=== PATIENT | female | born 1950 | race Caucasian/White ===

== ENCOUNTER 2019-08-23 14:26 | Inpatient (IN) | payer MEDICARE, MEDICAID, SELFPAY ==
[2019-08-23] VITALS (11 sets, daily range): BP systolic 125–169; BP diastolic 38–86; PULSE 68–78; RESP 14–18; TEMP 36.3–37.2; O2SAT 95–100; BMI 45.3
--- NOTE | 2019-08-23 14:27 | ED_ITS ---
Entered by Leola Mccain, acting as scribe for Jackson Wilcox DO HPI - Extremity Injury (Lower) General: Chief Complaint: Extremity Injury, Lower Stated Complaint: FALL, ANKLE PAIN Time Seen by Provider: 08/23/19 14:27 Source: patient and EMS Mode of arrival: EMS Limitations: no limitations History of Present Illness: HPI Narrative: 69 yo female presents with R ankle pain. pt states this occurred just lpta. pt states she was picking up trash and her legs gave out and she went down. pt states nothing makes this better. pt denies any other symptoms at this time. complaint: ankle injury, foot injury and fall Onset (ago): minute(s) (just lpta) Injury: Right: ankle and foot Type of Injury: other (fell and twisted ankle) Place: home Severity: mild Exacerbating factors: weight bearing Context: fall and walking Other symptoms: none Review of Systems General: Reports: 10 or more systems reviewed and unremarkable except in HPI and below Const: Denies: fever, chills, body aches, change in appetite, fatigue or malaise ENMT: Denies: throat pain, ear pain, nasal discharge or nasal congestion Card: Denies: chest pain, edema, shortness of breath on exertion or shortness of breath when lying down Resp: Denies: shortness of breath, productive cough or non-productive cough GI: Denies: abdominal pain, nausea, vomiting, vomiting blood, coffee grounds in vomit, diarrhea, constipation, bloating, blood in stool or black tarry stool : Denies: flank pain, difficulty urinating, painful urination, urinary frequency or urinary urgency Skin/Breast: Denies: rash or itching PFSH ED PFSH: Medical History (Updated 08/23/19 @ 17:23 by Jackson Wilcox DO) Cerebrovascular accident Chronic kidney disease Coronary artery disease Depression Diabetes Heart murmur Hyperlipidemia Hypertension Obesity Restless leg syndrome Surgical History (Updated 08/23/19 @ 15:53 by Soren Guo MD) History of cholecystectomy History of hernia repair History of tubal ligation Family History (Updated 08/23/19 @ 15:53 by Soren Guo MD) Other Diabetes Social History (Updated 08/23/19 @ 15:53 by Soren Guo MD) Smoking and tobacco status: never smoked Alcohol intake: never Substance/Drug Use: never Physical Exam Const: COMMON NORMALS: no apparent distress GENERAL APPEARANCE: cooperative and comfortable ORIENTATION/CONSCIOUSNESS: Yes awake, Yes oriented to person, Yes oriented to place and Yes oriented to time HENMT: COMMON NORMALS: normocephalic, head/scalp atraumatic, hearing grossly normal bilaterally, external ears normal, EAC's normal, TM's normal bilaterally, nasal mucous membranes and turbinates normal, moist oral mucous membranes and oropharynx normal HEAD & SCALP: normocephalic and atraumatic NOSE: nasal mucous membranes and turbinates normal EXTERNAL EAR: Yes external ears normal EXTERNAL AUDITORY CANAL: EAC's normal TYMPANIC MEMBRANE: TM's normal bilaterally Eye: COMMON NORMALS: PERRL, EOMs intact bilaterally, conjunctivae normal and no scleral icterus CONJUNCTIVA: Yes conjunctivae normal PUPIL: Yes PERRL Neck/C-Spine: COMMON NORMALS: full ROM, no lymphadenopathy, supple and no JVD Lymph: LYMPHATIC: no lymphadenopathy noted and no lymphedema noted Resp: COMMON NORMALS: normal respiratory effort, no retractions, no use of accessory muscles and clear to auscultation bilaterally AUSCULTATION: clear to auscultation bilaterally Cardio: COMMON NORMALS: no JVD, regular rate and regular rhythm RATE: regular rate RHYTHM: regular rhythm HEART SOUNDS: murmur (4/6 systolic ) GI: COMMON NORMALS: soft to palpation and no hepatosplenomegaly AUSCULTATION: Yes normoactive bowel sounds PALPATION: Yes soft, No tender, No guarding and Yes no hepatosplenomegaly Extremity: OTHER: Obvious deformity of the right ankle consistent with fracture seen on x-ray. Neuro: SENSORIUM/ORIENTATION: Yes oriented to person, Yes oriented to place and Yes oriented to time Skin: COMMON NORMALS: no rashes or lesions noted GENERAL SKIN EXAM: no rashes or lesions noted Procedures Orthopedic Fracture Reduction Fracture #1: Time Out Performed: Yes Side: right Analgesia: procedural sedation Technique: direct manipulation Post Reduction X-rays Demonstrate: anatomical reduction Post-reduction neuro exam: intact Post-reduction vascular exam: intact Splint Applied: Yes Patient Tolerated Procedure: well and no complications Additional Comments: Right trimalleolar fracture reduced without complications postop film looks good in the splint. Procedural Sedation Indication: fracture/dislocation reduction Preparation: hurricane tracker applied, pulse oximeter and supplemental O2 applied Fentanyl: IV Fentanyl dose (mcg): 50 IV Etomidate dose (mg): 10 Patient Tolerated Procedure: well and no complications Complications: none Course ED course: I called and talked to Dr. Stock about admission on the pt she will consult on the pt with hospitalist admission. I called Dr. Guo on admission left a message waiting for a call back. Vital Signs: Vital signs: Vital Signs Temperature 97.9 F 08/23/19 17:05 Pulse Rate 68 08/23/19 17:08 Respiratory Rate 18 08/23/19 17:08 Blood Pressure 145/84 08/23/19 17:05 Pulse Oximetry 95 08/23/19 17:08 MDM - Extremity Injury (Lower) Lab Data: Labs: Lab Results 08/23/19 08/23/19 08/23/19 Range/Units 15:16 15:16 15:16 WBC 9.4 (4.0-10.0) 10^3/ uL RBC 3.95 L (4.1-5.3) 10^6/u L Hgb 12.0 (11.5-15.3) g/dL Hct 36.5 L (37.0-47.0) % MCV 92.4 (81-99) fL MCH 30.4 (28.0-34.0) pg MCHC 32.9 (30.0-36.0) g/dL RDW 12.8 (12.1-15.1) % Plt Count 236 (130-400) 10^3/c mm MPV 11.7 H (7.4-10.4) fL Neut % (Auto) 64.0 % Lymph % (Auto) 28.6 % Slope % (Auto) 5.0 % Eos % (Auto) 1.6 % Baso % (Auto) 0.4 % Neut # (Auto) 6.0 (1.8-7.7) 10^3/u L Lymph # (Auto) 2.7 (0.8-4.8) 10^3/u L Slope # (Auto) 0.5 (0.2-0.9) 10^3/u L Eos # (Auto) 0.2 (0.0-0.8) 10^3/u L Baso # (Auto) 0.0 (0.0-0.1) 10^3/u L Nucleated RBC % (a uto) 0 % Nucleated RBCs # 0.0 /100WBC PT 12.60 (10.5-13.3) SECO NDS INR 0.95 (0.8-1.2) APTT 25.8 (23.9-36.7) SECO NDS Sodium 139 (136-145) mmol/L Potassium 4.6 (3.5-5.1) mmol/L Chloride 102 (98-107) mmol/L Carbon Dioxide 24 (22-29) mmol/L Anion Gap 17.6 (5-19) BUN 29 H (8-23) mg/dL Creatinine 1.3 H (0.5-0.9) mg/dL GFR Calculation 40.6 L (90-130) mL/min Glucose 169 H (65-115) mg/dL Calcium 9.7 (8.5-10.5) mg/dL Total Bilirubin 0.3 (0.15-1.2) mg/dL AST 13 (0-32) U/L ALT 17 (0-33) U/L Alkaline Phosphata se 99 (35-105) IU/L Total Protein 6.8 (6.6-8.7) g/dL Albumin 3.7 (3.5-5.2) g/dL Globulin 3.1 (1.3-4.6) g/dL TSH (0.27-4.20) uIU/ mL 08/23/19 Range/Units 15:16 WBC (4.0-10.0) 10^3/ uL RBC (4.1-5.3) 10^6/u L Hgb (11.5-15.3) g/dL Hct (37.0-47.0) % MCV (81-99) fL MCH (28.0-34.0) pg MCHC (30.0-36.0) g/dL RDW (12.1-15.1) % Plt Count (130-400) 10^3/c mm MPV (7.4-10.4) fL Neut % (Auto) % Lymph % (Auto) % Slope % (Auto) % Eos % (Auto) % Baso % (Auto) % Neut # (Auto) (1.8-7.7) 10^3/u L Lymph # (Auto) (0.8-4.8) 10^3/u L Slope # (Auto) (0.2-0.9) 10^3/u L Eos # (Auto) (0.0-0.8) 10^3/u L Baso # (Auto) (0.0-0.1) 10^3/u L Nucleated RBC % (a uto) % Nucleated RBCs # /100WBC PT (10.5-13.3) SECO NDS INR (0.8-1.2) APTT (23.9-36.7) SECO NDS Sodium (136-145) mmol/L Potassium (3.5-5.1) mmol/L Chloride (98-107) mmol/L Carbon Dioxide (22-29) mmol/L Anion Gap (5-19) BUN (8-23) mg/dL Creatinine (0.5-0.9) mg/dL GFR Calculation (90-130) mL/min Glucose (65-115) mg/dL Calcium (8.5-10.5) mg/dL Total Bilirubin (0.15-1.2) mg/dL AST (0-32) U/L ALT (0-33) U/L Alkaline Phosphata se (35-105) IU/L Total Protein (6.6-8.7) g/dL Albumin (3.5-5.2) g/dL Globulin (1.3-4.6) g/dL TSH 1.96 (0.27-4.20) uIU/ mL Discharge Plan Discharge Admit Provider: Soren Guo Clinical Impression: Closed trimalleolar fracture of ankle Condition: Stable Interventions: ED Discharge Assessment Last Done: 08/23/19 16:47 Discharge Date/Time: 08/23/19 16:48 Coding Level of Care Code ED Director Of In Service Education for Chg Fwd Exam Comprehensive The documentation recorded by the Adán hannon Bridget Annette, accurately reflects the service I personally performed and the decisions made by Jeri ríos Curtis L, DO Aug 23, 2019 14:26
--- NOTE | 2019-08-23 14:32 | XRR_ITS ---
PROCEDURE INFORMATION: Exam: XR Right Ankle Exam date and time: 08/23/2019 3:02 PM Age: 69 years old Clinical indication: Injury or trauma; Fall; Initial encounter; Blunt trauma; Ankle; Right; Injury date: 08/23/19; Injury details: Fell today, foot turned out; Patient HX: Best images possible TECHNIQUE: Imaging protocol: XR Right ankle. Views: 1 or 2 views. COMPARISON: No relevant prior studies available. FINDINGS: Bones/joints: Acute displaced fracture of distal fibular shaft. Displaced medial malleolar base fracture. Ankle mortise disruption. Distal tibia is displaced anteriorly with respect to talar dome. Soft tissues: Mild soft tissue swelling. XR/XR ankle RT 2V [id number] IMPRESSION: Ankle fracture dislocation.
--- NOTE | 2019-08-23 14:33 | XRR_ITS ---
PROCEDURE INFORMATION: Exam: XR Right Foot Exam date and time: 08/23/2019 3:01 PM Age: 69 years old Clinical indication: Injury or trauma; Fall; Initial encounter; Blunt trauma; Foot; Right; Injury date: 08/23/19 TECHNIQUE: Imaging protocol: XR Right foot. Views: 1 or 2 views. COMPARISON: No relevant prior studies available. FINDINGS: Bones/joints: Chronic hallux valgus deformity with probable overlying bunion. Small 3 mm inferior heel spur. Acute ankle fracture dislocation. Soft tissues: Normal. XR/XR foot RT 2V [id number] IMPRESSION: No acute foot findings. Acute ankle fracture dislocation.
--- NOTE | 2019-08-23 15:04 | XRR_ITS ---
PROCEDURE INFORMATION: Exam: XR Chest, 1 View Exam date and time: 08/23/2019 3:15 PM Age: 69 years old Clinical indication: Pre-operative exam; Cardiovascular screening and respiratory screening exam; Patient HX: Ankle fracture, no chest complaints per patient; Additional info: Dyspnea/cough TECHNIQUE: Imaging protocol: XR of the chest Views: 1 view. COMPARISON: CR Chest 1 [place] [id number] 07/10/2017 2:27 PM FINDINGS: Lungs: Unremarkable. No consolidation. Pleural space: Unremarkable. No pleural effusion. No pneumothorax. Heart/Mediastinum: Unremarkable. No cardiomegaly. Bones/joints: Unremarkable. XR/XR chest 1V portable [id number] IMPRESSION: No acute findings.
--- NOTE | 2019-08-23 15:04 | ECG_ITS ---
Measurements Intervals [place] Rate: 68 P: -38 CT: 141 QRS: 0 QRSD: 89 T: -58 QT: 375 QTc: 399 SINUS RHYTHM MODERATE T-WAVE ABNORMALITY, CONSIDER LATERAL ISCHEMIA [-0.1+ mV T WAVE IN I/ I/aVL/V5/V6] Compared to ECG 07/10/2017 14:27:53 T-wave abnormality now present Possible ischemia now present Electronically Signed On 08-23-2019 15:33:38 FERTILIZER APPLICATOR by Miriam Arnold M.D. [email or web address]
[2019-08-23 15:34] LABS: Basophils % 0.4 %; Eosinophils # 0.2 10^3/uL (0.0-0.8); Eosinophils % 1.6 %; Hematocrit 36.5 % (37.0-47.0); Lymphocytes # 2.7 10^3/uL (0.8-4.8); Lymphocytes % 28.6 %; Mean Corpuscular HGB Conc 32.9 g/dL (30.0-36.0); Mean Corpuscular Hemoglobin 30.4 pg (28.0-34.0); Mean Corpuscular Volume 92.4 fL (81-99); Mean Platelet Volume 11.7 fL (7.4-10.4); Monocytes # 0.5 10^3/uL (0.2-0.9); Nucleated Red Blood Cells % 0 %; Platelet Count 236 10^3/cmm (130-400); Red Blood Count 3.95 10^6/uL (4.1-5.3); Red Cell Distribution Width 12.8 % (12.1-15.1); White Blood Count 9.4 10^3/uL (4.0-10.0)
[2019-08-23 15:39] LABS: Alanine Aminotransferase 17 U/L (0-33); Albumin Level 3.7 g/dL (3.5-5.2); Alkaline Phosphatase 99 IU/L (35-105); Anion Gap 17.6 (5-19); Aspartate Amino Transferase 13 U/L (0-32); Blood Urea Nitrogen 29 mg/dL (8-23); Calcium 9.7 mg/dL (8.5-10.5); Carbon Dioxide 24 mmol/L (22-29); Chloride 102 mmol/L (98-107); Globulin 3.1 g/dL (1.3-4.6); Glomerular Filtration Rate 40.6 mL/min (90-130); Glucose 169 mg/dL (65-115); Potassium 4.6 mmol/L (3.5-5.1); Sodium 139 mmol/L (136-145); Total Bilirubin 0.3 mg/dL (0.15-1.2); Total Protein 6.8 g/dL (6.6-8.7)
[2019-08-23 15:42] LABS: INR 0.95 (0.8-1.2); Partial Thromboplastin Time 25.8 SECONDS (23.9-36.7)
--- NOTE | 2019-08-23 15:50 | P.HP_ITS ---
Providers/Chief Complaint Primary Care Provider: Juan José Humphrey Chief Complaint: FALL, ANKLE PAIN History of Present Illness Lynnette Ferreira is a 69 year old female that presents after a fall. She reported she had immediate right lower extremity pain, below the knee. She denies any other injuries. She reports no loss of consciousness. She reports her knee just gave out. She reports no chest discomfort. She reports distant history of heart disease with an TN in 1999 but no intervention needed. She reports no issues with anesthesia. She denies any history of lung disease. Review of Systems General: Reports: 10 or more systems reviewed and unremarkable except in HPI and below Const: Denies: fever Eyes: Denies: blurry vision ENMT: Denies: throat pain Card: Denies: chest pain Resp: Denies: shortness of breath GI: Denies: abdominal pain : Denies: painful urination Musc: Reports: joint pain and joint swelling; Denies: neck pain Skin/Breast: Denies: rash Neuro: Denies: headache Psych: Reports: depression; Denies: anxiety Endo: Denies: excessive thirst Prince/Lymph: Denies: easy bruising All/Imm: Denies: hives Medications/Allergies Allergies Allergy/AdvReac Type Severity Reaction Status Date / Time codeine Allergy Unknown Verified 08/23/19 14:37 sulfamethoxazole Allergy Unknown Verified 08/23/19 14:37 [From Bactrim] trimethoprim [From Bactrim] Allergy Unknown Verified 08/23/19 14:37 PFSH Acute PFSH: Medical History (Updated 08/23/19 @ 16:09 by Soren Guo MD) Cerebrovascular accident Chronic kidney disease Coronary artery disease Depression Diabetes Heart murmur Hyperlipidemia Hypertension Obesity Restless leg syndrome Surgical History (Updated 08/23/19 @ 15:53 by Soren Guo MD) History of cholecystectomy History of hernia repair History of tubal ligation Family History (Updated 08/23/19 @ 15:53 by Soren Guo MD) Other Diabetes Social History (Updated 08/23/19 @ 15:53 by Soren Guo MD) Smoking and tobacco status: never smoked Alcohol intake: never Substance/Drug Use: never Vitals/I&O/Wt Last Vital Signs Temp 97.4 F L 08/23/19 14:31 Pulse 69 08/23/19 15:32 Resp 18 08/23/19 14:31 BP 148/67 08/23/19 15:32 Pulse Ox 96 08/23/19 15:32 Weight last 48 hrs Weight 105.233 kg Physical Exam Narrative: EXAM NARRATIVE: General exam demonstrates a white female, convers ant, reporting pain in her right ankle HEENT: Pupils equally round. Oropharynx clear. No significant dentition. Neck is supple no lymphadenopathy or thyromegaly Cardiovascular regular rate and rhythm with a 3 of a 6 systolic murmur heard best in the aortic area. No S3 or S4. Lungs clear no wheezing or crackles Abdomen is soft obese nontender with no obvious organomegaly was deferred Extremities no cyanosis clubbing or edema. Right ankle is obviously deformed. Cap refill less than 2 seconds. Skin no rash Neuro no obvious focal deficits although patient reports she has slight right hemiparesis and paresthesia from previous CVA. Data : 08/23/19 15:16 08/23/19 15:16 Other data: Chest x-ray reviewed demonstrates some atherosclerotic changes, no infiltrate. EKG demonstrates sinus rhythm, normal axis, flipped T waves laterally. CBC, CMP, urinalysis pending Ankle x-ray demonstrates distal fibula and tibia fracture A&P Assessment and plan (1) Fracture of distal end of tibia with fibula: This will be reduced in the emergency department. Orthopedic consultation No direct contraindications to surgery. Does have significant heart murmur, so echocardiogram will be obtained. Status: Acute Code(s): S82.309A - Unspecified fracture of lower end of unspecified tibia, initial encounter for closed fracture; S82.839A - Other fracture of upper and lower end of unspecified fibula, initial encounter for closed fracture (2) Heart murmur: Check echocardiogram Status: Acute Code(s): R01.1 - Cardiac murmur, unspecified Additional A&P Information Fall from standing position. Denies any other injuries Type 2 diabetes, sliding scale insulin Hypertension, will continue home medications Hyperlipidemia History of CVA, hold Plavix initially but will restart after surgery Coronary artery disease with no previous history of intervention Restless leg syndrome History of chronic kidney disease Multiple other medical problems as listed in the past medical history Check urinalysis SCDs for DVT prophylaxis Hold anticoagulation until after surgery Attestations Medical Necessity Statement*: Will need greater than 2 midnight stay for evaluation and treatment of distal ankle fracture Time Spent in Patient Care: Greater than 35 minutes Coding Level of Care Code Acute Recreation Aide for Chg Fwd Diagnoses Fracture of distal end of tibia with fibula S82.309A; S82.839A Heart murmur R01.1
[2019-08-23] MEDS: fentaNYL 50 mcg/mL INJ 2mL IVP (16:15)
--- NOTE | 2019-08-23 16:25 | XRR_ITS ---
PROCEDURE INFORMATION: Exam: XR Right Ankle Exam date and time: 08/23/2019 4:35 PM Age: 69 years old Clinical indication: Condition or disease; Other: Post reduction R ankle TECHNIQUE: Imaging protocol: XR Right ankle. Views: 1 or 2 views. COMPARISON: CR XR ankle RT 2V [id number] 08/23/2019 2:45 PM FINDINGS: Bones/joints: The distal fibular shaft and medial malleolar fractures appear reduced. Anterior tibial dislocation is reduced. Soft tissues: Posterior splint in place. XR/XR ankle RT 2V [id number] IMPRESSION: The distal fibular shaft and medial malleolar fractures appear reduced. Anterior tibial dislocation is reduced.
[2019-08-23 16:30] LABS: Thyroid Stimulating Hormone 1.96 uIU/mL (0.27-4.20)
--- NOTE | 2019-08-23 17:05 | USCV_ITS ---
Lynnette Ferreira Age: 69 Gender: F : 1950 Exam Date: 08/23/2019 19:51 Ordering Phys: Soren Guo MD Technologist: Valentine Guo Exam Location: [facility] [place] Indication: murmur BP: / HR: 89 Rhythm: Sinus Technical Quality: Adequate MEASUREMENTS (Male / Female) Normal Values 2D ECHO LV Diastolic Diameter PLAX 2.7 cm 4.2 - 5.9 / 3.9 - 5.3 cm LV Systolic Diameter PLAX 2.5 cm LV Chamber Size 3.6 cm IVS Diastolic Thickness 1.5 cm 0.6 - 1.0 / 0.6 - 0.9 cm IVS Systolic Thickness 1.7 cm LVPW Diastolic Thickness 2.2 cm 0.6 - 1.0 / 0.6 - 0.9 cm LVPW Systolic Thickness 4.6 cm RV Chamber Size 1.7 cm LVOT Diameter 2.0 cm LV Ejection Fraction 2D Teich 19.1 % LV Ejection Fraction MOD 2C 70.3 % LV Ejection Fraction 2C AL 70.5 % LA Diameter 4.3 cm LA Width 2.9 cm LA Height 3.1 cm RA Width 2.5 cm RA Height 3.0 cm M-MODE LV Diastolic Diameter MM 3.0 cm 4.2 - 5.9 / 3.9 - 5.3 cm LV Systolic Diameter MM 1.1 cm LV Ejection Fraction MM Teich 92.6 % IVS Diastolic Thickness MM 0.8 cm 0.6 - 1.0 / 0.6 - 0.9 cm IVS Systolic Thickness MM 1.1 cm LVPW Diastolic Thickness MM 1.1 cm 0.6 - 1.0 / 0.6 - 0.9 cm LVPW Systolic Thickness MM 1.4 cm Aortic Annulus Diameter 2.9 cm LA Ao Ratio MM 1.5 MV E Point Septal Separation 0.5 cm DOPPLER AV Peak Velocity 219.0 cm/s LVOT Peak Velocity 116.0 cm/s AV Area Cont Eq vti 1.8 cm squared AV Area Cont Eq pk 1.7 cm squared MV Area PHT 2.6 cm squared Mitral E to A Ratio 0.9 MV E' Velocity 12.0 cm/s Mitral E to MV E' Ratio 10.6 Mitral E to LV E' Lateral Ratio 9.4 Mitral E to LV E' Septal Ratio 12.3 TR Peak Velocity 256.0 cm/s TR Peak Gradient 26.3 mmHg TV Peak E Velocity 64.0 cm/s Right Atrial Pressure 3.0 mmHg Pulmonary Artery Systolic Pressu 29.2 mmHg PV Peak Velocity 88.0 cm/s RV Acceleration Time 0.1 s RV Ejection Time 0.3 s RV AcT/ET 0.4 FINDINGS Left Ventricle Severe left ventricular hypertrophy. No regional wall motion abnormalities. Left ventricular ejection fraction is estimated at 80%. Grade I/IV diastolic dysfunction (abnormal relaxation filling pattern), normal to mildly elevated filling pressures. Right Ventricle Normal right ventricular size and systolic function. Right Atrium Normal right atrial size. Left Atrium Mildly increased left atrial size. Mitral Valve Thickened mitral valve. Moderate mitral annular calcification. Aortic Valve Thickened aortic valve. Moderate aortic valve calcification. Features of aortic valve sclerosis Tricuspid Valve Mild tricuspid valve regurgitation. Estimated pulmonary artery peak systolic pressure of 29 mmHg Pulmonic Valve Pulmonic valve not well visualized. Pericardium No pericardial effusion. Aorta Plaque seen in the ascending aorta. CONCLUSIONS Severe left ventricular hypertrophy. No regional wall motion abnormalities. Left ventricular ejection fraction is estimated at 80%. Grade I/IV diastolic dysfunction (abnormal relaxation filling pattern), normal to mildly elevated filling pressures. There appears to be some LV mid cavity contraction Mildly increased left atrial size. Thickened aortic valve. Moderate aortic valve calcification. Features of aortic valve sclerosis. Mild tricuspid valve regurgitation. Estimated pulmonary artery peak systolic pressure of 29 mmHg Compared to the previous study from 03/21/2017, there may not be a significant change Dr Serafin Perston MD [facility] (Electronically Signed) Final Date: 24 August 2019 10:03 S
[2019-08-23 17:26] LABS: Glucose Point of Care 151 mg/dL (70-110)
[2019-08-23] MEDS: pregabalin 75 mg Capsule PO (18:01)
[2019-08-23] MEDS: sodium chloride 0.9% 1,000 ML 75 ML IV (18:50)
--- NOTE | 2019-08-23 19:00 | PC.NURSE ---
Introduction of staff and report received, aidet.
[2019-08-23 20:49] LABS: Glucose Point of Care 258 mg/dL (70-110)
[2019-08-23] MEDS: ropinirole 0.25 mg Tablet 0.5 MG PO (20:52)
[2019-08-23] MEDS: sennosides 8.6 mg Tablet 17.2 MG PO (20:52)
[2019-08-23] MEDS: morphine 4 mg/mL SDV 1 mL 2 MG IVP (22:05)
[2019-08-23 22:35] LABS: Bilirubin Urine Neg (NEGATIVE); Blood Urine Neg (Negative); Glucose Urine UA 1+ (Normal); Ketones Urine Negative (Negative); Leukocyte Esterase Urine Negative (Negative); Nitrate Urine Negative (Negative); Protein Urine 2+ (Negative); Urine Appearance SL Hazy (CLEAR); Urine Color Yellow (Yellow); Urobilinogen Urine Norm (Negative); pH Urine 5 (5-7)
[2019-08-23 22:36] LABS: Add Urine Microscopic? YES
[2019-08-23 22:41] LABS: Bacteria Urine 3+; Hyaline Casts Urine 0-4; RBC Urine 0-4 /hpf (0-2); Squamous Epithelial Cell Urine 0-4 (0-5)
[2019-08-24] VITALS (26 sets, daily range): BP systolic 93–134; BP diastolic 52–85; PULSE 71–83; RESP 10–20; TEMP 36.1–37; O2SAT 93–100
--- NOTE | 2019-08-24 | SCC_ITS ---
Procedure Done: Reduction internal fixation trimalleolar ankle fracture with 7 hole fibular plate to the distal fibula and syndesmotic fixation utilizing the Arthrex tight rope 159.2 seconds of fluoroscopic guidance, for a cumulative dose of 4.14 mGy, was provided to Dr. Stock by the radiology department. C-arm images of the RIGHT ankle were saved for the patient's permanent record. [facility]
--- NOTE | 2019-08-24 | XR_ITS ---
WS: [id number] C-ARM RADIOGRAPHS RIGHT ANKLE; 4 IMAGES HISTORY: OR PICS COMPARISON: 08/23/2019 Intraoperative imaging during plate and screw fixation of a distal fibular fracture in good alignment . Ankle mortise widening has been reduced. There is a syndesmosis screw with button. XR/XR ankle RT min 3V* [id number] IMPRESSION: 1. Plate and screw fixation distal fibular fracture in good alignment. 2. Syndesmosis fixation with reduction of the ankle mortise widening.
[2019-08-24] MEDS: oxyCODONE 5 mg IR Tab/Cap PO (04:40)
[2019-08-24 05:15] LABS: Basophils % 0.4 %; Eosinophils # 0.2 10^3/uL (0.0-0.8); Hematocrit 37.7 % (37.0-47.0); Lymphocytes # 3.2 10^3/uL (0.8-4.8); Lymphocytes % 30.1 %; Mean Corpuscular HGB Conc 31.8 g/dL (30.0-36.0); Mean Corpuscular Hemoglobin 31.2 pg (28.0-34.0); Mean Corpuscular Volume 97.9 fL (81-99); Mean Platelet Volume 11.6 fL (7.4-10.4); Monocytes # 0.7 10^3/uL (0.2-0.9); Monocytes % 6.6 %; Neutrophils # 6.5 10^3/uL (1.8-7.7); Neutrophils % 60.5 %; Nucleated Red Blood Cells % 0 %; Platelet Count 201 10^3/cmm (130-400); Red Blood Count 3.85 10^6/uL (4.1-5.3); Red Cell Distribution Width 12.8 % (12.1-15.1); White Blood Count 10.7 10^3/uL (4.0-10.0)
[2019-08-24 06:46] LABS: Glucose Point of Care 106 mg/dL (70-110)
[2019-08-24] MEDS: venlafaxine ER (24HR) 150 mg Capsule PO (08:42)
[2019-08-24] MEDS: dilTIAZem ER (24HR) 240 mg Capsule PO (08:42)
[2019-08-24] MEDS: lisinopril 5 mg Tablet PO (08:42)
[2019-08-24] MEDS: atorvastatin 40 mg Tablet 20 MG PO (08:42)
[2019-08-24 09:07] LABS: Anion Gap 16.4 (5-19); Blood Urea Nitrogen 28 mg/dL (8-23); Calcium 9.1 mg/dL (8.5-10.5); Carbon Dioxide 23 mmol/L (22-29); Chloride 105 mmol/L (98-107); Glomerular Filtration Rate 49.2 mL/min (90-130); Glucose 120 mg/dL (65-115); Osmolality Calculated 288 mOsm/kg (285-295); Potassium 4.4 mmol/L (3.5-5.1); Sodium 140 mmol/L (136-145)
--- NOTE | 2019-08-24 09:15 | PC.CHAP ---
Pastoral Care Encounter/Spiritual Assessment Type of Contact [] Declined recruiting administrator visit [] Patient/Family/Request visit [] Outpatient visit [] Follow-up visit [] Physician referral [] Code/Alert [x] Routine visit [] Staff referral [] Actively dying [] Patient sleeping [] Family support [] [] Out of room [] Palliative care [] [] Receiving care in room [] Pre-surgical visit [] Trauma [] Long length of stay [] ICU visit [] Other: Relational/Emotional Strength [x] Patient feels connected with others/family/visitors/staff [] Distress [] Loneliness/isolation [] Abandonment Spirituality of Patient [x] Person of Jennifer [x] Attends Anabaptism of their Jennifer [x] Believes in Prayer [] Reads Bible or Mandaeism materials [] There are Spiritual issues to be addressed Frame Fixer Interventions [x] Prayer [x] Active listening [x] Non-anxious presence [x] Spiritual/emotional support [] Crisis/trauma care [] Spiritual counseling [] Bereavement support [] Provided bereavement packet [] Provided Bible/devotional materials [] Provided toy/stuffed animal, coloring book to patient or family member [] Provided Communion [] Anointing/[place] [] Salvation [x] Completed spiritual assessment [] Other: Impact on Illness or Injury [] Angry [] Fearful [] Anxious [] Often cries [] Exhaustion [] Unable to work [] Unable to attend sikh [] Unable to walk/stand [] Unable to read [] Unable to drive [] Unable to eat/drink [] Unable to sleep [] Unable to be with family [] Patient intubated [] Other: Summary patient says lots of pain Time spent with patient 10 min 3 visitors
[2019-08-24 10:20] LABS: Glucose Point of Care 105 mg/dL (70-110)
--- NOTE | 2019-08-24 10:50 | PM.CONSULT ---
Providers/Reason For Consult Consulting Physican/Specialty*: Orthopedics Reason for Consult*: Right ankle fracture dislocation Requesting Physcian: Dr. Wilcox?emergency department; Dr. Guo?hospitalist Attending Physician: Soren Guo MD Primary Care Provider: Juan José Humphrey History of Present Illness History of Present Illness Lynnette Ferreira is a 69 year old female who was in her usual state of health at home when she leaned over her chair to curing pickling packer some small pieces of paper that her granddaughter had punched onto the floor. She lost her balance, grabbed the arm of the chair, but her knee gave out and she fell to the floor. She had immediate onset of pain in the right lower extremity. The patient notes that previously, she had a CVA. Prior to this injury, she notes she was unable to move the toes on this foot. Additionally, she complains of neuropathy and inability to feel light touch. It was discussed with the patient that she would require an open reduction internal fixation and possibly an external fixator if her swelling is too great to allow primary open plate fixation. Review of Systems Const: Denies: fever or chills Eyes: Denies: change in vision Card: Denies: chest pain or shortness of breath on exertion Resp: Denies: shortness of breath or productive cough GI: Denies: abdominal pain Musc: Reports: muscle weakness and other (Patient uses a walker for ambulation secondary to CVA) Skin/Breast: Denies: redness or changes in skin color Neuro: Reports: numbness in extremities, weakness in extremities and difficulty walking (Right lower extremity secondary to stroke secondary to CVA) Psych: Reports: depression Prince/Lymph: Denies: easy bruising or easy bleeding Meds/Allergies Home Medications and Allergies Home Medications Medication Instructions Recorded Confirmed Type clopidogrel 75 mg PO DAILY 08/23/19 08/23/19 History diltiazem HCl [DILT-XR] 240 mg PO DAILY 08/23/19 08/23/19 History hydrocodone-acetaminophen 1 tab PO Q6H PRN 08/23/19 08/23/19 History lisinopril 5 mg PO DAILY 08/23/19 08/23/19 History metformin 500 mg PO BID 08/23/19 08/23/19 History mirabegron [Myrbetriq] 25 mg PO DAILY 08/23/19 08/23/19 History pravastatin 10 mg PO DAILY 08/23/19 08/23/19 History pregabalin 75 mg PO BID 08/23/19 08/23/19 History ropinirole 0.5 mg PO BEDTIME 08/23/19 08/23/19 History trazodone 100 mg PO BEDTIME 08/23/19 08/23/19 History venlafaxine 150 mg PO DAILY 08/23/19 08/23/19 History Allergies Allergy/AdvReac Type Severity Reaction Status Date / Time codeine Allergy Unknown Verified 08/23/19 14:37 sulfamethoxazole Allergy Unknown Verified 08/23/19 14:37 [From Bactrim] trimethoprim [From Bactrim] Allergy Unknown Verified 08/23/19 14:37 Current Medications Current Medications Generic Name Dose Route Start Last Admin Trade Name Freq PRN Reason Stop Dose Admin Atorvastatin Calcium 20 mg 08/24/19 09:00 08/24/19 08:42 Lipitor PO 20 mg DAILY MOHAMUD Administration Diltiazem HCl 240 mg 08/24/19 09:00 08/24/19 08:42 Cardizem Cd (24hr) PO 240 mg DAILY MOHAMUD Administration Lisinopril 5 mg 08/24/19 09:00 08/24/19 08:42 Prinivil PO 5 mg DAILY MOHAMUD Administration Venlafaxine HCl 150 mg 08/24/19 09:00 08/24/19 08:42 Effexor Xr PO 150 mg DAILY MOHAMUD Administration PFSH Acute PFSH: Medical History Cerebrovascular accident Chronic kidney disease Coronary artery disease Depression Diabetes Heart murmur Hyperlipidemia Hypertension Obesity Restless leg syndrome Surgical History History of cholecystectomy History of hernia repair History of tubal ligation Family History Other Diabetes Social History Smoking and tobacco status: never smoked Alcohol intake: never Substance/Drug Use: never Vitals/I&O/Wt Last Vital Signs Temp 98.6 F 08/24/19 10:39 Pulse 81 08/24/19 10:39 Resp 18 08/24/19 10:39 BP 127/76 08/24/19 10:39 Pulse Ox 99 08/24/19 10:39 08/23/19 08/24/19 08/24/19 22:59 06:59 14:59 Intake Total 165 / 165 676.25 / 841.25 Output Total 60 / 60 750 / 810 200 / 200 Balance 105 / 105 -73.75 / 31.25 -200 / -200 Weight last 48 hrs Weight 236 lb 4 oz Weight 232 lb Physical Exam Narrative: EXAM NARRATIVE: The patient is resting comfortably in bed. She does have a splint on the right ankle. Const: COMMON NORMALS: no apparent distress, oriented x3 and alert GENERAL APPEARANCE: cooperative and comfortable ORIENTATION/CONSCIOUSNESS: Yes awake HENMT: COMMON NORMALS: normocephalic and head/scalp atraumatic HEAD & SCALP: normocephalic and atraumatic Eye: GENERAL EYE: normal appearance of both eyes Chest: COMMONS NORMALS: inspection of chest normal Resp: COMMON NORMALS: normal respiratory effort EFFORT & INSPECTION: Yes able to speak in complete sentences and Yes symmetric chest movement Extremity: RIGHT LOWER EXTREMITY: Yes ankle joint Right ankle: Yes inspection (Splint is in place), Yes palpation (Pain with palpation), Yes ROM (Not tested secondary to fracture) and Yes neurovascular exam (Unable to move her toes or feel light touch due to prior CVA) Neuro: COMMON NORMALS: oriented x3 SENSORIUM/ORIENTATION: Yes alert Psych: COMMON NORMALS: mental status grossly normal APPEARANCE: Yes grossly normal ATTITUDE: Yes calm and Yes engaged ATTENTION/CONCENTRATION: Yes attention grossly intact Skin: COMMON NORMALS: no rashes or lesions noted GENERAL SKIN EXAM: no rashes or lesions noted Urinary Catheter Management^: Albert: Cath Placed During This Visit: yes Urethral Indwelling: Yes Reason for Continuing Indwelling Catheter: Required Immobilization for Trauma or Surgery or Anesthesia Urinary Catheter Date of Insertion: 08/23/19 Urinary Catheter Time of Insertion: 22:10 Data Labs: Other Labs: UA demonstrates 3+ bacteria with no white cells and negative leukocyte Estrace Imaging^: Right ankle pre-and post reduction: I personally reviewed and interpreted this imaging study as follows: My impression: Both pre-and post reduction x-rays are reviewed. There is a high fibula fracture. On the postreduction films, there is a posterior malleolar fracture as well. There appears to be a medial malleolar fracture which is more a avulsion rather than true fracture, although imaging is compromised as there are only 2 views of the ankle. A&P Assessment and plan (1) Closed trimalleolar fracture of ankle: Discussion is undertaken with the patient regarding her fracture and the need for fixation. I am concerned that with her obesity as well as her diabetes, we may be unable to proceed with direct open reduction internal fixation. I reviewed the x-rays and there is indeed a trimalleolar ankle fracture. This is only visible on the lateral postreduction imaging. The patient understands that she may require an external fixator as opposed to the immediate open reduction internal fixation. She agrees to the plan. Status: Acute Qualifiers: Encounter type: initial encounter Laterality: right Qualified Code(s): S82.851A - Displaced trimalleolar fracture of right lower leg, initial encounter for closed fracture Code(s): S82.853A - Displaced trimalleolar fracture of unspecified lower leg, initial encounter for closed fracture Consult Attestations Medical Necessity Statement: Patient required inpatient status for medical work-up prior to proceeding with surgical intervention. She does take Plavix and ideally, we would like to wait 24 to 48 hours from her last dose. Coding Level of Care Code New Pt Acute Billet Inspector for Geovanna Maria Patient Type New Exam Comprehensive Diagnoses Closed trimalleolar fracture of ankle S82.851A Encounter type: initial encounter Laterality: right
--- NOTE | 2019-08-24 11:17 | SUR.PREOP ---
1105 PT ALERT ORIENTED X 3 PT TO OPS PER BED PT TOOK BRACELET AND SILVER RING OFF AND PLACED IN BELONGING BAD IN ROOM 250, PT CELL PHONE WAS ALSO IN BELONGING BAG LEFT IN ROOM.
--- NOTE | 2019-08-24 11:32 | ANES.PREANE2 ---
Pre-Anesthetic Assessment Pre-Anesthetic Assessment: Height/Weight: Height 1.52 m Weight 107.161 kg Temp Pulse Resp BP Pulse Ox 98 F 83 18 134/85 93 08/24/19 11:13 08/24/19 11:13 08/24/19 11:13 08/24/19 11:13 08/24/19 11:13 Preop Diagnosis: Right bimalleolar ankle fracture Proposed Procedure: Operation Date: 08/24/19 12:45 Proposed Procedures p ORIF Ankle bimalleolar fx(Right) - Hallie Stock MD Familial anesthetic complications: None Was Beta Joseph taken within 24 hours: N/A Last intake: Intake Last Liquid Date 08/23/19 Last Liquid Time 22:00 Last Solid Date 08/23/19 Last Solid Time 18:00 Social: Social History: No alcohol and No tobacco Exam: Pre-Anes Outpt Exam: alert, oriented x 3, clear to auscultation bilaterally and regular rate & rhythm Additional Exam Findings (including area of procedure): murmur Airway: Cervical ROM: WNL MP: 4 Additional comments: edentulous Pulmonary: Pulmonary: None reported CV/HEM: CV/HEM: HTN, [place] and Murmur Comments: severe LVH w/ hocm per [place], last took plavix yeserday morning, poor preexisting functional status used walker, denies chest pain. : : None reported Hepatic: Hepatic: None reported GI: GI: None reported Metabolic: Metabolic: DM and Morbid obesity Musc/skel: Musc/skel: None reported Neuropsych: Neuropsych: CVA Comments: R sided weakness after CVA Anesthetic Plan: ASA status: 4 Anesthesia: General Risk of > 500 ml blood loss (7ml/kg in children): No Meds/Allergies Current Medications: Current Medications Generic Name Dose Route Start Last Admin Trade Name Freq PRN Reason Stop Dose Admin Atorvastatin Calci um 20 mg 08/24/19 09:00 08/24/19 08:42 Lipitor PO 20 mg DAILY MOHAMUD Administration Diltiazem HCl 240 mg 08/24/19 09:00 08/24/19 08:42 Cardizem Cd (24h r) PO 240 mg DAILY MOHAMUD Administration Lisinopril 5 mg 08/24/19 09:00 08/24/19 08:42 Prinivil PO 5 mg DAILY MOHAMUD Administration Venlafaxine HCl 150 mg 08/24/19 09:00 08/24/19 08:42 Effexor Xr PO 150 mg DAILY MOHAMUD Administration PFSH Anesthesia PFSH: Medical History Cerebrovascular accident Chronic kidney disease Coronary artery disease Depression Diabetes Heart murmur Hyperlipidemia Hypertension Obesity Restless leg syndrome Surgical History History of cholecystectomy History of hernia repair History of tubal ligation Family History Other Diabetes Social History Smoking and tobacco status: never smoked Alcohol intake: never Substance/Drug Use: never Data Anesthesia CBC & Chem 7: 08/24/19 05:00 08/24/19 08:12 Other Labs: Laboratory Results - last 48 hr 08/23/19 08/23/19 08/23/19 15:16 15:16 15:16 WBC 9.4 RBC 3.95 L Hgb 12.0 Hct 36.5 L MCV 92.4 MCH 30.4 MCHC 32.9 RDW 12.8 Plt Count 236 MPV 11.7 H Neut % (Auto) 64.0 Lymph % (Auto) 28.6 [place] % (Auto) 5.0 Eos % (Auto) 1.6 Baso % (Auto) 0.4 Neut # (Auto) 6.0 Lymph # (Auto) 2.7 [place] # (Auto) 0.5 Eos # (Auto) 0.2 Baso # (Auto) 0.0 Nucleated RBC % (auto) 0 Nucleated RBCs # 0.0 PT 12.60 INR 0.95 APTT 25.8 Sodium 139 Potassium 4.6 Chloride 102 Carbon Dioxide 24 Anion Gap 17.6 BUN 29 H Creatinine 1.3 H GFR Calculation 40.6 L Glucose 169 H POC Glucose Calculated Osmolality Calcium 9.7 Total Bilirubin 0.3 AST 13 ALT 17 Alkaline Phosphatase 99 Total Protein 6.8 Albumin 3.7 Globulin 3.1 TSH Urine Color Urine Appearance Urine pH Ur Specific [place] Urine Protein Urine Glucose (UA) Urine Ketones Urine Blood Urine Nitrate Urine Bilirubin Urine Urobilinogen Ur Leukocyte Esterase Urine RBC Urine WBC Ur Squamous Epith Cells Urine Bacteria Hyaline Casts 0208/23/19 08/23/19 15:16 17:12 20:45 WBC RBC Hgb Hct MCV MCH MCHC RDW Plt Count MPV Neut % (Auto) Lymph % (Auto) [place] % (Auto) Eos % (Auto) Baso % (Auto) Neut # (Auto) Lymph # (Auto) [place] # (Auto) Eos # (Auto) Baso # (Auto) Nucleated RBC % (auto) Nucleated RBCs # PT INR APTT Sodium Potassium Chloride Carbon Dioxide Anion Gap BUN Creatinine GFR Calculation Glucose POC Glucose 151 258 Calculated Osmolality Calcium Total Bilirubin AST ALT Alkaline Phosphatase Total Protein Albumin Globulin TSH 1.96 Urine Color Urine Appearance Urine pH Ur Specific [place] Urine Protein Urine Glucose (UA) Urine Ketones Urine Blood Urine Nitrate Urine Bilirubin Urine Urobilinogen Ur Leukocyte Esterase Urine RBC Urine WBC Ur Squamous Epith Cells Urine Bacteria Hyaline Casts 08/23/19 08/24/19 08/24/19 22:05 05:00 05:00 WBC 10.7 H RBC 3.85 L Hgb 12.0 Hct 37.7 MCV 97.9 D MCH 31.2 MCHC 31.8 RDW 12.8 Plt Count 201 MPV 11.6 H Neut % (Auto) 60.5 Lymph % (Auto) 30.1 [place] % (Auto) 6.6 Eos % (Auto) 2.0 Baso % (Auto) 0.4 Neut # (Auto) 6.5 Lymph # (Auto) 3.2 [place] # (Auto) 0.7 Eos # (Auto) 0.2 Baso # (Auto) 0.0 Nucleated RBC % (auto) 0 Nucleated RBCs # 0.0 PT INR APTT Sodium Cancelled Potassium Cancelled Chloride Cancelled Carbon Dioxide Cancelled Anion Gap Cancelled BUN Cancelled Creatinine Cancelled GFR Calculation Cancelled Glucose Cancelled POC Glucose Calculated Osmolality Cancelled Calcium Cancelled Total Bilirubin AST ALT Alkaline Phosphatase Total Protein Albumin Globulin TSH Urine Color Yellow Urine Appearance Sl hazy Urine pH 5 Ur Specific [place] 1.020 Urine Protein 2+ H Urine Glucose (UA) 1+ Urine Ketones Negative Urine Blood Neg Urine Nitrate Negative Urine Bilirubin Neg Urine Urobilinogen Norm Ur Leukocyte Esterase Negative Urine RBC 0-4 H Urine WBC None Ur Squamous Epith Cells 0-4 H Urine Bacteria 3+ H Hyaline Casts 0-4 H 08/24/19 08/24/19 08/24/19 06:23 08:12 10:11 WBC RBC Hgb Hct MCV MCH MCHC RDW Plt Count MPV Neut % (Auto) Lymph % (Auto) [place] % (Auto) Eos % (Auto) Baso % (Auto) Neut # (Auto) Lymph # (Auto) [place] # (Auto) Eos # (Auto) Baso # (Auto) Nucleated RBC % (auto) Nucleated RBCs # PT INR APTT Sodium 140 Potassium 4.4 Chloride 105 Carbon Dioxide 23 Anion Gap 16.4 BUN 28 H Creatinine 1.1 H GFR Calculation 49.2 L Glucose 120 H POC Glucose 106 105 Calculated Osmolality 288 Calcium 9.1 Total Bilirubin AST ALT Alkaline Phosphatase Total Protein Albumin Globulin TSH Urine Color Urine Appearance Urine pH Ur Specific [place] Urine Protein Urine Glucose (UA) Urine Ketones Urine Blood Urine Nitrate Urine Bilirubin Urine Urobilinogen Ur Leukocyte Esterase Urine RBC Urine WBC Ur Squamous Epith Cells Urine Bacteria Hyaline Casts Cardiac Studies: No Data to Display
--- NOTE | 2019-08-24 11:56 | P.PN_ITS ---
Subjective Subjective: Interval history: Lynnette reports she is doing okay. No specific concerns other than pain. Eager to get surgery done with Medications: Reviewed: Yes Vitals/I&O/Wt Last Vital Signs Temp 98 F 08/24/19 11:13 Pulse 83 08/24/19 11:13 Resp 18 08/24/19 11:13 BP 134/85 08/24/19 11:13 Pulse Ox 93 08/24/19 11:13 08/23/19 08/24/19 08/24/19 22:59 06:59 14:59 Intake Total 165 / 165 676.25 / 841.25 Output Total 60 / 60 750 / 810 200 / 200 Balance 105 / 105 -73.75 / 31.25 -200 / -200 Weight last 48 hrs Weight 107.161 kg Weight 105.233 kg Physical Exam Narrative: EXAM NARRATIVE: General exam no apparent distress Cardiovascular regular rate and rhythm with a 3 of a 6 systolic murmur heard best in the aortic area. No S3 or S4. Lungs clear no wheezing or crackles Abdomen is soft obese nontender with no obvious organomegaly Extremities with no cyanosis clubbing or edema Urinary Catheter Management^: Albert: Cath Placed During This Visit: yes Urethral Indwelling: Yes Reason for Continuing Indwelling Catheter: Required Immobilization for Trauma or Surgery or Anesthesia Urinary Catheter Date of Insertion: 08/23/19 Urinary Catheter Time of Insertion: 22:10 Data : 08/24/19 05:00 08/24/19 08:12 A&P Assessment and plan (1) Fracture of distal end of tibia with fibula: Reduced in the emergency department. Orthopedic consultation has been obtained. 2 OR today for ORIF No direct contraindications to surgery. Echocardiogram obtained demonstrated severe left ventricular hypertrophy. Discussed briefly with anesthesia to try to keep patient from becoming hypovolemic secondary to this. Status: Acute Code(s): S82.309A - Unspecified fracture of lower end of unspecified tibia, initial encounter for closed fracture; S82.839A - Other fracture of upper and lower end of unspecified fibula, initial encounter for closed fracture (2) Heart murmur: Aortic sclerosis, severe left ventricular hypertrophy Status: Acute Code(s): R01.1 - Cardiac murmur, unspecified Additional A&P Information Fall from standing position. Denies any other injuries Type 2 diabetes, sliding scale insulin Hypertension, will continue home medications Hyperlipidemia History of CVA, hold Plavix for surgery but this will need to be resumed following Coronary artery disease with no previous history of intervention Restless leg syndrome History of chronic kidney disease Multiple other medical problems as listed in the past medical history SCDs for DVT prophylaxis Anticoagulation DVT prophylaxis, or aspirin can be initiated following surgery Will likely need shelter facility placement. Attestations Medical Necessity Statement*: Needs continued hospitalization for definitive care of ankle fracture Coding Level of Care Code Acute Launching Pad Mechanic for Zacg Fwd Diagnoses Fracture of distal end of tibia with fibula S82.309A; S82.839A Heart murmur R01.1
[2019-08-24] MEDS: ceFAZolin 1,000 mg SDV 1000 MG IRRIGATION (13:53)
--- NOTE | 2019-08-24 14:59 | SUR.PHASEI ---
2514 PATIENT TO PACU AT THIS TIME FROM OR. NO DISTRESS. ORAL AIRWAY IN PLACE. RR EVEN AND UNLABORED. PLACED ON SIMPLE MASK AT 8L, SPO2 100%. DRESSING INTACT TO RIGHT FOOT, WITH WALKING BOOT IN PLACE. CAP REFILL INTACT. ART LINE IN PLACE TO LEFT ARM. PER OR NURSE AND MAMMOGRAPHY SUPERVISOR, CAN BE REMOVED.
--- NOTE | 2019-08-24 15:01 | SUR.PHASEI ---
[address], SECURED TO LEFT LEG. DRAINING, CLEAR YELLOW URINE.
--- NOTE | 2019-08-24 15:10 | PM.OP ---
Operative Report Date of procedure: August 24, 2019 Pre-op Diagnosis: Right trimalleolar ankle fracture dislocation Post-op Diagnosis: Right trimalleolar ankle fracture dislocation with syndesmotic disruption Post-op Findings: Butterfly fragment in the fibular fracture with significant displacement and syndesmotic disruption Procedure Done: Reduction internal fixation trimalleolar ankle fracture with 7 hole fibular plate to the distal fibula and syndesmotic fixation utilizing the Arthrex tight rope Specimens removed/disposition: None Pathology: none sent Surgeon: Hallie Stock Managing Cognitive Engineer: [facility] OR technicians Anesthesia: General (ASA 4) Estimated blood loss (mL): 100 Tourniquet time (min): 60 IV fluids (mL): 1,000 Urine output (mL): 100 Complications: None Findings: Fibula fracture with large butterfly fragment and significant displacement and syndesmotic disruption Condition: stable Disposition: floor Brief History: This 69-year-old woman presented through the emergency department with a displaced trimalleolar ankle fracture dislocation. She was reduced in the emergency department and admitted overnight for treatment. She was evaluated by the hospitalist service. She was optimized for surgery. Risks and complications were explained to the patient. She was consented for the surgical procedure. Procedure: Patient was seen in the preoperative holding area and leg was marked. Patient was brought to the operating theater and placed on the operating room table. After undergoing adequate general intubated anesthesia with a diagnosis of ASA 4, the patient's right lower extremity was prepped and draped in usual fashion utilizing DuraPrep. The leg was draped free. There was noted to be a large blister over the plantar first metatarsal distally, and the patient notes that this was present immediately after her fall. Fluoroscopy was used throughout the surgical procedure. We did have a tourniquet high on the right lower extremity. This was elevated to 250 mmHg and total tourniquet time was 60 minutes. Tourniquet elevation followed exsanguination of the leg. A surgical pause was performed. At the time of the surgical pause we identified the site and side of surgery as well as the patient's identity and availability of equipment. We also confirmed appropriate administration of IV antibiotics. Following the above, an incision was made centering over the patient's fibula fracture. The incision was continued proximally and distally as necessary to allow access to the fracture. The fracture was noted to be a high fibular fracture. Upon evaluation, this was noted to have a large butterfly fragment which was not visualized on initial x-rays. We were able to reduce the fracture anatomically. This was held with a clamp and the 7 hole plate which had been chosen prior to incision was clamped into position as well. The 7 hole lateral fibular plate was attached with standard technique. Secondary to the patient's severe osteopenia, we used locking screws throughout. One nonlocking screw was utilized in an attempt to pull the plate down to the bone, but this was subsequently changed as well. Once the plate was appropriately attached, we irrigated the wound. Fluoroscopic evaluation at this time demonstrated there was significant widening of the syndesmosis and mortise. Therefore, we elected to proceed with placement of a tight rope to address the syndesmotic disruption. This was placed with standard technique and was placed uneventfully. Appropriate position was monitored fluoroscopically in both AP and lateral planes. The tight rope was tightened in the position and following this, we had excellent reduction and stability to the ankle mortise. Throughout the surgical procedure and at the conclusion of the procedure we did use fluoroscopy. Fluoroscopy was utilized to determine appropriate positioning of the plate as well as the fractures. At the conclusion we did obtain AP and lateral images demonstrating the fracture was anatomically reduced. The lateral incision was closed with a combination of 0 Vicryl deep and 2-0 Monocryl in the subcutaneous tissues. The skin was then closed with skin michelle. Sterile dressing was placed consisting of Xeroform gauze, 4 x 4's, sterile soft roll and an [place] wrap. The patient was placed in a Cam Walker boot and is to remain nonweightbearing. The procedure was well tolerated without complication. Tourniquet time was 60 minutes at 250 mmHg. The patient will be transferred back to the floor where she will undergo physical therapy. She will likely require correction at the time of discharge secondary to overall deconditioning and the need to maintain strict nonweightbearing..
--- NOTE | 2019-08-24 15:12 | SUR.PHASEI ---
1509 art line to left wrist removed at this time. pressure dressing applied.
--- NOTE | 2019-08-24 15:44 | SUR.PHASEI ---
1544 PATIENT OPENS EYES TO VERBAL STIMULI BUT QUICKLY CLOSES. RR EVEN AND UNLABORED. NO DISTRESS NOTED. O2 AT 100% ON 3L NC O2.
--- NOTE | 2019-08-24 16:14 | SUR.PHASEI ---
1557 PATIENT TO MED SURG AT THIS TIME. NO DISTRESS. RR EVEN AND UNLABORED. DRESSING TO LEFT FOOT, CDI WITH WALKING BOOT IN PLACE. CAP REFILL INTACT.
[2019-08-24 16:42] LABS: Glucose Point of Care 122 mg/dL (70-110)
[2019-08-24] MEDS: docusate sodium 100 mg Capsule PO (17:51)
[2019-08-24] MEDS: TRAMadol 50 mg Tablet PO (17:51)
[2019-08-24] MEDS: oxyCODONE-APAP 5-325 mg Tablet PO (22:19)
[2019-08-25] VITALS (9 sets, daily range): BP systolic 109–126; BP diastolic 55–76; PULSE 75–99; RESP 16–20; TEMP 36.4–37.1; O2SAT 90–98
[2019-08-25] MEDS: acetaminophen 500 mg Tablet 1000 MG PO ×3 (00:23→17:19)
[2019-08-25] MEDS: oxyCODONE-APAP 5-325 mg Tablet PO ×2 (02:20→08:41)
[2019-08-25] MEDS: TRAMadol 50 mg Tablet PO (03:22)
[2019-08-25 05:33] LABS: Basophils % 0.4 %; Eosinophils # 0.2 10^3/uL (0.0-0.8); Eosinophils % 2.2 %; Hematocrit 27.7 % (37.0-47.0); Hemoglobin 8.8 g/dL (11.5-15.3); Lymphocytes # 2.9 10^3/uL (0.8-4.8); Lymphocytes % 31.1 %; Mean Corpuscular HGB Conc 31.8 g/dL (30.0-36.0); Mean Corpuscular Hemoglobin 30.7 pg (28.0-34.0); Mean Corpuscular Volume 96.5 fL (81-99); Mean Platelet Volume 11.8 fL (7.4-10.4); Monocytes # 0.8 10^3/uL (0.2-0.9); Monocytes % 8.4 %; Neutrophils # 5.3 10^3/uL (1.8-7.7); Neutrophils % 57.6 %; Nucleated Red Blood Cells % 0 %; Platelet Count 166 10^3/cmm (130-400); Red Blood Count 2.87 10^6/uL (4.1-5.3); Red Cell Distribution Width 12.7 % (12.1-15.1); White Blood Count 9.2 10^3/uL (4.0-10.0)
[2019-08-25 05:44] LABS: Anion Gap 13.7 (5-19); Blood Urea Nitrogen 26 mg/dL (8-23); Calcium 8.4 mg/dL (8.5-10.5); Carbon Dioxide 21 mmol/L (22-29); Chloride 105 mmol/L (98-107); Glomerular Filtration Rate 44.5 mL/min (90-130); Glucose 202 mg/dL (65-115); Osmolality Calculated 283 mOsm/kg (285-295); Potassium 4.7 mmol/L (3.5-5.1); Sodium 135 mmol/L (136-145)
[2019-08-25 06:41] LABS: Glucose Point of Care 185 mg/dL (70-110)
[2019-08-25] MEDS: venlafaxine ER (24HR) 150 mg Capsule PO (08:41)
[2019-08-25] MEDS: lisinopril 5 mg Tablet PO (08:41)
[2019-08-25] MEDS: atorvastatin 40 mg Tablet 20 MG PO (08:41)
[2019-08-25] MEDS: dilTIAZem ER (24HR) 240 mg Capsule PO (08:41)
[2019-08-25] MEDS: aspirin 325 mg EC Tablet PO (08:41)
[2019-08-25] MEDS: docusate sodium 100 mg Capsule PO ×2 (08:41→17:19)
--- NOTE | 2019-08-25 11:13 | P.PN_ITS ---
Subjective Subjective: Interval history: Lynnette reports that she is still having significant pain, at her fracture site. She is contemplating placement at skilled care, and this is made her feel somewhat depressed. Medications: Reviewed: Yes Vitals/I&O/Wt Last Vital Signs Temp 98.6 F 08/25/19 10:48 Pulse 99 08/25/19 10:48 Resp 20 H 08/25/19 10:48 BP 118/75 08/25/19 10:48 Pulse Ox 93 08/25/19 10:48 08/24/19 08/25/19 08/25/19 22:59 06:59 14:59 Intake Total 50 / 100 200 / 300 420 / 420 Output Total 200 / 600 600 / 1200 Balance -150 / -500 -400 / -900 420 / 420 Weight last 48 hrs Weight 107.161 kg Weight 105.233 kg Physical Exam Narrative: EXAM NARRATIVE: General exam is a quiet white female Cardiovascular regular rate and rhythm with a 3/6 systolic murmur heard best in her aortic area Lungs are clear no wheezing or crackles Abdomen is soft with positive bowel sounds. Obese Extremities fracture site right lower extremity not examined. Walking boot in place, along with dressing. Urinary Catheter Management^: Albert: Cath Placed During This Visit: yes Urethral Indwelling: Yes Reason for Continuing Indwelling Catheter: Not indwelling catheter Urinary Catheter Date of Insertion: 08/23/19 Urinary Catheter Time of Insertion: 22:10 Data : 08/25/19 05:13 08/25/19 05:13 A&P Assessment and plan (1) Fracture of distal end of tibia with fibula: Reduced in the emergency department. Orthopedic consultation has been obtained. Postoperative day #1 status post ORIF Overall appears to be having a normal postoperative course. Will likely need skilled placement. Status: Acute Code(s): S82.309A - Unspecified fracture of lower end of unspecified tibia, initial encounter for closed fracture; S82.839A - Other fracture of upper and lower end of unspecified fibula, initial encounter for closed fracture (2) Heart murmur: Aortic sclerosis, severe left ventricular hypertrophy seen on echocardiogram. Continue current medication for blood pressure control Status: Acute Code(s): R01.1 - Cardiac murmur, unspecified (3) Postoperative anemia: Acute postoperative blood loss anemia. Will monitor. Status: Acute Code(s): D64.9 - Anemia, unspecified Additional A&P Information Fall from standing position. Denies any other injuries Type 2 diabetes, sliding scale insulin Hypertension, will continue home medications Hyperlipidemia, currently on statin History of CVA, Plavix resumed Coronary artery disease with no previous history of intervention Restless leg syndrome History of chronic kidney disease Multiple other medical problems as listed in the past medical history Aspirin for DVT prophylaxis per orthopedics Will need residential facility placement Attestations Medical Necessity Statement*: Needs continued hospitalization, for close monitoring following ORIF ankle in this patient with multiple comorbidities. Coding Level of Care Code Acute Program Scheduler for g Fwd Diagnoses Fracture of distal end of tibia with fibula S82.309A; S82.839A Heart murmur R01.1 Postoperative anemia D64.9
[2019-08-25 11:46] LABS: Glucose Point of Care 224 mg/dL (70-110)
--- NOTE | 2019-08-25 14:05 | PM.PN ---
Subjective Subjective: Interval history: Patient is seen today. She is in her cam walker boot. She is to remain nonweightbearing, and she appears somewhat depressed at this time. Medications: Reviewed: Yes Vitals/I&O/Wt Last Vital Signs Temp 98.6 F 08/25/19 10:48 Pulse 95 08/25/19 11:48 Resp 18 08/25/19 11:48 BP 118/75 08/25/19 10:48 Pulse Ox 95 08/25/19 11:48 08/24/19 08/25/19 08/25/19 22:59 06:59 14:59 Intake Total 50 / 100 250 / 350 780 / 780 Output Total 200 / 600 600 / 1200 Balance -150 / -500 -350 / -850 780 / 780 Weight last 48 hrs Weight 236 lb 4 oz Weight 232 lb Physical Exam Narrative: EXAM NARRATIVE: The patient is sitting up in a chair. Her foot is elevated. Pre-injury, she was unable to wiggle her toes or feel light touch. Therefore, she remains unable to accomplish these activities. There is minimal swelling in the toes. Dressing is left in place and is not removed. Const: COMMON NORMALS: no apparent distress, oriented x3 and alert GENERAL APPEARANCE: cooperative and comfortable ORIENTATION/CONSCIOUSNESS: Yes awake HENMT: COMMON NORMALS: normocephalic and head/scalp atraumatic HEAD & SCALP: normocephalic and atraumatic Eye: GENERAL EYE: normal appearance of both eyes Chest: COMMONS NORMALS: inspection of chest normal Resp: COMMON NORMALS: normal respiratory effort EFFORT & INSPECTION: Yes able to speak in complete sentences and Yes symmetric chest movement Extremity: RIGHT LOWER EXTREMITY: Yes ankle joint (The ankle remains in the cam walker boot. There is no evidence of infection. Neurovascular status remains unchanged.) Neuro: COMMON NORMALS: oriented x3 SENSORIUM/ORIENTATION: Yes alert Psych: COMMON NORMALS: mental status grossly normal APPEARANCE: Yes grossly normal ATTITUDE: Yes calm and Yes engaged ATTENTION/CONCENTRATION: Yes attention grossly intact Skin: COMMON NORMALS: no rashes or lesions noted GENERAL SKIN EXAM: no rashes or lesions noted Urinary Catheter Management^: Albert: Cath Placed During This Visit: yes Urethral Indwelling: Yes Reason for Continuing Indwelling Catheter: Not indwelling catheter Urinary Catheter Date of Insertion: 08/23/19 Urinary Catheter Time of Insertion: 22:10 Data : 08/25/19 05:13 08/25/19 05:13 A&P Assessment and plan (1) Status post open reduction with internal fixation (ORIF) of fracture of ankle: Fixation included a lateral fibular plate along with syndesmotic fixation. The patient will remain nonweightbearing for 8 weeks secondary to the syndesmotic disruption. The patient's ankle was noted to be extremely unstable at the time of surgical intervention. Status: Acute Code(s): Z98.890 - Other specified postprocedural states; Z87.81 - Personal history of (healed) traumatic fracture (2) Closed trimalleolar fracture of ankle: Status: Acute Qualifiers: Encounter type: initial encounter Laterality: right Qualified Code(s): S82.851A - Displaced trimalleolar fracture of right lower leg, initial encounter for closed fracture Code(s): S82.853A - Displaced trimalleolar fracture of unspecified lower leg, initial encounter for closed fracture (3) Ankle syndesmosis disruption: Status: Acute Qualifiers: Encounter type: initial encounter Laterality: right Qualified Code(s): S93.431A - Sprain of tibiofibular ligament of right ankle, initial encounter Code(s): S93.439A - Sprain of tibiofibular ligament of unspecified ankle, initial encounter Attestations Medical Necessity Statement*: Per hospitalist service. Coding Level of Care Code Acute Biology Specimen Technician for Geovanna Maria Diagnoses Status post open reduction with internal fixation (ORIF) of fracture of ankle Z98.890; Z87.81 Closed trimalleolar fracture of ankle S82.851A Encounter type: initial encounter Laterality: right Ankle syndesmosis disruption S93.431A Encounter type: initial encounter Laterality: right
[2019-08-25 16:45] LABS: Glucose Point of Care 235 mg/dL (70-110)
[2019-08-25] MEDS: pregabalin 75 mg Capsule PO (17:19)
--- NOTE | 2019-08-25 19:00 | PC.NURSE ---
Introduction of staff and report received, aidet.
[2019-08-25 20:48] LABS: Glucose Point of Care 196 mg/dL (70-110)
[2019-08-26] VITALS: BP 115/70; PULSE 64; RESP 18; TEMP 36.7; O2SAT 95
--- NOTE | 2019-08-26 03:32 | PC.NURSE ---
Pt straight cathed due to not voiding. 750ml clear dark yellow urine obtained.
[2019-08-26] MEDS: acetaminophen 500 mg Tablet 1000 MG PO ×3 (03:52→21:12)
[2019-08-26 04:00] VITALS: BP 105/62; PULSE 61; RESP 17; TEMP 36.4; O2SAT 96
[2019-08-26 06:45] LABS: Glucose Point of Care 181 mg/dL (70-110)
[2019-08-26 07:29] LABS: Basophils % 0.1 %; Eosinophils # 0.1 10^3/uL (0.0-0.8); Eosinophils % 0.9 %; Hematocrit 29.7 % (37.0-47.0); Hemoglobin 9.7 g/dL (11.5-15.3); Lymphocytes # 1.8 10^3/uL (0.8-4.8); Lymphocytes % 12.4 %; Mean Corpuscular HGB Conc 32.7 g/dL (30.0-36.0); Mean Corpuscular Hemoglobin 30.6 pg (28.0-34.0); Mean Corpuscular Volume 93.7 fL (81-99); Mean Platelet Volume 11.4 fL (7.4-10.4); Monocytes # 0.9 10^3/uL (0.2-0.9); Monocytes % 6.3 %; Neutrophils # 11.3 10^3/uL (1.8-7.7); Neutrophils % 79.7 %; Nucleated Red Blood Cells % 0 %; Platelet Count 178 10^3/cmm (130-400); Red Blood Count 3.17 10^6/uL (4.1-5.3); Red Cell Distribution Width 12.4 % (12.1-15.1); White Blood Count 14.1 10^3/uL (4.0-10.0)
[2019-08-26 07:48] VITALS: BP 167/75; PULSE 101; RESP 18; TEMP 36.8; O2SAT 98
[2019-08-26] MEDS: lisinopril 5 mg Tablet PO (09:34)
[2019-08-26] MEDS: docusate sodium 100 mg Capsule PO ×2 (09:34→18:08)
[2019-08-26] MEDS: atorvastatin 40 mg Tablet 20 MG PO (09:34)
[2019-08-26] MEDS: pregabalin 75 mg Capsule PO ×2 (09:35→18:08)
[2019-08-26] MEDS: aspirin 325 mg EC Tablet PO (09:35)
[2019-08-26] MEDS: clopidogrel 75 mg Tablet PO (09:35)
[2019-08-26] MEDS: venlafaxine ER (24HR) 150 mg Capsule PO (09:35)
[2019-08-26] MEDS: dilTIAZem ER (24HR) 240 mg Capsule PO (09:41)
--- NOTE | 2019-08-26 10:25 | PC.SOCIAL ---
IMM Page 2 of IMM explained to and signed by patient. She had some difficulty signing but verbalizes understanding. Initialed, dated, and timed and placed in chart. Copy provided to patient.
[2019-08-26 11:20] LABS: Glucose Point of Care 231 mg/dL (70-110)
[2019-08-26 12:00] VITALS: BP 137/64; PULSE 94; RESP 16; TEMP 37.4; O2SAT 97
--- NOTE | 2019-08-26 12:59 | PM.PN ---
Subjective Subjective: Interval history: Lynnette reports she is doing okay. She has some pain. She is depressed about going to the nursing facility. Medications: Reviewed: Yes Vitals/I&O/Wt Last Vital Signs Temp 99.3 F 08/26/19 12:00 Pulse 94 08/26/19 12:00 Resp 16 08/26/19 12:00 BP 137/64 08/26/19 12:00 Pulse Ox 97 08/26/19 12:00 08/25/19 08/26/19 08/26/19 22:59 06:59 14:59 Intake Total 315 / 1095 120 / 1215 Output Total 300 / 300 750 / 1050 950 / 950 Balance 15 / 795 -630 / 165 -950 / -950 Physical Exam Narrative: EXAM NARRATIVE: General exam is a quiet white female Cardiovascular regular rate and rhythm with a 3/6 systolic murmur heard best in her aortic area Lungs are clear no wheezing or crackles Abdomen is soft with positive bowel sounds. Obese Extremities fracture site right lower extremity not examined. Walking boot in place, along with dressing. Urinary Catheter Management^: Albert: Cath Placed During This Visit: yes Urethral Indwelling: Yes Reason for Continuing Indwelling Catheter: Not indwelling catheter Urinary Catheter Date of Insertion: 08/23/19 Urinary Catheter Time of Insertion: 22:10 Data : 08/26/19 07:23 08/25/19 05:13 A&P Assessment and plan (1) Fracture of distal end of tibia with fibula: Reduced in the emergency department. Orthopedic consultation has been obtained. Postoperative day #2 status post ORIF Overall appears to be having a normal postoperative course. Needs skilled placement, awaiting this. Status: Acute Code(s): S82.309A - Unspecified fracture of lower end of unspecified tibia, initial encounter for closed fracture; S82.839A - Other fracture of upper and lower end of unspecified fibula, initial encounter for closed fracture (2) Heart murmur: Aortic sclerosis, severe left ventricular hypertrophy seen on echocardiogram. Continue current medication for blood pressure control. Blood pressure is currently under good control. Status: Acute Code(s): R01.1 - Cardiac murmur, unspecified (3) Postoperative anemia: Acute postoperative blood loss anemia. Will monitor. Status: Acute Code(s): D64.9 - Anemia, unspecified Additional A&P Information Fall from standing position. Denies any other injuries Type 2 diabetes, sliding scale insulin Hypertension, will continue home medications Hyperlipidemia, currently on statin History of CVA, Plavix resumed Coronary artery disease with no previous history of intervention Restless leg syndrome History of chronic kidney disease Multiple other medical problems as listed in the past medical history Aspirin for DVT prophylaxis per orthopedics Will need senior care facility placement No need for laboratory tomorrow Attestations Medical Necessity Statement*: Needs continued hospital stay, for close monitoring following surgery pending placement. Coding Level of Care Code Acute Sprayer Insecticide for g Fwd Diagnoses Fracture of distal end of tibia with fibula S82.309A; S82.839A Heart murmur R01.1 Postoperative anemia D64.9
[2019-08-26 16:00] VITALS: BP 156/80; PULSE 83; RESP 18; TEMP 36.7; O2SAT 99
--- NOTE | 2019-08-26 16:43 | P.PN_ITS ---
Subjective Subjective: Interval history: Patient is sitting up in a chair when she is seen in her room. She has minimal complaints, but she is not overly talkative. She is depressed secondary to having to go to correction. Medications: Reviewed: Yes Vitals/I&O/Wt Last Vital Signs Temp 98.1 F 08/26/19 16:00 Pulse 83 08/26/19 16:00 Resp 18 08/26/19 16:00 BP 156/80 08/26/19 16:00 Pulse Ox 99 08/26/19 16:00 08/26/19 08/26/19 08/26/19 06:59 14:59 22:59 Intake Total 120 / 1215 100 / 100 Output Total 750 / 1050 950 / 950 Balance -630 / 165 -850 / -850 Physical Exam Narrative: EXAM NARRATIVE: The patient is sitting up in a chair. Her foot is elevated. Pre-injury, she was unable to wiggle her toes or feel light touch. Therefore, she remains unable to accomplish these activities. There is minimal swelling in the toes. Dressing is removed. The wound is benign. The blister over the head of the first metatarsal remains covered. There is minimal swelling. Const: COMMON NORMALS: no apparent distress, oriented x3 and alert GENERAL APPEARANCE: cooperative and comfortable ORIENTATION/CONSCIOUSNESS: Yes awake HENMT: COMMON NORMALS: normocephalic and head/scalp atraumatic HEAD & SCALP: normocephalic and atraumatic Eye: GENERAL EYE: normal appearance of both eyes Chest: COMMONS NORMALS: inspection of chest normal Resp: COMMON NORMALS: normal respiratory effort EFFORT & INSPECTION: Yes able to speak in complete sentences and Yes symmetric chest movement Neuro: COMMON NORMALS: oriented x3 SENSORIUM/ORIENTATION: Yes alert Psych: COMMON NORMALS: mental status grossly normal APPEARANCE: Yes grossly normal ATTITUDE: Yes calm and Yes engaged ATTENTION/CONCENTRATION: Yes attention grossly intact Skin: COMMON NORMALS: no rashes or lesions noted GENERAL SKIN EXAM: no rashes or lesions noted Urinary Catheter Management^: Albert: Cath Placed During This Visit: yes Urethral Indwelling: Yes Reason for Continuing Indwelling Catheter: Not indwelling catheter Urinary Catheter Date of Insertion: 08/23/19 Urinary Catheter Time of Insertion: 22:10 Data : 08/26/19 07:23 08/25/19 05:13 A&P Assessment and plan (1) Status post open reduction with internal fixation (ORIF) of fracture of ankle: Fixation included a lateral fibular plate along with syndesmotic fixation. The patient will remain nonweightbearing for 8 weeks secondary to the syndesmotic disruption. The patient's ankle was noted to be extremely unstable at the time of surgical intervention. Today, dressing is removed, and the ankle appears stable. There is no evidence of infection, DVT, or drainage. Status: Acute Code(s): Z98.890 - Other specified postprocedural states; Z87.81 - Personal history of (healed) traumatic fracture (2) Closed trimalleolar fracture of ankle: Status: Acute Qualifiers: Encounter type: initial encounter Laterality: right Qualified Code(s): S82.851A - Displaced trimalleolar fracture of right lower leg, initial encounter for closed fracture Code(s): S82.853A - Displaced trimalleolar fracture of unspecified lower leg, initial encounter for closed fracture (3) Ankle syndesmosis disruption: Status: Acute Qualifiers: Encounter type: initial encounter Laterality: right Qualified Code(s): S93.431A - Sprain of tibiofibular ligament of right ankle, initial encounter Code(s): S93.439A - Sprain of tibiofibular ligament of unspecified ankle, initial encounter Attestations Medical Necessity Statement*: The patient continues as inpatient for postoperative care. She will require correction at the time of discharge. Time Spent in Patient Care: 16 - 35 minutes Coding Level of Care Code Acute Network Infrastructure Architect for Geovanna Maria Diagnoses Status post open reduction with internal fixation (ORIF) of fracture of ankle Z98.890; Z87.81 Closed trimalleolar fracture of ankle S82.851A Encounter type: initial encounter Laterality: right Ankle syndesmosis disruption S93.431A Encounter type: initial encounter Laterality: right
[2019-08-26 17:32] LABS: Glucose Point of Care 211 mg/dL (70-110)
[2019-08-26 20:00] VITALS: BP 150/84; PULSE 86; RESP 19; TEMP 37.4; O2SAT 98
[2019-08-26 20:40] LABS: Glucose Point of Care 253 mg/dL (70-110)
[2019-08-27] VITALS: BP 146/82; PULSE 83; RESP 18; TEMP 37.2; O2SAT 97
[2019-08-27 03:56] VITALS: BP 154/86; PULSE 87; RESP 18; TEMP 37.4; O2SAT 94
[2019-08-27] MEDS: acetaminophen 500 mg Tablet 1000 MG PO ×2 (05:16→13:34)
[2019-08-27 06:37] LABS: Glucose Point of Care 149 mg/dL (70-110)
[2019-08-27 07:04] VITALS: BP 105/62; PULSE 75; RESP 18; TEMP 36.4; O2SAT 93
[2019-08-27] MEDS: dilTIAZem ER (24HR) 240 mg Capsule PO (09:05)
[2019-08-27] MEDS: docusate sodium 100 mg Capsule PO (09:05)
[2019-08-27] MEDS: lisinopril 5 mg Tablet PO (09:05)
[2019-08-27] MEDS: pregabalin 75 mg Capsule PO (09:05)
[2019-08-27] MEDS: venlafaxine ER (24HR) 150 mg Capsule PO (09:05)
[2019-08-27] MEDS: aspirin 325 mg EC Tablet PO (09:05)
[2019-08-27] MEDS: clopidogrel 75 mg Tablet PO (09:05)
[2019-08-27] MEDS: atorvastatin 40 mg Tablet 20 MG PO (09:06)
[2019-08-27 10:58] LABS: Glucose Point of Care 246 mg/dL (70-110)
[2019-08-27 11:22] VITALS: BP 107/68; PULSE 80; RESP 18; TEMP 36.8; O2SAT 98
--- NOTE | 2019-08-27 11:30 | P.DS_ITS ---
Discharge Providers Date of Admission: 08/23/19 17:05 Date of Discharge: August 27, 2019 Attending Provider at Admission: Soren Guo MD Attending Provider at Discharge: Soren Guo MD Primary Care Provider: Juan José Humphrey Diagnoses at Discharge Discharge Diagnosis (1) Status post open reduction with internal fixation (ORIF) of fracture of ankle: Status: Acute Problem details: Doing well postoperatively. (2) Closed trimalleolar fracture of ankle: Status: Acute Problem details: Postoperative day #3 Qualifiers: Encounter type: initial encounter Laterality: right Qualified Code(s): S82.851A - Displaced trimalleolar fracture of right lower leg, initial encounter for closed fracture (3) Ankle syndesmosis disruption: Status: Acute Qualifiers: Encounter type: initial encounter Laterality: right Qualified Code(s): S93.431A - Sprain of tibiofibular ligament of right ankle, initial encounter Reason for Visit Reason for Visit: Reason For Visit: FALL, ANKLE PAIN Hospital Course Hospital Course: Lynnette is a 69-year-old white female who presented to the hospital status post fall. She had a fracture of her tibia and fibula. Orthopedics was consulted. On August 24 they performed ORIF of right trimalleolar fracture dislocation. Patient tolerated this well and during the rest of her hospital course was spent on rehabilitation training, as well as close monitoring. She was placed in skilled care on August 27. Physical Exam Narrative: EXAM NARRATIVE: General exam is no apparent distress Cardiovascular regular rate and rhythm with a 2/6 systolic murmur Lungs clear Abdomen is soft with positive bowel sounds Extremities no cyanosis clubbing or edema, cam walker right lower extremity Urinary Catheter Management^: Albert: Cath Placed During This Visit: yes, but has since been removed by the nurse Urethral Indwelling: Yes Reason for Continuing Indwelling Catheter: Decision to DC Catheter Urinary Catheter Date of Insertion: 08/23/19 Urinary Catheter Time of Insertion: 22:10 Date Urinary Catheter Removed: 08/27/19 Time Urinary Catheter Discontinued: 10:45 Discharge Data Data Completed and Pending: Completed Studies During Hospitalization Category Date Time Status XR ankle RT 2V 73 600 Routine Exams 08/23/19 16:25 Completed XR ankle RT 2V 73 600 Stat Exams 08/23/19 14:32 Completed XR ankle RT min 3 V* 10798 Routine Exams 08/24/19 Completed XR chest 1V igor ble 15463 Stat Exams 08/23/19 15:04 Completed XR foot RT 2V 736 20 Stat Exams 08/23/19 14:33 Completed CV echo complete* 08397 Routine Ultrasound 08/23/19 17:05 Completed Labs from last 24 hours 08/27/19 08/27/19 08/26/19 10:49 06:27 20:36 POC Glucose 246 149 253 08/26/19 17:02 POC Glucose 211 Vitals: Last Vital Signs Temp 98.3 F 08/27/19 11:22 Pulse 80 08/27/19 11:22 Resp 18 08/27/19 11:22 BP 107/68 08/27/19 11:22 Pulse Ox 98 08/27/19 11:22 Discharge Plan Discharge Patient Disposition: Xfer SNF Condition: Stable Prescriptions: New aspirin 325 mg Tablet,Delayed Release (Dr/Ec) 325 mg PO DAILY Qty: 30 RF: 0 Continued metformin 500 mg tablet 500 mg PO BID RF: 0 DILT-XR 240 mg capsule,ext.rel 24h degradable 240 mg PO DAILY RF: 0 venlafaxine 150 mg capsule,extended release 24hr 150 mg PO DAILY RF: 0 clopidogrel 75 mg tablet 75 mg PO DAILY RF: 0 hydrocodone-acetaminophen 10-325 mg tablet 1 tab PO Q6H PRN (Reason: Pain) RF: 0 pravastatin 10 mg tablet 10 mg PO DAILY RF: 0 trazodone 100 mg tablet 100 mg PO BEDTIME RF: 0 ropinirole 0.5 mg tablet 0.5 mg PO BEDTIME RF: 0 lisinopril 5 mg tablet 5 mg PO DAILY RF: 0 pregabalin 75 mg capsule 75 mg PO BID RF: 0 Myrbetriq 25 mg tablet extended release 24 hr 25 mg PO DAILY RF: 0 Discharge Orders: Discharge Order (Routine); Ordered 08/27/19 Ordered By: Soren Guo Referrals: [facility] [Outside] - 1-3 days Hallie Stock MD [Physician] - 09/20/19 11:00 am (APPOINTMENT WITH NURSE IN [facility]THO CL[facility]IC ON SEPTEMBER 02 AT 1:[address] stock september 19 at 11:00 ) Discharge Diet: Cardiac and Diabetic Discharge Activity: Use walker/crutches as instructed and As per PT/OT instructions Activity Restrictions/Additional Instructions: Follow-up with orthopedics per their arrangement Take medicine as prescribed Nonweightbearing right lower extremity Discharge Attestations Time Spent in Discharge Care*: greater than 30 min Quality Metrics Clinical Quality Measures During this hospital stay, did patient experience: None Coding Level of Care Code Acute Denier Control Operator for Zacg Fwd Diagnoses Status post open reduction with internal fixation (ORIF) of fracture of ankle Z98.890; Z87.81 Closed trimalleolar fracture of ankle S82.851A Encounter type: initial encounter Laterality: right Ankle syndesmosis disruption S93.431A Encounter type: initial encounter Laterality: right
[2019-08-27 15:14] VITALS: BP 107/68; PULSE 80; RESP 18; TEMP 36.8; O2SAT 98
== END 2019-08-27 15:14 | disposition skilled nursing facility (03) | DRG 493 ==
LOC: ER 15:31 → MEDSURG 17:23
PROVIDERS: Specialist; Admitting Provider Internal Medicine; Emergency Provider Family Medicine; Family Provider Family Medicine; PCP Family Medicine; Visit Provider Internal Medicine
PROC: 0QSJ04Z Reposition Right Fibula with Internal Fixation Device, Open Approach (ICD-10-PCS; principal; 2019-08-24 12:45)
DX: S82.851A Displaced trimalleolar fracture of right lower leg, initial encounter for closed fracture (principal); D62 Acute posthemorrhagic anemia; Z68.42 Body mass index [BMI] 45.0-49.9, adult; S93.431A Sprain of tibiofibular ligament of right ankle, initial encounter; I25.10 Atherosclerotic heart disease of native coronary artery without angina pectoris; E78.5 Hyperlipidemia, unspecified; G25.81 Restless legs syndrome; E11.9 Type 2 diabetes mellitus without complications; E66.01 Morbid (severe) obesity due to excess calories; W18.30XA Fall on same level, unspecified, initial encounter; E11.22 Type 2 diabetes mellitus with diabetic chronic kidney disease; I12.9 Hypertensive chronic kidney disease with stage 1 through stage 4 chronic kidney disease, or unspecified chronic kidney disease; N18.9 Chronic kidney disease, unspecified; Z86.73 Personal history of transient ischemic attack (TIA), and cerebral infarction without residual deficits; Z79.84 Long term (current) use of oral hypoglycemic drugs; Z79.811 Long term (current) use of aromatase inhibitors; Z79.899 Other long term (current) drug therapy
CPT/HCPCS: 12345; 36415; 36416; 51702; 51798; 71045; 73600; 73610; 73620; 76000; 80048; 80053; 81001; 82962; 84443; 85025; 85610; 85730; 93005; 93306; 96372; 96375; 97110; 97162; 97166; 97530; 97535; 99283; C1713; J0131; J0690; J1815; J2001; J2270; J2370; J2405; J2704; J2710; J3010; J3490; J7030

== ENCOUNTER 2019-09-07 16:47 | Emergency (ER) | payer MEDICARE, MEDICAID, SELFPAY ==
[2019-09-07 16:48] VITALS: BP 153/75; PULSE 70; RESP 16; TEMP 36.8; O2SAT 98; BMI 45.5
--- NOTE | 2019-09-07 16:50 | ED_ITS ---
Entered by Denise Rivera, acting as scribe for Timothy Diaz DO Documented by User: Timothy Diaz DO 09/07/19 17:39 HPI - Neuro Symptoms/Deficit General: Chief Complaint: Neuro Symptoms/Deficit Stated Complaint: WEAKNESS RIGHT HAND Time Seen by Provider: 09/07/19 16:50 Source: patient, EMS and RN notes reviewed Mode of arrival: EMS Limitations: physical limitation (R leg injury) History of Present Illness: HPI Narrative: 69 yo female presents to ED with complaints of R sided weakness. The patient states she fell last week and injured her R leg, then she said she fell 2 weeks ago and injured her R leg, having had surgery at that time. She said she has some weakness in her R arm and that is why her doctor wants her to get a CT to rule out a stroke. The patient fell on 08.23.2019. She was seen and treated here at [facility] The patient states she has not had another fall since that time. Onset (ago): week(s) (2) Timing confirmed by: other (patient) Location: right arm and right leg History of same: No Severity: mild Quality: weak Relieving factors: none Exacerbating factors: none Context: recent fall (08.23.2019) On Anticoagulants: Yes Associated symptoms: Reports weakness Treatments Prior to Arrival: none Review of Systems General: Reports: 10 or more systems reviewed and unremarkable except in HPI and below PFSH ED PFSH: Medical History Ankle syndesmosis disruption Cerebrovascular accident Chronic kidney disease Closed trimalleolar fracture of ankle Postoperative day #3 Coronary artery disease Depression Diabetes Heart murmur Hyperlipidemia Hypertension Obesity Restless leg syndrome Surgical History History of cholecystectomy History of hernia repair History of tubal ligation Family History Other Diabetes Social History Smoking and tobacco status: never smoked Alcohol intake: never Physical Exam Const: COMMON NORMALS: no apparent distress, average body habitus, oriented x3, no limitations, healthy appearing, alert and well nourished Neck/C-Spine: COMMON NORMALS: no meningeal signs and no JVD Resp: COMMON NORMALS: normal respiratory effort, no retractions, no use of accessory muscles, clear to auscultation bilaterally and percussion normal AUSCULTATION: clear to auscultation bilaterally PERCUSSION: percussion normal Cardio: COMMON NORMALS: no JVD, regular rate, regular rhythm, S1 normal heart sound, S2 normal heart sound, no gallops, no clicks, no murmurs, no rub and pe ripheral pulses 2+ throughout RATE: regular rate RHYTHM: regular rhythm HEART SOUNDS: S1 normal and S2 normal PERIPHERAL PULSES: pulses 2+ throughout GI: COMMON NORMALS: normal to inspection, nondistended, normoactive bowel sounds, soft to palpation, non-tender, no hepatosplenomegaly, no masses and no bruits PALPATION: Yes soft and Yes no hepatosplenomegaly : COMMON NORMALS: Yes no CVA tenderness and Yes external appearance normal BLADDER/KIDNEY EXAM: Yes no CVA tenderness Back/Pelvis: COMMON NORMALS: no CVA tenderness, thoracic and lumbar spine no rmal to inspection, no thoracic nor lumbar tenderness, thoraco-lumbar ROM normal and straight leg raise negative bilaterally Extremity: COMMON NORMALS: normal to inspection, full ROM, normal capillary refill, no joint enlargement, no clubbing, cyanosis or edema, no calf tenderness and no pedal edema Neuro: COMMON NORMALS: oriented x3 SENSORIUM/ORIENTATION: Yes alert MENINGEAL SIGNS: Yes no meningeal signs Skin: COMMON NORMALS: no rashes or lesions noted, no wounds, skin turgor normal, no jaundice, no petechiae and no mottling GENERAL SKIN EXAM: no rashes or lesions noted and turgor normal Course Vital Signs: Vital signs: Vital Signs Temperature 98.2 F 09/07/19 16:48 Pulse Rate 76 09/07/19 16:56 Respiratory Rate 17 09/07/19 18:23 Blood Pressure 153/75 09/07/19 16:48 Pulse Oximetry 95 09/07/19 18:23 MDM - Neuro Symptoms/Deficit Imaging Data^: CT Head: Radiologist's impression: [address] [address] [address] Scan Report Signed Patient: Lynnette Ferreira #: [id number] : 1950Acct#:[id number] Age/Sex: 69 / FADM Date: 09/07/19 Loc: ERRoom/Bed: Attending Dr: Ordering Provider/Ordering MD: Timothy Diaz DO Date of Service: 09/07/19 Procedure(s): CT head wo con* [id number] Accession Number(s): [id number] Report Number: [id number] PROCEDURE INFORMATION: Exam: CT Head Without Contrast Exam date and time: 09/07/2019 5:15 PM Age: 69 years old Clinical indication: Speech disturbance; Slurred speech; Additional info: CVA TECHNIQUE: Imaging protocol: Computed tomography of the head without contrast. Total DLP: 881.59 mGy-cm Radiation optimization: All CT scans at this facility use at least one of these dose optimization techniques: automated exposure control; mA and/or kV adjustment per patient size (includes targeted exams where dose is matched to clinical indication); or iterative reconstruction. COMPARISON: CT head wo con* [id number] 07/10/2017 3:26 PM FINDINGS: Brain: There is mild volume loss and periventricular low density compatible with small vessel disease changes. No midline shift, edema or mass effect. Ventricles: Normal. No ventriculomegaly. Bones/joints: Unremarkable. No acute fracture. Sinuses: There is mild mucosal thickening in the sinuses. Mastoid air cells: Visualized mastoid air cells are well aerated. Soft tissues: Unremarkable. CT/CT head wo con* [id number] IMPRESSION: No acute intracranial abnormality. Unchanged exam. Radiation Dose CTDIVOL = (mGy): DLP = 881.59 (mGy-cm) Dictated By:Fartun Taylor Signed By:Vida Taylor Date/Time:09/07/191820 DD/ Discharge Plan Discharge Patient Disposition: Home, Self-Care Clinical Impression: Weakness Condition: Stable Prescriptions: No Action metformin 500 mg tablet 500 mg PO BID RF: 0 diltiazem HCl [DILT-XR] 240 mg capsule,ext.rel 24h degradable 240 mg PO DAILY RF: 0 venlafaxine 150 mg capsule,extended release 24hr 150 mg PO DAILY RF: 0 clopidogrel 75 mg tablet 75 mg PO DAILY RF: 0 pravastatin 10 mg tablet 10 mg PO DAILY RF: 0 trazodone 100 mg tablet 100 mg PO BEDTIME RF: 0 ropinirole 0.5 mg tablet 0.5 mg PO BEDTIME RF: 0 lisinopril 5 mg tablet 5 mg PO DAILY RF: 0 pregabalin 75 mg capsule 75 mg PO BID RF: 0 Myrbetriq 25 mg tablet extended release 24 hr 25 mg PO DAILY RF: 0 aspirin 325 mg Tablet,Delayed Release (Dr/Ec) 325 mg PO DAILY Qty: 30 RF: 0 loperamide 2 mg Tablet 2 mg PO BID PRN (Reason: Diarrhea) RF: 0 Percocet 5-325 mg Tablet 1 tab PO Q4H PRN (Reason: Pain) RF: 0 Novolog Flexpen U-100 Insulin 100 unit/mL (3 mL) Insulin Pen See Rx Instructions .ROUTE .COMPLEX RF: 0 Levemir FlexTouch U-100 Insuln 100 unit/mL (3 mL) Insulin Pen 35 unit SUBCUT QPM RF: 0 Tylenol 325 mg Tablet 650 mg PO Q4H PRN (Reason: Pain) RF: 0 Milk of Magnesia 400 mg/5 mL Suspension 30 ml PO Q3D PRN (Reason: Constipation) RF: 0 Dulcolax (bisacodyl) 10 mg Suppository See Rx Instructions .ROUTE .COMPLEX RF: 0 Dulcolax (bisacodyl) 5 mg Tablet,Delayed Release (Dr/Ec) 20 mg PO PRN RF: 0 Mylanta Maximum Strength 400-400-40 mg/5 mL Suspension See Rx Instructions .ROUTE .COMPLEX RF: 0 magnesium citrate See Rx Instructions .ROUTE .COMPLEX RF: 0 Discharge Orders: Discharge Order (Routine); Ordered 09/07/19 Ordered By: Brent Benites Referrals: Juan José Humphrey [Primary Care Provider] - 1-3 days Discharge Diet: Advance as tolerated Discharge Activity: Resume usual activity Patient Instructions: Weakness (ED) Coding Level of Care Code ED Crm Marketing Analyst for Chg Fwd Exam Comprehensive Documented by User: Brent Benites MD 09/07/19 18:35 HPI - Neuro Symptoms/Deficit General: Chief Complaint: Neuro Symptoms/Deficit Stated Complaint: WEAKNESS RIGHT HAND Time Seen by Provider: 09/07/19 16:50 PFSH ED PFSH: Medical History Ankle syndesmosis disruption Cerebrovascular accident Chronic kidney disease Closed trimalleolar fracture of ankle Postoperative day #3 Coronary artery disease Depression Diabetes Heart murmur Hyperlipidemia Hypertension Obesity Restless leg syndrome Surgical History History of cholecystectomy History of hernia repair History of tubal ligation Family History Other Diabetes Social History Smoking and tobacco status: never smoked Alcohol intake: never Course Vital Signs: Vital signs: Vital Signs Temperature 98.2 F 09/07/19 16:48 Pulse Rate 76 09/07/19 16:56 Respiratory Rate 17 09/07/19 18:23 Blood Pressure 153/75 09/07/19 16:48 Pulse Oximetry 95 09/07/19 18:23 MDM - Neuro Symptoms/Deficit MDM Narrative: Medical decision making narrative: Patient presents with weakne ss right hand from a stroke [address] here is normal. Patient is well-appearing here and is stable for discharge. Will discharge back to senior care at this time. Discharge Plan Discharge Patient Disposition: Home, Self-Care Clinical Impression: Weakness Condition: Stable Prescriptions: No Action metformin 500 mg tablet 500 mg PO BID RF: 0 diltiazem HCl [DILT-XR] 240 mg capsule,ext.rel 24h degradable 240 mg PO DAILY RF: 0 venlafaxine 150 mg capsule,extended release 24hr 150 mg PO DAILY RF: 0 clopidogrel 75 mg tablet 75 mg PO DAILY RF: 0 pravastatin 10 mg tablet 10 mg PO DAILY RF: 0 trazodone 100 mg tablet 100 mg PO BEDTIME RF: 0 ropinirole 0.5 mg tablet 0.5 mg PO BEDTIME RF: 0 lisinopril 5 mg tablet 5 mg PO DAILY RF: 0 pregabalin 75 mg capsule 75 mg PO BID RF: 0 Myrbetriq 25 mg tablet extended release 24 hr 25 mg PO DAILY RF: 0 aspirin 325 mg Tablet,Delayed Release (Dr/Ec) 325 mg PO DAILY Qty: 30 RF: 0 loperamide 2 mg Tablet 2 mg PO BID PRN (Reason: Diarrhea) RF: 0 Percocet 5-325 mg Tablet 1 tab PO Q4H PRN (Reason: Pain) RF: 0 Novolog Flexpen U-100 Insulin 100 unit/mL (3 mL) Insulin Pen See Rx Instructions .ROUTE .COMPLEX RF: 0 Levemir FlexTouch U-100 Insuln 100 unit/mL (3 mL) Insulin Pen 35 unit SUBCUT QPM RF: 0 Tylenol 325 mg Tablet 650 mg PO Q4H PRN (Reason: Pain) RF: 0 Milk of Magnesia 400 mg/5 mL Suspension 30 ml PO Q3D PRN (Reason: Constipation) RF: 0 Dulcolax (bisacodyl) 10 mg Suppository See Rx Instructions .ROUTE .COMPLEX RF: 0 Dulcolax (bisacodyl) 5 mg Tablet,Delayed Release (Dr/Ec) 20 mg PO PRN RF: 0 Mylanta Maximum Strength 400-400-40 mg/5 mL Suspension See Rx Instructions .ROUTE .COMPLEX RF: 0 magnesium citrate See Rx Instructions .ROUTE .COMPLEX RF: 0 Discharge Orders: Discharge Order (Routine); Ordered 09/07/19 Ordered By: Brent Benites Referrals: Juan José Humphrey [Primary Care Provider] - 1-3 days Discharge Diet: Advance as tolerated Discharge Activity: Resume usual activity Patient Instructions: Weakness (ED) Coding Level of Care Code ED Crm Marketing Analyst for Chg Fwd Exam Comprehensive The documentation recorded by the Nicole hannon Valerie R, accurately reflects the service I personally performed and the decisions made by Joe ríos Donald P, DO Sep 07, 2019 16:47
[2019-09-07 16:56] VITALS: PULSE 76; RESP 16; O2SAT 95
--- NOTE | 2019-09-07 16:57 | CTR_ITS ---
PROCEDURE INFORMATION: Exam: CT Head Without Contrast Exam date and time: 09/07/2019 5:15 PM Age: 69 years old Clinical indication: Speech disturbance; Slurred speech; Additional info: CVA TECHNIQUE: Imaging protocol: Computed tomography of the head without contrast. Total DLP: 881.59 mGy-cm Radiation optimization: All CT scans at this facility use at least one of these dose optimization techniques: automated exposure control; mA and/or kV adjustment per patient size (includes targeted exams where dose is matched to clinical indication); or iterative reconstruction. COMPARISON: CT head wo con* [id number] 07/10/2017 3:26 PM FINDINGS: Brain: There is mild volume loss and periventricular low density compatible with small vessel disease changes. No midline shift, edema or mass effect. Ventricles: Normal. No ventriculomegaly. Bones/joints: Unremarkable. No acute fracture. Sinuses: There is mild mucosal thickening in the sinuses. Mastoid air cells: Visualized mastoid air cells are well aerated. Soft tissues: Unremarkable. CT/CT head wo con* [id number] IMPRESSION: No acute intracranial abnormality. Unchanged exam. Radiation Dose CTDIVOL = (mGy): DLP = 881.59 (mGy-cm)
[2019-09-07 18:23] VITALS: RESP 17; O2SAT 95
[2019-09-07 18:35] VITALS: BP 129/75; PULSE 73; RESP 16; O2SAT 97
== END 2019-09-07 21:30 | disposition home or self-care (01) ==
PROVIDERS: Emergency Provider Emergency Medicine; Family Provider Family Medicine; PCP Family Medicine
DX: R53.1 Weakness (principal); I25.10 Atherosclerotic heart disease of native coronary artery without angina pectoris; E78.5 Hyperlipidemia, unspecified; I12.9 Hypertensive chronic kidney disease with stage 1 through stage 4 chronic kidney disease, or unspecified chronic kidney disease; E11.22 Type 2 diabetes mellitus with diabetic chronic kidney disease; N18.9 Chronic kidney disease, unspecified; Z79.84 Long term (current) use of oral hypoglycemic drugs; Z79.82 Long term (current) use of aspirin; Z86.73 Personal history of transient ischemic attack (TIA), and cerebral infarction without residual deficits
CPT/HCPCS: 12345; 70450; 99281; 99282

== ENCOUNTER 2020-01-11 10:33 | Emergency (ER) | payer MEDICARE, MEDICAID, SELFPAY ==
[2020-01-11] VITALS (8 sets, daily range): BP systolic 131–169; BP diastolic 56–86; PULSE 71–82; RESP 16–18; TEMP 37; O2SAT 94–99; BMI 45.8
--- NOTE | 2020-01-11 10:45 | USCV_ITS ---
Lynnette Ferreira Age: 69 Gender: F : 1950 Exam Date: 01/11/2020 11:58 Ordering Phys: Gillian Kim MD Technologist: Lauren aBrber Exam Location: [facility] [place] Indication: EDEMA HISTORY: Upper extremity edema. PROCEDURES: Venous duplex imaging was performed in only the right upper extremity. The following venous structures were evaluated: internal jugular vein, subclavian vein, axillary vein, and brachial veins. In addition, the basilic vein, cephalic vein, radial vein, and ulnar vein. FINDINGS: Normal 2-D, color Doppler and phasicity noted in ther right upper extremity venous system extending from the right internal jugular vein through the main forearm. No thrombosis or occlusion noted. CONCLUSIONS No evidence for RIGHT upper extremity deep venous thrombosis. Temo Mcpherson MD (Electronically Signed) Final Date: 12 January 2020 11:11 S
--- NOTE | 2020-01-11 10:45 | XRR_ITS ---
PROCEDURE INFORMATION: Exam: XR Right Tibia and Fibula Exam date and time: 01/11/2020 11:32 AM Age: 69 years old Clinical indication: Condition or disease; Other: Wound; Prior surgery; Surgery type: Orif jul 2019; Additional info: Infected wound TECHNIQUE: Imaging protocol: XR Right tibia and fibula. Views: 2 views. COMPARISON: CR Tibia and Fibula RIGHT [id number] 05/27/2016 12:56 PM FINDINGS: Bones/joints: Moderate degenerative changes within the knee Malleable surgical plate and screws stabilizing the fibula in near anatomical alignment. No discrete evidence of osteomyelitis. Correlate. Soft tissues: Apparent soft tissue swelling lateral to the operative site. Correlate. XR/XR tibia fibula RT 2V [id number] IMPRESSION: Malleable surgical plate and screws stabilizing the fibula in near anatomical alignment. No discrete evidence of osteomyelitis. Correlate.
--- NOTE | 2020-01-11 11:01 | PC.NURSE ---
REPORT RECIEVED FROM LEEANN ALVAREZ ASSUMED CARE.
--- NOTE | 2020-01-11 11:05 | PC.NURSE ---
WHILE AT BEDSIDE PT IS IN NAD.
[2020-01-11 11:19] LABS: Basophils # 0.1 10^3/uL (0.0-0.1); Basophils % 0.4 %; Eosinophils # 0.2 10^3/uL (0.0-0.8); Eosinophils % 1.5 %; Hematocrit 36.4 % (37.0-47.0); Hemoglobin 11.8 g/dL (11.5-15.3); Lymphocytes # 3.4 10^3/uL (0.8-4.8); Mean Corpuscular HGB Conc 32.4 g/dL (30.0-36.0); Mean Corpuscular Hemoglobin 30.2 pg (28.0-34.0); Mean Corpuscular Volume 93.1 fL (81-99); Mean Platelet Volume 11.9 fL (7.4-10.4); Monocytes # 0.9 10^3/uL (0.2-0.9); Neutrophils # 8.04 10^3/uL (1.8-7.7); Neutrophils % 63.7 %; Nucleated Red Blood Cells % 0 %; Platelet Count 278 10^3/cmm (130-400); Red Blood Count 3.91 10^6/uL (4.1-5.3); Red Cell Distribution Width 12.9 % (12.1-15.1); White Blood Count 12.6 10^3/uL (4.0-10.0)
[2020-01-11 11:33] LABS: Lactate (Lactic Acid level) 1.4 mmol/L (0.5-2.2)
[2020-01-11 11:36] LABS: Add Urine Microscopic? YES; Bilirubin Urine Neg (NEGATIVE); Blood Urine 2+ (Negative); Glucose Urine UA 4+ (Normal); Ketones Urine Negative (Negative); Leukocyte Esterase Urine 2+ (Negative); Nitrate Urine Negative (Negative); Protein Urine 3+ (Negative); Specific Gravity, Urine 1.015 (1.005-1.030); Urine Appearance Cloudy (CLEAR); Urine Color Yellow (Yellow); Urobilinogen Urine 1 mg/dL (Negative); pH Urine 5 (5-7)
[2020-01-11 11:43] LABS: Procalcitonin 0.13 ng/mL (0-0.5)
[2020-01-11 11:45] LABS: Squamous Epithelial Cell Urine >100 (0-5); WBC Urine TOO NUMEROUS TO CNT /hpf (0-5)
[2020-01-11 11:46] LABS: Add Urine Culture? No; Mucus Urine TRACE
[2020-01-11 11:47] LABS: Bacteria Urine 2+
[2020-01-11 11:54] LABS: Alanine Aminotransferase 15 U/L (0-33); Albumin Level 3.5 g/dL (3.5-5.2); Alkaline Phosphatase 111 IU/L (35-105); Anion Gap 16.8 (5-19); Aspartate Amino Transferase 10 U/L (0-32); Blood Urea Nitrogen 26 mg/dL (8-23); Carbon Dioxide 24 mmol/L (22-29); Chloride 98 mmol/L (98-107); Globulin 3.7 g/dL (1.3-4.6); Glomerular Filtration Rate 40.6 mL/min (90-130); Glucose 294 mg/dL (65-115); Osmolality Calculated 286 mOsm/kg (285-295); Potassium 4.8 mmol/L (3.5-5.1); Sodium 134 mmol/L (136-145); Total Bilirubin 0.2 mg/dL (0.15-1.2); Total Protein 7.2 g/dL (6.6-8.7)
[2020-01-11 12:02] LABS: Erythrocyte Sedimentation Rate 62 mm/hr (0-15)
--- NOTE | 2020-01-11 12:18 | PC.NURSE ---
WHILE AT BEDSIDE ULTRASOUND IN ROOM. PT ASKED, IF ANYONE OR [facility]ILL[facility] CALLS ABOUT YOU DO YOU MIND IF I UPDATE THEM ON YOUR CARE AND CONDITION . PT STATED, THAT'S FINE .
--- NOTE | 2020-01-11 12:50 | PC.NURSE ---
Pt resting quietly in bed at this time. Pt is alert, oriented and stable. Pt denies any further needs at this time. Call light is within reach.
--- NOTE | 2020-01-11 13:04 | ED_ITS ---
HPI - Extremity Problem General: Chief complaint: Extremity Problem,Nontraumatic Stated complaint: RIGHT FOOT INFECTION Time Seen by Provider: 01/11/20 10:36 History of Present Illness: HPI Narrative: This patient is an 69-year-old female presenting today with concerns for her right arm being swollen and her right leg being infected. She fell and broke her ankle in July. She had surgery with a plate at that time. Apparently she was in a [facility] for a few months after that for rehab and then went home. It sounds as though the wound was open even while she was at the usp but she is very fuzzy about the timeline. The wound seems to be getting worse and appears infected. She said she has not seen anyone for it recently but has a follow-up appoint with Dr. Krishna coming up. This morning she woke up with swelling of her right arm. Her son called the ambulance to bring her to the emergency department. She is had a prior stroke and has some weakness on the right side at baseline. She is not a very good historian about tell me what is a new complaint and what has been going on for some time. It does seem that the right arm swelling is new today. Complaint: extremity pain (Right ankle) and extremity swelling (Right arm) Onset (ago): unknown Location: right, upper extremity and lower extremity Associated symptoms: Deny chest pain, fever(s) or rash Review of Systems General: Reports: 10 or more systems reviewed and unremarkable except in HPI and below Const: Denies: fever(s), chills, fatigue or malaise Eyes: Denies: change in vision ENMT: Denies: odynophagia Card: Denies: chest pain or swelling of feet/ankles Resp: Denies: dyspnea, productive cough or non-productive cough GI: Denies: abdominal pain, nausea or vomiting : Denies: flank pain or difficulty voiding Musc: Reports: extremity swelling; Denies: neck pain or back pain Skin/Breast: Reports: sores (Wound right lower leg); Denies: rash Neuro: Denies: headache(s), numbness in extremities or weakness in extremities Prince/Lymph: Denies: easy bruising or easy bleeding [facility] ED PFSH: Medical History Ankle syndesmosis disruption Cerebrovascular accident Chronic kidney disease Closed trimalleolar fracture of ankle Coronary artery disease Depression Diabetes Heart murmur Hyperlipidemia Hypertension Obesity Restless leg syndrome Surgical History History of cholecystectomy History of hernia repair History of tubal ligation Family History Other Diabetes Social History Smoking and tobacco status: never smoked Alcohol intake: never Physical Exam Const: COMMON NORMALS: no acute distress, patient oriented x3, no limitations and alert GENERAL APPEARANCE: cooperative and comfortable HENMT: HEAD & SCALP: normal to inspection FACE & SINUS: normal facial exam Eye: GENERAL EYE: appearance normal, both eyes and all related structures Neck/C-Spine: COMMON NORMALS: supple, no meningeal signs and no JVD Chest: COMMONS NORMALS: normal inspection of the chest Resp: COMMON NORMALS: normal respiratory effort, No use of accessory muscles and clear to auscultation bilaterally AUSCULTATION: clear to auscultation bilaterally Cardio: COMMON NORMALS: no JVD, regular rate, regular rhythm and No murmurs present (Cardio) RATE: regular rate RHYTHM: regular rhythm GI: COMMON NORMALS: Normal to inspection, nondistended, normoactive bowel sounds present, Soft to palpation and non-tender INSPECTION: Yes normal to inspection AUSCULTATION: Yes normoactive bowel sounds PALPATION: Yes Soft to palpation Back/Pelvis: COMMON NORMALS: thoracic and lumbar spine normal to inspection Extremity: GENERAL: Yes normal exam except as noted RIGHT LOWER EXTREMITY: Yes lower leg (There is a approximately 3 to 4 cm open area over the lateral aspect of the lower leg. The dressing on the wound had purulent javier discharge. There is some mild surrounding erythema. Pulses are intact and the leg itself is not significantly swollen.) OTHER: Right upper extremity is diffusely swollen. This appears to be edema. There is no sign of infection with no heat or erythema. Pulses are intact. Neuro: COMMON NORMALS: patient oriented x3, moves all extremities, no focal motor deficits and no sensory deficits noted SENSORIUM/ORIENTATION: Yes alert MENINGEAL SIGNS: Yes no meningeal signs Psych: COMMON NORMALS: mental status grossly normal, cooperative and normal affect Skin: COMMON NORMALS: no rashes or lesions noted and turgor normal GENERAL SKIN EXAM: no rashes or lesions noted and turgor normal Course ED course: Wound over a surgical site. The patient does have home health coming to help her with wound care. She sees Dr. Stock on the . She has a prescription for Augmentin that was called in today by Dr. Villareal. She confirms that that was delivered to her house and is they are waiting for her. Her arm swelling may be related to the fact that she is been sleeping in a chair with her arm hanging over the side of it. Ultrasound for venous occlusion was negative. She would like to go home and otherwise feels well. Vital Signs: Vital signs: Vital Signs Temperature 98.6 F 01/11/20 10:41 Pulse Rate 75 01/11/20 14:45 Respiratory Rate 18 01/11/20 17:27 Blood Pressure 146/86 01/11/20 17:27 Pulse Oximetry 98 01/11/20 14:45 MDM - Extremity (Nontraumatic) Lab Data: Labs: Lab Results 01/11/20 01/11/20 01/11/20 Range/Units 09:39 09:39 09:39 WBC 12.6 H (4.0-10.0) 10^3/ uL RBC 3.91 L (4.1-5.3) 10^6/u L Hgb 11.8 (11.5-15.3) g/dL Hct 36.4 L (37.0-47.0) % MCV 93.1 (81-99) fL MCH 30.2 (28.0-34.0) pg MCHC 32.4 (30.0-36.0) g/dL RDW 12.9 (12.1-15.1) % Plt Count 278 (130-400) 10^3/c mm MPV 11.9 H (7.4-10.4) fL Neut % (Auto) 63.7 % Lymph % (Auto) 27.0 % [place] % (Auto) 7.0 % Eos % (Auto) 1.5 % Baso % (Auto) 0.4 % Neut # (Auto) 8.04 H (1.8-7.7) 10^3/u L Lymph # (Auto) 3.4 (0.8-4.8) 10^3/u L [place] # (Auto) 0.9 (0.2-0.9) 10^3/u L Eos # (Auto) 0.2 (0.0-0.8) 10^3/u L Baso # (Auto) 0.1 (0.0-0.1) 10^3/u L Nucleated RBC % (a uto) 0 % Nucleated RBCs # 0.0 /100WBC ESR 62 H (0-15) mm/hr Sodium 134 L (136-145) mmol/L Potassium 4.8 (3.5-5.1) mmol/L Chloride 98 (98-107) mmol/L Carbon Dioxide 24 (22-29) mmol/L Anion Gap 16.8 (5-19) BUN 26 H (8-23) mg/dL Creatinine 1.3 H (0.5-0.9) mg/dL GFR Calculation 40.6 L (90-130) mL/min Glucose 294 H (65-115) mg/dL Calculated Osmolal ity 286 (285-295) mOsm/k g Lactate (0.5-2.2) mmol/L Calcium 9.0 (8.5-10.5) mg/dL Total Bilirubin 0.2 (0.15-1.2) mg/dL AST 10 (0-32) U/L ALT 15 (0-33) U/L Alkaline Phosphata se 111 H (35-105) IU/L Total Protein 7.2 (6.6-8.7) g/dL Albumin 3.5 (3.5-5.2) g/dL Globulin 3.7 (1.3-4.6) g/dL Procalcitonin 0.13 (0-0.5) ng/mL Urine Color (Yellow) Urine Appearance (CLEAR) Urine pH (5-7) Ur Specific Gravit y (1.005-1.030) Urine Protein (Negative) Urine Glucose (UA) (Normal) Urine Ketones (Negative) Urine Blood (Negative) Urine Nitrate (Negative) Urine Bilirubin (NEGATIVE) Urine Urobilinogen (Negative) mg/dL Ur Leukocyte [place] ase (Negative) Urine RBC (0-2) /hpf Urine WBC (0-5) /hpf Ur Squamous Epith Cells (0-5) Amorphous Sediment Urine Bacteria (NONE) Urine Mucus 01/11/20 01/11/20 Range/Units 11:12 11:23 WBC (4.0-10.0) 10^3/ uL RBC (4.1-5.3) 10^6/u L Hgb (11.5-15.3) g/dL Hct (37.0-47.0) % MCV (81-99) fL MCH (28.0-34.0) pg MCHC (30.0-36.0) g/dL RDW (12.1-15.1) % Plt Count (130-400) 10^3/c mm MPV (7.4-10.4) fL Neut % (Auto) % Lymph % (Auto) % [place] % (Auto) % Eos % (Auto) % Baso % (Auto) % Neut # (Auto) (1.8-7.7) 10^3/u L Lymph # (Auto) (0.8-4.8) 10^3/u L [place] # (Auto) (0.2-0.9) 10^3/u L Eos # (Auto) (0.0-0.8) 10^3/u L Baso # (Auto) (0.0-0.1) 10^3/u L Nucleated RBC % (a uto) % Nucleated RBCs # /100WBC ESR (0-15) mm/hr Sodium (136-145) mmol/L Potassium (3.5-5.1) mmol/L Chloride (98-107) mmol/L Carbon Dioxide (22-29) mmol/L Anion Gap (5-19) BUN (8-23) mg/dL Creatinine (0.5-0.9) mg/dL GFR Calculation (90-130) mL/min Glucose (65-115) mg/dL Calculated Osmolal ity (285-295) mOsm/k g Lactate 1.4 (0.5-2.2) mmol/L Calcium (8.5-10.5) mg/dL Total Bilirubin (0.15-1.2) mg/dL AST (0-32) U/L ALT (0-33) U/L Alkaline Phosphata se (35-105) IU/L Total Protein (6.6-8.7) g/dL Albumin (3.5-5.2) g/dL Globulin (1.3-4.6) g/dL Procalcitonin (0-0.5) ng/mL Urine Color Yellow (Yellow) Urine Appearance Cloudy (CLEAR) Urine pH 5 (5-7) Ur Specific Gravit y 1.015 (1.005-1.030) Urine Protein 3+ H (Negative) Urine Glucose (UA) 4+ H (Normal) Urine Ketones Negative (Negative) Urine Blood 2+ H (Negative) Urine Nitrate Negative (Negative) Urine Bilirubin Neg (NEGATIVE) Urine Urobilinogen 1 H (Negative) mg/dL Ur Leukocyte [place] ase 2+ H (Negative) Urine RBC 10-15 H (0-2) /hpf Urine WBC Too numerous to c nt H (0-5) /hpf Ur Squamous Epith Cells >100 H (0-5) Amorphous Sediment Not Reportable Urine Bacteria 2+ H (NONE) Urine Mucus Trace Discharge Plan Discharge Patient Disposition: Home, Self-Care Clinical Impression: Edema of right upper extremity, Acute UTI Open wound of left lower leg Qualifiers: Encounter type: subsequent encounter Qualified Code(s): S81.802D - Unspecified open wound, left lower leg, subsequent encounter Condition: Stable Prescriptions: No Action metformin 500 mg tablet 500 mg PO BID RF: 0 diltiazem HCl [DILT-XR] 240 mg capsule,ext.rel 24h degradable 240 mg PO DAILY RF: 0 venlafaxine 150 mg capsule,extended release 24hr 150 mg PO DAILY RF: 0 clopidogrel 75 mg tablet 75 mg PO DAILY RF: 0 pravastatin 10 mg tablet 10 mg PO DAILY RF: 0 trazodone 100 mg tablet 100 mg PO BEDTIME RF: 0 ropinirole 0.5 mg tablet 0.5 mg PO BEDTIME RF: 0 lisinopril 5 mg tablet 5 mg PO DAILY RF: 0 pregabalin 75 mg capsule 75 mg PO BID RF: 0 Myrbetriq 25 mg tablet extended release 24 hr 25 mg PO DAILY RF: 0 aspirin 325 mg Tablet,Delayed Release (Dr/Ec) 325 mg PO DAILY Qty: 30 RF: 0 loperamide 2 mg Tablet 2 mg PO BID PRN (Reason: Diarrhea) RF: 0 Percocet 5-325 mg Tablet 1 tab PO Q4H PRN (Reason: Pain) RF: 0 Novolog Flexpen U-100 Insulin 100 unit/mL (3 mL) Insulin Pen See Rx Instructions .ROUTE .COMPLEX RF: 0 Levemir FlexTouch U-100 Insuln 100 unit/mL (3 mL) Insulin Pen 35 unit SUBCUT QPM RF: 0 Tylenol 325 mg Tablet 650 mg PO Q4H PRN (Reason: Pain) RF: 0 Milk of Magnesia 400 mg/5 mL Suspension 30 ml PO Q3D PRN (Reason: Constipation) RF: 0 Dulcolax (bisacodyl) 10 mg Suppository See Rx Instructions .ROUTE .COMPLEX RF: 0 Dulcolax (bisacodyl) 5 mg Tablet,Delayed Release (Dr/Ec) 20 mg PO PRN RF: 0 Mylanta Maximum Strength 400-400-40 mg/5 mL Suspension See Rx Instructions .ROUTE .COMPLEX RF: 0 magnesium citrate See Rx Instructions .ROUTE .COMPLEX RF: 0 Discharge Orders: Discharge Order (Routine); Ordered 01/11/20 Ordered By: Gillian Kim Referrals: Juan José Humphrey [Primary Care Provider] - Discharge Diet: Usual diet Discharge Activity: Resume usual activity Patient Instructions: Urinary Tract Infection in Women (ED), Cellulitis (ED) Activity Restrictions/Additional Instructions: Take the Augmentin (antibiotic) prescribed by Dr. Villareal. Continue wound care with your home health nurse. Keep your appointment with Dr. Stock on January 16. Keep your right arm elevated to help control the swelling. [place] [facility] [place] new or worse symptoms. Discharge Date/Time: 01/11/20 17:25 Coding Level of Care Code ED Merchandise Examiner for Geovanna Maria
--- NOTE | 2020-01-11 14:08 | PC.NURSE ---
WHILE AT BEDSIDE PT IS IN NAD. PT IS RESTING QUIETLY WITH EYES CLOSED SUPINE IN BED.
--- NOTE | 2020-01-11 15:35 | PC.NURSE ---
pt wound on right lateral lower leg dressed with telfa and kerlex.
== END 2020-01-11 17:25 | disposition home or self-care (01) ==
PROVIDERS: Emergency Provider Emergency Medicine; PCP Family Medicine
DX: S81.802A Unspecified open wound, left lower leg, initial encounter (principal); Z79.02 Long term (current) use of antithrombotics/antiplatelets; Z79.82 Long term (current) use of aspirin; Z79.4 Long term (current) use of insulin; N39.0 Urinary tract infection, site not specified; R60.0 Localized edema; Z86.73 Personal history of transient ischemic attack (TIA), and cerebral infarction without residual deficits; I25.10 Atherosclerotic heart disease of native coronary artery without angina pectoris; E11.9 Type 2 diabetes mellitus without complications; E78.5 Hyperlipidemia, unspecified; I10 Essential (primary) hypertension; X58.XXXA Exposure to other specified factors, initial encounter
CPT/HCPCS: 12345; 36415; 73590; 80053; 81001; 81003; 83605; 84145; 85025; 85651; 87040; 93971; 99283

== ENCOUNTER → 2020-01-17 14:55 | Outpatient (BNVA) | payer MEDICARE, MEDICAID, SELFPAY | PROVIDERS: PCP Family Medicine; Visit Provider Specialist | DX: S82.851D Displaced trimalleolar fracture of right lower leg, subsequent encounter for closed fracture with routine healing (principal); S93.431D Sprain of tibiofibular ligament of right ankle, subsequent encounter; W19.XXXD Unspecified fall, subsequent encounter | CPT/HCPCS: 73610 ==

== ENCOUNTER 2020-02-11 12:56 | Outpatient (CLI) | payer MEDICARE, MEDICAID, SELFPAY | END 2020-02-11 12:57 | disposition home or self-care (01) | LOC: WOUND 12:57 | PROVIDERS: PCP Family Medicine; Visit Provider Surgery | DX: E11.622 Type 2 diabetes mellitus with other skin ulcer (principal); L97.315 Non-pressure chronic ulcer of right ankle with muscle involvement without evidence of necrosis | CPT/HCPCS: 11043; 99212 ==

== ENCOUNTER 2020-02-25 08:18 | Outpatient (CLI) | payer MEDICARE, MEDICAID, SELFPAY ==
--- NOTE | 2020-02-25 | CT_ITS ---
WS: [id number] INDICATION: Pain redness nonhealing ulcer TECHNIQUE: Noncontrast CT of the right lower extremity with coronal and sagittal reformatted images FINDINGS: Diffuse subcutaneous edema involving the lower leg and ankle. No evidence of abscess or drainable flu id collection. Findings compatible with cellulitis. Soft tissue ulceration overlying the distal fibul a. No evidence of underlying osteomyelitis. Prior postoperative changes plate and screw fixation dist al fibula and lateral malleolus no evidence of hardware loosening. Syndesmosis anchor across the tibi al plafond. Degenerative arthritis ankle mortise. Well-corticated ossicles about the medial malleolus . Advanced osteopenia with subchondral cystic change at the ankle mortise and foot. CT/CT lower leg RT w con [id number] IMPRESSION: 1. Soft tissue ulceration overlying the distal fibula shaft. No evidence of un derlying ostial myelitis. 2. Prior postoperative changes plate and screw fixation distal fibula lateral malleolus. 3. Diffuse extensive edema lower leg and ankle compatible with cellulitis. No drainable abscess or fluid collection. 4. Moderate to advanced degenerative arthritis ankle mortise. Well-corticated ossicles about the medial malleolus. 5. Vascular calcification..
[2020-02-25] MEDS: iodixanol 320 mg/mL 100mL Btl IV (10:26)
[2020-02-25 10:49] LABS: Blood Urea Nitrogen 29 mg/dL (8-23); Glomerular Filtration Rate 27.9 mL/min (90-130)
== END 2020-02-25 08:19 | disposition home or self-care (01) ==
LOC: RAD 08:24
PROVIDERS: Family Provider Family Medicine; PCP Family Medicine; Visit Provider Surgery
DX: M79.604 Pain in right leg (principal); L53.9 Erythematous condition, unspecified; L97.819 Non-pressure chronic ulcer of other part of right lower leg with unspecified severity; R60.0 Localized edema; M19.071 Primary osteoarthritis, right ankle and foot
CPT/HCPCS: 73701; 82565; 84520

== ENCOUNTER 2020-02-25 13:23 | Outpatient (CLI) | payer MEDICARE, MEDICAID, SELFPAY | END 2020-02-25 13:24 | disposition home or self-care (01) | LOC: WOUND 13:24 | PROVIDERS: Family Provider Family Medicine; PCP Family Medicine; Visit Provider Surgery | DX: E11.622 Type 2 diabetes mellitus with other skin ulcer (principal); L97.312 Non-pressure chronic ulcer of right ankle with fat layer exposed; M79.604 Pain in right leg; L53.9 Erythematous condition, unspecified; L97.819 Non-pressure chronic ulcer of other part of right lower leg with unspecified severity; R60.0 Localized edema; M19.071 Primary osteoarthritis, right ankle and foot | CPT/HCPCS: 11043; 73701; 82565; 84520 ==

== ENCOUNTER 2020-02-29 19:31 | Emergency (ER) | payer MEDICARE, MEDICAID, SELFPAY ==
[2020-02-29 19:32] VITALS: BP 179/74; PULSE 79; RESP 18; TEMP 36.8; O2SAT 98; BMI 45.8
--- NOTE | 2020-02-29 19:39 | ED_ITS ---
HPI - Wound/Laceration General: Chief Complaint: Wound/Laceration Stated Complaint: WOUND ON LEG Time Seen by Provider: 02/29/20 19:35 Source: patient and EMS Mode of arrival: EMS Limitations: no limitations History of Present Illness: HPI narrative: 69-year-old female has had a chronic ulcer to her right ankle after surgery months ago. Patient is being followed by wound care. Patient had a CT of that leg done on the that showed no signs of osteomyelitis. Patient denies any fever. She denies any worsening of the wound states it has been draining but has been doing that for weeks. Patient sent here by her home health nurse. She is scheduled to have a wound VAC placed tomorrow and states she sees Dr. Correa this week as well. She denies any pain. Associated symptoms: Denies chills, fever(s), nausea or vomiting Review of Systems Const: Denies: fever(s), chills, body aches or change in appetite Eyes: Denies: blurry vision or eye discomfort ENMT: Denies: throat pain or dental pain Card: Denies: chest pain Resp: Denies: dyspnea GI: Denies: abdominal pain, nausea, vomiting or diarrhea : Denies: dysuria Musc: Denies: neck pain or back pain Skin/Breast: Reports: sores Neuro: Denies: headache(s) Psych: Denies: depression Prince/Lymph: Denies: easy bruising All/Imm: Denies: urticaria PFSH ED PFSH: Medical History Ankle syndesmosis disruption Cerebrovascular accident Chronic kidney disease Closed trimalleolar fracture of ankle Coronary artery disease Depression Diabetes Heart murmur Hyperlipidemia Hypertension Obesity Restless leg syndrome Surgical History History of cholecystectomy History of hernia repair History of tubal ligation Family History Other Diabetes Social History Smoking and tobacco status: never smoked Alcohol intake: never Physical Exam Const: COMMON NORMALS: no acute distress, patient oriented x3 and healthy appearing HENMT: COMMON NORMALS: normocephalic and atraumatic HEAD & SCALP: normocephalic and atraumatic Eye: COMMON NORMALS: Equal, round and reactive pupils present and EOMs intact bilaterally PUPIL: Yes Equal, round and reactive pupils present Neck/C-Spine: COMMON NORMALS: full ROM and supple Chest: COMMONS NORMALS: normal inspection of the chest and normal palpation of entire chest wall Resp: COMMON NORMALS: normal respiratory effort, No retractions, No use of accessory muscles and clear to auscultation bilaterally AUSCULTATION: clear to auscultation bilaterally Cardio: COMMON NORMALS: regular rate, regular rhythm and No murmurs present (Cardio) RATE: regular rate RHYTHM: regular rhythm GI: COMMON NORMALS: Normal to inspection, nondistended, normoactive bowel sounds present, Soft to palpation, non-tender and no masses PALPATION: Yes Soft to palpation Extremity: COMMON NORMALS: normal to inspection and full ROM Neuro: COMMON NORMALS: patient oriented x3, moves all extremities and no focal motor deficits Psych: COMMON NORMALS: mental status grossly normal, Normal thought process present and cooperative THOUGHT PROCESS: Normal thought process present Skin: COMMON NORMALS: no rashes or lesions noted NARRATIVE SKIN EXAM: roughly 4 x 5 cm ulcer to right leg with minimal erythema and no purulent drainage at this time. No warmth to touch GENERAL SKIN EXAM: no rashes or lesions noted Course Vital Signs: Vital signs: Vital Signs Temperature 98.3 F 02/29/20 19:32 Pulse Rate 79 02/29/20 19:32 Respiratory Rate 18 02/29/20 19:32 Blood Pressure 179/74 02/29/20 19:32 Pulse Oximetry 98 02/29/20 19:32 MDM - Wound/Laceration MDM Narrative: Medical decision making narrative: Iftikhar presents here with ulcer to right lower leg that is chronic in nature. Patient has no signs of acute infection. Patient had a recent CT scan showed no signs of osteomyelitis. Patient is to have her wound VAC placed tomorrow and is to follow-up with Dr. Starkey. Patient is return if worsening. Lab Data: Labs: Lab Results 02/29/20 02/29/20 Range/Units 19:57 19:57 WBC 9.1 (4.0-10.0) 10^3/ uL RBC 3.48 L (4.1-5.3) 10^6/u L Hgb 10.6 L (11.5-15.3) g/dL Hct 33.6 L (37.0-47.0) % MCV 96.6 (81-99) fL MCH 30.5 (28.0-34.0) pg MCHC 31.5 (30.0-36.0) g/dL RDW 13.4 (12.1-15.1) % Plt Count 278 (130-400) 10^3/c mm MPV 11.1 H (7.4-10.4) fL Neut % (Auto) 61.8 % Lymph % (Auto) 28.9 % [place] % (Auto) 5.7 % Eos % (Auto) 2.6 % Baso % (Auto) 0.6 % Neut # (Auto) 5.60 (1.8-7.7) 10^3/u L Lymph # (Auto) 2.6 (0.8-4.8) 10^3/u L [place] # (Auto) 0.5 (0.2-0.9) 10^3/u L Eos # (Auto) 0.2 (0.0-0.8) 10^3/u L Baso # (Auto) 0.1 (0.0-0.1) 10^3/u L Nucleated RBC % (a uto) 0 % Nucleated RBCs # 0.0 /100WBC Sodium 137 (136-145) mmol/L Potassium 4.7 (3.5-5.1) mmol/L Chloride 104 (98-107) mmol/L Carbon Dioxide 24 (22-29) mmol/L Anion Gap 13.7 (5-19) BUN 29 H (8-23) mg/dL Creatinine 2.0 H (0.5-0.9) mg/dL GFR Calculation 24.7 L (90-130) mL/min Glucose 252 H (65-115) mg/dL Calculated Osmolal ity 290 (285-295) mOsm/k g Calcium 8.7 (8.5-10.5) mg/dL Discharge Plan Discharge Patient Disposition: Home Clinical Impression: Diabetic leg ulcer Condition: Stable Prescriptions: No Action metformin 500 mg tablet 500 mg PO BID RF: 0 diltiazem HCl [DILT-XR] 240 mg capsule,ext.rel 24h degradable 240 mg PO DAILY RF: 0 venlafaxine 150 mg capsule,extended release 24hr 150 mg PO DAILY RF: 0 clopidogrel 75 mg tablet 75 mg PO DAILY RF: 0 pravastatin 10 mg tablet 10 mg PO DAILY RF: 0 ropinirole 0.5 mg tablet 0.5 mg PO BEDTIME RF: 0 lisinopril 5 mg tablet 5 mg PO DAILY RF: 0 pregabalin 75 mg capsule 75 mg PO BID RF: 0 Myrbetriq 25 mg tablet extended release 24 hr 25 mg PO DAILY RF: 0 aspirin 325 mg Tablet,Delayed Release (Dr/Ec) 325 mg PO DAILY Qty: 30 RF: 0 loperamide 2 mg Tablet 2 mg PO BID PRN (Reason: Diarrhea) RF: 0 oxycodone-acetaminophen [Percocet] 5-325 mg Tablet 1 tab PO Q4H PRN (Reason: Pain) RF: 0 Levemir FlexTouch U-100 Insuln 100 unit/mL (3 mL) Insulin Pen 35 unit SUBCUT QPM RF: 0 acetaminophen [Tylenol] 325 mg Tablet 650 mg PO Q4H PRN (Reason: Pain) RF: 0 magnesium hydroxide [Milk of Magnesia] 400 mg/5 mL Suspension 30 ml PO Q3D PRN (Reason: Constipation) RF: 0 bisacodyl [Dulcolax (bisacodyl)] 10 mg Suppository See Rx Instructions .ROUTE .COMPLEX RF: 0 bisacodyl [Dulcolax (bisacodyl)] 5 mg Tablet,Delayed Release (Dr/Ec) 20 mg PO PRN RF: 0 alum-mag hydroxide-simeth [Mylanta Maximum Strength] 400-400-40 mg/5 mL Suspension See Rx Instructions .ROUTE .COMPLEX RF: 0 magnesium citrate See Rx Instructions .ROUTE .COMPLEX RF: 0 nitrofurantoin monohyd/m-cryst 100 mg capsule 100 mg PO BID RF: 0 Discharge Orders: Discharge Order (Routine); Ordered 02/29/20 Ordered By: Brent Benites Referrals: Juan José Humphrey [Primary Care Provider] - Jerardo Correa MD [Physician] - 1-3 days Discharge Diet: Advance as tolerated Discharge Activity: Resume usual activity Patient Instructions: Acute Wound Care (ED), Decubitus Ulcers Coding Level of Care Code ED Senior Client Advisor for [facility] Fwd Exam Comprehensive
[2020-02-29 20:06] LABS: Basophils # 0.1 10^3/uL (0.0-0.1); Basophils % 0.6 %; Eosinophils # 0.2 10^3/uL (0.0-0.8); Eosinophils % 2.6 %; Hematocrit 33.6 % (37.0-47.0); Hemoglobin 10.6 g/dL (11.5-15.3); Lymphocytes # 2.6 10^3/uL (0.8-4.8); Lymphocytes % 28.9 %; Mean Corpuscular HGB Conc 31.5 g/dL (30.0-36.0); Mean Corpuscular Hemoglobin 30.5 pg (28.0-34.0); Mean Corpuscular Volume 96.6 fL (81-99); Mean Platelet Volume 11.1 fL (7.4-10.4); Monocytes # 0.5 10^3/uL (0.2-0.9); Monocytes % 5.7 %; Neutrophils % 61.8 %; Nucleated Red Blood Cells % 0 %; Platelet Count 278 10^3/cmm (130-400); Red Blood Count 3.48 10^6/uL (4.1-5.3); Red Cell Distribution Width 13.4 % (12.1-15.1); White Blood Count 9.1 10^3/uL (4.0-10.0)
[2020-02-29 20:23] LABS: Anion Gap 13.7 (5-19); Blood Urea Nitrogen 29 mg/dL (8-23); Calcium 8.7 mg/dL (8.5-10.5); Carbon Dioxide 24 mmol/L (22-29); Chloride 104 mmol/L (98-107); Glomerular Filtration Rate 24.7 mL/min (90-130); Glucose 252 mg/dL (65-115); Osmolality Calculated 290 mOsm/kg (285-295); Potassium 4.7 mmol/L (3.5-5.1); Sodium 137 mmol/L (136-145)
[2020-02-29 21:17] VITALS: BP 165/74; PULSE 88; RESP 18; O2SAT 98
== END 2020-02-29 21:29 | disposition home or self-care (01) ==
PROVIDERS: Emergency Provider Emergency Medicine; PCP Family Medicine
DX: E11.622 Type 2 diabetes mellitus with other skin ulcer (principal); L97.919 Non-pressure chronic ulcer of unspecified part of right lower leg with unspecified severity; Z79.02 Long term (current) use of antithrombotics/antiplatelets; Z79.82 Long term (current) use of aspirin; Z79.4 Long term (current) use of insulin; Z86.73 Personal history of transient ischemic attack (TIA), and cerebral infarction without residual deficits; I25.10 Atherosclerotic heart disease of native coronary artery without angina pectoris; E78.5 Hyperlipidemia, unspecified; I10 Essential (primary) hypertension
CPT/HCPCS: 12345; 36415; 80048; 85025; 99281; 99282

== ENCOUNTER 2020-03-03 13:07 | Outpatient (CLI) | payer MEDICARE, MEDICAID, SELFPAY | END 2020-03-03 13:08 | disposition home or self-care (01) | LOC: WOUND 13:08 | PROVIDERS: PCP Family Medicine; Visit Provider Surgery | DX: E11.622 Type 2 diabetes mellitus with other skin ulcer (principal); L97.312 Non-pressure chronic ulcer of right ankle with fat layer exposed | CPT/HCPCS: 11044; 87070; 87077; 87176; 87184; 87186; 87205 ==

== ENCOUNTER 2020-03-03 14:45 | Inpatient (IN) | payer MEDICARE, MEDICAID, SELFPAY ==
[2020-03-03 14:47] VITALS: BP 203/75; PULSE 84; RESP 18; TEMP 36.6; O2SAT 100; BMI 45.8
[2020-03-03 14:52] VITALS: PULSE 86
[2020-03-03 14:53] VITALS: BP 203/75; PULSE 86; RESP 18; O2SAT 99
--- NOTE | 2020-03-03 14:55 | ED_ITS ---
Documented by User: FINN Salcedo 03/03/20 16:49 HPI - Extremity Problem General: Chief complaint: Extremity Problem,Nontraumatic Stated complaint: RLL INFECTION Time Seen by Provider: 03/03/20 14:47 Source: patient Mode of arrival: ambulatory Limitations: no limitations History of Present Illness: HPI Narrative: Patient is a 69-year-old female who presents to ED today from wound care after she was referred here from Dr. Correa for complaints of exposed hardware to her right lower extremity. Patient tells me back in July she had a trimalleolar fracture repaired via ORIF by Dr. Stock. After surgery she was discharged to a shelter facility. She tells me while they are she sustained an injury where she scraped the lateral aspect of her right leg and since then has developed a wound/ulcer. Patient has been following up with wound care every Friday. She was seen there today and after wound debridement, found to there was exposed hardware and thus sent to the emergency department for further evaluation. Patient is a diabetic. Location: right and lower extremity Associated symptoms: Deny fever(s) Review of Systems Const: Denies: fever(s), chills, body aches, fatigue or malaise GI: Denies: nausea or vomiting Skin/Breast: Reports: other (ulcer to R lateral LE) Neuro: Reports: numbness in extremities (chronic bilateral LE neuropathy ) [facility] ED PFSH: Medical History Ankle syndesmosis disruption Cerebrovascular accident Chronic kidney disease Closed trimalleolar fracture of ankle Coronary artery disease Depression Diabetes Heart murmur Hyperlipidemia Hypertension Obesity Restless leg syndrome Surgical History History of cholecystectomy History of hernia repair History of tubal ligation Family History Other Diabetes Social History Smoking and tobacco status: never smoked Alcohol intake: never Physical Exam Const: COMMON NORMALS: no acute distress, patient oriented x3, no limitations and alert NUTRITIONAL APPEARANCE: obese morbidly obese Neuro: COMMON NORMALS: patient oriented x3 SENSORIUM/ORIENTATION: Yes alert Skin: OTHER: pt has an approx 6cm x 3cm oval ulcer to R lateral lower extremity; ulcer is stage IV with exposed tendon and muscle; there is also visible hardware along the dorsal wound edge; ulcer is clean, non-odorous, and without drainage (wound was recently debrided); there is no surrounding cellulitis present-erythema is localized to wound edges Course Consultations: Consultation #1: Dr. Stock (not amphibious operations officer and out of town but performed surgery)- did not recommend removal of hardware on an emergent basis, recommended oral abx, and would see in office early next week for evaluation to see if fracture has healed and if so could discuss removal at that time Consultation #2: Dr. Correa-stated when he saw ulcer earlier today it was odorous, necrotic, draining, and had what appeared to be infected tendon along with exposed hardware; stated he does not feel comfortable placing wound vac over exposed hardware; recommended admission to hospitalist for IV abx and possible PICC line and having Dr. Rodriguez consult. He did confirm he obtained wound cultures from his debridement earlier today. Consultation #3: Dr. Rodriguez-did not feel removal of hardware was indicated and did not recommend admission for IV abx unless there was diffuse cellulitis, signs of sepsis, or other indications for admission Additional Consultation(s): I spoke to Dr. Wilcox regarding the above consultations and what would be the best course going forward as we seem to have conflicting opinions from specialists. He spoke to hospitalist and infectious disease physician, Dr. Benjamin who did recommend admission with IV abx based on the exposed hardware. Dr. Wilcox will place admit orders for patient. Vital Signs: Vital signs: Vital Signs Temperature 99.2 F 03/08/20 04:00 Pulse Rate 95 03/08/20 04:00 Respiratory Rate 20 H 03/08/20 04:00 Blood Pressure 120/79 03/08/20 04:00 Pulse Oximetry 92 03/08/20 04:00 MDM - Extremity (Nontraumatic) Lab Data: Labs: Lab Results 03/03/20 03/03/20 03/03/20 Range/Units 14:56 15:25 15:25 WBC 8.5 (4.0-10.0) 10^3/ uL RBC 3.83 L (4.1-5.3) 10^6/u L Hgb 11.6 (11.5-15.3) g/dL Hct 35.9 L (37.0-47.0) % MCV 93.7 (81-99) fL MCH 30.3 (28.0-34.0) pg MCHC 32.3 (30.0-36.0) g/dL RDW 13.3 (12.1-15.1) % Plt Count 272 (130-400) 10^3/c mm MPV 10.9 H (7.4-10.4) fL Neut % (Auto) 60.4 % Lymph % (Auto) 32.2 % [place] % (Auto) 4.5 % Eos % (Auto) 2.1 % Baso % (Auto) 0.6 % Neut # (Auto) 5.11 (1.8-7.7) 10^3/u L Lymph # (Auto) 2.7 (0.8-4.8) 10^3/u L [place] # (Auto) 0.4 (0.2-0.9) 10^3/u L Eos # (Auto) 0.2 (0.0-0.8) 10^3/u L Baso # (Auto) 0.1 (0.0-0.1) 10^3/u L Nucleated RBC % (a uto) 0 % Nucleated RBCs # 0.0 /100WBC Sodium 139 (136-145) mmol/L Potassium 3.9 (3.5-5.1) mmol/L Chloride 103 (98-107) mmol/L Carbon Dioxide 27 (22-29) mmol/L Anion Gap 12.9 (5-19) BUN 27 H (8-23) mg/dL Creatinine 1.3 H (0.5-0.9) mg/dL GFR Calculation 40.6 L (90-130) mL/min Glucose 298 H (65-115) mg/dL POC Glucose 289 (70-110) mg/dL Calculated Osmolal ity 296 H (285-295) mOsm/k g Calcium 8.9 (8.5-10.5) mg/dL Total Bilirubin 0.2 (0.15-1.2) mg/dL AST 10 (0-32) U/L ALT 13 (0-33) U/L Alkaline Phosphata se 107 H (35-105) IU/L C-Reactive Protein 10.0 H (0.0-4.9) mg/L Total Protein 7.6 (6.6-8.7) g/dL Albumin 3.6 (3.5-5.2) g/dL Globulin 4.0 (1.3-4.6) g/dL Imaging Data^: CT RIGHT LE (02/25/20): Radiologist's impression: CT/CT lower leg RT w con [id number] IMPRESSION: 1. Soft tissue ulceration overlying the distal fibula shaft. No evidence of underlying ostial myelitis. 2. Prior postoperative changes plate and screw fixation distal fibula lateral malleolus. 3. Diffuse extensive edema lower leg and ankle compatible with cellulitis. No drainable abscess or fluid collection. 4. Moderate to advanced degenerative arthritis ankle mortise. Well-corticated ossicles about the medial malleolus. 5. Vascular calcification. XR R tib/fib: Radiologist's impression: [place] [address] XRay Report Signed Patient: Lynnette Ferreira Unit #: [id number] : 1950 Age/Sex: 69 / F ADM Date: 03/03/20 Loc: ER Room/Bed: Attending Dr: Ordering Provider/Ordering MD: Kim Mcpherson Date of Service: 03/03/20 Procedure(s): XR tibia fibula RT 2V [id number] Accession Number(s): [id number] Report Number: [id number] WS: [id number] Right leg including the tibia and fibula, AP and lateral, 03/03/2020 Clinical Data: lateral ulcer; exposed metal hardware Comparison: Right ankle, 01/17/2020. Findings: There is a lateral plate attached to the distal fibula with 8 orthopedic screws. There is a small orthopedic support device on the medial aspect of the distal tibia. No bone destruction or erosion is seen. No evidence of osteomyelitis is seen. There is no significant soft tissue swelling of the medial and lateral malleolus. The knee shows osteoarthritic change and spurring of the medial and lateral tibial plateaus and medial and lateral femoral condyles. There is medial and lateral knee joint compartment narrowing. XR/XR tibia fibula RT 2V [id number] Impression: 1. Negative for osteomyelitis. 2. Internal fixation of distal fibular and medial malleolar fractures. 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 involvement without evidence of necrosis Condition: Stable Referrals: [facility] [Outside] Juan José Humphrey [Primary Care Provider] - Discharge Date/Time: 03/03/20 17:27 Coding Level of Care Code ED Receptionist Clerk for Chg Fwd Exam Problem Focused Documented by User: Jakcson Wilcox DO 03/08/20 06:41 HPI - Extremity Problem General: Chief complaint: Extremity Problem,Nontraumatic Stated complaint: RLL INFECTION Time Seen by Provider: 03/03/20 14:47 PFSH ED PFSH: Medical History Ankle syndesmosis disruption Cerebrovascular accident Chronic kidney disease Closed trimalleolar fracture of ankle Coronary artery disease Depression Diabetes Heart murmur Hyperlipidemia Hypertension Obesity Restless leg syndrome Surgical History History of cholecystectomy History of hernia repair History of tubal ligation Family History Other Diabetes Social History Smoking and tobacco status: never smoked Alcohol intake: never Course Vital Signs: Vital signs: Vital Signs Temperature 99.2 F 03/08/20 04:00 Pulse Rate 95 03/08/20 04:00 Respiratory Rate 20 H 03/08/20 04:00 Blood Pressure 120/79 03/08/20 04:00 Pulse Oximetry 92 03/08/20 04:00 MDM - Extremity (Nontraumatic) MDM Narrative: Medical decision making narrative: Dr. Correa and called prior to the patient's arrival and reviewed the case with me. Discussed with Kim Mcpherson who had seen the patient in the emergency room. We consult the Dr. Benjamin, Kim Mcpherson at talk to Dr. Michael Correa and Dr. Krishna prior to that. Dr. Benjamin did feel is appropriate to admit the patient is started on antibiotics because the exposed hardware she should be treated as if she has an osteomyelitis until the wound either heels or the hardware is able to be removed. She is seeing the patient in the emergency room and will admit her to her services to initiate PICC line and IV antibiotic therapy. Lab Data: Labs: Lab Results 03/03/20 03/03/20 03/03/20 Range/Units 14:56 15:25 15:25 WBC 8.5 (4.0-10.0) 10^3/ uL RBC 3.83 L (4.1-5.3) 10^6/u L Hgb 11.6 (11.5-15.3) g/dL Hct 35.9 L (37.0-47.0) % MCV 93.7 (81-99) fL MCH 30.3 (28.0-34.0) pg MCHC 32.3 (30.0-36.0) g/dL RDW 13.3 (12.1-15.1) % Plt Count 272 (130-400) 10^3/c mm MPV 10.9 H (7.4-10.4) fL Neut % (Auto) 60.4 % Lymph % (Auto) 32.2 % [place] % (Auto) 4.5 % Eos % (Auto) 2.1 % Baso % (Auto) 0.6 % Neut # (Auto) 5.11 (1.8-7.7) 10^3/u L Lymph # (Auto) 2.7 (0.8-4.8) 10^3/u L [place] # (Auto) 0.4 (0.2-0.9) 10^3/u L Eos # (Auto) 0.2 (0.0-0.8) 10^3/u L Baso # (Auto) 0.1 (0.0-0.1) 10^3/u L Nucleated RBC % (a uto) 0 % Nucleated RBCs # 0.0 /100WBC Sodium 139 (136-145) mmol/L Potassium 3.9 (3.5-5.1) mmol/L Chloride 103 (98-107) mmol/L Carbon Dioxide 27 (22-29) mmol/L Anion Gap 12.9 (5-19) BUN 27 H (8-23) mg/dL Creatinine 1.3 H (0.5-0.9) mg/dL GFR Calculation 40.6 L (90-130) mL/min Glucose 298 H (65-115) mg/dL POC Glucose 289 (70-110) mg/dL Calculated Osmolal ity 296 H (285-295) mOsm/k g Calcium 8.9 (8.5-10.5) mg/dL Total Bilirubin 0.2 (0.15-1.2) mg/dL AST 10 (0-32) U/L ALT 13 (0-33) U/L Alkaline Phosphata se 107 H (35-105) IU/L C-Reactive Protein 10.0 H (0.0-4.9) mg/L Total Protein 7.6 (6.6-8.7) g/dL Albumin 3.6 (3.5-5.2) g/dL Globulin 4.0 (1.3-4.6) g/dL Discharge Plan Discharge Patient Disposition: Admitted As Inpatient Admit Provider: Heather Benjamin Clinical Impression: Exposed orthopaedic hardware Uncontrolled diabetes mellitus Qualifiers: Diabetes mellitus type: type 2 Glycemic state: with hyperglycemia Qualified Code(s): E11.65 - Type 2 diabetes mellitus with hyperglycemia Ulcer of right lower extremity Qualifiers: Non-pressure ulcer stage: with muscle involvement without evidence of necrosis Qualified Code(s): L97.915 - 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
--- NOTE | 2020-03-03 14:56 | XR_ITS ---
WS: [id number] Right leg including the tibia and fibula, AP and lateral, 03/03/2020 Clinical Data: lateral ulcer; exposed metal hardware Comparison: Right ankle, 01/17/2020. Findings: There is a lateral plate attached to the distal fibula with 8 orthopedic screws. There is a small ort hopedic support device on the medial aspect of the distal tibia. No bone destruction or erosion is se en. No evidence of osteomyelitis is seen. There is no significant soft tissue swelling of the medial and lateral malleolus. The knee shows oste oarthritic change and spurring of the medial and lateral tibial plateaus and medial and lateral femor al condyles. There is medial and lateral knee joint compartment narrowing. XR/XR tibia fibula RT 2V [id number] Impression: 1. Negative for osteomyelitis. 2. Internal fixation of distal fibular and medial malleolar fractures.
[2020-03-03 14:59] LABS: Glucose Point of Care 289 mg/dL (70-110)
[2020-03-03 15:38] LABS: Basophils # 0.1 10^3/uL (0.0-0.1); Basophils % 0.6 %; Eosinophils # 0.2 10^3/uL (0.0-0.8); Eosinophils % 2.1 %; Hematocrit 35.9 % (37.0-47.0); Hemoglobin 11.6 g/dL (11.5-15.3); Lymphocytes # 2.7 10^3/uL (0.8-4.8); Lymphocytes % 32.2 %; Mean Corpuscular HGB Conc 32.3 g/dL (30.0-36.0); Mean Corpuscular Hemoglobin 30.3 pg (28.0-34.0); Mean Corpuscular Volume 93.7 fL (81-99); Mean Platelet Volume 10.9 fL (7.4-10.4); Monocytes # 0.4 10^3/uL (0.2-0.9); Monocytes % 4.5 %; Neutrophils # 5.11 10^3/uL (1.8-7.7); Neutrophils % 60.4 %; Nucleated Red Blood Cells % 0 %; Platelet Count 272 10^3/cmm (130-400); Red Blood Count 3.83 10^6/uL (4.1-5.3); Red Cell Distribution Width 13.3 % (12.1-15.1); White Blood Count 8.5 10^3/uL (4.0-10.0)
[2020-03-03] MEDS: lisinopril 10 mg Tablet 5 MG PO (16:00)
[2020-03-03 16:02] LABS: Alanine Aminotransferase 13 U/L (0-33); Albumin Level 3.6 g/dL (3.5-5.2); Alkaline Phosphatase 107 IU/L (35-105); Anion Gap 12.9 (5-19); Aspartate Amino Transferase 10 U/L (0-32); Blood Urea Nitrogen 27 mg/dL (8-23); Calcium 8.9 mg/dL (8.5-10.5); Carbon Dioxide 27 mmol/L (22-29); Chloride 103 mmol/L (98-107); Glomerular Filtration Rate 40.6 mL/min (90-130); Glucose 298 mg/dL (65-115); Osmolality Calculated 296 mOsm/kg (285-295); Potassium 3.9 mmol/L (3.5-5.1); Sodium 139 mmol/L (136-145); Total Bilirubin 0.2 mg/dL (0.15-1.2); Total Protein 7.6 g/dL (6.6-8.7)
[2020-03-03 17:25] VITALS: PULSE 87; RESP 18; O2SAT 98
--- NOTE | 2020-03-03 18:00 | PC.NURSE ---
Patient returned from surgery at this time. Patient's daughter Daylin at bedside. Patient is A&Ox3. Respirations evena nd non-labored on room air.
[2020-03-03 18:30] VITALS: BP 142/100; PULSE 91; RESP 16; TEMP 36.7; O2SAT 97
--- NOTE | 2020-03-03 18:44 | P.HP_ITS ---
Providers/Chief Complaint Admitting Physician: Heather Benjamin MD Primary Care Provider: Juan José Humphrey Chief Complaint: RLL INFECTION History of Present Illness Lynnette Ferreira is a 69 year old female with PMH HTN, CAD, DM who presented from wound care with chof complaints of non helaing/worsenin wound over the right lower calf, which started 2 months ago after a mechnaical fall and has been worsening. She has been to wound care twice recently, now has exposed hardware and tendon and she was sent to the ER from wound care today due to exposure of hardware and concerns for implant infection. Her original surgery is that from Jul 2019 for a trilammaeolar fracture with fibular plates and screws in place. She has undergone debridement at wound care. On 02/24, at which poin only tendon was exposed she underwent a CT of the said leg which did not show underlying osteonyelitis. She was being planned for a debridement followed by wound vac. Aretrial duplex was ordered which was WNL. On returning to [facility] today, her wound was noted to have worsened, with edmar discharge of pus, exposure of hardware and needed more debridement. Per review of orthopedics office note, her hardware appears to have been also exposed in late December. Gram stain from debridement today shows moderate GPC in pairs and chains and moderate GNR. No prior cx is available. Review of Systems General: Reports: 10 or more systems reviewed and unremarkable except in HPI and below Const: Denies: fever(s), chills or body aches Eyes: Denies: change in vision, blurry vision or photophobia ENMT: Reports: hoarseness; Denies: throat pain, enlarged tonsils, odynophagia or nasal congestion Card: Denies: chest pain, palpitations, irregular heart rhythm, edema, swe lling of feet/ankles, lightheadedness, pre-syncope, dyspnea on exertion or orthopnea Resp: Denies: dyspnea, productive cough, non-productive cough, wheezing, stridor, pain on inspiration, change in phlegm color, hemoptysis or chest congestion GI: Denies: abdominal pain, nausea, vomiting, hematemesis, coffee ground emesis, dysphagia, heartburn, diarrhea, constipation, GI cramping, change in stool character, hematochezia or melena : Denies: flank pain, difficulty voiding, dysuria, urinary frequency, urinary urgency, urinary hesitancy or hematuria Musc: Denies: neck pain, back pain, extremity pain, joint swelling, joint warmth or deformity Neuro: Denies: headache(s), numbness in extremities, weakness in extremities, sensory changes, difficulty walking, frequent falls, dizziness, vertigo, behavioral changes, Slurred speech present or seizure-like activity Psych: Denies: anxiety, depression, suicidal ideation or homicidal ideation Endo: Denies: polyuria, polydipsia, tired all the time, cold intolerance or hot flashes Prince/Lymph: Denies: easy bruising or easy bleeding Medications/Allergies Home Medications Medication Instructions Recorded Confirmed Last Taken Type Myrbetriq 25 mg PO DAILY 08/23/19 03/03/20 02/29/20 History clopidogrel 75 mg PO DAILY 08/23/19 03/03/20 02/29/20 History diltiazem HCl [DILT-XR] 240 mg PO DAILY 08/23/19 03/03/20 02/28/20 History lisinopril 5 mg PO DAILY 08/23/19 03/03/20 02/29/20 History metformin 500 mg PO BID 08/23/19 03/03/20 02/29/20 History pravastatin 10 mg PO DAILY 08/23/19 03/03/20 02/29/20 History pregabalin 75 mg PO BID 08/23/19 03/03/20 02/29/20 History ropinirole 0.5 mg PO BEDTIME 08/23/19 03/03/20 02/29/20 History venlafaxine 150 mg PO DAILY 08/23/19 03/03/20 02/29/20 History aspirin 325 mg PO DAILY #30 tab 08/27/19 03/03/20 09/07/19 Rx acetaminophen [Tylenol] 650 mg PO Q4H PRN 09/07/19 03/03/20 Unknown History alum-mag hydroxide-simeth [Mylanta See Rx Instructions .ROUTE .COMPLEX 09/07/19 03/03/20 Unknown History Maximum Strength] bisacodyl [Dulcolax (bisacodyl)] 20 mg PO PRN 09/07/19 03/03/20 Unknown History bisacodyl [Dulcolax (bisacodyl)] See Rx Instructions .ROUTE .COMPLEX 09/07/19 03/03/20 Unknown History insulin detemir U-100 [Levemir 38 unit SUBCUT QPM 09/07/19 03/03/20 03/02/20 History FlexTouch U-100 Insuln] loperamide 2 mg PO BID PRN 09/07/19 03/03/20 Unknown History magnesium citrate See Rx Instructions .ROUTE .COMPLEX 09/07/19 03/03/20 Unknown History magnesium hydroxide [Milk of 30 ml PO Q3D PRN 09/07/19 03/03/20 Unknown History Magnesia] oxycodone-acetaminophen [Percocet] 1 tab PO Q4H PRN 09/07/19 03/03/20 02/29/20 History nitrofurantoin monohyd/m-cryst 100 mg PO BID 02/29/20 03/03/20 03/03/20 History Allergies Allergy/AdvReac Type Severity Reaction Status Date / Time codeine Allergy Unknown Verified 01/17/20 14:48 sulfamethoxazole Allergy Unknown Verified 01/17/20 14:48 [From Bactrim] trimethoprim [From Bactrim] Allergy Unknown Verified 01/17/20 14:48 PFSH Acute PFSH: Medical History Ankle syndesmosis disruption Cerebrovascular accident Chronic kidney disease Closed trimalleolar fracture of ankle Coronary artery disease Depression Diabetes Heart murmur Hyperlipidemia Hypertension Obesity Restless leg syndrome Surgical History History of cholecystectomy History of hernia repair History of tubal ligation Family History Other Diabetes Social History Smoking and tobacco status: never smoked Alcohol intake: never Vitals/I&O/Wt Last Vital Signs Temp 98.0 F 03/03/20 18:30 Pulse 91 03/03/20 18:30 Resp 16 03/03/20 18:30 BP 142/100 03/03/20 18:30 Pulse Ox 97 03/03/20 18:30 Weight last 48 hrs Weight 106.594 kg Physical Exam Narrative: EXAM NARRATIVE: GEN: Awake, alert and oriented, no acute distress CVS: S1S2 N RS: CTA B/L Abd: Soft, nt/nd , bs+ XEROX MACHINE ASSEMBLER: no focal neuro deficits EXT: RLE wound noted over distal lateral aspect, currently with packing in place which is soaked with blood, likely 2/2 debridement earlier today. Data : 03/04/20 04:35 03/04/20 04:35 Micro: Microbiology 03/03/20 15:25 Blood Culture - Preliminary Blood SPECIMEN COLLECTED 03/03/20 15:29 Blood Culture - Preliminary Blood SPECIMEN COLLECTED A&P Assessment and plan (1) Exposed orthopaedic hardware: Status: Acute (2) Infected hardware in right lower extremity: Status: Acute Qualifiers: Encounter type: initial encounter Qualified Code(s): T84.7XXA - Infection and inflammatory reaction due to other internal orthopedic prosthetic devices, implants and grafts, initial encounter (3) Uncontrolled diabetes mellitus: Status: Acute Qualifiers: Diabetes mellitus type: type 2 Glycemic state: with hyperglycemia Qualified Code(s): E11.65 - Type 2 diabetes mellitus with hyperglycemia (4) Ulcer of right lower extremity: Status: Acute Qualifiers: Non-pressure ulcer stage: with muscle involvement without evidence of necrosis Qualified Code(s): L97.915 - 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 Ct on 02/24 with good alignment and no signs of loosening of hardware. # RLE wound overlying part of the RLE hardware Worsening over the last 2 months, currently with tendons and hardware expoded. Edmar pus noted at wound care today, debridement performed and sent for cx, gram stain with GPCs in paiars and chains. likely strep and moderate GNR. Check ESR, last was 64 in December , CRP mild elevation Await cx results Start empiric CTX and Vancomycin, to be narrowed per cx results Orthopedics consult, per discussion with ERP with orthopedics, currently plan will be to attempt salvage of hardware. Given exposure of hardware and tendon, reasonable to treat with a prolonged abx course if salvage attempted RLE aretrial duplex, currently do not see results in system # Dm: continue long acting + ISS , check Hba1c # HTN: does not report past history, here noed to be >180 on several occassions, start amlodipine and prn hydralazine # CKD , cr at baseline at 1.3 # CAD: continue ASA, hold plavix for now until surgical plans can be finalized. 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
--- NOTE | 2020-03-03 19:45 | PC.NURSE ---
Report to Ida ALVAREZ
[2020-03-03 20:00] VITALS: BP 162/91; PULSE 89; TEMP 37.2; O2SAT 93
[2020-03-03] MEDS: enoxaparin 30 mg/0.3 mL Syringe SUBCUT (21:19)
[2020-03-03] MEDS: ropinirole 0.25 mg Tablet 0.5 MG PO (21:19)
[2020-03-03 21:56] LABS: Glucose Point of Care 191 mg/dL (70-110)
[2020-03-04] VITALS (8 sets, daily range): BP systolic 152–184; BP diastolic 77–92; PULSE 80–88; RESP 17–20; TEMP 36.7–36.9; O2SAT 97–99
[2020-03-04 05:18] LABS: Basophils # 0.1 10^3/uL (0.0-0.1); Basophils % 0.6 %; Eosinophils # 0.2 10^3/uL (0.0-0.8); Eosinophils % 2.2 %; Hematocrit 33.5 % (37.0-47.0); Hemoglobin 10.7 g/dL (11.5-15.3); Lymphocytes % 32.1 %; Mean Corpuscular HGB Conc 31.9 g/dL (30.0-36.0); Mean Corpuscular Volume 93.8 fL (81-99); Monocytes # 0.7 10^3/uL (0.2-0.9); Monocytes % 7.9 %; Neutrophils # 5.32 10^3/uL (1.8-7.7); Neutrophils % 56.9 %; Nucleated Red Blood Cells % 0 %; Platelet Count 253 10^3/cmm (130-400); Red Blood Count 3.57 10^6/uL (4.1-5.3); Red Cell Distribution Width 13.2 % (12.1-15.1); White Blood Count 9.4 10^3/uL (4.0-10.0)
[2020-03-04 05:46] LABS: Alanine Aminotransferase 12 U/L (0-33); Albumin Level 2.8 g/dL (3.5-5.2); Alkaline Phosphatase 99 IU/L (35-105); Blood Urea Nitrogen 24 mg/dL (8-23); Calcium 8.8 mg/dL (8.5-10.5); Carbon Dioxide 23 mmol/L (22-29); Chloride 108 mmol/L (98-107); Globulin 3.8 g/dL (1.3-4.6); Glomerular Filtration Rate 40.6 mL/min (90-130); Glucose 79 mg/dL (65-115); Osmolality Calculated 286 mOsm/kg (285-295); Sodium 140 mmol/L (136-145); Total Bilirubin 0.4 mg/dL (0.15-1.2); Total Protein 6.6 g/dL (6.6-8.7)
[2020-03-04 05:49] LABS: Anion Gap 13.3 (5-19); Aspartate Amino Transferase 17 U/L (0-32); Potassium 4.3 mmol/L (3.5-5.1)
[2020-03-04 06:20] LABS: Erythrocyte Sedimentation Rate 61 mm/hr (0-15)
--- NOTE | 2020-03-04 06:38 | USR_ITS ---
PROCEDURE INFORMATION: Exam: US Duplex Right Lower Extremity Arteries Or Arterial Bypass Grafts Exam date and time: 03/04/2020 6:40 AM Age: 69 years old Clinical indication: Non healing wound RLE; diabetic. TECHNIQUE: Imaging protocol: Right Real-time duplex scan of the arteries or arterial bypass grafts of the right lower extremity with 2-D phelan scale, color Doppler flow and spectral waveform analysis. Images documented and saved. COMPARISON: No relevant prior studies available. FINDINGS: Limitations: The technologist noted that the patient had bandages over the right ankle and therefore the posterior tibial artery was not assessed. Right iliac artery: PSV = 132.7 cm/s. No occlusion or significant stenosis. Normal waveform. Right common femoral artery: PSV = 103.9 cm/s. No occlusion or significant stenosis. Normal waveform. Right superficial femoral artery: PSV = 163.7 cm/s. No occlusion or significant stenosis. Normal waveform. Right popliteal artery: PSV = 148.5 cm/s. No occlusion or significant stenosis. Normal waveform. Right calf/foot arteries: Dorsalis pedis artery is patent, but slow flow with PSV = 17.4 cm/s. Monophasic waveform. Right MARGO: Could not calculate due to noncompressible vessels, likely due to medial calcinosis/diabetic arteriopathy. Soft tissues: Unremarkable. US/[place] [id number] IMPRESSION: 1. No sign of significant femoral-popliteal disease. 2. 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
[2020-03-04 07:18] LABS: Glucose Point of Care 84 mg/dL (70-110)
--- NOTE | 2020-03-04 07:28 | P.PN_ITS ---
Subjective Subjective: Interval history: No new complaints. Wound dressing change, discharge noted on gauze, no edmar pus or necrotic debris currently. Medications: Reviewed: Yes Vitals/I&O/Wt Last Vital Signs Temp 98.5 F 03/04/20 04:00 Pulse 85 03/04/20 04:00 Resp 17 03/04/20 04:00 BP 152/82 03/04/20 07:27 Pulse Ox 97 03/04/20 04:00 03/03/20 03/04/20 03/04/20 22:59 06:59 14:59 Intake Total 120 / 120 Output Total 550 / 550 Balance 120 / 120 -550 / -430 Weight last 48 hrs Weight 106.594 kg Physical Exam Narrative: EXAM NARRATIVE: GEN: Awake, alert and oriented, no acute distress CVS: S1S2 N RS: CTA B/L Abd: Soft, nt/nd , bs+ TABLE TOP TILE SETTER: no focal neuro deficits EXT: RLE wound noted over distal lateral aspect, currently with packing in place which is soaked with blood, likely 2/2 debridement earlier today. Data : 03/04/20 04:35 03/04/20 04:35 Micro: Microbiology 03/03/20 15:25 Blood Culture - Preliminary Blood SPECIMEN COLLECTED 03/03/20 15:29 Blood Culture - Preliminary Blood SPECIMEN COLLECTED A&P Assessment and plan (1) Exposed orthopaedic hardware: Status: Acute (2) Infected hardware in right lower extremity: Status: Acute Qualifiers: Encounter type: initial encounter Qualified Code(s): T84.7XXA - Infection and inflammatory reaction due to other internal orthopedic prosthetic devices, implants and grafts, initial encounter (3) Uncontrolled diabetes mellitus: Status: Acute Qualifiers: Diabetes mellitus type: type 2 Glycemic state: with hyperglycemia Qualified Code(s): E11.65 - Type 2 diabetes mellitus with hyperglycemia (4) Ulcer of right lower extremity: Status: Acute Qualifiers: Non-pressure ulcer stage: with muscle involvement without evidence of necrosis Qualified Code(s): L97.915 - 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 Ct on 02/24 with good alignment and no signs of loosening of hardware. # RLE wound overlying part of the RLE hardware Worsening over the last 2 months, currently with tendons and hardware expoded. Edmar pus noted at wound care 03/03 , debridement performed and sent for cx, gram stain with GPCs in paiars and chains and clusters and moderate GNR. ESR and CRP mildly elevated Await cx results Continue empiric CTX and Vancomycin, to be narrowed per cx results Orthopedics consult pending, left voicemail for public relations supervisor. Given exposure of hardware and tendon, reasonable to treat with a prolonged abx course if salvage attempted RLE aretrial duplex without any active sign of femoropopliteal disease. 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 Full code DVT ppx: lovenox Attestations Medical Necessity Statement*: Ongoing need for IV antibiotics, orthopedics assessed Coding Level of Care Code Acute Conservation Of Resources Commissioner for g Fwd Diagnoses Exposed orthopaedic hardware T84.498A Infected hardware in right lower extremity T84.7XXA Encounter type: initial encounter Uncontrolled diabetes mellitus E11.65 Diabetes mellitus type: type 2 Glycemic state: with hyperglycemia Ulcer of right lower extremity L97.915 Non-pressure ulcer stage: with muscle involvement without evidence of necrosis Closed trimalleolar fracture of ankle S82.851A Encounter type: initial encounter Laterality: right
[2020-03-04] MEDS: pregabalin 75 mg Capsule PO ×2 (08:35→17:54)
[2020-03-04] MEDS: atorvastatin 40 mg Tablet 20 MG PO (08:35)
[2020-03-04] MEDS: venlafaxine ER (24HR) 150 mg Capsule PO (08:35)
[2020-03-04] MEDS: aspirin 325 mg EC Tablet PO (08:35)
[2020-03-04] MEDS: cefTRIAXone 1,000 MG in sodium chloride 0.9% (plus) 50 ML 100 MG IV (08:36)
[2020-03-04] MEDS: lisinopril 10 mg Tablet PO (08:36)
[2020-03-04] MEDS: hyDRALAzine 20 mg/mL INJ 1 mL 10 MG IVP (08:36)
[2020-03-04] MEDS: dilTIAZem ER (24HR) 240 mg Capsule PO (08:36)
[2020-03-04 11:13] LABS: Glucose Point of Care 171 mg/dL (70-110)
--- NOTE | 2020-03-04 14:41 | PC.CHAP ---
Pastoral Care Encounter/Spiritual Assessment Type of Contact [] Declined progressive die maker visit [] Patient/Family/Request visit [] Outpatient visit [] Follow-up visit [] Physician referral [] Code/Alert [xx] Routine visit [] Staff referral [] Actively dying [] Patient sleeping [] Family support [] [] Out of room [] Palliative care [] [] Receiving care in room [] Pre-surgical visit [] Trauma [] Long length of stay [] ICU visit [] Other: Relational/Emotional Strength [xx] Patient feels connected with others/family/visitors/staff [] Distress [] Loneliness/isolation [] Abandonment Spirituality of Patient [] Person of Jennifer [] Attends Catholic of their Jennifer [] Believes in Prayer [] Reads Bible or Sabianism materials [] There are Spiritual issues to be addressed [place] Assembler Interventions [] Prayer [xx] Active listening [xx] Non-anxious presence [] Spiritual/emotional support [] Crisis/trauma care [] Spiritual counseling [] Bereavement support [] Provided bereavement packet [] Provided Bible/devotional materials [] Provided toy/stuffed animal, coloring book to patient or family member [] Provided Communion [] Anointing/[place] [] Salvation [] Completed spiritual assessment [] Other: Impact on Illness or Injury [] Angry [] Fearful [] Anxious [] Often cries [] Exhaustion [] Unable to work [] Unable to attend buddhist [] Unable to walk/stand [] Unable to read [] Unable to drive [] Unable to eat/drink [] Unable to sleep [] Unable to be with family [] Patient intubated [] Other: Summary: Pt has complex medical and social needs. She lives with her son, who was recently discharged from [facility] in [facility]. Her niece lives near her, as well. After listening to her story and medical issues, prayer was offered but pt declined. Time spent with patient: 15 mins
--- NOTE | 2020-03-04 16:25 | PC.NURSE ---
Dressing change to right lower leg with Dr Benjamin, cleaned with normal saline patted dry , saline soaked 4x4 placed with dry 4x4 and then wrapped with kerlix, Dr Benjamin ordered consult for Dr Plascencia.
[2020-03-04 17:07] LABS: Glucose Point of Care 204 mg/dL (70-110)
[2020-03-04] MEDS: ropinirole 0.25 mg Tablet 0.5 MG PO (20:14)
[2020-03-04] MEDS: enoxaparin 40 mg/0.4 mL Syringe SUBCUT (20:14)
[2020-03-04] MEDS: oxyCODONE-APAP 5-325 mg Tablet 1 TAB PO (20:14)
[2020-03-04 21:25] LABS: Glucose Point of Care 188 mg/dL (70-110)
[2020-03-05] VITALS (8 sets, daily range): BP systolic 117–178; BP diastolic 62–79; PULSE 72–86; RESP 16–20; TEMP 36.5–37.1; O2SAT 95–99
[2020-03-05 06:57] LABS: Glucose Point of Care 101 mg/dL (70-110)
--- NOTE | 2020-03-05 07:39 | PM.PN ---
Vitals/I&O/Wt Last Vital Signs Temp 98.5 F 03/05/20 07:27 Pulse 72 03/05/20 07:27 Resp 16 03/05/20 07:27 BP 125/67 03/05/20 07:27 Pulse Ox 99 03/05/20 07:27 03/04/20 03/05/20 03/05/20 22:59 06:59 14:59 Intake Total 360 / 650 480 / 1130 Output Total 200 / 450 Balance 360 / 400 280 / 680 Weight last 48 hrs Weight 235 lb Physical Exam Narrative: EXAM NARRATIVE: Clean wound proximal aspect lateral incision. Visible tendon deep in wound. No surrounding erythema or purulence identified. Data : 03/04/20 04:35 03/04/20 04:35 Micro: Microbiology 03/03/20 15:25 Blood Culture - Preliminary Blood NEGATIVE TO DATE 03/03/20 15:29 Blood Culture - Preliminary Blood NEGATIVE TO DATE A&P Assessment and plan (1) Exposed orthopaedic hardware: Wound inspected Friday eveneing 03/03/2020. No immediate orthopedic needs. Can follow-up with Dr. Stock as an outpatient to consider hardware removal Status: Acute Attestations Medical Necessity Statement*: No orthopedic need for ongoing hospitalization Coding Level of Care Code Acute Specialist Physicians for Zacg Fwdorian Diagnoses Exposed orthopaedic hardware T84.498A
[2020-03-05] MEDS: cefTRIAXone 1,000 MG in sodium chloride 0.9% (plus) 50 ML 100 MG IV (08:31)
[2020-03-05] MEDS: aspirin 325 mg EC Tablet PO (08:33)
[2020-03-05] MEDS: venlafaxine ER (24HR) 150 mg Capsule PO (08:33)
[2020-03-05] MEDS: lisinopril 10 mg Tablet PO (08:33)
[2020-03-05] MEDS: dilTIAZem ER (24HR) 240 mg Capsule PO (08:33)
[2020-03-05] MEDS: atorvastatin 40 mg Tablet 20 MG PO (08:33)
[2020-03-05] MEDS: pregabalin 75 mg Capsule PO ×2 (08:33→17:47)
[2020-03-05 10:57] LABS: Glucose Point of Care 177 mg/dL (70-110)
--- NOTE | 2020-03-05 13:29 | PM.PN ---
Subjective Subjective: Interval history: No new complaints today. No plan any surgical interventions for now per ortho. Blood cx reported as + for GPR 07/03 Medications: Reviewed: Yes Vitals/I&O/Wt Last Vital Signs Temp 98.8 F 03/05/20 12:00 Pulse 86 03/05/20 12:00 Resp 17 03/05/20 12:00 BP 135/69 03/05/20 12:00 Pulse Ox 98 03/05/20 12:00 03/04/20 03/05/20 03/05/20 22:59 06:59 14:59 Intake Total 360 / 650 480 / 1130 360 / 360 Output Total 200 / 450 600 / 600 Balance 360 / 400 280 / 680 -240 / -240 Weight last 48 hrs Weight 106.594 kg Physical Exam Narrative: EXAM NARRATIVE: GEN: Awake, alert and oriented, no acute distress CVS: S1S2 N RS: CTA B/L Abd: Soft, nt/nd , bs+ CREDIT ADMINISTRATION SPECIALIST: no focal neuro deficits RLE wound: not opened for exam by me this morning Data : 03/04/20 04:35 03/04/20 04:35 Micro: Microbiology 03/03/20 15:29 Blood Culture - Preliminary Blood Gram positive hung 03/03/20 15:25 Blood Culture - Preliminary Blood NEGATIVE TO DATE A&P Assessment and plan (1) Exposed orthopaedic hardware: Status: Acute (2) Infected hardware in right lower extremity: Status: Acute Qualifiers: Encounter type: initial encounter Qualified Code(s): T84.7XXA - Infection and inflammatory reaction due to other internal orthopedic prosthetic devices, implants and grafts, initial encounter (3) Uncontrolled diabetes mellitus: Status: Acute Qualifiers: Diabetes mellitus type: type 2 Glycemic state: with hyperglycemia Qualified Code(s): E11.65 - Type 2 diabetes mellitus with hyperglycemia (4) Ulcer of right lower extremity: Status: Acute Qualifiers: Non-pressure ulcer stage: with muscle involvement without evidence of necrosis Qualified Code(s): L97.915 - 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 Ct on 02/24 with good alignment and no signs of loosening of hardware. # RLE wound overlying part of the RLE hardware Worsening over the last 2 months, currently with tendons and hardware exposed. Jordy pus noted at wound care 03/03 , debridement performed and sent for cx, gram stain with GPCs in pairs and chains and clusters and moderate GNR. Awaiting further identification. ESR and CRP mildly elevated Continue empiric CTX and Vancomycin for now, will plan to discharge on at least 6 weeks of iv abx for presumed hardware infection with plan to salvage hardware. Final abx course remains to be decided based on final cx results, likely to be a combination of iv vancomycin and po FQs. I will continue to follow the patient as ID. PICC line to facilitate above RLE aretrial duplex without any active sign of femoropopliteal disease. 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 In the presence of active infection in RLE, will need to f/up to ensure not a true bacteremia # Dm: continue long acting + ISS # HTN: does not report past history, here noed to be >180 on several occassions, increase lisinopril to 10 mg and add as needed hydralazine, better contolled today # CKD , cr at baseline at 1.3 # CAD: continue ASA, resume plavix Full code DVT ppx: lovenox Attestations Medical Necessity Statement*: need for iv abx, awaiting repeat blood cx, PICC line, cx results Coding Level of Care Code Acute Packing And Final Assembly Supervisor for Chg Fwd Diagnoses Exposed orthopaedic hardware T84.498A Infected hardware in right lower extremity T84.7XXA Encounter type: initial encounter Uncontrolled diabetes mellitus E11.65 Diabetes mellitus type: type 2 Glycemic state: with hyperglycemia Ulcer of right lower extremity L97.915 Non-pressure ulcer stage: with muscle involvement without evidence of necrosis Closed trimalleolar fracture of ankle S82.851A Encounter type: initial encounter Laterality: right
[2020-03-05] MEDS: oxyCODONE-APAP 5-325 mg Tablet 1 TAB PO (15:11)
[2020-03-05 16:46] LABS: Glucose Point of Care 210 mg/dL (70-110)
[2020-03-05 20:38] LABS: Vancomycin Trough 17.2 ug/mL (10-15)
[2020-03-05 20:50] LABS: Glucose Point of Care 226 mg/dL (70-110)
[2020-03-05] MEDS: ropinirole 0.25 mg Tablet 0.5 MG PO (20:56)
[2020-03-05] MEDS: enoxaparin 40 mg/0.4 mL Syringe SUBCUT (20:56)
[2020-03-06 03:48] VITALS: BP 117/64; PULSE 70; RESP 18; TEMP 37; O2SAT 96
[2020-03-06 05:45] LABS: Basophils # 0.1 10^3/uL (0.0-0.1); Basophils % 0.6 %; Eosinophils # 0.3 10^3/uL (0.0-0.8); Eosinophils % 2.9 %; Hematocrit 29.2 % (37.0-47.0); Hemoglobin 9.4 g/dL (11.5-15.3); Lymphocytes # 3.3 10^3/uL (0.8-4.8); Lymphocytes % 30.6 %; Mean Corpuscular HGB Conc 32.2 g/dL (30.0-36.0); Mean Corpuscular Hemoglobin 30.2 pg (28.0-34.0); Mean Corpuscular Volume 93.9 fL (81-99); Mean Platelet Volume 11.2 fL (7.4-10.4); Monocytes # 0.8 10^3/uL (0.2-0.9); Monocytes % 7.5 %; Neutrophils # 6.27 10^3/uL (1.8-7.7); Neutrophils % 58.1 %; Nucleated Red Blood Cells % 0 %; Platelet Count 224 10^3/cmm (130-400); Red Blood Count 3.11 10^6/uL (4.1-5.3); Red Cell Distribution Width 13.4 % (12.1-15.1); White Blood Count 10.8 10^3/uL (4.0-10.0)
[2020-03-06 06:04] LABS: INR 0.95 (0.8-1.2)
[2020-03-06 06:07] LABS: Alanine Aminotransferase 13 U/L (0-33); Albumin Level 2.8 g/dL (3.5-5.2); Alkaline Phosphatase 90 IU/L (35-105); Anion Gap 12.2 (5-19); Aspartate Amino Transferase 13 U/L (0-32); Blood Urea Nitrogen 35 mg/dL (8-23); Calcium 8.1 mg/dL (8.5-10.5); Carbon Dioxide 23 mmol/L (22-29); Chloride 106 mmol/L (98-107); Globulin 3.5 g/dL (1.3-4.6); Glomerular Filtration Rate 37.2 mL/min (90-130); Glucose 86 mg/dL (65-115); Osmolality Calculated 281 mOsm/kg (285-295); Potassium 4.2 mmol/L (3.5-5.1); Sodium 137 mmol/L (136-145); Total Bilirubin 0.3 mg/dL (0.15-1.2); Total Protein 6.3 g/dL (6.6-8.7)
[2020-03-06 06:36] LABS: Glucose Point of Care 78 mg/dL (70-110)
[2020-03-06 07:27] VITALS: BP 149/75; PULSE 75; RESP 14; TEMP 36.8; O2SAT 97
[2020-03-06] MEDS: clopidogrel 75 mg Tablet PO (08:05)
[2020-03-06] MEDS: venlafaxine ER (24HR) 150 mg Capsule PO (08:05)
[2020-03-06] MEDS: dilTIAZem ER (24HR) 240 mg Capsule PO (08:05)
[2020-03-06] MEDS: cefTRIAXone 1,000 MG in sodium chloride 0.9% (plus) 50 ML 100 MG IV (08:05)
[2020-03-06] MEDS: pregabalin 75 mg Capsule PO ×2 (08:05→17:47)
[2020-03-06] MEDS: aspirin 325 mg EC Tablet PO (08:06)
[2020-03-06] MEDS: lisinopril 10 mg Tablet PO (08:06)
[2020-03-06] MEDS: atorvastatin 40 mg Tablet 20 MG PO (08:06)
--- NOTE | 2020-03-06 08:35 | PC.SOCIAL ---
IMM Page 2 of IMM explained to and signed by patient. She verbalizes understanding. Provided her with [employer] MCR number as well. Initialed, dated, and timed and placed in chart. Copy provided to patient.
[2020-03-06 11:22] VITALS: BP 160/84; PULSE 79; RESP 16; TEMP 36.7; O2SAT 97
[2020-03-06 11:27] LABS: Glucose Point of Care 104 mg/dL (70-110)
--- NOTE | 2020-03-06 12:24 | PM.PN ---
Subjective Subjective: Interval history: noew complaints, feels well overall. Blood cx from 03/03 updated with GPR in 08/03 bottles, not identified further, from 03/06 remains negative to date. wound specimen with GNR not further identified, staph aureus, prelim appearing to be MRSA, corynebacterium spp Medications: Reviewed: Yes Vitals/I&O/Wt Last Vital Signs Temp 97.1 F L 03/07/20 11:34 Pulse 77 03/07/20 11:34 Resp 18 03/07/20 11:34 BP 155/81 03/07/20 11:34 Pulse Ox 98 03/07/20 11:34 03/06/20 03/07/20 03/07/20 22:59 06:59 14:59 Intake Total 340 / 990 Output Total 450 / 850 Balance -110 / 140 Physical Exam Narrative: EXAM NARRATIVE: GEN: Awake, alert and oriented, no acute distress CVS: S1S2 N RS: CTA B/L Abd: Soft, nt/nd , bs+ JOB PRESS OPERATOR: no focal neuro deficits EXt: no gross changes since last time. Data : 03/07/20 02:07 03/07/20 02:07 Other Labs: [facility] [address] [place] [id number] YOUSIF PRADHAN, HANDSTITCHING MACHINE COLLAR FELLER NAME: Lynnette Ferreira LOC: WOUND U #: [id number] AGE/SX: 69/F ROOM: RE03/03/[address]: Jerardo Correa MD : 1950 BED: DIS: FAX #: STATUS: DEP CLI TLOC: Spec #: [id number] Ollie: 03/03/20 Status: RES Req #: [id number] Recd: 03/03/[address]: Jerardo Correa MD Src: Leg SpDesc: Right Ordered: Tissue Cult GS Procedure Result Verified Site Gram Stain Final 03/03/20-1928 Result FEW WHITE BLOOD CELLS MODERATE GRAM POSITIVE COCCI IN PAIRS & CLUSTERS MODERATE GRAM NEGATIVE RODS Tissue Culture Preliminary 03/06/20-1112 Organism 1 Gram Negative Rods Growth FEW Organism 2 Staphylococcus species Growth FEW Organism 3 Corynebacterium species Growth HEAVY DAY 2 ISOLATE 3: SUSCEPTIBILITIES NOT ROUTINELY PERFORMED. RESULTS TO FOLLOW Tissue Culture Preliminary (changed) 03/05/20-1651 Organism 1 Gram Negative Rods Growth FEW Organism 2 Corynebacterium species Growth HEAVY ISOLATE 2: SUSCEPTIBILITIES NOT ROUTINELY PERFORMED. RESULTS TO FOLLOW [facility] [address] [place], [place] [address] DR. YOUSIF PRADHAN, HANDSTITCHING MACHINE COLLAR FELLER NAME: Lynnette Ferreira [facility] #: [id number] LOC: [facility] #: [id number] AGE/SX: 70/F ROOM: [facility] RE03/03/[address]: Rick Salas MD : 1950 BED: 1 DIS: FAX #: STATUS: ADM IN TLOC: Spec #: [id number] Ollie: 03/03/20 Status: RES Req #: [id number] Recd: 03/03/[address]: Kim Mcpherson Src: Blood SpDesc: Ordered: Bcult Procedure Result Verified Site Blood Culture Preliminary 03/05/20-1740 2 OF 4 BOTTLES POSITIVE FROM THE SAME SET DIRECT GRAM STAIN: GRAM POSITIVE RODS RESULTS TO FOLLOW Organism 1 Gram positive hung Growth IN 2 BOTTLES/ SAME SET CRITICAL RESULT YES/NO: YES CRITICAL CALLED BY: MARTHA VINCENT AND READ BACK BY: MARAH DATE: 03/05/20 TIME: 835 Blood Culture Preliminary (changed) 03/05/20-835 1 OF 4 BOTTLES POSITIVE DIRECT GRAM STAIN: GRAM POSITIVE RODS RESULTS TO FOLLOW Organism 1 Gram positive hung Growth IN 1 BOTTLE CRITICAL RESULT YES/NO: YES CRITICAL CALLED BY: MARTHA TO AND READ BACK BY: MARAH DATE: 03/05/20 TIME: 835 Blood Culture Preliminary (changed) 03/04/20-1531 NEGATIVE TO DATE Blood Culture Preliminary (changed) 03/03/20-1537 SPECIMEN COLLECTED Micro: Microbiology 03/06/20 05:29 Blood Culture - Preliminary Blood NEGATIVE TO DATE 03/06/20 05:24 Blood Culture - Preliminary Blood NEGATIVE TO DATE A&P Assessment and plan (1) Infected hardware in right lower extremity: Status: Acute Qualifiers: Encounter type: initial encounter Qualified Code(s): T84.7XXA - Infection and inflammatory reaction due to other internal orthopedic prosthetic devices, implants and grafts, initial encounter (2) Exposed orthopaedic hardware: Status: Acute (3) Status post open reduction with internal fixation (ORIF) of fracture of ankle: Status: Acute (4) Uncontrolled diabetes mellitus: Status: Acute Qualifiers: Diabetes mellitus type: type 2 Glycemic state: with hyperglycemia Qualified Code(s): E11.65 - Type 2 diabetes mellitus with hyperglycemia Additional A&P Information # Trimalleolar fracture of R ankle, s/p ORIF in early July , healed over, then complicated later by fall 2 months ago and opening of a RLE wound, which has had worsening, signs of overlying infection and exposure of underlying hardware. Ct on 02/24 with good alignment and no signs of loosening of hardware. # RLE wound overlying part of the RLE hardware Worsening over the last 2 months, currently with tendons and hardware exposed. Jordy pus noted at wound care 03/03 , debridement performed and sent for cx, prelim with GNR, not further identified, staph spp appearing to be MRSA. ESR and CRP mildly elevated Continue empiric CTX and Vancomycin for now, will plan to discharge on at least 6 weeks of iv abx for presumed hardware infection with plan to salvage hardware. Final abx course remains to be decided based on final cx results, likely to be a combination of iv vancomycin and po FQs. Care coordination working on finding a [facility] to accept patient for home iv infusion. patient refuses to go to SNF for abx course. She lives ~40miles from hospital with no easy access to [facility], therefore retruning to the hospital for outpatient abx may not be a feasible option for her. In this scenario, discharge plan may include a combination of po abx, dependent on cx results. # GPR hung bacetremia, likely to be a contaminant, however now seen on 08/03 bottles. will clarify with micro lab. Above coverage would be appropriate for the same. Attestations Medical Necessity Statement*: per admitting team Coding Level of Care Code Acute Asphalt Patcher for Geovanna Maria Diagnoses Infected hardware in right lower extremity T84.7XXA Encounter type: initial encounter Exposed orthopaedic hardware T84.498A Status post open reduction with internal fixation (ORIF) of fracture of ankle Z98.890; Z87.81 Uncontrolled diabetes mellitus E11.65 Diabetes mellitus type: type 2 Glycemic state: with hyperglycemia
--- NOTE | 2020-03-06 12:39 | P.PN_ITS ---
Subjective Subjective: Interval history: She denies any pain or discomfort at this time. Says that her dressing was already changed earlier today. She understands the reasoning behind prolonged course of IV antibiotic therapy, and says that she had discussed this in detail with Dr Benjamin, and multi care technician. She is adamant she would not want to go to a group home facility to have IV infusions no matter the risk. States that she would be willing to try to work with a different home health infusion company, or otherwise possibly consider coming for daily infusions here. Understands we may have difficulty trying to arrange home IV antibiotics, but is at this time willing to work with what we are able to try to find for her, other than senior living. Vitals/I&O/Wt Last Vital Signs Temp 98.0 F 03/06/20 11:22 Pulse 79 03/06/20 11:22 Resp 16 03/06/20 11:22 BP 160/84 03/06/20 11:22 Pulse Ox 97 03/06/20 11:22 03/05/20 03/06/20 03/06/20 22:59 06:59 14:59 Intake Total 480 / 1090 410 / 410 Output Total 625 / 1475 400 / 400 Balance 480 / 240 -625 / -385 Physical Exam Const: COMMON NORMALS: no acute distress, patient oriented x3 and alert NUTRITIONAL APPEARANCE: obese ORIENTATION/CONSCIOUSNESS: Yes awake HENMT: COMMON NORMALS: oropharynx normal Neck/C-Spine: COMMON NORMALS: no JVD Resp: COMMON NORMALS: normal respiratory effort AUSCULTATION: rales (Mild at L base) Cardio: COMMON NORMALS: no JVD, regular rhythm, S1 normal heart sound present, S2 normal heart sound present and No murmurs present (Cardio) RHYTHM: regular rhythm HEART SOUNDS: S1 normal heart sound present and S2 normal heart sound present GI: COMMON NORMALS: Normal to inspection, nondistended, normoactive bowel rowan nds present, Soft to palpation and non-tender PALPATION: Yes Soft to palpation Extremity: COMMON NORMALS: no joint enlargement and no pedal edema OTHER: Dressing intact on lower RLL, no bleeding or strikethrough. Was just changed earlier. Neuro: COMMON NORMALS: patient oriented x3 and moves all extremities SENSORIUM/ORIENTATION: Yes alert Skin: COMMON NORMALS: no rashes or lesions noted GENERAL SKIN EXAM: no rashes or lesions noted Data : 03/06/20 05:24 03/06/20 05:24 Micro: Microbiology 03/06/20 05:29 Blood Culture - Preliminary Blood SPECIMEN COLLECTED 03/06/20 05:24 Blood Culture - Preliminary Blood SPECIMEN COLLECTED 03/03/20 15:29 Blood Culture - Preliminary Blood Gram positive hung A&P Assessment and plan (1) Exposed orthopaedic hardware: Arrangements are underway for prolonged antibiotic therapy, although this is made more difficult due to home health agency not accepting her back for home IV infusions. For now we will try to explore additional options as discussed with her. Ideally the treatment would be given by IV. Appreciate ID recommendations. PICC line for now on hold until we know that we can establish outpatient IV infusions. At this time continue vancomycin, fluoroquinolone. Follow-up culture results. Discussed with patient and orthopedics this morning. Status: Acute (2) Infected hardware in right lower extremity: At this time empirically on antibiotic therapy for possibility of hardware infection with exposed hardware and nonhealing wound. As above. Status: Acute Qualifiers: Encounter type: initial encounter Qualified Code(s): T84.7XXA - Infection and inflammatory reaction due to other internal orthopedic prosthetic devices, implants and grafts, initial encounter (3) Uncontrolled diabetes mellitus: Glucose currently better. Continue to monitor. Continue long-acting and sliding scale insulin. 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 Ct on 02/24 with good alignment and no signs of loosening of hardware. Status: Acute Qualifiers: Encounter type: initial encounter Laterality: right Qualified Code(s): S82.851A - Displaced trimalleolar fracture of right lower leg, initial encounter for closed fracture Additional A&P Information GPR hung bacetremia: Follow-up culture results and repeat culture. Likely to be a contaminant, will repeat cx. In the presence of active infection in RLE, will need to f/up to ensure not a true bacteremia. HTN: Blood pressure somewhat variable, follow for now after adjustment of hypertensive regimen. CKD: Creatinine appears close to her usual baseline CAD: continue ASA, resume plavix Attestations Medical Necessity Statement*: Continue admission for assessment management of nonhealing right lower extremity complicated wound, with prior fracture repair with orthopedic hardware, assessment of possible bacteremia, disposition planning. Coding Level of Care Code Acute Wearing Apparel Presser for [facility] Fwd Exam Comprehensive Diagnoses Exposed orthopaedic hardware T84.498A Infected hardware in right lower extremity T84.7XXA Encounter type: initial encounter Uncontrolled diabetes mellitus E11.65 Diabetes mellitus type: type 2 Glycemic state: with hyperglycemia Ulcer of right lower extremity L97.915 Non-pressure ulcer stage: with muscle involvement without evidence of necrosis Closed trimalleolar fracture of ankle S82.851A Encounter type: initial encounter Laterality: right
[2020-03-06 15:24] VITALS: BP 150/65; PULSE 81; RESP 18; TEMP 37.1; O2SAT 97
[2020-03-06 17:19] LABS: Glucose Point of Care 243 mg/dL (70-110)
[2020-03-06 19:27] VITALS: BP 173/83; PULSE 85; RESP 18; TEMP 37; O2SAT 97
[2020-03-06 20:24] LABS: Glucose Point of Care 253 mg/dL (70-110)
[2020-03-06] MEDS: enoxaparin 40 mg/0.4 mL Syringe SUBCUT (21:13)
[2020-03-06] MEDS: ropinirole 0.25 mg Tablet 0.5 MG PO (21:13)
[2020-03-07] VITALS (22 sets, daily range): BP systolic 83–178; BP diastolic 52–90; PULSE 69–83; RESP 12–20; TEMP 36.1–36.9; O2SAT 94–100
--- NOTE | 2020-03-07 | XR_ITS ---
WS: [id number] INTRAOPERATIVE TECHNIQUE: 2 Spot fluoroscopic images for intraoperative purposes. FLUOROSCOPY TIME: 14.7 seconds CLINICAL INFORMATION: HARDWARE REMOVAL COMPARISON: None. FINDINGS: Images obtained for intraoperative purposes. Interval hardware removal from the distal fibula and lat eral malleolus. Normal alignment. XR/XR ankle RT 1V [id number] IMPRESSION: Images obtained for intraoperative purposes.
--- NOTE | 2020-03-07 | SCC_ITS ---
Removal right ankle hardware including tight rope with a medial incision and lateral incision to remove 7-hole fibular sideplate. Debridement of large soft tissue ulcer. 14.7 seconds of fluoroscopic guidance, for a cumulative dose of 0.57 mGy, was provided to Dr. Stock by the radiology department. C-arm images of the RIGHT ankle were saved for the patient's permanent record. [facility]
[2020-03-07 02:59] LABS: Basophils # 0.1 10^3/uL (0.0-0.1); Basophils % 0.6 %; Eosinophils # 0.3 10^3/uL (0.0-0.8); Eosinophils % 2.9 %; Hematocrit 30.3 % (37.0-47.0); Hemoglobin 9.5 g/dL (11.5-15.3); Lymphocytes # 2.4 10^3/uL (0.8-4.8); Lymphocytes % 26.7 %; Mean Corpuscular HGB Conc 31.4 g/dL (30.0-36.0); Mean Corpuscular Hemoglobin 29.8 pg (28.0-34.0); Mean Platelet Volume 11.4 fL (7.4-10.4); Monocytes # 0.7 10^3/uL (0.2-0.9); Monocytes % 7.6 %; Neutrophils # 5.57 10^3/uL (1.8-7.7); Neutrophils % 61.8 %; Nucleated Red Blood Cells % 0 %; Platelet Count 219 10^3/cmm (130-400); Red Blood Count 3.19 10^6/uL (4.1-5.3); Red Cell Distribution Width 13.3 % (12.1-15.1)
[2020-03-07 03:20] LABS: Anion Gap 11.3 (5-19); Blood Urea Nitrogen 37 mg/dL (8-23); Calcium 8.5 mg/dL (8.5-10.5); Carbon Dioxide 24 mmol/L (22-29); Chloride 108 mmol/L (98-107); Creatinine Clr Calc Pharmacy 33.9974; Glomerular Filtration Rate 29.7 mL/min (90-130); Glucose 92 mg/dL (65-115); Osmolality Calculated 285 mOsm/kg (285-295); Potassium 4.3 mmol/L (3.5-5.1); Sodium 139 mmol/L (136-145)
--- NOTE | 2020-03-07 05:26 | PC.NURSE ---
Patient incontinent of urine, copious amounts on chucks.
[2020-03-07 06:37] LABS: Glucose Point of Care 80 mg/dL (70-110)
[2020-03-07] MEDS: cefTRIAXone 1,000 MG in sodium chloride 0.9% (plus) 50 ML 100 MG IV (08:05)
--- NOTE | 2020-03-07 11:02 | PC.NURSE ---
THIS NURSE TO MED SURG TO PLACE PICC. PER PATIENT NURSE, PICC IS ON HOLD FOR NOW. PATIENT IS REFUSING SNF AND UNSURE IF HOME HEALTH WILL ACCEPT PATIENT.
--- NOTE | 2020-03-07 11:13 | PM.PN ---
Subjective Subjective: Interval history: Denies any pain. Overall is comfortable. I told infectious disease doctor earlier that she could not come for daily infusions at outpatient center as she [place] far. Vitals/I&O/Wt Last Vital Signs Temp 98.4 F 03/07/20 07:59 Pulse 81 03/07/20 07:59 Resp 20 H 03/07/20 07:59 BP 178/90 03/07/20 07:59 Pulse Ox 98 03/07/20 07:59 03/06/20 03/07/20 03/07/20 22:59 06:59 14:59 Intake Total 340 / 990 Output Total 450 / 850 Balance -110 / 140 Physical Exam Const: COMMON NORMALS: no acute distress, patient oriented x3 and alert NUTRITIONAL APPEARANCE: obese ORIENTATION/CONSCIOUSNESS: Yes awake HENMT: COMMON NORMALS: oropharynx normal Neck/C-Spine: COMMON NORMALS: no JVD Resp: COMMON NORMALS: normal respiratory effort AUSCULTATION: rales (Mild at L base) Cardio: COMMON NORMALS: no JVD, regular rhythm, S1 normal heart sound present, S2 normal heart sound present and No murmurs present (Cardio) RHYTHM: regular rhythm HEART SOUNDS: S1 normal heart sound present and S2 normal heart sound present GI: COMMON NORMALS: Normal to inspection, nondistended, normoactive bowel sounds present, Soft to palpation and non-tender PALPATION: Yes Soft to palpation Extremity: COMMON NORMALS: no joint enlargement and no pedal edema OTHER: Right lower extremity wound without surrounding cellulitis. No bleeding or strikethrough on dressing. Neuro: COMMON NORMALS: patient oriented x3 and moves all extremities SENSORIUM/ORIENTATION: Yes alert Skin: COMMON NORMALS: no rashes or lesions noted GENERAL SKIN EXAM: no rashes or lesions noted Data : 03/07/20 02:07 03/07/20 02:07 Micro: Microbiology 03/06/20 05:29 Blood Culture - Preliminary Blood NEGATIVE TO DATE 03/06/20 05:24 Blood Culture - Preliminary Blood NEGATIVE TO DATE A&P Assessment and plan (1) Exposed orthopaedic hardware: We are still awaiting culture results, appears she is growing MRSA from the wound, but unknown sensitivities at this time. Gram-positive rods in blood, pending ID and sensitivity. At this time continue IV antibiotics. There is been difficulty with arranging outpatient IV antibiotics as prior home health company would not accept her for IV infusions. Care coordination is looking into other home health care companies although does not appear to be easy. She absolutely declines to go to [facility] and will not consider that option. She today also stated she could not come for daily infusions in the infusion center here. Surgery is taking her to the OR for hardware removal today. Appreciate ID recommendations. PICC line for now on hold until we know that we can establish a firm disposition. At this time continue vancomycin, fluoroquinolone. Follow-up culture results. Discussed with patient and orthopedics this morning. Status: Acute (2) Infected hardware in right lower extremity: As above. Status: Acute Qualifiers: Encounter type: initial encounter Qualified Code(s): T84.7XXA - Infection and inflammatory reaction due to other internal orthopedic prosthetic devices, implants and grafts, initial encounter (3) Uncontrolled diabetes mellitus: Glucose currently better. Continue to monitor. Continue long-acting and sliding scale insulin. 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 Ct on 02/24 with good alignment and no signs of loosening of hardware. Status: Acute Qualifiers: Encounter type: initial encounter Laterality: right Qualified Code(s): S82.851A - Displaced trimalleolar fracture of right lower leg, initial encounter for closed fracture Additional A&P Information GPR hung bacetremia: Follow-up culture results and repeat culture. Likely to be a contaminant, will repeat cx. In the presence of active infection in RLE, will need to f/up to ensure not a true bacteremia. HTN: Blood pressure somewhat variable, follow for now after adjustment of hypertensive regimen. CKD: Creatinine appears close to her usual baseline CAD: continue ASA, resume plavix Attestations Medical Necessity Statement*: Continue admission for assessment of management of nonhealing wound of right lower extremity with wound infection, assessment for possible bacteremia, and disposition planning. Coding Level of Care Code Acute String Studies Director for Geovanna Fryd Diagnoses Exposed orthopaedic hardware T84.498A Infected hardware in right lower extremity T84.7XXA Encounter type: initial encounter Uncontrolled diabetes mellitus E11.65 Diabetes mellitus type: type 2 Glycemic state: with hyperglycemia Ulcer of right lower extremity L97.915 Non-pressure ulcer stage: with muscle involvement without evidence of necrosis Closed trimalleolar fracture of ankle S82.851A Encounter type: initial encounter Laterality: right
[2020-03-07 11:21] LABS: Glucose Point of Care 75 mg/dL (70-110)
[2020-03-07] MEDS: sodium chloride 0.9% 1,000 ML 30 ML IV (11:39)
--- NOTE | 2020-03-07 11:55 | PC.NURSE ---
off unit pt down in surgery.
--- NOTE | 2020-03-07 12:14 | W.PM.OPSUD ---
Surgery/Procedure H&P Update DATE OF PROCEDURE: March 07, 2020 DATE H&P PERFORMED: 03/03/20 H&P UPDATE INFORMATION: I have reviewed H&P completed within last 30 days and I have examined patient prior to procedure CHANGES TO PREVIOUS DOCUMENTATION: I have reviewed the patient's chart and previous x-rays. Additionally, the patient is evaluated in the preop holding area. Discussion is undertaken with the patient regarding hardware removal and the possible need for long-term antibiotics following this procedure. PREOP DIAGNOSIS: Infected hardware right ankle PLANNED PROCEDURE: Operation Date: 03/07/20 13:05 Proposed Procedures p Hardware Removal Ankle(Right) - Hallie Stock MD Related Problem List Diagnoses (1) Infected hardware in right lower extremity: Qualifiers: Encounter type: initial encounter Qualified Code(s): T84.7XXA - Infection and inflammatory reaction due to other internal orthopedic prosthetic devices, implants and grafts, initial encounter (2) Diabetic leg ulcer: (3) Exposed orthopaedic hardware:
--- NOTE | 2020-03-07 12:29 | P.ANESASSM_ITS ---
Pre-Anesthetic Assessment Pre-Anesthetic Assessment: Height/Weight: Height 1.52 m Weight 106.594 kg Temp Pulse Resp BP Pulse Ox 97.1 F L 77 18 155/81 98 03/07/20 11:34 03/07/20 11:34 03/07/20 11:34 03/07/20 11:34 03/07/20 11:34 Preop Diagnosis: Infected hardware right ankle Proposed Procedure: Operation Date: 03/07/20 13:05 Proposed Procedures p Hardware Removal Ankle(Right) - Hallie Stock MD Was Beta Joseph taken within 24 hours: N/A Last intake: Intake Last Liquid Date 03/07/20 Last Liquid Time 19:00 Last Solid Date 03/06/20 Last Solid Time 19:00 Social: Social History: No alcohol and No tobacco Exam: Pre-Anes Outpt Exam: alert, oriented x 3, clear to auscultation bilaterally and regular rate & rhythm Airway: Submandibular: WNL Cervical ROM: WNL MP: 2 Dentition: False Pulmonary: Pulmonary: None reported CV/HEM: CV/HEM: HTN and Murmur Comments: LVH : : Chronic renal Insufficiency GI: GI: None reported Metabolic: Metabolic: DM, Hyperlipidemia and Morbid obesity Musc/skel: Musc/skel: Lower Back Pain and Weakness (Right sided weakness post stroke) Neuropsych: Neuropsych: CVA (2000) and Depression Anesthetic Plan: ASA status: 4 Anesthesia: General Risk of > 500 ml blood loss (7ml/kg in children): No Meds/Allergies Current Medications: Current Medications Generic Name Dose Route Start Last Admin Trade Name Freq PRN Reason Stop Dose Admin Aspirin 325 mg 03/04/20 09:00 03/07/20 08:10 Aspirin Ec PO Not Given DAILY [facility] Atorvastatin Calci um 20 mg 03/04/20 09:00 03/07/20 08:10 Lipitor PO Not Given DAILY [facility] Clopidogrel Bisulf ate 75 mg 03/06/20 09:00 03/07/20 08:10 Plavix PO Not Given DAILY [facility] Diltiazem HCl 240 mg 03/04/20 09:00 03/07/20 08:10 Cardizem Cd (24h r) PO Not Given DAILY [facility] Enoxaparin Sodium 40 mg 03/04/20 21:15 03/06/20 21:13 Lovenox SUBCUT 40 mg Q24H MOHAMUD Administration Hydralazine HCl 10 mg 03/03/20 18:36 03/04/20 08:36 Apresoline IVP 10 mg Q4H PRN Administration SBP > 170 Vancomycin HCl 1,5 00 mg/ 250 mls @ 166.667 mls/hr 03/03/20 20:00 03/06/20 19:26 Sodium Chloride IV 166.7 mls/hr Q24H MOHAMUD Administration Protocol Ceftriaxone Sodium 1,000 mg/ 50 mls @ 100 mls/ hr 03/04/20 07:30 03/07/20 08:05 Sodium Chloride IV 100 mls/hr Q24H MOHAMUD Administration Protocol Sodium Chloride 1,000 mls @ 30 ml s/hr 03/07/20 11:30 03/07/20 11:39 Sodium Chloride 0.9% IV 03/08/20 11:29 30 mls/hr .Q24H MOHAMUD Administration Insulin Aspart 0 unit 03/03/20 21:00 03/07/20 07:11 Novolog SUBCUT Not Given WM&BEDTIME MOHAMUD Protocol Insulin Detemir 30 unit 03/05/20 21:00 03/06/20 21:14 Levemir SUBCUT 30 unit BEDTIME MOHAMUD Administration Lisinopril 10 mg 03/04/20 09:00 03/07/20 08:11 Prinivil PO Not Given DAILY MOHAMUD Non-Formulary Medi cation 25 mg 03/04/20 09:00 03/07/20 08:11 Mirabegron [Myrb etriq] PO Not Given DAILY MOHAMUD Oxycodone/Acetamin ophen 1 tab 03/03/20 18:33 03/05/20 15:11 Percocet 5-325 M g PO 1 tab Q4H PRN Administration Pain Pregabalin 75 mg 03/04/20 09:00 03/07/20 08:11 Lyrica PO Not Given BID MOHAMUD Ropinirole HCl 0.5 mg 03/03/20 21:00 03/06/20 21:13 Requip PO 0.5 mg BEDTIME MOHAMUD Administration Venlafaxine HCl 150 mg 03/04/20 09:00 03/07/20 08:11 Effexor Xr PO Not Given DAILY MOHAMUD PFSH Anesthesia PFSH: Medical History Ankle syndesmosis disruption Cerebrovascular accident Chronic kidney disease Closed trimalleolar fracture of ankle Coronary artery disease Depression Diabetes Heart murmur Hyperlipidemia Hypertension Obesity Restless leg syndrome Surgical History History of cholecystectomy History of hernia repair History of tubal ligation Family History Other Diabetes Social History Smoking and tobacco status: never smoked Alcohol intake: never Data Anesthesia CBC & Chem 7: 03/07/20 02:07 03/07/20 02:07 Other Labs: Laboratory Results - last 48 hr 03/05/20 03/05/20 03/05/20 16:40 19:16 20:00 WBC RBC Hgb Hct MCV MCH MCHC RDW Plt Count MPV Neut % (Auto) Lymph % (Auto) [place] % (Auto) Eos % (Auto) Baso % (Auto) Neut # (Auto) Lymph # (Auto) [place] # (Auto) Eos # (Auto) Baso # (Auto) Nucleated RBC % (auto) Nucleated RBCs # PT INR Sodium Potassium Chloride Carbon Dioxide Anion Gap BUN Creatinine GFR Calculation Glucose POC Glucose 210 226 Calculated Osmolality Calcium Total Bilirubin AST ALT Alkaline Phosphatase Total Protein Albumin Globulin Vancomycin Trough 17.2 H 03/06/20 03/06/20 03/06/20 05:24 05:24 05:24 WBC 10.8 H RBC 3.11 L Hgb 9.4 L Hct 29.2 L MCV 93.9 MCH 30.2 MCHC 32.2 RDW 13.4 Plt Count 224 MPV 11.2 H Neut % (Auto) 58.1 Lymph % (Auto) 30.6 [place] % (Auto) 7.5 Eos % (Auto) 2.9 Baso % (Auto) 0.6 Neut # (Auto) 6.27 Lymph # (Auto) 3.3 [place] # (Auto) 0.8 Eos # (Auto) 0.3 Baso # (Auto) 0.1 Nucleated RBC % (auto) 0 Nucleated RBCs # 0.0 PT 12.90 INR 0.95 Sodium 137 Potassium 4.2 Chloride 106 Carbon Dioxide 23 Anion Gap 12.2 BUN 35 H Creatinine 1.4 H GFR Calculation 37.2 L Glucose 86 POC Glucose Calculated Osmolality 281 L Calcium 8.1 L Total Bilirubin 0.3 AST 13 ALT 13 Alkaline Phosphatase 90 Total Protein 6.3 L Albumin 2.8 L Globulin 3.5 Vancomycin Trough 03/06/20 03/06/20 03/06/20 06:33 11:24 16:51 WBC RBC Hgb Hct MCV MCH MCHC RDW Plt Count MPV Neut % (Auto) Lymph % (Auto) [place] % (Auto) Eos % (Auto) Baso % (Auto) Neut # (Auto) Lymph # (Auto) [place] # (Auto) Eos # (Auto) Baso # (Auto) Nucleated RBC % (auto) Nucleated RBCs # PT INR Sodium Potassium Chloride Carbon Dioxide Anion Gap BUN Creatinine GFR Calculation Glucose POC Glucose 78 104 243 Calculated Osmolality Calcium Total Bilirubin AST ALT Alkaline Phosphatase Total Protein Albumin Globulin Vancomycin Trough 03/06/20 03/07/20 03/07/20 19:12 02:07 02:07 WBC 9.0 RBC 3.19 L Hgb 9.5 L Hct 30.3 L MCV 95.0 MCH 29.8 MCHC 31.4 RDW 13.3 Plt Count 219 MPV 11.4 H Neut % (Auto) 61.8 Lymph % (Auto) 26.7 [place] % (Auto) 7.6 Eos % (Auto) 2.9 Baso % (Auto) 0.6 Neut # (Auto) 5.57 Lymph # (Auto) 2.4 [place] # (Auto) 0.7 Eos # (Auto) 0.3 Baso # (Auto) 0.1 Nucleated RBC % (auto) 0 Nucleated RBCs # 0.0 PT INR Sodium 139 Potassium 4.3 Chloride 108 H Carbon Dioxide 24 Anion Gap 11.3 BUN 37 H Creatinine 1.7 H GFR Calculation 29.7 L Glucose 92 POC Glucose 253 Calculated Osmolality 285 Calcium 8.5 Total Bilirubin AST ALT Alkaline Phosphatase Total Protein Albumin Globulin Vancomycin Trough 03/07/20 03/07/20 06:26 10:57 WBC RBC Hgb Hct MCV MCH MCHC RDW Plt Count MPV Neut % (Auto) Lymph % (Auto) [place] % (Auto) Eos % (Auto) Baso % (Auto) Neut # (Auto) Lymph # (Auto) [place] # (Auto) Eos # (Auto) Baso # (Auto) Nucleated RBC % (auto) Nucleated RBCs # PT INR Sodium Potassium Chloride Carbon Dioxide Anion Gap BUN Creatinine GFR Calculation Glucose POC Glucose 80 75 Calculated Osmolality Calcium Total Bilirubin AST ALT Alkaline Phosphatase Total Protein Albumin Globulin Vancomycin Trough Micro: Microbiology 03/06/20 05:29 Blood Culture - Preliminary Blood NEGATIVE TO DATE 03/06/20 05:24 Blood Culture - Preliminary Blood NEGATIVE TO DATE Cardiac Studies: No Data to Display
--- NOTE | 2020-03-07 12:33 | PM.PN ---
Subjective Subjective: Interval history: now new complaints, patient feels well. Patient tells me that she is planned to go to the OR with Dr. Stock for a procedure today. Medications: Reviewed: Yes Vitals/I&O/Wt Last Vital Signs Temp 97.1 F L 03/07/20 11:34 Pulse 77 03/07/20 11:34 Resp 18 03/07/20 11:34 BP 155/81 03/07/20 11:34 Pulse Ox 98 03/07/20 11:34 03/06/20 03/07/20 03/07/20 22:59 06:59 14:59 Intake Total 340 / 990 Output Total 450 / 850 Balance -110 / 140 Physical Exam Narrative: EXAM NARRATIVE: GEN: Awake, alert and oriented, no acute distress CVS: S1S2 N RS: CTA B/L Abd: Soft, nt/nd , bs+ FIELD SALES CONSULTANT: no focal neuro deficits Data : 03/07/20 02:07 03/07/20 02:07 Micro: Microbiology 03/06/20 05:29 Blood Culture - Preliminary Blood NEGATIVE TO DATE 03/06/20 05:24 Blood Culture - Preliminary Blood NEGATIVE TO DATE A&P Assessment and plan (1) Infected hardware in right lower extremity: Status: Acute Qualifiers: Encounter type: initial encounter Qualified Code(s): T84.7XXA - Infection and inflammatory reaction due to other internal orthopedic prosthetic devices, implants and grafts, initial encounter (2) Exposed orthopaedic hardware: Status: Acute (3) Status post open reduction with internal fixation (ORIF) of fracture of ankle: Status: Acute (4) Uncontrolled diabetes mellitus: Status: Acute Qualifiers: Diabetes mellitus type: type 2 Glycemic state: with hyperglycemia Qualified Code(s): E11.65 - Type 2 diabetes mellitus with hyperglycemia Additional A&P Information # Trimalleolar fracture of R ankle, s/p ORIF in early July , healed over, then complicated later by fall 2 months ago and opening of a RLE wound, which has had worsening, signs of overlying infection and exposure of underlying hardware. Ct on 02/24 with good alignment and no signs of loosening of hardware. # RLE wound overlying part of the RLE hardware Worsening over the last 2 months, currently with tendons and hardware exposed. Jordy pus noted at wound care 03/03 , debridement performed and sent for cx, prelim with GNR, not further identified, staph spp appearing to be MRSA. ESR and CRP mildly elevated Continue empiric CTX and Vancomycin for now. Appears that patient is scheduled to return to the OR today for possible removal of infected hardware with Dr. Stock later today. Will follow with final plan after reviewing Op note and procdures performed. No other new updates on cx results from lab today # GPR hung bacetremia, likely to be a contaminant, however now seen on 2/4 bottles. will clarify with micro lab. Above coverage would be appropriate for the same. Attestations Medical Necessity Statement*: per admitting team, OR today Coding Level of Care Code Acute Dietary Aide Cook for g Fwd Diagnoses Infected hardware in right lower extremity T84.7XXA Encounter type: initial encounter Exposed orthopaedic hardware T84.498A Status post open reduction with internal fixation (ORIF) of fracture of ankle Z98.890; Z87.81 Uncontrolled diabetes mellitus E11.65 Diabetes mellitus type: type 2 Glycemic state: with hyperglycemia
[2020-03-07] MEDS: vancomycin 1,000 MG SDV 1000 MG IRRIGATION (14:09)
[2020-03-07] MEDS: vancomycin 1,000 MG SDV 2000 MG IRRIGATION (14:09)
--- NOTE | 2020-03-07 14:30 | PM.OP ---
Operative Report Date of procedure: March 07, 2020 Pre-op Diagnosis: Infected diabetic ulcer right ankle following ORIF trimalleolar fracture Post-op diagnosis: same Post-op Findings: Large diabetic ulcer over lateral fibular plate Procedure Done: Removal right ankle hardware including tight rope with a medial incision and lateral incision to remove 7-hole fibular sideplate. Debridement of large soft tissue ulcer. Specimens removed/disposition: Tissue culture and tissue to pathology Pathology: none sent (Soft tissue from ankle sent to pathology) Surgeon: Hallie Stock End User Support Specialist: [facility] [place] Anesthesia: General (Intubated, ASA 4) Estimated blood loss (mL): 100 Tourniquet time (min): 31 Tourniquet time: At 250 mmHg without exsanguination IV fluids (mL): 400 Urine output (mL): 100 Complications: None Findings: Necrotic tissue surrounding a diabetic ulcer overlying a fibular plate. Edematous soft tissue. No evidence of nonunion or edmar osteomyelitis. Condition: stable Disposition: PACU (Then to floor) Brief History: This 70-year-old woman who previously underwent open reduction internal fixation of a right trimalleolar ankle fracture with syndesmotic disruption back in July of this year presented from wound care with a large diabetic ulceration which unfortunately was over top of her lateral fibular plate. This ulceration began in approximately December, but has worsened. When she was seen in wound care, the plate was able to be palpated. It was felt that the patient would be unable to heal this ulceration without removal of the plate. In my discussion with Dr. Correa, he felt that likely, she developed a diabetic ulcer secondary to the fact that she has significant external rotation of this lower extremity. Initially, it did not appear infected, but it moved toward an infectious look with the passage of time. Procedure: Patient was seen in the preoperative holding area and leg was marked. Patient was brought to the operating theater and placed on the operating room table. After undergoing adequate general intubated anesthesia with a diagnosis of ASA 4, the patient's right lower extremity was prepped and draped in usual fashion utilizing DuraPrep. The leg was draped free. Fluoroscopy was used throughout the surgical procedure. We did have a tourniquet high on the right lower extremity. This was elevated to 250 mmHg and total tourniquet time was 31 minutes. Tourniquet elevation was accomplished without exsanguination of the leg. A surgical pause was performed. At the time of the surgical pause we identified the site and side of surgery as well as the patient's identity and availability of equipment. We also confirmed appropriate administration of IV antibiotics. Following the above, an incision was made over the patient's previous incision. We also ellipsed out this large diabetic ulcer. Soft tissue was debrided. At the conclusion of the surgical procedure, the remaining defect was approximately 8 cm x 12 cm. We were able to close the proximal and distal portions of the wound. Prior to this closure, the plate was removed. The tight rope was also removed with a small medial incision. This removal was accomplished uneventfully. Following removal of hardware, fluoroscopy was used to confirm that the ankle remained in a reduced position, and also, there was no remaining hardware. Care was also taken to assure that all the syndesmotic tight rope material had been removed as well. Following removal of hardware and confirmation with fluoroscopically, the wound was irrigated with 6 L of normal saline containing vancomycin. We then closed the medial wound with a single 2-0 nylon mattress suture. The proximal and distal aspects of the lateral wound were closed with 2-0 nylon in a mattress fashion as well. The ulcer was left open. This was packed with wet-to-dry saline dressing followed by Kerlix. Following Kerlix, and [place] wrap was placed. The procedure was well tolerated without complication. Tourniquet time was 31 minutes at 250 mmHg. The patient will be transferred back to the floor where she will have 2 time per day wet-to-dry dressing changes with saline. Wound care will be managing her wound treatment. Once tissues clear and we are sure there is no sign of infection, we will plan a possible wound VAC which would be accomplished under the wound care service, Dr. Correa. The case was discussed with the medical team as well as the patient's daughter. The patient is reluctant to go to group home at the conclusion of her hospital stay, however, her daughter was encouraged to strongly suggest return to group home until this wound has healed. Associated Problem List Diagnoses (1) Infected hardware in right lower extremity: Qualifiers: Encounter type: initial encounter Qualified Code(s): T84.7XXA - Infection and inflammatory reaction due to other internal orthopedic prosthetic devices, implants and grafts, initial encounter (2) Diabetic leg ulcer: (3) Exposed orthopaedic hardware:
--- NOTE | 2020-03-07 15:23 | SUR.PHASEI ---
1523 PT R. PEDAL PULSE IDENTIFIED WITH DOPPLER, CAP REFILL <3 SEC, PT HAS SLIGHT SENSATION TO FOOT
--- NOTE | 2020-03-07 15:30 | PM.PACU ---
PACU note Post-Anesthesia Exam: awake and vital signs stable Disposition: back to floor
--- NOTE | 2020-03-07 16:14 | CTR_ITS ---
PROCEDURE INFORMATION: Exam: CT Right Lower Extremity Without Contrast, Ankle Exam date and time: 03/07/2020 4:45 PM Age: 70 years old Clinical indication: Pain; Ankle; Right; Prior surgery; Additional info: S/P hardware removal right ankle. ? Osteomyelitis ? non-union TECHNIQUE: Imaging protocol: CT of the Right lower extremity without contrast was performed. Exam focused on the ankle. Radiation optimization: All CT scans at this facility use at least one of these dose optimization techniques: automated exposure control; mA and/or kV adjustment per patient size (includes targeted exams where dose is matched to clinical indication); or iterative reconstruction. COMPARISON: OT XR ankle RT 1V [id number] 03/07/2020 1:23 PM RADIATION DOSE METRICS: Total DLP (mGy-cm): 334.98 FINDINGS: Bones/joints: There is osteopenia. Postoperative changes of hardware removal are noted in the distal tibia and fibula. Old fracture deformities of the distal tibia and fibula are noted with mature bridging bone. There is no aggressive or permeative periosteal reaction of definite osteomyelitis. No gas within the bones. There is sclerosis of the tibia and fibula but this is also compatible with a prior hardware and old fracture deformities. Chronic old avulsion fracture fragments are noted adjacent to the tip of the medial malleolus and fibula. Soft tissues: There is gas in the soft tissues of the lower leg continuing lateral to the ankle. There is a large soft tissue defect/ulcer of the soft tissues of the lateral leg adjacent to the hardware removal site compatible with postoperative changes or soft tissue ulcer. There is abundant edema of the skin subcutaneous fat and muscles especially lateral to the fibula compatible with cellulitis and myositis. Increased soft tissue density and thickening of the soft tissues lateral to the fibula hardware removal site with central air bubbles is concerning for localized soft tissue infection/phlegmon without definite fluid collection measuring about 2.6 x 1.9 x 6.5 cm in length. No definite fluid collection or abscess is identified in the soft tissues or muscles. No suggestion of a sinus tract or Ralph's abscess. CT/CT ankle RT wo con* [id number] IMPRESSION: 1. There is gas in the soft tissues of the lower leg continuing lateral to the ankle. 2. There is a probable ulcer of the lateral aspect of the leg with cellulitis and soft tissue phlegmon along the lateral distal fibula. There is gas in the subcutaneous fat and muscles that may reflect recent hardware removal or soft tissue infection with gas-forming organism. 3. There is extensive bony remodeling from the old fractures and hardware removal but no definite osteomyelitis. MRI would be much more sensitive in this regard. Radiation Dose CTDIVOL = (mGy): DLP = 334.98 (mGy-cm)
[2020-03-07 17:49] LABS: Glucose Point of Care 145 mg/dL (70-110)
[2020-03-07] MEDS: sodium chloride 0.9% 250 ML IV (18:20)
[2020-03-07] MEDS: ondansetron 2 mg/ML SDV 2 mL 4 MG IVP (18:21)
[2020-03-07] MEDS: oxyCODONE-APAP 5-325 mg Tablet 1 TAB PO (19:29)
[2020-03-07 20:05] LABS: Vancomycin Trough 25.9 ug/mL (10-15)
[2020-03-07] MEDS: enoxaparin 40 mg/0.4 mL Syringe SUBCUT (20:54)
[2020-03-07] MEDS: ropinirole 0.25 mg Tablet 0.5 MG PO (20:54)
[2020-03-07 21:35] LABS: Glucose Point of Care 166 mg/dL (70-110)
--- NOTE | 2020-03-07 22:11 | PC.NURSE ---
Patient incontinent of bowel, copious amount on hailee. Loose and brown/yellow in color
[2020-03-08] VITALS (9 sets, daily range): BP systolic 102–120; BP diastolic 66–79; PULSE 80–95; RESP 15–20; TEMP 37.1–37.5; O2SAT 92–100
--- NOTE | 2020-03-08 05:15 | PC.NURSE ---
Patient incontinent of bladder, copious amount of urine in brief.
[2020-03-08 07:00] LABS: Glucose Point of Care 123 mg/dL (70-110)
[2020-03-08] MEDS: dilTIAZem ER (24HR) 240 mg Capsule PO (08:07)
[2020-03-08] MEDS: atorvastatin 40 mg Tablet 20 MG PO (08:07)
[2020-03-08] MEDS: aspirin 325 mg EC Tablet PO (08:07)
[2020-03-08] MEDS: venlafaxine ER (24HR) 150 mg Capsule PO (08:08)
[2020-03-08] MEDS: clopidogrel 75 mg Tablet PO (08:08)
--- NOTE | 2020-03-08 09:50 | PC.SOCIAL ---
IMM Updated Page 2 of IMM updated and given to patient. Initialed, dated, and timed and placed back in chart.
[2020-03-08 10:57] LABS: Basophils % 0.3 %; Hematocrit 23.8 % (37.0-47.0); Hemoglobin 7.2 g/dL (11.5-15.3); Lymphocytes # 1.7 10^3/uL (0.8-4.8); Lymphocytes % 17.6 %; Mean Corpuscular HGB Conc 30.3 g/dL (30.0-36.0); Mean Corpuscular Hemoglobin 30.3 pg (28.0-34.0); Mean Platelet Volume 11.9 fL (7.4-10.4); Monocytes # 0.8 10^3/uL (0.2-0.9); Neutrophils # 6.83 10^3/uL (1.8-7.7); Neutrophils % 72.8 %; Nucleated Red Blood Cells % 0 %; Platelet Count 187 10^3/cmm (130-400); Red Blood Count 2.38 10^6/uL (4.1-5.3); Red Cell Distribution Width 14.2 % (12.1-15.1); White Blood Count 9.4 10^3/uL (4.0-10.0)
--- NOTE | 2020-03-08 10:59 | ANE.PACU2 ---
Inpatient post-anesthesia follow up: Airway intact: Yes Vital signs: Temperature 99.5 F Pulse Rate [Monito r] 86 Pulse Rate 91 Respiratory Rate 18 Blood Pressure [Ri ght Arm] 203/75 Blood Pressure 109/70 Pulse Oximetry 95 Oxygen Delivery Me thod [ Room Air Current Rate & Del joselin] Oxygen Delivery Me thod Room Air Oxygen Flow Rate 8 Fraction of Inspir ed Oxygen Hydration adequate: Yes Nausea and vomiting: No Pain level: 3 Mental status: Baseline
[2020-03-08] MEDS: cefTRIAXone 1,000 MG in sodium chloride 0.9% (plus) 50 ML 100 MG IV (11:00)
[2020-03-08 11:14] LABS: Glucose Point of Care 224 mg/dL (70-110)
[2020-03-08 11:15] LABS: Blood Urea Nitrogen 46 mg/dL (8-23); Calcium 8.1 mg/dL (8.5-10.5); Carbon Dioxide 20 mmol/L (22-29); Chloride 106 mmol/L (98-107); Glucose 226 mg/dL (65-115); Osmolality Calculated 287 mOsm/kg (285-295); Sodium 136 mmol/L (136-145)
[2020-03-08 11:17] LABS: Anion Gap 14.8 (5-19); Potassium 4.8 mmol/L (3.5-5.1)
--- NOTE | 2020-03-08 14:55 | P.PN_ITS ---
Subjective Subjective: Interval history: Patient appears somewhat somnolent today. She would not verbally respond to questions, but she does appear to understand comments that are made to her. According to nursing, her dressing changes are accomplished without difficulty. There is minimal bleeding from the wound at the time of the dressing change. Vitals/I&O/Wt Last Vital Signs Temp 99.4 F 03/08/20 11:26 Pulse 90 03/08/20 13:31 Resp 16 03/08/20 11:26 BP 118/75 03/08/20 11:26 Pulse Ox 97 03/08/20 13:31 03/07/20 03/08/20 03/08/20 22:59 06:59 14:59 Intake Total 360 / 410 840 / 840 Output Total 0 / 300 Balance 360 / 110 840 / 840 Physical Exam Const: COMMON NORMALS: no acute distress GENERAL APPEARANCE: comfortable and lethargic ORIENTATION/CONSCIOUSNESS: Yes lethargic HENMT: COMMON NORMALS: normocephalic and atraumatic HEAD & SCALP: normocephalic and atraumatic Eye: GENERAL EYE: appearance normal, both eyes and all related structures Chest: COMMONS NORMALS: normal inspection of the chest Resp: COMMON NORMALS: normal respiratory effort EFFORT & INSPECTION: Yes symmetric chest movement Extremity: RIGHT LOWER EXTREMITY: Yes foot & digits (Dressing is dry and intact. The patient appears to have good capillary refill. There is no evidence of DVT. Dressing is not removed.) Neuro: SENSORIUM/ORIENTATION: Yes lethargic Psych: COMMON NORMALS: mental status grossly normal APPEARANCE: Yes grossly normal ATTITUDE: Yes calm and Yes engaged ATTENTION/CONCENTRATION: Yes attention grossly intact Skin: COMMON NORMALS: no rashes or lesions noted GENERAL SKIN EXAM: no rashes or lesions noted Urinary Catheter Management^: Straight: Cath Placed During This Visit: no Data : 03/08/20 10:18 03/08/20 10:18 Micro: Microbiology 03/07/20 13:45 Gram Stain - Final Ankle - #1 Wound Culture - Preliminary 03/03/20 15:29 Blood Culture - Preliminary Blood Corynebacterium species A&P Assessment and plan (1) Ulcer of right lower extremity: This was addressed with hardware removal. The patient is undergoing wet-to-dry dressing changes. She will be returning to wound care for follow-up of her wound and possible wound VAC placement. Plans are made for fdc. The patient was reluctant, but she is advised of the importance of proceeding with placement into fdc. I have also discussed this with the family. 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 Coding Level of Care Code Acute Outside Sales Consultant for [facility] Crow Diagnoses Ulcer of right lower extremity L97.915 Non-pressure ulcer stage: with muscle involvement without evidence of necrosis Exposed orthopaedic hardware T84.498A
[2020-03-08 16:48] LABS: Glucose Point of Care 171 mg/dL (70-110)
--- NOTE | 2020-03-08 18:11 | PC.NURSE ---
Patient agreed to d/c to [facility] when available, Dr. Salas notified. DIALLOW, CARLOS
[2020-03-08] MEDS: oxyCODONE-APAP 5-325 mg Tablet 1 TAB PO (18:43)
--- NOTE | 2020-03-08 19:58 | P.PN_ITS ---
Subjective Subjective: Interval history: Today there was little bit concerned about her mental status as she was noted to be spacing out her little bit more than usual, however, appears to be awake and alert with good insight during my visit in the afternoon. Denies any pain, or any new complaints. Vitals/I&O/Wt Last Vital Signs Temp 98.8 F 03/08/20 15:12 Pulse 80 03/08/20 15:12 Resp 15 03/08/20 18:43 BP 113/73 03/08/20 15:12 Pulse Ox 97 03/08/20 18:43 03/08/20 03/08/20 03/08/20 06:59 14:59 22:59 Intake Total 1140 / 1140 240 / 1380 Balance 1140 / 1140 240 / 1380 Physical Exam Const: COMMON NORMALS: no acute distress, patient oriented x3 and alert NUTRITIONAL APPEARANCE: obese ORIENTATION/CONSCIOUSNESS: Yes awake HENMT: COMMON NORMALS: oropharynx normal Neck/C-Spine: COMMON NORMALS: no JVD Resp: COMMON NORMALS: normal respiratory effort AUSCULTATION: rales (Mild at L base) Cardio: COMMON NORMALS: no JVD, regular rhythm, S1 normal heart sound present, S2 normal heart sound present and No murmurs present (Cardio) RHYTHM: regular rhythm HEART SOUNDS: S1 normal heart sound present and S2 normal heart sound present GI: COMMON NORMALS: Normal to inspection, nondistended, normoactive bowel sounds present, Soft to palpation and non-tender PALPATION: Yes Soft to palpation Extremity: COMMON NORMALS: no joint enlargement and no pedal edema OTHER: Right lower extremity wound without surrounding cellulitis. Neuro: COMMON NORMALS: patient oriented x3 and moves all extremities SENS ORIUM/ORIENTATION: Yes alert Skin: COMMON NORMALS: no rashes or lesions noted GENERAL SKIN EXAM: no rashes or lesions noted Urinary Catheter Management^: Straight: Cath Placed During This Visit: no Data : 03/08/20 10:18 03/08/20 10:18 Micro: Microbiology 03/07/20 13:45 Gram Stain - Final Ankle - #1 Anaerobic Culture - Preliminary Wound Culture - Preliminary 03/03/20 15:29 Blood Culture - Final Blood Corynebacterium species 03/03/20 15:25 Blood Culture - Final Blood NO GROWTH AFTER 5 DAYS A&P Assessment and plan (1) Ulcer of right lower extremity: Wound infection RLE. s/p debridement and hardware removal. Continue IV antibiotics for now while in the hospital. We are still waiting on culture results. Does have MRSA growing from the wound, but also another Staphylococcus species. Heavy current bacterium growth. Also gram-negative rods not yet identified. Gram-positive hung bacteremia with corynebacterium considered possibly contamination. Will need to discuss all of the culture results with infectious disease given her chronic and complicated wound to come up with the best strategy as to antibiotics going forward. There has been difficulty setting up IV infusions, difficulty with setting up home health care. Noted prior reports of inadequate dressing changes by her and family. She was initially not wanting to go to care home facility, but now is agreeable, and to help her heal this complicated wound would definitely benefit from care home care and close monitoring. She is also only touchdown weightbearing on the right, and so would benefit from PT. With regards to antibiotics will need to discuss further with infectious disease whether there is possibility for oral antibiotics or whether may still require IV considering multidrug resistance of the MRSA. PICC line for now on hold until we know that we can establish a firm disposition. At this time continue vancomycin, fluoroquinolone. 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 Wound debrided. There is some decrease in hemoglobin after debridement. Her blood pressure is now stable, and so we will discontinue IV fluid as this may be contributing to dilutional effect. There was some oozing noted at the wound site by nursing staff of which the surgeon was made aware, for now with dressing reinforced with a little bit better external compression. Status: Acute Qualifiers: Encounter type: initial encounter Qualified Code(s): T84.7XXA - Infection and inflammatory reaction due to other internal orthopedic prosthetic devices, implants and grafts, initial encounter (3) Exposed orthopaedic hardware: Removed. Status: Acute (4) Uncontrolled diabetes mellitus: Glucose currently better. Continue to monitor. Continue long-acting and sliding scale insulin. Status: Acute Qualifiers: Diabetes mellitus type: type 2 Glycemic state: with hyperglycemia Qualified Code(s): E11.65 - Type 2 diabetes mellitus with hyperglycemia (5) Status post open reduction with internal fixation (ORIF) of fracture of ankle: Status: Acute (6) Closed trimalleolar fracture of ankle: rior trimalleolar right ankle fracture with repair by ORIF in July, healed after surgery, subsequently a fall 2 months ago with reopening of the wound and with nonhealing. Ct on 02/24 with good alignment and no signs of loosening of hardware. Status: Acute Qualifiers: Encounter type: initial encounter Laterality: right Qualified Code(s): S82.851A - Displaced trimalleolar fracture of right lower leg, initial encounter for closed fracture Additional A&P Information GPR hung bacetremia: Follow-up repeat cx. In the presence of active infection in RLE, will need to f/up to ensure not a true bacteremia. HTN: Blood pressure somewhat soft, antihypertensive for now on hold. CKD: Creatinine appears close to her usual baseline CAD: continue ASA, resume plavix for now, although monitor Hb due to acute anemia. Attestations Medical Necessity Statement*: Continue admission for optimization of antibiotic regimen for nonhealing wound of right lower extremity status post debridement and hardware explantation, follow-up on cultures and planning and arrangement for prolonged antibiotic therapy to help heal the wound in a lady with poorly controlled diabetes. Monitoring of blood count, possible need for transfusion due to acute anemia. 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
[2020-03-08 21:55] LABS: Glucose Point of Care 131 mg/dL (70-110)
[2020-03-08] MEDS: enoxaparin 40 mg/0.4 mL Syringe SUBCUT (23:04)
[2020-03-08] MEDS: ropinirole 0.25 mg Tablet 0.5 MG PO (23:04)
--- NOTE | 2020-03-08 23:04 | CTR_ITS ---
PROCEDURE INFORMATION: Exam: CT Head Without Contrast Exam date and time: 03/08/2020 11:12 PM Age: 70 years old Clinical indication: Altered mental status/memory loss; Confusion or disorientation; Additional info: Decreased responsiveness TECHNIQUE: Imaging protocol: Computed tomography of the head without contrast. Radiation optimization: All CT scans at this facility use at least one of these dose optimization techniques: automated exposure control; mA and/or kV adjustment per patient size (includes targeted exams where dose is matched to clinical indication); or iterative reconstruction. COMPARISON: CT head wo con* [id number] 09/07/2019 6:03 PM RADIATION DOSE METRICS: Total DLP (mGy-cm): 856.63 FINDINGS: Brain: No acute intracranial hemorrhage or mass effect. There is decreased attenuation in the periventricular white matter, likely from microvascular disease. There are small old lacunar infarcts in the basal ganglia/internal capsule regions bilaterally, more prominent on the right. Small old infarcts in the left aspect of the parish. No definite acute infarct by CT. MRI could be more sensitive/specific for detection, as clinically directed. Ventricles: Ventricle size is normal for age. Bones/joints: No definite acute skull fracture. Sinuses: Mild fluid/opacity in the posterior left ethmoid sinus. Included paranasal sinuses otherwise appear essentially clear. Mastoid air cells: No significant acute finding. Vasculature: Prominent vascular calcifications in the internal carotid and vertebral basilar systems. CT/CT head wo con* [id number] IMPRESSION: 1. No acute intracranial hemorrhage or mass effect. 2. Changes of microvascular disease, and old infarcts, details above. 3. No definite acute infarct by CT, see above. 4. Other findings discussed above. Radiation Dose CTDIVOL = (mGy): DLP = 856.63 (mGy-cm)
--- NOTE | 2020-03-08 23:06 | P.EN_ITS ---
Event Note Event Note: Called by nursing staff due to concern for decreased responsiveness. Unable to gauge extent of altered mental status as she is not really following commands at this time. Nonverbal at this time. Reviewed chart with noted drop in hemoglobin from 9.5-7.2 so will order stat H&H in case of need for transfusion. She is currently on room air and seems to be saturating at 95% per continuous pulse oximetry but will order ABG in addition to CT scan of the head. Has consistently been afebrile. Affect is quite flat so unsure if she is depressed. She is incontinent. Had 1 BM earlier today. Event Notes Attestations Time Spent in Patient Care: 16 - 35 minutes (>than 50% of time spent in counselling and/or direct pt care on unit) .
[2020-03-08 23:24] LABS: ABG PCO2 37.6 mmHg (35-45); ABG PH Result 7.35 (7.35-7.45); Arterial Blood Gas Hematocrit 21.7 % (37-47); Base Excess ABG -4.3 mmol/L (-2.0-2.0); Blood Gas Allen Test Pos; Blood Gas Operator Identificat MONRO; Blood Gas Sample Site Radial, left; Blood Gas Sample Type Arterial; HCO3 ABG 20.9 mmol/L (22-26); Oxygen Device ROOM AIR; PO2 ABG 75.9 mmHg (80.0-100.0)
[2020-03-08 23:51] LABS: Hematocrit 21.7 % (37.0-47.0); Hemoglobin 6.7 g/dL (11.5-15.3)
[2020-03-09] VITALS (19 sets, daily range): BP systolic 105–180; BP diastolic 65–84; PULSE 80–97; RESP 16–22; TEMP 36.9–37.7; O2SAT 93–99
[2020-03-09 01:31] LABS: Basophils % 0.4 %; Eosinophils % 0.5 %; Hematocrit 21.4 % (37.0-47.0); Hemoglobin 6.7 g/dL (11.5-15.3); Lymphocytes % 37.1 %; Mean Corpuscular HGB Conc 31.3 g/dL (30.0-36.0); Mean Corpuscular Hemoglobin 30.5 pg (28.0-34.0); Mean Corpuscular Volume 97.3 fL (81-99); Mean Platelet Volume 11.5 fL (7.4-10.4); Monocytes # 0.8 10^3/uL (0.2-0.9); Monocytes % 10.3 %; Neutrophils % 51.5 %; Nucleated Red Blood Cells % 0 %; Platelet Count 184 10^3/cmm (130-400); Red Cell Distribution Width 13.9 % (12.1-15.1); White Blood Count 8.2 10^3/uL (4.0-10.0)
[2020-03-09 01:42] LABS: Anion Gap 13.5 (5-19); Blood Urea Nitrogen 48 mg/dL (8-23); Calcium 7.9 mg/dL (8.5-10.5); Carbon Dioxide 21 mmol/L (22-29); Chloride 106 mmol/L (98-107); Glucose 128 mg/dL (65-115); Osmolality Calculated 282 mOsm/kg (285-295); Potassium 4.5 mmol/L (3.5-5.1); Sodium 136 mmol/L (136-145)
[2020-03-09] MEDS: sodium chloride 0.9% (100 ml) 100 ML 50 ML (04:44)
[2020-03-09 06:55] LABS: Glucose Point of Care 125 mg/dL (70-110)
[2020-03-09] MEDS: aspirin 325 mg EC Tablet PO (08:55)
[2020-03-09] MEDS: dilTIAZem ER (24HR) 240 mg Capsule PO (08:55)
[2020-03-09] MEDS: atorvastatin 40 mg Tablet 20 MG PO (08:55)
[2020-03-09] MEDS: clopidogrel 75 mg Tablet PO (08:55)
[2020-03-09] MEDS: venlafaxine ER (24HR) 150 mg Capsule PO ×2 (08:55→13:24)
[2020-03-09] MEDS: acetaminophen 325 mg Tablet 650 MG PO (10:03)
--- NOTE | 2020-03-09 10:30 | P.PN_ITS ---
Subjective Subjective: Interval history: She is somewhat confused this morning. Overnight was concern for decreased responsiveness, noted to be anemic, receiving second blood transfusion. Mental status has improved compared to overnight as per report, although treatment visit still is somewhat withdrawn. Does interact briefly, answers a few questions, then withdraws. Denies pain or discomfort. Does not answer some questions, and some need to be asked several times. States does not remember what year it is, or what location she is in. Does follow some commands, but to a limited extent, and these have to be repeated multiple times. Vitals/I&O/Wt Last Vital Signs Temp 98.5 F 03/09/20 09:51 Pulse 94 03/09/20 09:51 Resp 18 03/09/20 09:51 BP 153/83 03/09/20 09:51 Pulse Ox 99 03/09/20 09:51 03/08/20 03/09/20 03/09/20 22:59 06:59 14:59 Intake Total 240 / 1380 0 / 1380 350 / 350 Output Total 0 / 0 Balance 240 / 1380 0 / 1380 350 / 350 Physical Exam Const: COMMON NORMALS: no acute distress, patient oriented x3 and alert NUTRITIONAL APPEARANCE: obese ORIENTATION/CONSCIOUSNESS: Yes awake HENMT: COMMON NORMALS: oropharynx normal Neck/C-Spine: COMMON NORMALS: no JVD Resp: COMMON NORMALS: normal respiratory effort AUSCULTATION: rales (Mild at L base) Cardio: COMMON NORMALS: no JVD, regular rhythm, S1 normal heart sound present, S2 normal heart sound present and No murmurs present (Cardio) RHYTHM: regular rhythm HEART SOUNDS: S1 normal heart sound present and S2 normal heart sound present GI: COMMON NORMALS: Normal to inspection, nondistended, normoactive bowel sounds present, Soft to palpation and non-tender PALPATION: Yes Soft to palpation Extremity: COMMON NORMALS: no joint enlargement and no pedal edema OTHER: Right lower extremity wound without surrounding cellulitis wrapped in dressing without bleeding. Neuro: COMMON NORMALS: patient oriented x3 and moves all extremities SENSORIUM/ORIENTATION: Yes alert Skin: COMMON NORMALS: no rashes or lesions noted GENERAL SKIN EXAM: no rashes or lesions noted Urinary Catheter Management^: Straight: Cath Placed During This Visit: no Data : 03/09/20 01:15 03/09/20 01:15 Micro: Microbiology 03/07/20 13:45 Gram Stain - Final Ankle - #1 Anaerobic Culture - Preliminary Wound Culture - Preliminary 03/03/20 15:29 Blood Culture - Final Blood Corynebacterium species 03/03/20 15:25 Blood Culture - Final Blood NO GROWTH AFTER 5 DAYS A&P Assessment and plan (1) Acute encephalopathy: Noted to be less responsive overnight, this appears to be improving with blood transfusion. Appears to be perhaps delirium related to acute anemia. Otherwise she does appear to be somewhat withdrawn, does answer some questions after multiple prompts, but states cannot remember where she is, what year it is. I may be suspect also of some of her medications as she is also on venlafaxine and pregabalin. She is also having acute kidney injury. Resume venlafaxine at reduced dose of 75 mg. Resume pregabalin, we cannot cut the dose, so we will reduce to once daily until renal function is improving. Ropinirole and Myrbetriq for now continue unchanged. She is generally somewhat sluggish, appears to be generally weak, but sensation and power appears symmetrical. I do not detect focal abnormality on neurologic exam currently, CT of the head was done overnight showing microvascular disease and old lacunar infarcts in basal ganglia/internal capsule bilaterally, more prominent on the right, small old infarcts in left aspect of the parish. She has been on aspirin, Plavix. Complete transfusion. Recheck hemoglobin. There is some macrocytosis, will additionally check folic acid, B12. Continue to reorient. Status: Acute (2) Ulcer of right lower extremity: Wound infection RLE. s/p debridement and hardware removal. Acute anemia, hemoglobin down to 6.7. Receiving 2 units PBC transfusion. We are still waiting on culture results. The staphylococcal species is MRSA. Heavy corynebacterium growth. Also gram-negative rods not yet identified. Follow-up culture results, once available we will discuss with infectious disease regarding antibiotic strategy. For now continue IV antibiotics as cu rrently. Gram-positive hung bacteremia with corynebacterium considered possibly contamination. Will need to discuss all of the culture results with infectious disease given her chronic and complicated wound to come up with the best strategy as to antibiotics going forward. There has been difficulty setting up IV infusions, difficulty with setting up home health care. Noted prior reports of inadequate dressing changes by her and family. She was initially not wanting to go to long-term facility, but now is agreeable, and to help her heal this complicated wound would definitely benefit from long-term care and close monitoring. She is also only touchdown weightbearing on the right, and so would benefit from PT. With regards to antibiotics will need to discuss further with infectious disease whether there is possibility for oral antibiotics or whether may still require IV considering multidrug resistance of the MRSA. PICC line for now on hold until we know that we can establish a firm disposition. At this time continue vancomycin, fluoroquinolone. 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 Wound debrided. There is some decrease in hemoglobin after debridement. Her blood pressure is now stable, and so we will discontinue IV fluid as this may be contributing to dilutional effect. There was some oozing noted at the wound site by nursing staff of which the surgeon was made aware, for now with dressing reinforced with a little bit better external compression. Status: Acute Qualifiers: Encounter type: initial encounter Qualified Code(s): T84.7XXA - Infection and inflammatory reaction due to other internal orthopedic prosthetic devices, implants and grafts, initial encounter (4) Exposed orthopaedic hardware: Removed. Status: Acute (5) Uncontrolled diabetes mellitus: Glucose currently better. Continue to monitor. Continue long-acting and sliding scale insulin. Status: Acute Qualifiers: Diabetes mellitus type: type 2 Glycemic state: with hyperglycemia Qualified Code(s): E11.65 - Type 2 diabetes mellitus with hyperglycemia (6) Status post open reduction with internal fixation (ORIF) of fracture of ankle: Status: Acute (7) Closed trimalleolar fracture of ankle: rior trimalleolar right ankle fracture with repair by ORIF in July, healed after surgery, subsequently a fall 2 months ago with reopening of the wound and with nonhealing. Ct on 02/24 with good alignment and no signs of loosening of hardware. Status: Acute Qualifiers: Encounter type: initial encounter Laterality: right Qualified Code(s): S82.851A - Displaced trimalleolar fracture of right lower leg, initial encounter for closed fracture (8) Acute kidney injury: Appears to be prerenal, although blood pressures have been stable. Did have acute blood loss anemia looks like, so perhaps contributed. Otherwise possibly secondary to vancomycin toxicity as last trough 03/07 was high at 25.9. Dose was adjusted to 1500 mg every 36 hours 03/08. Discussed with pharmacy, will adjust further if needed given decrease in creatinine clearance. UA, urine sodium, urine creatinine. Monitor I&O. Status: Acute Additional A&P Information GPR hung bacetremia: Follow-up repeat cx. Suspect contaminants, although 2 bottles. In the presence of active infection in RLE, will need to f/up to ensure not a true bacteremia. HTN: Cont amlodipine. CKD: LISBET on CKD as above. CAD: continue ASA, resume plavix for now, although may need to DC if persistent anemia. Attestations Medical Necessity Statement*: Continue admission for the management of acute encephalopathy, arrangements for prolonged antibiotic therapy depending on culture results for infected wound of right lower extremity, acute kidney injury, in the setting of poorly controlled diabetes and other comorbidities. Coding Level of Care Code Acute Receiving Specialist for [facility] Diagnoses Acute encephalopathy G93.40 Ulcer of right lower extremity L97.915 Non-pressure ulcer stage: with muscle involvement without evidence of necrosis Infected hardware in right lower extremity T84.7XXA Encounter type: initial encounter Exposed orthopaedic hardware T84.498A Uncontrolled diabetes mellitus E11.65 Diabetes mellitus type: type 2 Glycemic state: with hyperglycemia Status post open reduction with internal fixation (ORIF) of fracture of ankle Z98.890; Z87.81 Closed trimalleolar fracture of ankle S82.851A Encounter type: initial encounter Laterality: right Acute kidney injury N17.9
[2020-03-09 11:26] LABS: Glucose Point of Care 127 mg/dL (70-110)
[2020-03-09 11:32] LABS: Folate Level 8.9 ng/mL (4.8-37.3); Vitamin B12 187 pg/mL (232-1245)
[2020-03-09 12:39] LABS: Bilirubin Urine Neg (Negative); Blood Urine Neg (Negative); Glucose Urine UA Norm (Normal); Ketones Urine Negative (Negative); Nitrate Urine Negative (Negative); Protein Urine 1+ (Negative); Urine Appearance Clear (CLEAR); Urine Color Straw (Yellow); pH Urine 5 (5-7)
[2020-03-09 12:40] LABS: Add Urine Microscopic? YES; Leukocyte Esterase Urine Negative (Negative); Urobilinogen Urine Neg (Negative)
[2020-03-09 12:42] LABS: Add Urine Culture? No; Amorphous Sediment Urine 2+ /hpf; Bacteria Urine TRACE /hpf; Mucus Urine TRACE /hpf; RBC Urine 0-4 /hpf (0-2); Squamous Epithelial Cell Urine 0-4 /hpf (0-5)
[2020-03-09 13:10] LABS: Hemoglobin 10.2 g/dL (11.5-15.3)
[2020-03-09] MEDS: cefTRIAXone 1,000 MG in sodium chloride 0.9% (plus) 50 ML 100 MG IV (13:24)
[2020-03-09 13:36] LABS: Urine Creatinine 27 mg/dL (28-217); Urine Random Sodium 113 mmol/L
--- NOTE | 2020-03-09 14:00 | PM.PN ---
Subjective Subjective: Interval history: She is somewhat confused this morning. Overnight was concern for decreased responsiveness, noted to be anemic, receiving second blood transfusion. Mental status has improved compared to overnight as per report. The patient does not verbally answer questions, but she will nod when directly ask a question. Medications: Reviewed: Yes Vitals/I&O/Wt Last Vital Signs Temp 98.5 F 03/09/20 12:00 Pulse 92 03/09/20 12:00 Resp 16 03/09/20 12:00 BP 154/76 03/09/20 12:00 Pulse Ox 98 03/09/20 12:00 03/08/20 03/09/20 03/09/20 22:59 06:59 14:59 Intake Total 240 / 1380 0 / 1380 350 / 350 Output Total 0 / 0 225 / 225 Balance 240 / 1380 0 / 1380 125 / 125 Physical Exam Const: COMMON NORMALS: no acute distress GENERAL APPEARANCE: comfortable and lethargic ORIENTATION/CONSCIOUSNESS: Yes lethargic HENMT: COMMON NORMALS: normocephalic and atraumatic HEAD & SCALP: normocephalic and atraumatic Eye: GENERAL EYE: appearance normal, both eyes and all related structures Chest: COMMONS NORMALS: normal inspection of the chest Resp: COMMON NORMALS: normal respiratory effort EFFORT & INSPECTION: Yes symmetric chest movement Extremity: RIGHT LOWER EXTREMITY: Yes foot & digits (The ankle remains dressed. Nursing is providing wet-to-dry dressings 2 times per day. The wound continues to look good without excessive bleeding.) Neuro: SENSORIUM/ORIENTATION: Yes lethargic Psych: COMMON NORMALS: mental status grossly normal APPEARANCE: Yes grossly normal ATTITUDE: Yes calm and Yes engaged ATTENTION/CONCENTRATION: Yes attention grossly intact Skin: COMMON NORMALS: no rashes or lesions noted GENERAL SKIN EXAM: no rashes or lesions noted Urinary Catheter Management^: Straight: Cath Placed During This Visit: no Data : 03/09/20 12:57 03/09/20 01:15 Micro: Microbiology 03/07/20 13:45 Gram Stain - Final Ankle - #1 Anaerobic Culture - Preliminary Wound Culture - Preliminary 03/03/20 15:29 Blood Culture - Final Blood Corynebacterium species 03/03/20 15:25 Blood Culture - Final Blood NO GROWTH AFTER 5 DAYS A&P Assessment and plan (1) Ulcer of right lower extremity: This was addressed with hardware removal. The patient is undergoing wet-to-dry dressing changes. She will be returning to wound care for follow-up of her wound and possible wound VAC placement. Plans are made for nursing home. The patient was reluctant, but she is advised of the importance of proceeding with placement into nursing home. I have also discussed this with the family. Once again, today, the patient is advised that she will require nursing home to give her the best chance of healing this wound and fracture. She nods her consent, but does not respond verbally. I have spoken with the medical team, and I will sign off this patient unless further consult is needed. 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 Status: Acute Attestations Medical Necessity Statement*: Per the medical service. 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
[2020-03-09 16:50] LABS: Glucose Point of Care 122 mg/dL (70-110)
[2020-03-09] MEDS: cyanocobalamin 1,000 mcg Tablet 500 MCG PO (17:04)
--- NOTE | 2020-03-09 20:57 | PC.NURSE ---
Patient's blood pressure is elevated 174/72. Patient was upset and crying. Patient's nurse been notified.
[2020-03-09] MEDS: ropinirole 0.25 mg Tablet 0.5 MG PO (21:07)
[2020-03-09 22:00] LABS: Glucose Point of Care 201 mg/dL (70-110)
[2020-03-09] MEDS: hyDRALAzine 20 mg/mL INJ 1 mL 10 MG IVP (22:10)
[2020-03-10] VITALS (8 sets, daily range): BP systolic 123–182; BP diastolic 59–80; PULSE 75–80; RESP 17–20; TEMP 36.6–37; O2SAT 95–97
--- NOTE | 2020-03-10 01:09 | PC.NURSE ---
Patient acts very confused. Patient won't let check vital signs, laughs and says no, no, no. Patient's nurse been notified.
[2020-03-10 07:14] LABS: Glucose Point of Care 85 mg/dL (70-110)
[2020-03-10] MEDS: cefTRIAXone 1,000 MG in sodium chloride 0.9% (plus) 50 ML 100 MG IV (08:46)
[2020-03-10] MEDS: dilTIAZem ER (24HR) 240 mg Capsule PO (08:47)
[2020-03-10] MEDS: venlafaxine ER (24HR) 150 mg Capsule PO (08:47)
[2020-03-10] MEDS: clopidogrel 75 mg Tablet PO (08:47)
[2020-03-10] MEDS: aspirin 325 mg EC Tablet PO (08:47)
[2020-03-10] MEDS: atorvastatin 40 mg Tablet 20 MG PO (08:47)
[2020-03-10] MEDS: cyanocobalamin 1,000 mcg Tablet 500 MCG PO (08:47)
[2020-03-10 09:09] LABS: Basophils % 0.5 %; Eosinophils # 0.1 10^3/uL (0.0-0.8); Eosinophils % 0.9 %; Hematocrit 32.1 % (37.0-47.0); Hemoglobin 10.3 g/dL (11.5-15.3); Lymphocytes # 1.8 10^3/uL (0.8-4.8); Mean Corpuscular HGB Conc 32.1 g/dL (30.0-36.0); Mean Corpuscular Hemoglobin 29.9 pg (28.0-34.0); Mean Platelet Volume 11.7 fL (7.4-10.4); Monocytes # 0.6 10^3/uL (0.2-0.9); Neutrophils % 56.4 %; Nucleated Red Blood Cells % 0 %; Platelet Count 193 10^3/cmm (130-400); Red Blood Count 3.45 10^6/uL (4.1-5.3); Red Cell Distribution Width 15.1 % (12.1-15.1); White Blood Count 5.8 10^3/uL (4.0-10.0)
[2020-03-10 09:21] LABS: Alanine Aminotransferase 16 U/L (0-33); Alkaline Phosphatase 84 IU/L (35-105); Anion Gap 13.4 (5-19); Aspartate Amino Transferase 20 U/L (0-32); Blood Urea Nitrogen 33 mg/dL (8-23); Calcium 8.3 mg/dL (8.5-10.5); Carbon Dioxide 22 mmol/L (22-29); Chloride 108 mmol/L (98-107); Globulin 3.6 g/dL (1.3-4.6); Glomerular Filtration Rate 49.1 mL/min (90-130); Glucose 104 mg/dL (65-115); Osmolality Calculated 286 mOsm/kg (285-295); Potassium 4.4 mmol/L (3.5-5.1); Sodium 139 mmol/L (136-145); Total Bilirubin 0.3 mg/dL (0.15-1.2); Total Protein 6.6 g/dL (6.6-8.7)
--- NOTE | 2020-03-10 10:19 | PC.SOCIAL ---
IMM Updated Updated pt on Pg 2 IMM. No questions voiced. Provided pt a copy. Signed, dated, & timed copy in chart.
[2020-03-10 10:49] LABS: Glucose Point of Care 89 mg/dL (70-110)
--- NOTE | 2020-03-10 12:02 | PC.CHAP ---
Pastoral Care Encounter/Spiritual Assessment Type of Contact [] Declined bead inspector visit [] Patient/Family/Request visit [] Outpatient visit [xx] Follow-up visit [] Physician referral [] Code/Alert [xx] Routine visit [] Staff referral [] Actively dying [] Patient sleeping [] Family support [] [] Out of room [] Palliative care [] [] Receiving care in room [] Pre-surgical visit [] Trauma [xx] Long length of stay [] ICU visit [] Other: Relational/Emotional Strength [] Patient feels connected with others/family/visitors/staff [] Distress [] Loneliness/isolation [] Abandonment Spirituality of Patient [] Person of Jennifer [] Attends Zoroastrianism of their Jennifer [] Believes in Prayer [] Reads Bible or Gnosticist materials [] There are Spiritual issues to be addressed Amusement Centre Manager Interventions [] Prayer [] Active listening [] Non-anxious presence [] Spiritual/emotional support [] Crisis/trauma care [] Spiritual counseling [] Bereavement support [] Provided bereavement packet [] Provided Bible/devotional materials [] Provided toy/stuffed animal, coloring book to patient or family member [] Provided Communion [] Anointing/[place] [] Salvation [] Completed spiritual assessment [] Other: Impact on Illness or Injury [] Angry [] Fearful [] Anxious [] Often cries [] Exhaustion [] Unable to work [] Unable to attend faith [] Unable to walk/stand [] Unable to read [] Unable to drive [] Unable to eat/drink [] Unable to sleep [] Unable to be with family [] Patient intubated [] Other: Summary Amusement Centre Manager unable to do follow-up visit as staff were busy with patient for possible discharge. Time spent with patient 2 minutes Amusement Centre Manager Hallie [employer]Dy
[2020-03-10 16:44] LABS: Glucose Point of Care 127 mg/dL (70-110)
--- NOTE | 2020-03-10 18:52 | PM.PN ---
Subjective Subjective: Interval history: Seen and examined together with her nurse. She is now more alert. Takes her slight bit of time to remember some things, but states correctly is in [facility]. On a little bit consideration states the year correctly. Vitals/I&O/Wt Last Vital Signs Temp 98.6 F 03/10/20 15:25 Pulse 80 03/10/20 15:25 Resp 18 03/10/20 15:25 BP 182/80 03/10/20 15:25 Pulse Ox 95 03/10/20 15:25 03/10/20 03/10/20 03/10/20 06:59 14:59 22:59 Intake Total 300 / 300 120 / 420 Balance 300 / 300 120 / 420 Physical Exam Const: COMMON NORMALS: no acute distress, patient oriented x3 and alert NUTRITIONAL APPEARANCE: obese ORIENTATION/CONSCIOUSNESS: Yes awake HENMT: COMMON NORMALS: oropharynx normal Neck/C-Spine: COMMON NORMALS: no JVD Resp: COMMON NORMALS: normal respiratory effort AUSCULTATION: rales (Mild at L base) Cardio: COMMON NORMALS: no JVD, regular rhythm, S1 normal heart sound present, S2 normal heart sound present and No murmurs present (Cardio) RHYTHM: regular rhythm HEART SOUNDS: S1 normal heart sound present and S2 normal heart sound present GI: COMMON NORMALS: Normal to inspection, nondistended, normoactive bowel sounds present, Soft to palpation and non-tender PALPATION: Yes Soft to palpation Extremity: COMMON NORMALS: no joint enlargement and no pedal edema OTHER: Right lower extremity wound without surrounding cellulitis wrapped in dressing without bleeding. Neuro: COMMON NORMALS: patient oriented x3 and moves all extremities SENSORIUM/ORIENTATION: Yes alert Skin: COMMON NORMALS: no rashes or lesions noted GENERAL SKIN EXAM: no rashes or lesions noted Urinary Catheter Management^: Straight: Cath Placed During This Visit: no Data : 03/10/20 08:43 03/10/20 08:43 Micro: Microbiology 03/07/20 13:45 Gram Stain - Final Ankle - #1 Anaerobic Culture - Preliminary Wound Culture - Preliminary A&P Assessment and plan (1) Acute encephalopathy: Mental status somewhat sluggish but better. Appears may been related to changes in her medications and LISBET. Did hold her ropinirole tonight as she does get worse/more confused during the night/morning. Continue to monitor at this time for improvement in encephalopathy. Does not show focal neurologic deficits that are new at this time. Noted to be less responsive/sluggish and confused overnight. Suspect also of some of her medications as she is also on venlafaxine and pregabalin. Acute kidney injury. I do not detect focal abnormality on neurologic exam currently, CT of the head showing microvascular disease and old lacunar infarcts in basal ganglia/internal capsule bilaterally, more prominent on the right, small old infarcts in left aspect of the [place]. She has been on aspirin, Plavix. Also has B12 deficiency, started on replacement. Responded well to transfusion. Continue to reorient. With generalized deconditioning, requiring total assistance with transfers, nonambulatory at this time, and so would benefit from going to [facility]. I do not feel that she would be safe to return home. Discussed this with her. Try to reach her daughter but did not get an answer. Will try again. Status: Acute (2) Ulcer of right lower extremity: Wound infection RLE. S/p debridement and hardware removal. Responded well to transfusion. We are still waiting on culture results regarding gram-negative hung. These appear to be slow growing organisms and per micro had to be sent out due to difficulty identifying. The staphylococcal species is MRSA. Heavy corynebacterium growth. Also gram-negative rods not yet identified. Follow-up culture results, once available we will discuss with infectious disease regarding antibiotic strategy. For now continue IV antibiotics as currently. Gram-positive hung bacteremia with corynebacterium considered possibly contamination. Discussed with infectious disease. Current bacterium noted to be contamination on culture results, and ID specialist agrees with assessment. She lost IV access today, despite multiple attempts could not be reobtained. PICC line is not available today or over the weekend. We discussed additional options. For now we will switch to oral therapy. As we are working on disposition, if she does go to skilled nurse facility and there is possibility to do IV infusion, potentially code benefit from placement of PICC line and infusions of vancomycin. For now we will start on linezolid and fluoroquinolone and monitor. I have been very edmar with her with regards to her multiple health conditions, currently nonambulatory status, and requiring total assistance with even sitting up and transfers, with history of poor wound healing, poor compliance with dressing changes, and need for strict adherence with antibiotic regimen I told her she would be at risk of poor outcome going home even with her son staying with her. She is more lucid today, and so I we have discussed this again, and will continue to reinforce. She is going to think about it. 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 Wound debrided. There is some decrease in hemoglobin after debridement. Her blood pressure is now stable, and so we will discontinue IV fluid as this may be contributing to dilutional effect. There was some oozing noted at the wound site by nursing staff of which the surgeon was made aware, for now with dressing reinforced with a little bit better external compression. Status: Acute Qualifiers: Encounter type: initial encounter Qualified Code(s): T84.7XXA - Infection and inflammatory reaction due to other internal orthopedic prosthetic devices, implants and grafts, initial encounter (4) Exposed orthopaedic hardware: Removed. Status: Acute (5) Uncontrolled diabetes mellitus: Glucose currently better. Continue to monitor. Continue long-acting and sliding scale insulin. Status: Acute Qualifiers: Diabetes mellitus type: type 2 Glycemic state: with hyperglycemia Qualified Code(s): E11.65 - Type 2 diabetes mellitus with hyperglycemia (6) Status post open reduction with internal fixation (ORIF) of fracture of ankle: Status: Acute (7) Closed trimalleolar fracture of ankle: rior trimalleolar right ankle fracture with repair by ORIF in July, healed after surgery, subsequently a fall 2 months ago with reopening of the wound and with nonhealing. Ct on 02/24 with good alignment and no signs of loosening of hardware. Status: Acute Qualifiers: Encounter type: initial encounter Laterality: right Qualified Code(s): S82.851A - Displaced trimalleolar fracture of right lower leg, initial encounter for closed fracture (8) Acute kidney injury: Improving. Monitor renal function and I&O. Status: Acute Additional A&P Information GPR hung bacetremia: Suspect this is contamination. Follow-up repeat blood culture. HTN: Cont amlodipine. CKD: LISBET on CKD as above. CAD: continue ASA, resume plavix for now, although may need to DC if persistent anemia. Attestations Medical Necessity Statement*: Continue admission for assessment management of acute encephalopathy, acute kidney injury, setting up off antibiotic regimen for treatment of infected right lower extremity wound in the setting of diabetes. 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 [employer] Diagnoses Acute encephalopathy G93.40 Ulcer of right lower extremity L97.915 Non-pressure ulcer stage: with muscle involvement without evidence of necrosis Infected hardware in right lower extremity T84.7XXA Encounter type: initial encounter Exposed orthopaedic hardware T84.498A Uncontrolled diabetes mellitus E11.65 Diabetes mellitus type: type 2 Glycemic state: with hyperglycemia Status post open reduction with internal fixation (ORIF) of fracture of ankle Z98.890; Z87.81 Closed trimalleolar fracture of ankle S82.851A Encounter type: initial encounter Laterality: right Acute kidney injury N17.9
[2020-03-10] MEDS: linezolid 600 mg Tablet PO (21:38)
[2020-03-10] MEDS: ciprofloxacin 500 mg Tablet PO (21:38)
[2020-03-10 22:00] LABS: Glucose Point of Care 174 mg/dL (70-110)
[2020-03-10] MEDS: oxyCODONE-APAP 5-325 mg Tablet 1 TAB PO (22:03)
[2020-03-11] VITALS: BP 154/82; PULSE 74; RESP 20; TEMP 37.1; O2SAT 95
[2020-03-11 04:00] VITALS: BP 151/83; PULSE 72; RESP 20; TEMP 36.7; O2SAT 96
[2020-03-11 05:24] LABS: Basophils % 0.3 %; Eosinophils # 0.1 10^3/uL (0.0-0.8); Hematocrit 32.9 % (37.0-47.0); Hemoglobin 10.8 g/dL (11.5-15.3); Lymphocytes # 2.4 10^3/uL (0.8-4.8); Lymphocytes % 35.6 %; Mean Corpuscular HGB Conc 32.8 g/dL (30.0-36.0); Mean Corpuscular Hemoglobin 29.9 pg (28.0-34.0); Mean Corpuscular Volume 91.1 fL (81-99); Mean Platelet Volume 11.3 fL (7.4-10.4); Monocytes # 0.7 10^3/uL (0.2-0.9); Monocytes % 10.7 %; Neutrophils # 3.49 10^3/uL (1.8-7.7); Neutrophils % 52.1 %; Nucleated Red Blood Cells % 0 %; Platelet Count 202 10^3/cmm (130-400); Red Blood Count 3.61 10^6/uL (4.1-5.3); Red Cell Distribution Width 14.2 % (12.1-15.1); White Blood Count 6.7 10^3/uL (4.0-10.0)
[2020-03-11] MEDS: linezolid 600 mg Tablet PO ×2 (06:41→18:07)
[2020-03-11 07:07] LABS: Glucose Point of Care 141 mg/dL (70-110)
[2020-03-11 07:13] VITALS: BP 162/85; PULSE 73; RESP 17; TEMP 36.8; O2SAT 98
[2020-03-11] MEDS: aspirin 325 mg EC Tablet PO (09:06)
[2020-03-11] MEDS: venlafaxine ER (24HR) 150 mg Capsule PO (09:06)
[2020-03-11] MEDS: dilTIAZem ER (24HR) 240 mg Capsule PO (09:06)
[2020-03-11] MEDS: atorvastatin 40 mg Tablet 20 MG PO (09:06)
[2020-03-11] MEDS: ciprofloxacin 500 mg Tablet PO ×2 (09:06→18:07)
[2020-03-11] MEDS: cyanocobalamin 1,000 mcg Tablet 500 MCG PO (09:07)
[2020-03-11] MEDS: clopidogrel 75 mg Tablet PO (09:07)
[2020-03-11] MEDS: ondansetron 2 mg/ML SDV 2 mL 4 MG IVP (09:24)
[2020-03-11 10:53] LABS: Glucose Point of Care 161 mg/dL (70-110)
[2020-03-11 11:13] VITALS: BP 169/82; PULSE 82; RESP 18; TEMP 36.2; O2SAT 98
--- NOTE | 2020-03-11 14:00 | PC.CHAP ---
Pastoral Care Encounter/Spiritual Assessment Type of Contact [] Declined dental assistant instructor visit [] Patient/Family/Request visit [] Outpatient visit [] Follow-up visit [] Physician referral [] Code/Alert [X] Routine visit [] Staff referral [] Actively dying [] Patient sleeping [] Family support [] [] Out of room [] Palliative care [] [] Receiving care in room [] Pre-surgical visit [] Trauma [] Long length of stay [] ICU visit [] Other: Relational/Emotional Strength [] Patient feels connected with others/family/visitors/staff [] Distress [] Loneliness/isolation [] Abandonment Spirituality of Patient [] Person of Jennifer [] Attends Advent of their Jennifer [] Believes in Prayer [] Reads Bible or Latter-Day materials [] There are Spiritual issues to be addressed Dot Compliance Coordinator Interventions [] Prayer [] Active listening [] Non-anxious presence [] Spiritual/emotional support [] Crisis/trauma care [] Spiritual counseling [] Bereavement support [] Provided bereavement packet [] Provided Bible/devotional materials [] Provided toy/stuffed animal, coloring book to patient or family member [] Provided Communion [] Anointing/[place] [] Salvation [] Completed spiritual assessment [] Other: Impact on Illness or Injury [] Angry [] Fearful [] Anxious [] Often cries [] Exhaustion [] Unable to work [] Unable to attend sabianist [] Unable to walk/stand [] Unable to read [] Unable to drive [] Unable to eat/drink [] Unable to sleep [] Unable to be with family [] Patient intubated [] Other: Summary Time spent with patient
[2020-03-11 15:22] VITALS: BP 142/84; PULSE 81; RESP 18; TEMP 36.8; O2SAT 96
[2020-03-11 17:11] LABS: Glucose Point of Care 138 mg/dL (70-110)
--- NOTE | 2020-03-11 18:10 | PC.NURSE ---
End of shift note Patient more verbal this shift asked OT to shave her, cooperated taking meds and telling staff when she had urinated.
--- NOTE | 2020-03-11 19:32 | P.PN_ITS ---
Subjective Subjective: Interval history: This afternoon she was feeling somewhat miserable due to nausea, had an episode of vomiting. No other changes. Denies any dizziness or headache, no chest pain or pressure no shortness of breath, denies any changes in right lower extremity. We again discussed regarding the importance of discharge to [facility] facility to allow for wound healing, as well as currently to allow for additional care as she is requiring multiple people assist for transfers, with only touchdown weightbearing on the right foot, her son alone would not be able to manage her health needs by himself. Vitals/I&O/Wt Last Vital Signs Temp 98.3 F 03/11/20 15:22 Pulse 81 03/11/20 15:22 Resp 18 03/11/20 15:22 BP 142/84 03/11/20 15:22 Pulse Ox 96 03/11/20 15:22 03/11/20 03/11/20 03/11/20 06:59 14:59 22:59 Intake Total 300 / 720 120 / 120 120 / 240 Balance 300 / 720 120 / 120 120 / 240 Physical Exam Const: COMMON NORMALS: no acute distress, patient oriented x3 and alert NUTRITIONAL APPEARANCE: obese ORIENTATION/CONSCIOUSNESS: Yes awake HENMT: COMMON NORMALS: oropharynx normal Neck/C-Spine: COMMON NORMALS: no JVD Resp: COMMON NORMALS: normal respiratory effort AUSCULTATION: rales (Mild at L base) Cardio: COMMON NORMALS: no JVD, regular rhythm, S1 normal heart sound present, S2 normal heart sound present and No murmurs present (Cardio) RHYTHM: regular rhythm HEART SOUNDS: S1 normal heart sound present and S2 normal heart sound present GI: COMMON NORMALS: Normal to inspection, nondistended, normoactive bowel sounds present, Soft to palpation and non-tender PALPATION: Yes Soft to palpation Extremity: COMMON NORMALS: no joint enlargement and no pedal edema OTHER: Right lower extremity wound without surrounding cellulitis wrapped in dressing without bleeding. Neuro: COMMON NORMALS: patient oriented x3 and moves all extremities SENSORIUM/ORIENTATION: Yes alert Skin: COMMON NORMALS: no rashes or lesions noted GENERAL SKIN EXAM: no rashes or lesions noted Urinary Catheter Management^: Straight: Cath Placed During This Visit: no Data : 03/11/20 04:15 03/10/20 08:43 Micro: Microbiology 03/07/20 13:45 Gram Stain - Final Ankle - #1 Anaerobic Culture - Preliminary Wound Culture - Final 03/06/20 05:29 Blood Culture - Final Blood NO GROWTH AFTER 5 DAYS 03/06/20 05:24 Blood Culture - Final Blood NO GROWTH AFTER 5 DAYS A&P Assessment and plan (1) Ulcer of right lower extremity: We are awaiting the results on the gram-negative hung. At this time she continues with oral antibiotics, linezolid, Cipro. We will continue discussions with regards to placement to [facility] facility, as I have discussed with her on multiple occasions risk is high of nonhealing of the wound, as well as the fact that she has lost quite a bit of stamina and is a multiple person assist, and only touchdown weightbearing on the right foot. I also discussed with her daughter who has been speaking with her as well. Her son unfortunately does not have a form, but will try to reach out to him through her granddaughter. Per discussion with infectious disease, if it is a possibility to do IV infusions of vancomycin this would be a better choice than linezolid, and so if we are able to set out for her to go to custodial it would allow for her to get a PICC line on Friday and proceed with IV vancomycin treatment. Wound infection RLE. S/p debridement and hardware removal. Responded well to transfusion. Pending ID on gram-negative hung. These appear to be slow growing organisms and per micro had to be sent out due to difficulty identifying. The staphylococcal species is MRSA. Heavy corynebacterium growth. Also gram-negative rods not yet identified. Follow-up culture results, once available we will discuss with infectious disease regarding antibiotic strategy. For now continue IV antibiotics as currently. Gram-positive hung bacteremia with corynebacterium considered possibly contamination. Discussed with infectious disease. Corynebacterium noted to be contamination on culture results, and ID specialist agrees with assessment. 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 Appears sad. Continue to monitor at this time for improvement in encephalopathy. Does not show focal neurologic deficits that are new at this time. Noted to be less responsive/sluggish and confused overnight. Suspect also of some of her medications as she is also on venlafaxine and pregabalin. Acute kidney injury. I do not detect focal abnormality on neurologic exam currently, CT of the head showing microvascular disease and old lacunar infarcts in basal ganglia/internal capsule bilaterally, more prominent on the right, small old infarcts in left aspect of the [place]. She has been on aspirin, Plavix. Also has B12 deficiency, started on replacement. Responded well to transfusion. Continue to reorient. With generalized deconditioning, requiring total assistance with transfers, nonambulatory at this time, and so would benefit from going to [facility]. I do not feel that she would be safe to return home. Discussed this with her. Try to reach her daughter but did not get an answer. Will try again. Status: Acute (3) Infected hardware in right lower extremity: Removed. Wound debrided. There is some decrease in hemoglobin after debridement. Her blood pressure is now stable, and so we will discontinue IV fluid as this may be contributing to dilutional effect. On examination of the wound wound looks good. There is no surrounding cellulitis. There is tendon exposure. Otherwise healthy appearing tissue. Status: Acute Qualifiers: Encounter type: initial encounter Qualified Code(s): T84.7XXA - Infection and inflammatory reaction due to other internal orthopedic prosthetic devices, implants and grafts, initial encounter (4) Exposed orthopaedic hardware: Removed. Status: Acute (5) Uncontrolled diabetes mellitus: Glucose currently better. Continue to monitor. Continue long-acting and sliding scale insulin. Status: Acute Qualifiers: Diabetes mellitus type: type 2 Glycemic state: with hyperglycemia Qualified Code(s): E11.65 - Type 2 diabetes mellitus with hyperglycemia (6) Status post open reduction with internal fixation (ORIF) of fracture of ankle: Status: Acute (7) Closed trimalleolar fracture of ankle: rior trimalleolar right ankle fracture with repair by ORIF in July, healed after surgery, subsequently a fall 2 months ago with reopening of the wound and with nonhealing. Ct on 02/24 with good alignment and no signs of loosening of hardware. Status: Acute Qualifiers: Encounter type: initial encounter Laterality: right Qualified Code(s): S82.851A - Displaced trimalleolar fracture of right lower leg, initial encounter for closed fracture (8) Acute kidney injury: Improving. Monitor renal function and I&O. Status: Acute Additional A&P Information GPR hung bacetremia: Suspect this is contamination. Follow-up repeat blood culture. HTN: Cont amlodipine. CKD: LISBET on CKD as above. CAD: continue ASA, resume plavix for now, although may need to DC if persistent anemia. Attestations Medical Necessity Statement*: Continue admission for arrangements for antibiotic treatment of nonhealing infected wound of right lower extremity in the setting of poorly controlled diabetes. Discharge planning. Coding Level of Care Code Acute Funeral Prearrangement Counselor for [facility] Diagnoses Ulcer of right lower extremity L97.915 Non-pressure ulcer stage: with muscle involvement without evidence of necrosis Acute encephalopathy G93.40 Infected hardware in right lower extremity T84.7XXA Encounter type: initial encounter Exposed orthopaedic hardware T84.498A Uncontrolled diabetes mellitus E11.65 Diabetes mellitus type: type 2 Glycemic state: with hyperglycemia Status post open reduction with internal fixation (ORIF) of fracture of ankle Z98.890; Z87.81 Closed trimalleolar fracture of ankle S82.851A Encounter type: initial encounter Laterality: right Acute kidney injury N17.9
[2020-03-11 20:00] VITALS: BP 162/85; PULSE 78; RESP 20; TEMP 36.8; O2SAT 96
[2020-03-11 22:01] LABS: Glucose Point of Care 148 mg/dL (70-110)
[2020-03-12] VITALS: BP 154/81; PULSE 74; RESP 16; TEMP 36.9; O2SAT 94
[2020-03-12 04:00] VITALS: BP 154/84; PULSE 77; RESP 20; TEMP 36.8; O2SAT 100
[2020-03-12 05:24] LABS: Basophils % 0.5 %; Eosinophils % 0.6 %; Hemoglobin 12.2 g/dL (11.5-15.3); Lymphocytes # 2.3 10^3/uL (0.8-4.8); Lymphocytes % 35.3 %; Mean Corpuscular HGB Conc 31.3 g/dL (30.0-36.0); Mean Corpuscular Hemoglobin 30.1 pg (28.0-34.0); Mean Corpuscular Volume 96.3 fL (81-99); Mean Platelet Volume 11.1 fL (7.4-10.4); Monocytes # 0.6 10^3/uL (0.2-0.9); Monocytes % 9.2 %; Neutrophils # 3.51 10^3/uL (1.8-7.7); Neutrophils % 53.9 %; Nucleated Red Blood Cells % 0 %; Platelet Count 225 10^3/cmm (130-400); Red Blood Count 4.05 10^6/uL (4.1-5.3); Red Cell Distribution Width 14.3 % (12.1-15.1); White Blood Count 6.5 10^3/uL (4.0-10.0)
[2020-03-12 05:44] LABS: Blood Urea Nitrogen 28 mg/dL (8-23); Calcium 8.4 mg/dL (8.5-10.5); Carbon Dioxide 21 mmol/L (22-29); Chloride 102 mmol/L (98-107); Glomerular Filtration Rate 40.5 mL/min (90-130); Glucose 103 mg/dL (65-115); Osmolality Calculated 275 mOsm/kg (285-295); Sodium 134 mmol/L (136-145)
[2020-03-12 06:29] LABS: Anion Gap 15.2 (5-19)
[2020-03-12 06:30] LABS: Potassium 4.2 mmol/L (3.5-5.1)
[2020-03-12 07:24] LABS: Glucose Point of Care 101 mg/dL (70-110)
[2020-03-12 07:31] VITALS: BP 156/83; PULSE 72; RESP 18; TEMP 36.9; O2SAT 74
[2020-03-12] MEDS: linezolid 600 mg Tablet PO ×2 (07:54→18:44)
[2020-03-12] MEDS: aspirin 325 mg EC Tablet PO (08:00)
[2020-03-12] MEDS: venlafaxine ER (24HR) 150 mg Capsule PO (08:00)
[2020-03-12] MEDS: atorvastatin 40 mg Tablet 20 MG PO (08:00)
[2020-03-12] MEDS: clopidogrel 75 mg Tablet PO (08:00)
[2020-03-12] MEDS: ciprofloxacin 500 mg Tablet PO ×2 (08:00→18:43)
[2020-03-12] MEDS: cyanocobalamin 1,000 mcg Tablet 500 MCG PO (08:01)
[2020-03-12] MEDS: dilTIAZem ER (24HR) 240 mg Capsule PO (08:02)
[2020-03-12 10:49] LABS: Glucose Point of Care 179 mg/dL (70-110)
[2020-03-12 11:00] VITALS: BP 164/79; PULSE 74; RESP 18; TEMP 36.6; O2SAT 97
--- NOTE | 2020-03-12 13:45 | PC.SOCIAL ---
IMM Updated Page 2 of IMM updated and given to patient. She verbalizes understanding. Initialed, dated, and timed and placed back in chart.
[2020-03-12 15:25] VITALS: BP 172/80; PULSE 78; RESP 18; TEMP 37.1; O2SAT 98
[2020-03-12 16:44] LABS: Glucose Point of Care 107 mg/dL (70-110)
[2020-03-12] MEDS: pregabalin 25 mg Capsule PO (18:43)
--- NOTE | 2020-03-12 19:27 | P.PN_ITS ---
Subjective Subjective: Interval history: Today she is having some mild headache. Generalized. No photosensitivity. No neck pain or stiffness. No nausea or vomiting. Denies any other pain or discomfort. Vitals/I&O/Wt Last Vital Signs Temp 98.7 F 03/12/20 15:25 Pulse 78 03/12/20 15:25 Resp 18 03/12/20 15:25 BP 172/80 03/12/20 15:25 Pulse Ox 98 03/12/20 15:25 03/12/20 03/12/20 03/12/20 06:59 14:59 22:59 Intake Total 360 / 360 Output Total 50 / 50 Balance 360 / 360 -50 / 310 Physical Exam Const: COMMON NORMALS: no acute distress, patient oriented x3 and alert NUTRITIONAL APPEARANCE: obese ORIENTATION/CONSCIOUSNESS: Yes awake HENMT: COMMON NORMALS: oropharynx normal Neck/C-Spine: COMMON NORMALS: no JVD Resp: COMMON NORMALS: normal respiratory effort AUSCULTATION: rales (Mild at L base) Cardio: COMMON NORMALS: no JVD, regular rhythm, S1 normal heart sound present, S2 normal heart sound present and No murmurs present (Cardio) RHYTHM: regular rhythm HEART SOUNDS: S1 normal heart sound present and S2 normal heart sound present GI: COMMON NORMALS: Normal to inspection, nondistended, normoactive bowel sounds present, Soft to palpation and non-tender PALPATION: Yes Soft to palpation Extremity: COMMON NORMALS: no joint enlargement and no pedal edema OTHER: Right lower extremity wound without surrounding cellulitis wrapped in dressing without bleeding. Neuro: COMMON NORMALS: patient oriented x3 and moves all extremities SENSORIUM/ORIENTATION: Yes alert Skin: COMMON NORMALS: no rashes or lesions noted GENERAL SKIN EXAM: no rashes or lesions noted Urinary Catheter Management^: Straight: Cath Placed During This Visit: no Data : 03/12/20 04:40 03/12/20 04:40 Micro: Microbiology 03/07/20 13:45 Gram Stain - Final Ankle - #1 Anaerobic Culture - Preliminary Wound Culture - Final A&P Assessment and plan (1) Ulcer of right lower extremity: We are awaiting the results on the gram-negative hung. I had a long discussion with her again with regards to concerns of her returning home, we discussed reaching to her son, and I was able to speak with him through her granddaughter's phone. He is in agreement that she would benefit from going to residential facility to ensure good wound healing with wound care, repositioning and other skilled care and to benefit from IV antibiotics. At this time she continues with oral antibiotics, linezolid, Cipro. If she will be in agreement, and we are able to secure placement, would then proceed with placement of PICC line and arrangements for treatment with Cipro and vancomycin. Otherwise may need to continue on linezolid. We will continue discussions with regards to placement to residential facility, as I have discussed with her on multiple occasions risk is high of nonhealing of the wound, as well as the fact that she has lost quite a bit of stamina and is a multiple person assist, and only touchdown weightbearing on the right foot. I also discussed with her daughter who has been speaking with her as well. Per discussion with infectious disease, if it is a possibility to do IV infusions of vancomycin this would be a better choice for a long course of therapy than linezolid, and so if we are able to set out for her to go to [facility] it would allow for her to get a PICC line this coming week and proceed with IV vancomycin treatment. Wound infection RLE. S/p debridement and hardware removal. Responded well to transfusion. Pending ID on gram-negative hung. These appear to be slow growing organisms and per micro had to be sent out due to difficulty identifying. The staphylococcal species is MRSA. Heavy corynebacterium growth. Also gram-negative rods not yet identified. Follow-up culture results, once available we will discuss with infectious disease regarding antibiotic strategy. For now continue IV antibiotics as currently. Gram-positive hung bacteremia with corynebacterium considered possibly contamination. Discussed with infectious disease. Corynebacterium noted to be contamination on culture results, and ID specialist agrees with assessment. 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 I see that for some reason pregabalin was not resumed last time I signed for it. I tried again and appears even though it is signed and did not resume. I reordered a new order at lower dosing. Continue reduced dose of venlafaxine. Continue to monitor at this time for improvement in encephalopathy. Does not present any focal neurologic deficits that are new at this time. Suspect also of some of her medications as she is also on venlafaxine and pregabalin. Acute kidney injury. I do not detect focal abnormality on neurologic exam currently, CT of the head showing microvascular disease and old lacunar infarcts in basal ganglia/internal capsule bilaterally, more prominent on the right, small old infarcts in left [place]. She has been on aspirin, Plavix. If showing any focal abnormalities, or CVA suspected, may benefit from evaluation by MRI. Also has B12 deficiency, started on replacement. Responded well to transfusion. Continue to reorient. With generalized deconditioning, requiring total assistance with transfers, nonambulatory at this time, and so would benefit from going to residential place. I do not feel that she would be safe to return home as discussed with her and her daughter yesterday, and her son today. Status: Acute (3) Infected hardware in right lower extremity: Removed. Wound debrided. On examination of the wound has been good. There is no surrounding cellulitis. There is tendon exposure. Otherwise healthy appearing tissue. Status: Acute Qualifiers: Encounter type: initial encounter Qualified Code(s): T84.7XXA - Infection and inflammatory reaction due to other internal orthopedic prosthetic devices, implants and grafts, initial encounter (4) Exposed orthopaedic hardware: Removed. Status: Acute (5) Uncontrolled diabetes mellitus: Glucose currently better. Continue to monitor. Continue long-acting and sliding scale insulin. Status: Acute Qualifiers: Diabetes mellitus type: type 2 Glycemic state: with hyperglycemia Qualified Code(s): E11.65 - Type 2 diabetes mellitus with hyperglycemia (6) Status post open reduction with internal fixation (ORIF) of fracture of ankle: Status: Acute (7) Closed trimalleolar fracture of ankle: Prior trimalleolar right ankle fracture with repair by ORIF in July, healed after surgery, subsequently a fall 2 months ago with reopening of the wound and with nonhealing. Ct on 02/24 with good alignment and no signs of loosening of hardware. Status: Acute Qualifiers: Encounter type: initial encounter Laterality: right Qualified Code(s): S82.851A - Displaced trimalleolar fracture of right lower leg, initial encounter for closed fracture (8) Acute kidney injury: Improving. Monitor renal function and I&O. Status: Acute Additional A&P Information GPR hung bacetremia: Suspect this is contamination. Follow-up repeat blood culture. HTN: Cont amlodipine. CKD: LISBET on CKD as above. CAD: continue ASA, resume plavix for now, although may need to DC if persistent anemia. Attestations Medical Necessity Statement*: Continue admission for treatment of right lower extremity infection in the setting of poorly controlled diabetes, arrangements of her antibiotic regimen arrangements with disposition planning. Coding Level of Care Code Acute Cake Batter Mixer for [facility] Diagnoses Ulcer of right lower extremity L97.915 Non-pressure ulcer stage: with muscle involvement without evidence of necrosis Acute encephalopathy G93.40 Infected hardware in right lower extremity T84.7XXA Encounter type: initial encounter Exposed orthopaedic hardware T84.498A Uncontrolled diabetes mellitus E11.65 Diabetes mellitus type: type 2 Glycemic state: with hyperglycemia Status post open reduction with internal fixation (ORIF) of fracture of ankle Z98.890; Z87.81 Closed trimalleolar fracture of ankle S82.851A Encounter type: initial encounter Laterality: right Acute kidney injury N17.9
[2020-03-12 20:00] VITALS: BP 166/83; PULSE 64; RESP 20; TEMP 36.9; O2SAT 97
[2020-03-12 21:31] LABS: Glucose Point of Care 221 mg/dL (70-110)
[2020-03-12] MEDS: enoxaparin 40 mg/0.4 mL Syringe SUBCUT (21:53)
[2020-03-13] VITALS (8 sets, daily range): BP systolic 136–169; BP diastolic 76–80; PULSE 67–75; RESP 14–18; TEMP 36.7–36.9; O2SAT 96–100
[2020-03-13 06:12] LABS: Basophils % 0.2 %; Eosinophils # 0.1 10^3/uL (0.0-0.8); Eosinophils % 0.8 %; Hematocrit 34.6 % (37.0-47.0); Hemoglobin 10.7 g/dL (11.5-15.3); Lymphocytes # 2.6 10^3/uL (0.8-4.8); Lymphocytes % 41.5 %; Mean Corpuscular HGB Conc 30.9 g/dL (30.0-36.0); Mean Corpuscular Hemoglobin 29.6 pg (28.0-34.0); Mean Corpuscular Volume 95.8 fL (81-99); Mean Platelet Volume 11.1 fL (7.4-10.4); Monocytes # 0.5 10^3/uL (0.2-0.9); Monocytes % 8.2 %; Neutrophils # 3.05 10^3/uL (1.8-7.7); Neutrophils % 49.1 %; Nucleated Red Blood Cells % 0 %; Platelet Count 228 10^3/cmm (130-400); Red Blood Count 3.61 10^6/uL (4.1-5.3); Red Cell Distribution Width 14.2 % (12.1-15.1); White Blood Count 6.2 10^3/uL (4.0-10.0)
[2020-03-13] MEDS: linezolid 600 mg Tablet PO ×2 (07:43→22:05)
[2020-03-13 07:54] LABS: Glucose Point of Care 64 mg/dL (70-110)
[2020-03-13 07:56] LABS: Anion Gap 15.1 (5-19); Blood Urea Nitrogen 32 mg/dL (8-23); Calcium 8.1 mg/dL (8.5-10.5); Carbon Dioxide 23 mmol/L (22-29); Chloride 105 mmol/L (98-107); Glomerular Filtration Rate 34.3 mL/min (90-130); Glucose 68 mg/dL (65-115); Osmolality Calculated 284 mOsm/kg (285-295); Potassium 4.1 mmol/L (3.5-5.1); Sodium 139 mmol/L (136-145)
[2020-03-13 08:18] LABS: Glucose Point of Care 86 mg/dL (70-110)
[2020-03-13] MEDS: pregabalin 25 mg Capsule PO ×2 (09:51→17:12)
[2020-03-13] MEDS: cyanocobalamin 1,000 mcg Tablet 500 MCG PO (09:51)
[2020-03-13] MEDS: clopidogrel 75 mg Tablet PO (09:52)
[2020-03-13] MEDS: venlafaxine ER (24HR) 150 mg Capsule PO (09:52)
[2020-03-13] MEDS: aspirin 325 mg EC Tablet PO (09:52)
[2020-03-13] MEDS: ciprofloxacin 500 mg Tablet PO ×2 (09:53→17:12)
[2020-03-13] MEDS: atorvastatin 40 mg Tablet 20 MG PO (09:53)
[2020-03-13] MEDS: dilTIAZem ER (24HR) 240 mg Capsule PO (09:53)
[2020-03-13 11:30] LABS: Glucose Point of Care 158 mg/dL (70-110)
--- NOTE | 2020-03-13 13:03 | PM.PN ---
Subjective Subjective: Interval history: No acute events overnight. Denies of any nausea, vomiting, headache. Patient has remained afebrile. She is sitting comfortably in bed having her lunch during examination. Medications: Reviewed: Yes Vitals/I&O/Wt Last Vital Signs Temp 98.5 F 03/13/20 11:47 Pulse 69 03/13/20 11:47 Resp 15 03/13/20 11:47 BP 169/76 03/13/20 11:47 Pulse Ox 99 03/13/20 11:47 03/12/20 03/13/20 03/13/20 22:59 06:59 14:59 Intake Total 120 / 480 Output Total 50 / 50 Balance 70 / 430 Physical Exam Urinary Catheter Management^: Straight: Cath Placed During This Visit: no Data : 03/13/20 04:28 03/13/20 07:27 Micro: Microbiology 03/07/20 13:45 Gram Stain - Final Ankle - #1 Anaerobic Culture - Preliminary Wound Culture - Final A&P Assessment and plan (1) Infected hardware in right lower extremity: Status: Acute Qualifiers: Encounter type: initial encounter Qualified Code(s): T84.7XXA - Infection and inflammatory reaction due to other internal orthopedic prosthetic devices, implants and grafts, initial encounter (2) Exposed orthopaedic hardware: Removed. 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 Continue venlafaxine 150 mg and pregabalin 25 mg twice daily. It is a lower dose of pregabalin than what she takes at home. At home she takes 75 mg twice daily. I do not detect focal abnormality on neurologic exam currently, CT of the head showing microvascular disease and old lacunar infarcts in basal ganglia/internal capsule bilaterally, more prominent on the right, small old infarcts in left aspect of the parish. She has been on aspirin, Plavix. If showing any focal abnormalities, or CVA suspected, may benefit from evaluation by MRI. Also has B12 deficiency, started on replacement. Continue to reorient. With generalized deconditioning, requiring total assistance with transfers, nonambulatory at this time, and so would benefit from going to retirement place. I do not feel that she would be safe to return home as discussed with her and her daughter yesterday, and her son today. Status: Acute (5) Uncontrolled diabetes mellitus: Glucose currently better. Continue to monitor. Continue long-acting and sliding scale insulin. Status: Acute Qualifiers: Diabetes mellitus type: type 2 Glycemic state: with hyperglycemia Qualified Code(s): E11.65 - Type 2 diabetes mellitus with hyperglycemia (6) Status post open reduction with internal fixation (ORIF) of fracture of ankle: Status: Acute (7) Closed trimalleolar fracture of ankle: Prior trimalleolar right ankle fracture with repair by ORIF in July, healed after surgery, subsequently a fall 2 months ago with reopening of the wound and with nonhealing. Ct on 02/24 with good alignment and no signs of loosening of hardware. Status: Acute Qualifiers: Encounter type: initial encounter Laterality: right Qualified Code(s): S82.851A - Displaced trimalleolar fracture of right lower leg, initial encounter for closed fracture (8) Acute kidney injury: Improving. Monitor renal function and I&O. Status: Acute Additional A&P Information Infected hardware of right lower extremity/exposed orthopedic hardware: Hardware removed on March [address] Stock. Wound cultures growing gram-negative rods, MRSA, Corynebacterium species. Plan would be to continue antibiotics as an outpatient for overall 6 weeks of March 08. Unfortunately patient cannot do IV vancomycin as a retirement where patient is going cannot do Vanco trough regularly. Case discussed with Dr. Stock and Dr. Benjamin from ID. Greatly appreciate recommendations. Patient will need to be followed up with wound care as an outpatient. Discussed with Dr. Correa. Most likely patient would require wound VAC as an outpatient. Dr. Correa would like to really assess patient as an outpatient. LISBET on CKD: Baseline creatinine seems to be ranging from 1.2-1.5. Has gone as high as 2 in the past. 1.5 right now. Medical reconciliation done for nephrotoxic drugs. We will continue holding lisinopril for now. Most likely will be is restarted as an outpatient. Hypertension: Goal blood pressure less than 140/90 mmHg. Continue holding lisinopril. We will restart home dose of amlodipine. HTN: Cont amlodipine. CKD: LISBET on CKD as above. CAD: continue ASA, Plavix, statins. No chest pain at present. Full code. Lovenox for DVT prophylaxis Famotidine for PUD prophylaxis. Discharge plan: Plan is to the patient to be discharged to [facility] [place]. Preauthorization awaited. Patient will be discharged on oral antibiotics with plan to follow-up with wound care as an outpatient. Antibiotics for overall 6 weeks from March 08. Attestations Medical Necessity Statement*: Infected hardware of lower extremity, LISBET, awaiting safe discharge planning. Time Spent in Patient Care: Greater than 35 minutes (>than 50% of time spent in counselling and/or direct pt care on unit). Coding Level of Care Code Acute Physical Education Specialist for [facility] Diagnoses Infected hardware in right lower extremity T84.7XXA Encounter type: initial encounter Exposed orthopaedic hardware T84.498A Ulcer of right lower extremity L97.915 Non-pressure ulcer stage: with muscle involvement without evidence of necrosis Acute encephalopathy G93.40 Uncontrolled diabetes mellitus E11.65 Diabetes mellitus type: type 2 Glycemic state: with hyperglycemia Status post open reduction with internal fixation (ORIF) of fracture of ankle Z98.890; Z87.81 Closed trimalleolar fracture of ankle S82.851A Encounter type: initial encounter Laterality: right Acute kidney injury N17.9
--- NOTE | 2020-03-13 13:41 | PC.CHAP ---
Pastoral Care Encounter/Spiritual Assessment Type of Contact [] Declined engineer fishing vessel visit [] Patient/Family/Request visit [] Outpatient visit [] Follow-up visit [] Physician referral [] Code/Alert [x] Routine visit [] Staff referral [] Actively dying [] Patient sleeping [] Family support [] [] Out of room [] Palliative care [] [] Receiving care in room [] Pre-surgical visit [] Trauma [] Long length of stay [] ICU visit [] Other: Relational/Emotional Strength [] Patient feels connected with others/family/visitors/staff [x] Distress [x] Loneliness/isolation [x] Abandonment Spirituality of Patient [] Person of Jennifer [] Attends Confucianist of their Jennifer [] Believes in Prayer [] Reads Bible or Shinto materials [x] There are Spiritual issues to be addressed Public Works Manager Interventions [x] Prayer [x] Active listening [x] Non-anxious presence [x] Spiritual/emotional support [] Crisis/trauma care [] Spiritual counseling [] Bereavement support [] Provided bereavement packet [] Provided Bible/devotional materials [] Provided toy/stuffed animal, coloring book to patient or family member [] Provided Communion [] Anointing/[place] [] Salvation [x] Completed spiritual assessment [] Other: Impact on Illness or Injury [x] Angry [x] Fearful [x] Anxious [x] Often cries [] Exhaustion [] Unable to work [] Unable to attend adventist [] Unable to walk/stand [] Unable to read [] Unable to drive [] Unable to eat/drink [] Unable to sleep [x] Unable to be with family [] Patient intubated [] Other: Summary Patient did not talk much and didn't always respond to questions or comments. She stated that she was being sent to a care home and that she didn't want to go. The patient began crying. Public Works Manager asked if she was going there permanently and she stated it was just to receive antibiotics for a leg wound. Patient seems very anxious, upset and fearful. Patient did not respond to any attempts made by the engineer fishing vessel to comfort her. Public Works Manager informed nursing staff that entered the room of her being sad and patient would not respond to staff member's verbal attempts either. Public Works Manager prayed with patient and told her to let her nurse know if she needed to speak with a engineer fishing vessel to which she replied okay . Time spent with patient 15 minutes
[2020-03-13 16:55] LABS: Glucose Point of Care 150 mg/dL (70-110)
[2020-03-13 21:16] LABS: Glucose Point of Care 141 mg/dL (70-110)
[2020-03-13] MEDS: enoxaparin 40 mg/0.4 mL Syringe SUBCUT (22:05)
[2020-03-13] MEDS: hyDRALAzine 10 mg Tablet PO (22:05)
[2020-03-14] VITALS (8 sets, daily range): BP systolic 107–136; BP diastolic 72–84; PULSE 64–76; RESP 16–18; TEMP 35.8–36.7; O2SAT 90–100
[2020-03-14] MEDS: oxyCODONE-APAP 5-325 mg Tablet 1 TAB PO (00:24)
[2020-03-14] MEDS: linezolid 600 mg Tablet PO ×2 (06:24→17:25)
[2020-03-14 06:37] LABS: Basophils % 0.3 %; Eosinophils # 0.1 10^3/uL (0.0-0.8); Eosinophils % 1.6 %; Hematocrit 34.8 % (37.0-47.0); Hemoglobin 11.5 g/dL (11.5-15.3); Lymphocytes # 2.8 10^3/uL (0.8-4.8); Lymphocytes % 43.4 %; Mean Corpuscular Hemoglobin 30.7 pg (28.0-34.0); Mean Platelet Volume 10.8 fL (7.4-10.4); Monocytes # 0.5 10^3/uL (0.2-0.9); Monocytes % 7.5 %; Neutrophils # 3.01 10^3/uL (1.8-7.7); Neutrophils % 46.7 %; Nucleated Red Blood Cells % 0 %; Platelet Count 242 10^3/cmm (130-400); Red Blood Count 3.74 10^6/uL (4.1-5.3); Red Cell Distribution Width 14.1 % (12.1-15.1); White Blood Count 6.4 10^3/uL (4.0-10.0)
[2020-03-14 06:46] LABS: Alanine Aminotransferase 15 U/L (0-33); Albumin Level 2.8 g/dL (3.5-5.2); Alkaline Phosphatase 89 IU/L (35-105); Anion Gap 15.3 (5-19); Aspartate Amino Transferase 17 U/L (0-32); Blood Urea Nitrogen 36 mg/dL (8-23); Calcium 7.9 mg/dL (8.5-10.5); Carbon Dioxide 21 mmol/L (22-29); Chloride 106 mmol/L (98-107); Globulin 3.6 g/dL (1.3-4.6); Glomerular Filtration Rate 29.7 mL/min (90-130); Glucose 62 mg/dL (65-115); Osmolality Calculated 281 mOsm/kg (285-295); Potassium 4.3 mmol/L (3.5-5.1); Sodium 138 mmol/L (136-145); Total Bilirubin 0.2 mg/dL (0.15-1.2); Total Protein 6.4 g/dL (6.6-8.7)
[2020-03-14 06:49] LABS: Creatinine Clr Calc Pharmacy 33.9974
[2020-03-14 06:56] LABS: Glucose Point of Care 57 mg/dL (70-110)
--- NOTE | 2020-03-14 09:25 | PC.SOCIAL ---
IMM Updated Page 2 of IMM updated and given to patient. Initialed, dated, and timed and placed back in chart.
[2020-03-14] MEDS: clopidogrel 75 mg Tablet PO (09:31)
[2020-03-14] MEDS: aspirin 325 mg EC Tablet PO (09:31)
[2020-03-14] MEDS: hyDRALAzine 10 mg Tablet PO ×2 (09:31→14:50)
[2020-03-14] MEDS: ciprofloxacin 500 mg Tablet PO ×2 (09:31→17:25)
[2020-03-14] MEDS: dilTIAZem ER (24HR) 240 mg Capsule PO (09:31)
[2020-03-14] MEDS: venlafaxine ER (24HR) 150 mg Capsule PO (09:31)
[2020-03-14] MEDS: cyanocobalamin 1,000 mcg Tablet 500 MCG PO (09:31)
[2020-03-14] MEDS: atorvastatin 40 mg Tablet 20 MG PO (09:32)
[2020-03-14] MEDS: pregabalin 25 mg Capsule PO ×2 (10:09→17:25)
[2020-03-14 11:13] LABS: Glucose Point of Care 199 mg/dL (70-110)
--- NOTE | 2020-03-14 11:18 | P.PN_ITS ---
Subjective Subjective: Interval history: No acute events overnight. Patient on examination sitting comfortably in bed today. A lot more awake and alert and following commands and having full conversation today. Denies of any nausea, vomiting, headache. Working with physical therapy. Awaiting preauthorization for SNF discharge. Medications: Reviewed: Yes Vitals/I&O/Wt Last Vital Signs Temp 97.9 F 03/14/20 11:12 Pulse 66 03/14/20 11:12 Resp 18 03/14/20 11:12 BP 131/73 03/14/20 11:12 Pulse Ox 99 03/14/20 11:12 03/13/20 03/14/20 03/14/20 22:59 06:59 14:59 Intake Total 300 / 860 100 / 960 240 / 240 Balance 300 / 860 100 / 960 240 / 240 Physical Exam Const: COMMON NORMALS: no acute distress, patient oriented x3 and alert NUTRITIONAL APPEARANCE: obese ORIENTATION/CONSCIOUSNESS: Yes awake HENMT: COMMON NORMALS: oropharynx normal Neck/C-Spine: COMMON NORMALS: no JVD Resp: COMMON NORMALS: normal respiratory effort AUSCULTATION: rales (Mild at L base) Cardio: COMMON NORMALS: no JVD, regular rhythm, S1 normal heart sound present, S2 normal heart sound present and No murmurs present (Cardio) RHYTHM: regular rhythm HEART SOUNDS: S1 normal heart sound present and S2 normal heart sound present GI: COMMON NORMALS: Normal to inspection, nondistended, normoactive bowel sounds present, Soft to palpation and non-tender PALPATION: Yes Soft to palpation Extremity: COMMON NORMALS: no joint enlargement and no pedal edema OTHER: Right lower extremity wound without surrounding cellulitis wrapped in dressing without bleeding. Neuro: COMMON NORMALS: patient oriented x3 and moves all extremities SENSORIUM/ORIENTATION: Yes alert Skin: COMMON NORMALS: no rashes or lesions noted GENERAL SKIN EXAM: no rashes or lesions noted Urinary Catheter Management^: Straight: Cath Placed During This Visit: no Data : 03/14/20 06:00 03/14/20 06:00 A&P Assessment and plan (1) Infected hardware in right lower extremity: Status: Acute Qualifiers: Encounter type: initial encounter Qualified Code(s): T84.7XXA - Infection and inflammatory reaction due to other internal orthopedic prosthetic devices, implants and grafts, initial encounter (2) Exposed orthopaedic hardware: Removed. 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 Most likely because of multiple sedating medication with worsening renal functions. Continue to hold home dose of Requip and mirabegron. Continue venlafaxine 150 mg and pregabalin 25 mg twice daily. It is a lower dose of pregabalin than what she takes at home. At home she takes 75 mg twice daily. I do not detect focal abnormality on neurologic exam currently, CT of the head showing microvascular disease and old lacunar infarcts in basal ganglia/internal capsule bilaterally, more prominent on the right, small old infarcts in left aspect of the [place]. She has been on aspirin, Plavix. If showing any focal abnormalities, or CVA suspected, may benefit from evaluation by MRI. Also has B12 deficiency, started on replacement. Continue to reorient. Status: Acute (5) Uncontrolled diabetes mellitus: Blood glucose levels a lot better now. 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 We will hold off on Lantus for now. Will monitor insulin requirement last 24 hours and dose Lantus accordingly. In last 24 hours patient has required 12 units of Humalog. Continue with carb consistent diet. Continue with insulin sliding scale. scale insulin. Status: Acute Qualifiers: Diabetes mellitus type: type 2 Glycemic state: with hyperglycemia Qualified Code(s): E11.65 - Type 2 diabetes mellitus with hyperglycemia (6) Status post open reduction with internal fixation (ORIF) of fracture of ankle: Status: Acute (7) Closed trimalleolar fracture of ankle: Prior trimalleolar right ankle fracture with repair by ORIF in July, healed after surgery, subsequently a fall 2 months ago with reopening of the wound and with nonhealing. Ct on 02/24 with good alignment and no signs of loosening of hardware. Status: Acute Qualifiers: Encounter type: initial encounter Laterality: right Qualified Code(s): S82.851A - Displaced trimalleolar fracture of right lower leg, initial encounter for closed fracture (8) Acute kidney injury: Improving. Monitor renal function and I&O. Status: Acute Additional A&P Information Infected hardware of right lower extremity/exposed orthopedic hardware: Hardware removed on March [address] Stock. Wound cultures growing gram-negative rods, MRSA, Corynebacterium species. Plan would be to continue antibiotics as an outpatient for around 4 to 6 weeks from March 08 as hardware is out now. We will confirm with ID. Unfortunately patient cannot do IV vancomycin as [facility] cannot do Vanco trough regularly. Case discussed with Dr. Stock and Dr. Benjamin from ID. Greatly appreciate recommendations. Patient will need to be followed up with wound care as an outpatient. Discussed with Dr. Correa. Most likely patient would require wound VAC as an outpatient. Dr. Correa would like to really assess patient as an outpatient. LISBET on CKD: Baseline creatinine seems to be ranging from 1.2-1.8. Has gone as high as 2 in the past. 1. 7 right now. Most likely because of poor oral intake. Start patient on normal saline at 50 cc/h. Medical reconciliation done for nephrotoxic drugs. We will continue holding lisinopril for now. Most likely will be is restarted as an outpatient. Hypertension: Goal blood pressure less than 140/90 mmHg. Continue holding lisinopril. Continue home dose of Cardizem. CAD: continue ASA, Plavix, statins. No chest pain at present. Full code. Lovenox for DVT prophylaxis Famotidine for PUD prophylaxis. Discharge plan: Plan is to the patient to be discharged to [facility]. Preauthorization awaited. Patient will be discharged on oral antibiotics with plan to follow-up with wound care as an outpatient. Attestations Medical Necessity Statement*: Infected hardware, post hardware removal, awaiting safe discharge. Time Spent in Patient Care: Greater than 35 minutes (>than 50% of time spent in counselling and/or direct pt care on unit) . Coding Level of Care Code Acute Millinery Copyist for [facility] Fwd Diagnoses Infected hardware in right lower extremity T84.7XXA Encounter type: initial encounter Exposed orthopaedic hardware T84.498A Ulcer of right lower extremity L97.915 Non-pressure ulcer stage: with muscle involvement without evidence of necrosis Acute encephalopathy G93.40 Uncontrolled diabetes mellitus E11.65 Diabetes mellitus type: type 2 Glycemic state: with hyperglycemia Status post open reduction with internal fixation (ORIF) of fracture of ankle Z98.890; Z87.81 Closed trimalleolar fracture of ankle S82.851A Encounter type: initial encounter Laterality: right Acute kidney injury N17.9
[2020-03-14] MEDS: sodium chloride 0.9% 1,000 ML 50 ML IV (11:57)
--- NOTE | 2020-03-14 14:50 | PC.NURSE ---
DRESSING CHANGE THIS NURSE CHANGED PATIENT'S WOUND DRESSING. REMOVED OLD DRESSING AND APPLIED NEW WET TO DRY DRESSING WRAPPED IN AN JACKIE WRAP. DRESSING DATED AND INITIALED BY THIS NURSE.
[2020-03-14 16:37] LABS: Glucose Point of Care 147 mg/dL (70-110)
[2020-03-14 16:41] LABS: Glucose Point of Care 128 mg/dL (70-110)
--- NOTE | 2020-03-14 18:04 | PC.NURSE ---
SHIFT SUMMARY PATIENT HAS DONE WELL TODAY. MORE ALERT AND INTERACTIVE. NO COMPLAINTS OF PAIN. BETTER PO INTAKE. PATIENT HAS HAD GOOD URINE OUTPUT. THIS NURSE CHANGED PATIENT'S WOUND DRESSING. DRESSING IS C/D/I AND THIS TIME. PATIENT CURRENTLY RESTING IN BED. NO COMPLAINTS AT THIS TIME.
[2020-03-14 21:39] LABS: Glucose Point of Care 178 mg/dL (70-110)
[2020-03-14] MEDS: enoxaparin 40 mg/0.4 mL Syringe SUBCUT (22:03)
--- NOTE | 2020-03-14 22:03 | P.PN_ITS ---
Subjective Subjective: Interval history: Since last being seen, patient has had interval removal of her ankle hardware. There is no inidication currently for future hardware placement per discussion with ortho. Cx from OR remain negative to date. Medications: Reviewed: Yes Vitals/I&O/Wt Last Vital Signs Temp 98.1 F 03/14/20 20:00 Pulse 64 03/14/20 20:00 Resp 16 03/14/20 20:00 BP 119/72 03/14/20 20:00 Pulse Ox 99 03/14/20 20:00 03/14/20 03/14/20 03/14/20 06:59 14:59 22:59 Intake Total 100 / 960 480 / 480 360 / 840 Balance 100 / 960 480 / 480 360 / 840 Physical Exam Narrative: EXAM NARRATIVE: GEN: Awake, alert and oriented, no acute distress CVS: S1S2 N RS: CTA B/L Abd: Soft, nt/nd , bs+ MATHEMATICAL STATISTICIAN: no focal neuro deficits Urinary Catheter Management^: Straight: Cath Placed During This Visit: no Data : 03/14/20 06:00 03/14/20 06:00 Micro: Microbiology 03/07/20 13:45 Gram Stain - Final Ankle - #1 Anaerobic Culture - Preliminary Wound Culture - Final A&P Assessment and plan (1) Infected hardware in right lower extremity: Status: Acute Qualifiers: Encounter type: initial encounter Qualified Code(s): T84.7XXA - Infect ion and inflammatory reaction due to other internal orthopedic prosthetic devices, implants and grafts, initial encounter (2) Exposed orthopaedic hardware: Status: Acute (3) Status post open reduction with internal fixation (ORIF) of fracture of ankle: Status: Acute (4) Uncontrolled diabetes mellitus: Status: Acute Qualifiers: Diabetes mellitus type: type 2 Glycemic state: with hyperglycemia Qualified Code(s): E11.65 - Type 2 diabetes mellitus with hyperglycemia Additional A&P Information # Trimalleolar fracture of R ankle, s/p ORIF in early July , healed over, then complicated later by fall 2 months ago and opening of a RLE wound, which has had worsening, signs of overlying infection and exposure of underlying hardware. Ct on 02/24 with good alignment and no signs of loosening of hardware. # RLE wound overlying part of the RLE hardware Worsening over the last 2 months, currently with tendons and hardware exposed. Jordy pus noted at wound care 03/03 , debridement performed and sent for cx, prelim with GNR, not further identified, MRSA. ESR and CRP mildly elevated patient eventually went to OR on 03/08 with removal of all hardware, not planned for any further proceduers at the same time. Plan would be to have her back at wound care and place a wound vac. Surg path results with synovitis. OR cx without any growth, however had received approx a week of abx pre operatively. Overall, assuming infected hardware based on clinical data and presentation, would aim for 4 weeks of abx with a combination of linezolid and ciprofloxacin. while on Linezolid, please check CBC every week to evalute for any developing cytopenias which will be an indication to stop the antibiotic. # GPR hung bacetremia, may to be a contaminant, however now seen on 08/03 bottles with ongoing infection. Appropriate coverage has been ongoing and patient has had an adequate course Thank you for this ocnsult Attestations Medical Necessity Statement*: per aadmitting team Coding Level of Care Code Acute Business Development for [facility] Diagnoses Infected hardware in right lower extremity T84.7XXA Encounter type: initial encounter Exposed orthopaedic hardware T84.498A Status post open reduction with internal fixation (ORIF) of fracture of ankle Z98.890; Z87.81 Uncontrolled diabetes mellitus E11.65 Diabetes mellitus type: type 2 Glycemic state: with hyperglycemia
[2020-03-15] VITALS: BP 131/74; PULSE 64; RESP 18; TEMP 36.8; O2SAT 98
[2020-03-15 04:00] VITALS: BP 128/72; PULSE 62; RESP 18; TEMP 36.5; O2SAT 99
[2020-03-15 06:21] LABS: Alanine Aminotransferase 16 U/L (0-33); Albumin Level 3.1 g/dL (3.5-5.2); Alkaline Phosphatase 97 IU/L (35-105); Blood Urea Nitrogen 37 mg/dL (8-23); Calcium 8.3 mg/dL (8.5-10.5); Carbon Dioxide 18 mmol/L (22-29); Chloride 109 mmol/L (98-107); Globulin 3.1 g/dL (1.3-4.6); Glomerular Filtration Rate 27.8 mL/min (90-130); Glucose 109 mg/dL (65-115); Osmolality Calculated 290 mOsm/kg (285-295); Sodium 141 mmol/L (136-145); Total Bilirubin 0.2 mg/dL (0.15-1.2); Total Protein 6.2 g/dL (6.6-8.7)
[2020-03-15 06:22] LABS: Anion Gap 18.8 (5-19); Aspartate Amino Transferase 23 U/L (0-32); Potassium 4.8 mmol/L (3.5-5.1)
[2020-03-15 06:39] LABS: Glucose Point of Care 98 mg/dL (70-110)
[2020-03-15] MEDS: linezolid 600 mg Tablet PO (07:07)
[2020-03-15 07:42] VITALS: BP 126/70; PULSE 64; RESP 20; TEMP 36.3; O2SAT 99
[2020-03-15] MEDS: sodium chloride 0.9% 1,000 ML 50 ML IV (08:58)
[2020-03-15] MEDS: pregabalin 25 mg Capsule PO (08:59)
[2020-03-15] MEDS: venlafaxine ER (24HR) 150 mg Capsule PO (08:59)
[2020-03-15] MEDS: cyanocobalamin 1,000 mcg Tablet 500 MCG PO (08:59)
[2020-03-15] MEDS: ciprofloxacin 500 mg Tablet PO (09:00)
[2020-03-15] MEDS: clopidogrel 75 mg Tablet PO (09:00)
[2020-03-15] MEDS: dilTIAZem ER (24HR) 240 mg Capsule PO (09:00)
[2020-03-15] MEDS: atorvastatin 40 mg Tablet 20 MG PO (09:01)
[2020-03-15] MEDS: aspirin 325 mg EC Tablet PO (09:01)
[2020-03-15] MEDS: hyDRALAzine 20 mg/mL INJ 1 mL 10 MG IVP (09:01)
[2020-03-15] MEDS: hyDRALAzine 10 mg Tablet PO ×2 (09:10→14:32)
--- NOTE | 2020-03-15 10:06 | P.DS_ITS ---
Discharge Providers Date of Admission: 03/03/20 16:37 Date of Discharge: March 15, 2020 Attending Provider at Admission: Heather Benjamin MD Attending Provider at Discharge: Joshua Pompa MD Consults: Ortho: Dr. Stock ID: Dr. Benjamin Wound care: Dr. Correa Primary Care Provider: Juan José Humphrey Diagnoses at Discharge Discharge Diagnosis (1) Infected hardware in right lower extremity: Status: Acute Qualifiers: Encounter type: initial encounter Qualified Code(s): T84.7XXA - Infection and inflammatory reaction due to other internal orthopedic prosthetic devices, implants and grafts, initial encounter (2) Exposed orthopaedic hardware: Status: Acute (3) Status post open reduction with internal fixation (ORIF) of fracture of ankle: Status: Acute (4) Uncontrolled diabetes mellitus: Status: Acute Qualifiers: Diabetes mellitus type: type 2 Glycemic state: with hyperglycemia Qualified Code(s): E11.65 - Type 2 diabetes mellitus with hyperglycemia Reason for Visit Reason for Visit: RLL INFECTION Hospital Course Discharge Summary: Lynnette Ferreira is a 69 year old female with PMH HTN, CAD, DM who presented on 03/03 from wound care with chief complaints of non helaing/worsenin wound over the right lower calf, which started 2 months ago after a mechnaical fall and has been worsening. She has been to wound care twice recently, now has exposed hardware and tendon and she was sent to the ER from wound care today due to exposure of hardware and concerns for implant infection. Her original surgery is that from Jul 2019 for a trilammaeolar fracture with fibular plates and screws in place. She has undergone debridement at wound care. On 02/24, at which point only tendon was exposed she underwent a CT of the said leg which did not show underlying osteomyelitis. She was being planned for a debridement followed by wound vac. Aretrial duplex was ordered which was WNL. On returning to [facility] today, her wound was noted to have worsened, with edmar discharge of pus, exposure of hardware and needed more debridement. Per review of orthopedics office note, her hardware appears to have been also exposed in late December. She was admitted to the hospital for further work-up. Both orthopedics and ID were consulted. She was started on broad-spectrum antibiotics. Her blood cultures remain negative throughout the hospitalization except 1 out of 4 for possible Corynebacterium which is thought most likely as a contaminant. Because patient continued to have mild persistent leukocytosis and intermittent low- grade fevers she underwent hardware removal with Dr. Stock on March 07. Her wound culture from March 03 is growing MRSA, Corynebacterium and oligella urethralis. Her antibiotics were de-escalate as per the culture results. She tolerated the procedure well. Her hospitalization was mostly unremarkable other than development of mild altered mental status post procedure. CT head was done and was unremarkable. It was thought most likely because of accumulating antidepression medications while his creatinine was labile. Her psych medications were adjusted. She responded well to the treatment. She is been discharged hemodynamically stable condition with advised to follow- up with wound care clinic in next 1 week for a possible wound VAC placement depending on the base of the wound and at ID clinic with Dr. Nolasco in 2 weeks. She is to continue taking oral antibiotics with ciprofloxacin and linezolid for 3 more weeks to finish a 4-week course from the day of hardware removal. Ciprofloxacin has been dosed to 500 mg daily rather than twice daily because creatinine clearance is less than 30. Her dose of Levemir has been reduced to 10 units at bedtime. Her dose of metformin has also been reduced to daily. Because patient will be on linezolid for next 3 weeks her venlafaxine has been withheld. Venlafaxine can be restarted after completion of linezolid course. She is been discharged to SNF for further rehabilitation to prevent for recurrence of fracture and proper healing while she still nonweightbearing. Physical Exam Const: COMMON NORMALS: no acute distress, patient oriented x3 and alert NUTRITIONAL APPEARANCE: obese ORIENTATION/CONSCIOUSNESS: Yes awake HENMT: COMMON NORMALS: oropharynx normal Neck/C-Spine: COMMON NORMALS: no JVD Resp: COMMON NORMALS: normal respiratory effort AUSCULTATION: rales (Mild at L base) Cardio: COMMON NORMALS: no JVD, regular rhythm, S1 normal heart sound present, S2 normal heart sound present and No murmurs present (Cardio) RHYTHM: regular rhythm HEART SOUNDS: S1 normal heart sound present and S2 normal heart sound present GI: COMMON NORMALS: Normal to inspection, nondistended, normoactive bowel sounds present, Soft to palpation and non-tender PALPATION: Yes Soft to palpation Extremity: COMMON NORMALS: no joint enlargement and no pedal edema OTHER: Right lower extremity wound without surrounding cellulitis wrapped in dressing without bleeding. Neuro: COMMON NORMALS: patient oriented x3 and moves all extremities SENSORIUM/ORIENTATION: Yes alert Skin: COMMON NORMALS: no rashes or lesions noted GENERAL SKIN EXAM: no rashes or lesions noted Urinary Catheter Management^: Straight: Cath Placed During This Visit: no Discharge Data Data Completed and Pending: Completed Studies During Hospitalization Category Date Time Status CT ankle RT wo co n* [id number] Routine Cat Scan 03/07/20 16:[address] head wo con* 7 0450 Stat Cat Scan 03/08/20 23:04 Completed XR ankle RT 1V [id number] Routine Exams 03/07/20 Completed XR tibia fibula R T 2V [id number] Urgent Exams 03/03/20 14:56 Completed Pathology: Surgic al [PTH] Routine Pth 03/07/20 14:13 [place] [id number] Rout ine Ultrasound 03/04/20 06:38 Completed Pending at discharge Category Date Time Status Anaerobic Culture Routine Lab 03/07/20 13:45 Results Wound Culture and Gram Stain Routin e Lab 03/07/20 13:45 Results Labs from last 24 hours 03/15/20 03/15/20 03/14/20 06:31 05:05 20:39 Sodium 141 Potassium 4.8 Chloride 109 H Carbon Dioxide 18 L Anion Gap 18.8 BUN 37 H Creatinine 1.8 H GFR Calculation 27.8 L Glucose 109 POC Glucose 98 178 Calculated Osmolal ity 290 Calcium 8.3 L Total Bilirubin 0.2 AST 23 ALT 16 Alkaline Phosphata se 97 Total Protein 6.2 L Albumin 3.1 L Globulin 3.1 03/14/20 03/14/20 03/14/20 16:37 11:50 11:08 Sodium Potassium Chloride Carbon Dioxide Anion Gap BUN Creatinine GFR Calculation Glucose POC Glucose 128 147 199 Calculated Osmolal ity Calcium Total Bilirubin AST ALT Alkaline Phosphata se Total Protein Albumin Globulin Vitals: Last Vital Signs Temp 97.3 F L 03/15/20 07:42 Pulse 64 03/15/20 07:42 Resp 20 H 03/15/20 07:42 BP 126/70 03/15/20 07:42 Pulse Ox 99 03/15/20 07:42 Discharge Plan Discharge Patient Disposition: Xfer SNF Condition: Stable Prescriptions: New hydralazine 10 mg Tablet 10 mg PO TID Qty: 90 RF: 0 Vitamin B-12 1,000 mcg Tablet 500 mcg PO DAILY Qty: 15 RF: 0 ciprofloxacin HCl 500 mg Tablet 500 mg PO DAILY 21 Days Qty: 21 RF: 0 linezolid 600 mg Tablet 600 mg PO Q12H 21 Days Qty: 42 RF: 0 Lyrica 25 mg Capsule 25 mg PO BID Qty: 60 RF: 0 Continued metformin 500 mg tablet 500 mg PO BID RF: 0 diltiazem HCl [DILT-XR] 240 mg capsule,ext.rel 24h degradable 240 mg PO DAILY RF: 0 clopidogrel 75 mg tablet 75 mg PO DAILY RF: 0 pravastatin 10 mg tablet 10 mg PO DAILY RF: 0 aspirin 325 mg Tablet,Delayed Release (Dr/Ec) 325 mg PO DAILY Qty: 30 RF: 0 loperamide 2 mg Tablet 2 mg PO BID PRN (Reason: Diarrhea) RF: 0 oxycodone-acetaminophen [Percocet] 5-325 mg Tablet 1 tab PO Q4H PRN (Reason: Pain) RF: 0 acetaminophen [Tylenol] 325 mg Tablet 650 mg PO Q4H PRN (Reason: Pain) RF: 0 magnesium hydroxide [Milk of Magnesia] 400 mg/5 mL Suspension 30 ml PO Q3D PRN (Reason: Constipation) RF: 0 bisacodyl [Dulcolax (bisacodyl)] 10 mg Suppository See Rx Instructions .ROUTE .COMPLEX RF: 0 bisacodyl [Dulcolax (bisacodyl)] 5 mg Tablet,Delayed Release (Dr/Ec) 20 mg PO PRN RF: 0 alum-mag hydroxide-simeth [Mylanta Maximum Strength] 400-400-40 mg/5 mL Suspension See Rx Instructions .ROUTE .COMPLEX RF: 0 magnesium citrate See Rx Instructions .ROUTE .COMPLEX RF: 0 Changed Levemir FlexTouch U-100 Insuln 100 unit/mL (3 mL) Insulin Pen 10 unit SUBCUT QPM Qty: 3 RF: 0 Held venlafaxine 150 mg capsule,extended release 24hr 150 mg PO DAILY RF: 0 Hold Instructions: Resume on 04/08/20. ropinirole 0.5 mg tablet 0.5 mg PO BEDTIME RF: 0 Hold Instructions: Resume on 03/29/20. Myrbetriq 25 mg tablet extended release 24 hr 25 mg PO DAILY RF: 0 Hold Instructions: Resume on 03/29/20. Discontinued lisinopril 5 mg tablet 5 mg PO DAILY RF: 0 pregabalin 75 mg capsule 75 mg PO BID RF: 0 nitrofurantoin monohyd/m-cryst 100 mg capsule 100 mg PO BID RF: 0 Discharge Orders: Discharge Order (Routine); Ordered 03/15/20 Ordered By: Joshua Pompa Referrals: [facility] [Outside] Juan José Humphrey [Primary Care Provider] - 03/16/20 10:00 am (Hospital follow up on March 16 at 10:00am) Jerardo Correa MD [Physician] - 03/24/20 9:00 am (Wound care. You have an appointmen on March 24 at 9:00) Heather Benjamin MD [Hospitalist] - 04/04/20 9:40 am (ID clinic. You have an appointment on April 04 at 9:40) Discharge Diet: Cardiac and Diabetic Discharge Activity: Increase activity as tolerated and As per PT/OT instructions Patient Instructions: Ciprofloxacin (By mouth), Hydralazine (By mouth), Linezolid (By mouth), Pregabalin (By mouth) Activity Restrictions/Additional Instructions: Lisinopril has been withheld because of LISBET. Hydralazine 10 mg 3 times daily has been started for high blood pressure. Levemir dose has been decreased to 10 units at bedtime. Pregabalin dose has been changed to 25 mg twice daily. Venaflexine and is contraindicated with linezolid. Can start Venaflexine and again in 4 weeks. Linezolid and ciprofloxacin for next 4 weeks as prescribed. Dose of ciprofloxacin is once a day because of creatinine clearance. Please check CBC and CMP weekly while being on antibiotics. Please follow-up with Dr. Correa from wound care in 1 week. Please follow-up with Dr. Benjamin from ID in 2 weeks. Discharge Attestations Time Spent in Discharge Care*: greater than 30 min Specific Discharge Activities: Specific discharge activities: educating patient, discussing with pcp/other providers, discussing with corrections caseworker/social workers/dc planners, documenting/other paperwork and evaluating patient/reviewing data Status at Discharge: Cognitive status at discharge: cognitively intact , Behavioral status at discharge: cooperative , Functional status at discharge: uses cane/walker Overall status at discharge: patient is progressing back to baseline Quality Metrics Clinical Quality Measures During this hospital stay, did patient experience: None Coding Level of Care Code 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
[2020-03-15 10:28] LABS: Glucose Point of Care 180 mg/dL (70-110)
[2020-03-15 11:11] VITALS: BP 138/61; PULSE 67; RESP 18; TEMP 36.6; O2SAT 100
[2020-03-15 15:36] VITALS: BP 138/61; PULSE 67; RESP 18; TEMP 36.6; O2SAT 100
== END 2020-03-15 15:37 | disposition skilled nursing facility (03) | DRG 463 ==
LOC: ER 16:46 → MEDSURG 17:21
PROVIDERS: Family Medicine; Internal Medicine; Specialist; Admitting Provider Student in an Organized Health Care Education/Training Program; Emergency Provider Physician Assistant; PCP Family Medicine; Visit Provider Student in an Organized Health Care Education/Training Program
PROC: 0JBN0ZZ Excision of Right Lower Leg Subcutaneous Tissue and Fascia, Open Approach (ICD-10-PCS; principal; 2020-03-07 13:05)
DX: T84.498A Other mechanical complication of other internal orthopedic devices, implants and grafts, initial encounter (principal); G92 Toxic encephalopathy; N17.9 Acute kidney failure, unspecified; R78.81 Bacteremia; L97.915 Non-pressure chronic ulcer of unspecified part of right lower leg with muscle involvement without evidence of necrosis; Z68.42 Body mass index [BMI] 45.0-49.9, adult; Y83.9 Surgical procedure, unspecified as the cause of abnormal reaction of the patient, or of later complication, without mention of misadventure at the time of the procedure; N18.9 Chronic kidney disease, unspecified; D63.1 Anemia in chronic kidney disease; S82.851A Displaced trimalleolar fracture of right lower leg, initial encounter for closed fracture; E11.65 Type 2 diabetes mellitus with hyperglycemia; E11.22 Type 2 diabetes mellitus with diabetic chronic kidney disease; T84.7XXA Infection and inflammatory reaction due to other internal orthopedic prosthetic devices, implants and grafts, initial encounter; I25.10 Atherosclerotic heart disease of native coronary artery without angina pectoris; I12.9 Hypertensive chronic kidney disease with stage 1 through stage 4 chronic kidney disease, or unspecified chronic kidney disease; Z91.81 History of falling; Z79.82 Long term (current) use of aspirin; Z79.02 Long term (current) use of antithrombotics/antiplatelets; Z79.84 Long term (current) use of oral hypoglycemic drugs; Z86.73 Personal history of transient ischemic attack (TIA), and cerebral infarction without residual deficits; F32.9 Major depressive disorder, single episode, unspecified; E78.5 Hyperlipidemia, unspecified; G25.81 Restless legs syndrome; E66.9 Obesity, unspecified; E11.621 Type 2 diabetes mellitus with foot ulcer
CPT/HCPCS: 11044; 12345; 36415; 36416; 36430; 36600; 51702; 70450; 73590; 73600; 73700; 76000; 80048; 80053; 80202; 81001; 82570; 82607; 82746; 82803; 82962; 84300; 85014; 85018; 85025; 85610; 85651; 86140; 86850; 86900; 86920; 87040; 87070; 87075; 87077; 87176; 87184; 87186; 87205; 88307; 93926; 94762; 96372; 96375; 97110; 97161; 97167; 97530; 97535; 99282; J0330; J0360; J0696; J1650; J1815; J2370; J2405; J2704; J3010; J3370; J3490; J7030; J7050; P9016

== ENCOUNTER 2020-03-27 13:07 | Emergency (ER) | payer MEDICARE, MEDICAID, SELFPAY ==
[2020-03-27] VITALS (11 sets, daily range): BP systolic 156–183; BP diastolic 71–99; PULSE 89–98; RESP 16–22; TEMP 36.6; O2SAT 90–100; BMI 45.3
--- NOTE | 2020-03-27 13:29 | PC.NURSE ---
IV attempted x2, unsuccessful.
[2020-03-27] MEDS: ondansetron 2 mg/ML SDV 2 mL 4 MG IVP (15:31)
[2020-03-27] MEDS: sodium chloride 0.9% 1,000 ML 999 ML IV ×2 (15:31→16:46)
--- NOTE | 2020-03-27 15:34 | ED_ITS ---
HPI - Nausea/Vomiting/Diarrhea General: Chief complaint: Nausea/Vomiting/Diarrhea Stated complaint: N/V, COVID+ Time Seen by Provider: 03/27/20 13:16 Source: patient Mode of arrival: EMS Limitations: no limitations History of Present Illness: HPI Narrative: The patient is a 70-year-old female who is a resident of a local prison where she was admitted about 12 days ago following ankle surgery. For the last 4 days she has had persistent nausea and vomiting, and is unable to keep anything down according to the prison staff including her medications. She is feeling weak and is also refusing therapy because of weakness. Because she is unable to keep anything down she is sent here for further evaluation. She denies any pain, denies a fever, denies difficulty breathing. She also has been tested positive for COVID-19 MD elicited complaint: nausea and vomiting Onset (ago): day(s) (4) Associated nausea: Yes Location of pain: None Exacerbating factors: none Relieving factors: none Associated symtoms: Reports nausea; Denies altered mental status, anxiety, bloating, change in vision, chest pain, cough, diaphoresis, decreased urine output, dizziness, dysuria, epistaxis, fatigue, fecal incontinence, fevers/chills, headache(s), anorexia, malaise, myalgias, numbness, palpitations, rash, short of breath, syncope, tenesmus, tinnitus or weakness Review of Systems General: Reports: 10 or more systems reviewed and unremarkable except in HPI and below Const: Denies: fatigue, malaise or diaphoresis Eyes: Denies: change in vision ENMT: Denies: tinnitus or epistaxis Card: Denies: chest pain, palpitations or syncope Resp: Denies: dyspnea, productive cough or non-productive cough GI: Reports: nausea; Denies: bloating or fecal incontinence : Denies: dysuria Musc: Denies: neck pain, back pain or extremity swelling Skin/Breast: Denies: rash, pruritus or erythema Neuro: Denies: headache(s) or dizziness Psych: Denies: anxiety Endo: Denies: polyuria, polydipsia or tired all the time PFSH ED PFSH: Medical History Ankle syndesmosis disruption Cerebrovascular accident Chronic kidney disease Closed trimalleolar fracture of ankle Coronary artery disease Depression Diabetes Heart murmur Hyperlipidemia Hypertension Obesity Restless leg syndrome Surgical History History of cholecystectomy History of hernia repair History of tubal ligation Family History Other Diabetes Social History Smoking and tobacco status: never smoked Alcohol intake: never Physical Exam Const: COMMON NORMALS: no acute distress, average body habitus, patient oriented x3, no limitations, healthy appearing, alert and well nourished EXAM LIMITATIONS: no altered mental status HENMT: COMMON NORMALS: normocephalic, atraumatic and moist oral mucous membranes HEAD & SCALP: normocephalic and atraumatic Eye: COMMON NORMALS: Equal, round and reactive pupils present, EOMs intact bilaterally, conjunctivae normal and no scleral icterus CONJUNCTIVA: Yes conjunctivae normal PUPIL: Yes Equal, round and reactive pupils present Neck/C-Spine: COMMON NORMALS: full ROM, supple, no meningeal signs, no JVD and No carotid bruits Resp: COMMON NORMALS: normal respiratory effort, No retractions, No use of accessory muscles, clear to auscultation bilaterally and percussion normal AUSCULTATION: clear to auscultation bilaterally PERCUSSION: percussion normal Cardio: COMMON NORMALS: no JVD, regular rate, regular rhythm, S1 normal heart sound present, S2 normal heart sound present, No gallops present (Cardio), No clicks present (Cardio), No murmurs present (Cardio), No rub (Cardio) and Peripheral pulses 2+ throughout RATE: regular rate RHYTHM: regular rhythm HEART SOUNDS: S1 normal heart sound present and S2 normal heart sound present PERIPHERAL PULSES: Peripheral pulses 2+ throughout GI: COMMON NORMALS: Normal to inspection, nondistended, normoactive bowel sounds present, Soft to palpation, non-tender, No hepatosplenomegaly present, no masses and no bruits PALPATION: Yes Soft to palpation and Yes No hepatosplenomegaly present Extremity: COMMON NORMALS: normal to inspection, full ROM, capillary refill normal, no calf tenderness and no pedal edema Neuro: COMMON NORMALS: patient oriented x3 SENSORIUM/ORIENTATION: Yes alert MENINGEAL SIGNS: Yes no meningeal signs Skin: COMMON NORMALS: no rashes or lesions noted, no wounds, turgor normal, no jaundice, no petechiae and no mottling GENERAL SKIN EXAM: no rashes or lesions noted and turgor normal Course Reevaluation(s): Reevaluation #1: Her lab and imaging findings with her. Negative for acute findings. We will discharge her back the prescription for antiemetics. Time: 19:02 Vital Signs: Vital signs: Vital Signs Temperature 97.8 F 03/27/20 13:17 Pulse Rate 92 03/27/20 20:38 Respiratory Rate 17 03/27/20 20:38 Blood Pressure 183/89 03/27/20 19:23 Pulse Oximetry 100 03/27/20 20:38 MDM - Nausea/Vomiting/Diarrhea MDM Narrative: Medical decision making narrative: 70-year-old female patient who is a prison resident and is therefore rehab following surgery presents with nausea and vomiting of several days duration. The patient has also tested positive for COVID-19. On evaluation in the emergency department the patient is not hypoxic, she is no febrile, vital signs are okay. She was dehydrated and was given fluid resuscitation with IV fluids. No acute findings on evaluation and so she is discharged back to the nursing facility with no new orders other than antiemetics. Medical Records: Attestation: I reviewed the patient's medical records. Lab Data: Attestation: I reviewed the patient's lab results. Labs: Lab Results 03/27/20 03/27/20 03/27/20 Range/Units 15:10 15:10 15:10 WBC Cancelled Corrected WBC Cancelled RBC Cancelled Hgb Cancelled Hct Cancelled MCV Cancelled MCH Cancelled MCHC Cancelled RDW Cancelled Plt Count Cancelled MPV Cancelled Gran % Cancelled Neut % (Auto) Cancelled Lymph % (Auto) Cancelled [place] % (Auto) Cancelled Eos % (Auto) Cancelled Baso % (Auto) Cancelled Neut # (Auto) Cancelled Lymph # (Auto) Cancelled [place] # (Auto) Cancelled Eos # (Auto) Cancelled Baso # (Auto) Cancelled Absolute Gran (aut o) Cancelled Nucleated RBC % (a uto) Cancelled Nucleated RBCs # Cancelled Sodium Cancelled Potassium Cancelled Chloride Cancelled Carbon Dioxide Cancelled Anion Gap Cancelled BUN Cancelled Creatinine Cancelled GFR Calculation Cancelled Glucose Cancelled Calculated Osmolal ity Cancelled Lactate Cancelled Calcium Cancelled Total Bilirubin Cancelled AST Cancelled ALT Cancelled Alkaline Phosphata se Cancelled C-Reactive Protein Cancelled Total Protein Cancelled Albumin Cancelled Globulin Cancelled Lipase Cancelled Urine Color (Yellow) Urine Appearance (CLEAR) Urine pH (5-7) Ur Specific Gravit y (1.005-1.030) Urine Protein (Negative) Urine Glucose (UA) (Normal) Urine Ketones (Negative) Urine Blood (Negative) Urine Nitrate (Negative) Urine Bilirubin (Negative) Urine Urobilinogen (Negative) mg/dL Ur Leukocyte [place] ase (Negative) Urine RBC (0-2) /hpf Urine WBC (0-5) /hpf Ur Squamous Epith Cells (0-5) /hpf Amorphous Sediment /hpf Urine Bacteria (NONE) /hpf Hyaline Casts /lpf Urine Yeast /hpf 03/27/20 03/27/20 03/27/20 Range/Units 15:25 15:25 15:25 WBC 3.4 L Corrected WBC RBC 3.15 L Hgb 9.4 L Hct 28.9 L MCV 91.7 MCH 29.8 MCHC 32.5 RDW 14.0 Plt Count 55 L MPV 12.4 H Gran % Neut % (Auto) 62.2 Lymph % (Auto) 27.9 [place] % (Auto) 8.4 Eos % (Auto) 0.6 Baso % (Auto) 0.0 Neut # (Auto) 2.14 Lymph # (Auto) 1.0 [place] # (Auto) 0.3 Eos # (Auto) 0.0 Baso # (Auto) 0.0 Absolute Gran (aut o) Nucleated RBC % (a uto) 0 Nucleated RBCs # 0.0 Sodium 141 Potassium 3.9 Chloride 108 H Carbon Dioxide 18 L Anion Gap 18.9 BUN 50 H Creatinine 1.3 H GFR Calculation 40.5 L Glucose 154 H Calculated Osmolal ity 308 H Lactate 1.3 Calcium 8.6 Total Bilirubin 0.2 AST 21 ALT 21 Alkaline Phosphata se 78 C-Reactive Protein 48.8 H Total Protein 6.5 L Albumin 3.2 L Globulin 3.3 Lipase 33 Urine Color (Yellow) Urine Appearance (CLEAR) Urine pH (5-7) Ur Specific Gravit y (1.005-1.030) Urine Protein (Negative) Urine Glucose (UA) (Normal) Urine Ketones (Negative) Urine Blood (Negative) Urine Nitrate (Negative) Urine Bilirubin (Negative) Urine Urobilinogen (Negative) mg/dL Ur Leukocyte [place] ase (Negative) Urine RBC (0-2) /hpf Urine WBC (0-5) /hpf Ur Squamous Epith Cells (0-5) /hpf Amorphous Sediment /hpf Urine Bacteria (NONE) /hpf Hyaline Casts /lpf Urine Yeast /hpf 03/27/20 Range/Units 15:50 WBC Corrected WBC RBC Hgb Hct MCV MCH MCHC RDW Plt Count MPV Gran % Neut % (Auto) Lymph % (Auto) [place] % (Auto) Eos % (Auto) Baso % (Auto) Neut # (Auto) Lymph # (Auto) [place] # (Auto) Eos # (Auto) Baso # (Auto) Absolute Gran (aut o) Nucleated RBC % (a uto) Nucleated RBCs # Sodium Potassium Chloride Carbon Dioxide Anion Gap BUN Creatinine GFR Calculation Glucose Calculated Osmolal ity Lactate Calcium Total Bilirubin AST ALT Alkaline Phosphata se C-Reactive Protein Total Protein Albumin Globulin Lipase Urine Color Yellow (Yellow) Urine Appearance Hazy A (CLEAR) Urine pH 5 (5-7) Ur Specific Gravit y 1.015 (1.005-1.030) Urine Protein 3+ H (Negative) Urine Glucose (UA) Trace H (Normal) Urine Ketones 1+ H (Negative) Urine Blood 2+ H (Negative) Urine Nitrate Negative (Negative) Urine Bilirubin Neg (Negative) Urine Urobilinogen Norm (Negative) mg/dL Ur Leukocyte [place] ase Negative (Negative) Urine RBC 5-10 H (0-2) /hpf Urine WBC 40-55 H (0-5) /hpf Ur Squamous Epith Cells 0-4 H (0-5) /hpf Amorphous Sediment 2+ /hpf Urine Bacteria 1+ H (NONE) /hpf Hyaline Casts 0-4 H /lpf Urine Yeast 3+ H /hpf Imaging Data^: CT Abd/Pel: Attestation: I personally reviewed and interpreted this imaging study as follows: Radiologist's impression: [address] [address] [address] Scan Report Signed with Addenda Patient: Lynnette Ferreira #: [id number] : 1950Acct#:[id number] Age/Sex: 70 / FADM Date: 03/27/20 Loc: ERRoom/Bed: Attending Dr: Ordering Provider/Ordering MD: [place]ais [place] [facility] [place] Service: 03/27/20 Procedure(s): CT abdomen pelvis wo con [id number] Accession Number(s): [id number] Report Number: [id number]/CT abdomen pelvis wo con [id number] THIS REPORT CONTAINS FINDINGS THAT MAY BE CRITICAL TO PATIENT CARE. The findings were verbally communicated via telephone conference with ANAIS NIEVES at 6:39 PM CDT on 03/27/2020. The findings were acknowledged and understood. Radiation Dose CTDIVOL = (mGy): DLP = 1304.3 (mGy-cm) Addendum Dictated By: Randall Lemus Addendum Signed By: Zack Lemus Date/Time:03/27/201841 Addendum Cosigned By: PROCEDURE INFORMATION: Exam: CT Abdomen And Pelvis Without Contrast Exam date and time: 03/27/2020 5:31 PM Age: 70 years old Clinical indication: Nausea and vomiting; Prior surgery; Surgery type: Gb, tubal, hernia TECHNIQUE: Imaging protocol: Computed tomography of the abdomen and pelvis without contrast. Radiation optimization: All CT scans at this facility use at least one of these dose optimization techniques: automated exposure control; mA and/or kV adjustment per patient size (includes targeted exams where dose is matched to clinical indication); or iterative reconstruction. COMPARISON: CT abdomen pelvis w con* [id number] 06/19/2017 7:26 PM RADIATION DOSE METRICS: Total DLP (mGy-cm): 1304.3 FINDINGS: Lungs: Limited assessment lung bases reveals patchy bilateral predominantly peripheral ground-glass interstitial lung disease. Consideration might be given to Covid-19 pneumonitis. Liver: Unremarkable. No mass. Gallbladder and bile ducts: Status post cholecystectomy. Pancreas: Moderate atrophy of the pancreas. No visible pancreatic ductal ectasia. Spleen: Unremarkable. No splenomegaly. Adrenals: Normal. No mass. Kidneys and ureters: Unremarkable. No hydronephrosis. Stomach and bowel: Diverticulosis coli without visible evidence of acute diverticulitis. Nonobstructive bowel pattern. No visible adynamic or reactive ileus. Appendix: The appendix is not visualized presumed surgically absent. Intraperitoneal space: Unremarkable. No free air. No significant fluid collection. Vasculature: Coronary artery disease. Calcified mitral annulus. The abdominal aorta is nonaneurysmal. Advanced arterial sclerotic disease. Lymph nodes: Unremarkable. No enlarged lymph nodes. Urinary bladder: Unremarkable as visualized. Reproductive: Suspected uterine leiomyomata. Bones/joints: Mild old compression deformity T10. No visible active osseous pathology. Osteopenia. Soft tissues: Obesity. CT/CT abdomen pelvis wo con [id number] IMPRESSION: 1. Limited assessment lung bases reveals patchy bilateral predominantly peripheral ground-glass interstitial lung disease. Consideration might be given to Covid-19 pneumonitis. 2. No visible acute abdominal or pelvic pathologic process. Radiation Dose CTDIVOL = (mGy): DLP = 1304.3 (mGy-cm) Dictated By:Randall Lemus Signed By:Zack Lemus Date/Time:03/27/201839 DD/ 38 Discharge Plan Discharge Patient Disposition: Rehab Fac w Plan Readm Clinical Impression: Acute dehydration Nausea & vomiting Qualifiers: Vomiting type: unspecified Vomiting Intractability: non-intractable Qualified Code(s): R11.2 - Nausea with vomiting, unspecified Condition: Stable Prescriptions: New Zofran 4 mg tablet 4 mg PO Q8H PRN (Reason: nausea and vomiting) 7 Days Qty: 30 RF: 0 Continued metformin 500 mg tablet 500 mg PO BID RF: 0 diltiazem HCl [DILT-XR] 240 mg capsule,ext.rel 24h degradable 240 mg PO DAILY RF: 0 venlafaxine 150 mg capsule,extended release 24hr See Rx Instructions .ROUTE .COMPLEX RF: 0 Hold Instructions: Resume on 04/08/20. clopidogrel 75 mg tablet 75 mg PO DAILY RF: 0 pravastatin 10 mg tablet 10 mg PO DAILY RF: 0 ropinirole 0.5 mg tablet 0.5 mg PO BEDTIME RF: 0 Hold Instructions: Resume on 03/29/20. Myrbetriq 25 mg tablet extended release 24 hr 25 mg PO DAILY RF: 0 Hold Instructions: Resume on 03/29/20. aspirin 325 mg Tablet,Delayed Release (Dr/Ec) 325 mg PO DAILY Qty: 30 RF: 0 loperamide 2 mg Tablet 2 mg PO BID PRN (Reason: Diarrhea) RF: 0 oxycodone-acetaminophen [Percocet] 5-325 mg Tablet 1 tab PO Q4H RF: 0 acetaminophen [Tylenol] 325 mg Tablet 650 mg PO Q4H PRN (Reason: Pain) RF: 0 magnesium hydroxide [Milk of Magnesia] 400 mg/5 mL Suspension 30 ml PO Q3D PRN (Reason: Constipation) RF: 0 bisacodyl [Dulcolax (bisacodyl)] 10 mg Suppository See Rx Instructions .ROUTE .COMPLEX RF: 0 magnesium citrate Solution 150 ml PO BID PRN (Reason: Constipation) Qty: 0 RF: 0 bisacodyl [Dulcolax (bisacodyl)] 5 mg Tablet,Delayed Release (Dr/Ec) 20 mg PO DAILY PRN (Reason: Constipation) RF: 0 alum-mag hydroxide-simeth [Mylanta Maximum Strength] 400-400-40 mg/5 mL Suspension See Rx Instructions .ROUTE .COMPLEX RF: 0 hydralazine 10 mg Tablet 10 mg PO TID Qty: 90 RF: 0 cyanocobalamin (vitamin B-12) [Vitamin B-12] 1,000 mcg Tablet 500 mcg PO DAILY Qty: 15 RF: 0 ciprofloxacin HCl 500 mg Tablet 500 mg PO DAILY 21 Days Qty: 21 RF: 0 linezolid 600 mg Tablet 600 mg PO Q12H 21 Days Qty: 42 RF: 0 pregabalin [Lyrica] 25 mg Capsule 25 mg PO BID Qty: 60 RF: 0 Levemir FlexTouch U-100 Insuln 100 unit/mL (3 mL) Insulin Pen 10 unit SUBCUT QPM Qty: 3 RF: 0 Discharge Orders: Discharge Order (Routine); Ordered 03/27/20 Ordered By: Anais Nievse Referrals: Juan José Humphrey [Primary Care Provider] - 1-3 days Discharge Diet: Advance as tolerated Discharge Activity: Increase activity as tolerated Patient Instructions: Dehydration (ED), Acute Nausea and Vomiting (ED) Activity Restrictions/Additional Instructions: Return for any new or worsening symptoms. Follow-up with your primary care provider within 3 days. Use the nausea medication as needed for nausea. Discharge Date/Time: 03/27/20 21:05 Coding Level of Care Code ED Shot Packer for Geovanna Fwd Exam Comprehensive
[2020-03-27 15:50] LABS: Eosinophils % 0.6 %; Hematocrit 28.9 % (37.0-47.0); Hemoglobin 9.4 g/dL (11.5-15.3); Lymphocytes % 27.9 %; Mean Corpuscular HGB Conc 32.5 g/dL (30.0-36.0); Mean Corpuscular Hemoglobin 29.8 pg (28.0-34.0); Mean Corpuscular Volume 91.7 fL (81-99); Mean Platelet Volume 12.4 fL (7.4-10.4); Monocytes # 0.3 10^3/uL (0.2-0.9); Monocytes % 8.4 %; Neutrophils # 2.14 10^3/uL (1.8-7.7); Neutrophils % 62.2 %; Nucleated Red Blood Cells % 0 %; Platelet Count 55 10^3/cmm (130-400); Red Blood Count 3.15 10^6/uL (4.1-5.3); White Blood Count 3.4 10^3/uL (4.0-10.0)
--- NOTE | 2020-03-27 15:54 | PC.NURSE ---
Pt stated she was still unable to provide a urine specimen. In and out cath performed. PT placed in new brief.
[2020-03-27 16:08] LABS: Alanine Aminotransferase 21 U/L (0-33); Albumin Level 3.2 g/dL (3.5-5.2); Alkaline Phosphatase 78 IU/L (35-105); Anion Gap 18.9 (5-19); Aspartate Amino Transferase 21 U/L (0-32); Blood Urea Nitrogen 50 mg/dL (8-23); C Reactive Protein 48.8 mg/L (0.0-4.9); Calcium 8.6 mg/dL (8.5-10.5); Carbon Dioxide 18 mmol/L (22-29); Chloride 108 mmol/L (98-107); Globulin 3.3 g/dL (1.3-4.6); Glomerular Filtration Rate 40.5 mL/min (90-130); Glucose 154 mg/dL (65-115); Lactate (Lactic Acid level) 1.3 mmol/L (0.5-2.2); Lipase 33 U/L (13-60); Osmolality Calculated 308 mOsm/kg (285-295); Potassium 3.9 mmol/L (3.5-5.1); Sodium 141 mmol/L (136-145); Total Bilirubin 0.2 mg/dL (0.15-1.2); Total Protein 6.5 g/dL (6.6-8.7)
[2020-03-27 16:30] LABS: Urine Appearance Hazy (CLEAR); Urine Color Yellow (Yellow); pH Urine 5 (5-7)
[2020-03-27 16:31] LABS: Add Urine Microscopic? YES; Bilirubin Urine Neg (Negative); Blood Urine 2+ (Negative); Glucose Urine UA Trace (Normal); Ketones Urine 1+ (Negative); Leukocyte Esterase Urine Negative (Negative); Nitrate Urine Negative (Negative); Protein Urine 3+ (Negative); Specific Gravity, Urine 1.015 (1.005-1.030); Urobilinogen Urine Norm (Negative)
[2020-03-27 16:38] LABS: Bacteria Urine 1+ /hpf; Squamous Epithelial Cell Urine 0-4 /hpf (0-5); WBC Urine 40-55 /hpf (0-5)
[2020-03-27 16:39] LABS: Add Urine Culture? Yes; Amorphous Sediment Urine 2+ /hpf; Hyaline Casts Urine 0-4 /lpf
--- NOTE | 2020-03-27 16:55 | CTR_ITS ---
PROCEDURE INFORMATION: Exam: CT Abdomen And Pelvis Without Contrast Exam date and time: 03/27/2020 5:31 PM Age: 70 years old Clinical indication: Nausea and vomiting; Prior surgery; Surgery type: Gb, tubal, hernia TECHNIQUE: Imaging protocol: Computed tomography of the abdomen and pelvis without contrast. Radiation optimization: All CT scans at this facility use at least one of these dose optimization techniques: automated exposure control; mA and/or kV adjustment per patient size (includes targeted exams where dose is matched to clinical indication); or iterative reconstruction. COMPARISON: CT abdomen pelvis w con* [id number] 06/19/2017 7:26 PM RADIATION DOSE METRICS: Total DLP (mGy-cm): 1304.3 FINDINGS: Lungs: Limited assessment lung bases reveals patchy bilateral predominantly peripheral ground-glass interstitial lung disease. Consideration might be given to Covid-19 pneumonitis. Liver: Unremarkable. No mass. Gallbladder and bile ducts: Status post cholecystectomy. Pancreas: Moderate atrophy of the pancreas. No visible pancreatic ductal ectasia. Spleen: Unremarkable. No splenomegaly. Adrenals: Normal. No mass. Kidneys and ureters: Unremarkable. No hydronephrosis. Stomach and bowel: Diverticulosis coli without visible evidence of acute diverticulitis. Nonobstructive bowel pattern. No visible adynamic or reactive ileus. Appendix: The appendix is not visualized presumed surgically absent. Intraperitoneal space: Unremarkable. No free air. No significant fluid collection. Vasculature: Coronary artery disease. Calcified mitral annulus. The abdominal aorta is nonaneurysmal. Advanced arterial sclerotic disease. Lymph nodes: Unremarkable. No enlarged lymph nodes. Urinary bladder: Unremarkable as visualized. Reproductive: Suspected uterine leiomyomata. Bones/joints: Mild old compression deformity T10. No visible active osseous pathology. Osteopenia. Soft tissues: Obesity. CT/CT abdomen pelvis wo con [id number] IMPRESSION: 1. Limited assessment lung bases reveals patchy bilateral predominantly peripheral ground-glass interstitial lung disease. Consideration might be given to Covid-19 pneumonitis. 2. No visible acute abdominal or pelvic pathologic process. Radiation Dose CTDIVOL = (mGy): DLP = 1304.3 (mGy-cm)
[2020-03-27 17:29] LABS: Reflex Lactate Order REFLEX LACTIC ORDERD
--- NOTE | 2020-03-27 19:03 | PC.NURSE ---
Report received from KIM Aguayo and KIM Alvarez and care transferred to KIM Mclain
== END 2020-03-27 21:05 ==
PROVIDERS: Emergency Provider Family Medicine; PCP Family Medicine
DX: R11.2 Nausea with vomiting, unspecified (principal); E86.0 Dehydration; U07.1 COVID-19; Z79.02 Long term (current) use of antithrombotics/antiplatelets; Z79.82 Long term (current) use of aspirin; Z79.4 Long term (current) use of insulin; Z86.73 Personal history of transient ischemic attack (TIA), and cerebral infarction without residual deficits; I25.10 Atherosclerotic heart disease of native coronary artery without angina pectoris; E11.9 Type 2 diabetes mellitus without complications; E78.5 Hyperlipidemia, unspecified; I10 Essential (primary) hypertension; Z79.899 Other long term (current) drug therapy
CPT/HCPCS: 12345; 74176; 80053; 81001; 83605; 83690; 85025; 86140; 87086; 87106; 96361; 96374; 99284; J2405; J7030

== ENCOUNTER 2020-04-05 09:50 | Observation (INO) | payer MEDICARE, MEDICAID, SELFPAY ==
[2020-04-05] VITALS (8 sets, daily range): BP systolic 112–130; BP diastolic 39–79; PULSE 71–76; RESP 16–20; TEMP 36.4–37; O2SAT 97–100; BMI 45.3
--- NOTE | 2020-04-05 10:07 | ED_ITS ---
HPI - Altered Mental Status General: Chief Complaint: Altered Mental Status Stated Complaint: AMS Time Seen by Provider: 04/05/20 09:54 History of Present Illness: HPI narrative: 70-year-old female who presents emergency room with what is described as altered mental status blood sugar was low at the home so she was given a cookie which raised her blood sugar she is feeling much better she denies any complaints this time she does have an open wound on the lateral aspect of her right ankle where some hardware is removed previously. She also recently had been diagnosed with COVID near as we can tell it looks like it was probably somewhere in the range of 3-1/2 to 4 weeks ago but were having fine difficult time finding specific documentation of her test dating him. At this time she has no COVID symptoms no cough no shortness of breath no diarrhea no fever. Her altered mental status appears to have been transient and is already resolved after improving her blood sugar. MD complaint: altered mental status and weakness Onset (ago): hour(s) Severity: moderate Consistency of symptoms: Waxing and Waning Context: diabetes Associated symptoms: Deny auditory hallucinations, visual hallucinations, delusions, depression, homicidal ideation, racing thoughts or suicidal ideation Treatments prior to arrival: glucose Review of Systems Const: Denies: fever(s), chills, body aches, change in appetite, fatigue or malaise ENMT: Denies: throat pain, ear or mastoid pain, nasal discharge or nasal congestion Card: Denies: chest pain, edema, dyspnea on exertion or orthopnea Resp: Denies: dyspnea, productive cough or non-productive cough GI: Denies: abdominal pain, nausea, vomiting, hematemesis, coffee ground emesis, diarrhea, constipation, bloating, hematochezia or melena : Denies: flank pain, difficulty voiding, dysuria, urinary frequency or urinary urgency Skin/Breast: Denies: rash or pruritus Psych: Denies: depression, visual hallucinations, auditory hallucinations, suicidal ideation or homicidal ideation PFS ED PFSH: Medical History Ankle syndesmosis disruption Cerebrovascular accident Chronic kidney disease Closed trimalleolar fracture of ankle Coronary artery disease Cystitis Depression Diabetes Heart murmur Hyperlipidemia Hypertension Obesity Restless leg syndrome Surgical History History of cholecystectomy History of hernia repair History of tubal ligation Family History Other Diabetes Social History Smoking and tobacco status: never smoked Alcohol intake: never Household members: other Details: Lives with son and boyfriend Housing: House Physical Exam Const: COMMON NORMALS: no acute distress GENERAL APPEARANCE: cooperative and comfortable ORIENTATION/CONSCIOUSNESS: Yes awake, Yes oriented to person, Yes oriented to place and Yes oriented to time HENMT: COMMON NORMALS: normocephalic, atraumatic and hearing grossly normal bilaterally HEAD & SCALP: normocephalic and atraumatic Eye: COMMON NORMALS: Equal, round and reactive pupils present, EOMs intact bilaterally, conjunctivae normal and no scleral icterus CONJUNCTIVA: Yes conjunctivae normal PUPIL: Yes Equal, round and reactive pupils present Neck/C-Spine: COMMON NORMALS: full ROM, no lymphadenopathy, supple and no JVD Lymph: LYMPHATIC: no lymphadenopathy noted and no lymphedema noted Resp: COMMON NORMALS: normal respiratory effort, No retractions, No use of accessory muscles and clear to auscultation bilaterally AUSCULTATION: clear to auscultation bilaterally Cardio: COMMON NORMALS: no JVD, regular rate, regular rhythm and No murmurs present (Cardio) RATE: regular rate RHYTHM: regular rhythm GI: COMMON NORMALS: Soft to palpation and No hepatosplenomegaly present A USCULTATION: Yes normoactive bowel sounds PALPATION: Yes Soft to palpation, No Tenderness to palpation present (GI), No Guarding due to palpation present (GI) and Yes No hepatosplenomegaly present Extremity: COMMON NORMALS: normal to inspection, capillary refill normal, no clubbing, cyanosis or edema, no calf tenderness and no pedal edema Neuro: SENSORIUM/ORIENTATION: Yes oriented to person, Yes oriented to place and Yes oriented to time Psych: THOUGHT CONTENT: No delusions Skin: NARRATIVE SKIN EXAM: Open wound on the lateral aspect of the right ankle from where hardware fixation was taken down. Course Vital Signs: Vital signs: Vital Signs Temperature 98.5 F 04/06/20 15:39 Pulse Rate 96 04/06/20 15:39 Respiratory Rate 18 04/06/20 15:39 Blood Pressure 153/62 04/06/20 15:39 Pulse Oximetry 100 04/06/20 15:39 MDM - Altered Mental Status MDM Narrative: Medical decision making narrative: Glucose stabilized patient still maintains some level of confusion and concern about her acute kidney injury as well as the open wound we will go ahead and admit her to observation discussed with Dr. Salas Lab Data: Labs: Lab Results 04/05/20 04/05/20 04/05/20 Range/Units 10:11 10:20 10:20 WBC 11.7 H (4.0-10.0) 10^3/ uL RBC 3.20 L (4.1-5.3) 10^6/u L Hgb 9.6 L (11.5-15.3) g/dL Hct 30.0 L (37.0-47.0) % MCV 93.8 (81-99) fL MCH 30.0 (28.0-34.0) pg MCHC 32.0 (30.0-36.0) g/dL RDW 14.9 (12.1-15.1) % Plt Count 292 (130-400) 10^3/c mm MPV 11.1 H (7.4-10.4) fL Neut % (Auto) 64.0 % Lymph % (Auto) 26.9 % [place] % (Auto) 6.7 % Eos % (Auto) 1.5 % Baso % (Auto) 0.3 % Neut # (Auto) 7.46 (1.8-7.7) 10^3/u L Lymph # (Auto) 3.1 (0.8-4.8) 10^3/u L [place] # (Auto) 0.8 (0.2-0.9) 10^3/u L Eos # (Auto) 0.2 (0.0-0.8) 10^3/u L Baso # (Auto) 0.0 (0.0-0.1) 10^3/u L Nucleated RBC % (a uto) 0 % Nucleated RBCs # 0.0 /100WBC Sodium 137 (136-145) mmol/L Potassium 4.5 (3.5-5.1) mmol/L Chloride 106 (98-107) mmol/L Carbon Dioxide 18 L (22-29) mmol/L Anion Gap 17.5 (5-19) BUN 38 H (8-23) mg/dL Creatinine 2.7 H (0.5-0.9) mg/dL GFR Calculation 17.4 L (90-130) mL/min Glucose 136 H (65-115) mg/dL POC Glucose 95 (70-110) mg/dL Calculated Osmolal ity 295 (285-295) mOsm/k g Calcium 8.6 (8.5-10.5) mg/dL Total Bilirubin 0.3 (0.15-1.2) mg/dL AST 17 (0-32) U/L ALT 14 (0-33) U/L Alkaline Phosphata se 91 (35-105) IU/L Total Protein 6.5 L (6.6-8.7) g/dL Albumin 3.2 L (3.5-5.2) g/dL Globulin 3.3 (1.3-4.6) g/dL Urine Color (Yellow) Urine Appearance (CLEAR) Urine pH (5-7) Ur Specific Gravit y (1.005-1.030) Urine Protein (Negative) Urine Glucose (UA) (Normal) Urine Ketones (Negative) Urine Blood (Negative) Urine Nitrate (Negative) Urine Bilirubin (Negative) Urine Urobilinogen (Negative) mg/dL Ur Leukocyte [place] ase (Negative) Urine RBC (0-2) /hpf Urine WBC (0-5) /hpf Ur Squamous Epith Cells (0-5) /hpf Amorphous Sediment Urine Bacteria (NONE) /hpf 04/05/20 Range/Units 11:55 WBC (4.0-10.0) 10^3/ uL RBC (4.1-5.3) 10^6/u L Hgb (11.5-15.3) g/dL Hct (37.0-47.0) % MCV (81-99) fL MCH (28.0-34.0) pg MCHC (30.0-36.0) g/dL RDW (12.1-15.1) % Plt Count (130-400) 10^3/c mm MPV (7.4-10.4) fL Neut % (Auto) % Lymph % (Auto) % [place] % (Auto) % Eos % (Auto) % Baso % (Auto) % Neut # (Auto) (1.8-7.7) 10^3/u L Lymph # (Auto) (0.8-4.8) 10^3/u L [place] # (Auto) (0.2-0.9) 10^3/u L Eos # (Auto) (0.0-0.8) 10^3/u L Baso # (Auto) (0.0-0.1) 10^3/u L Nucleated RBC % (a uto) % Nucleated RBCs # /100WBC Sodium (136-145) mmol/L Potassium (3.5-5.1) mmol/L Chloride (98-107) mmol/L Carbon Dioxide (22-29) mmol/L Anion Gap (5-19) BUN (8-23) mg/dL Creatinine (0.5-0.9) mg/dL GFR Calculation (90-130) mL/min Glucose (65-115) mg/dL POC Glucose (70-110) mg/dL Calculated Osmolal ity (285-295) mOsm/k g Calcium (8.5-10.5) mg/dL Total Bilirubin (0.15-1.2) mg/dL AST (0-32) U/L ALT (0-33) U/L Alkaline Phosphata se (35-105) IU/L Total Protein (6.6-8.7) g/dL Albumin (3.5-5.2) g/dL Globulin (1.3-4.6) g/dL Urine Color Yellow (Yellow) Urine Appearance Turbid (CLEAR) Urine pH 5 (5-7) Ur Specific Gravit y 1.020 (1.005-1.030) Urine Protein 2+ H (Negative) Urine Glucose (UA) Norm (Normal) Urine Ketones Negative (Negative) Urine Blood 2+ H (Negative) Urine Nitrate Negative (Negative) Urine Bilirubin 1+ H (Negative) Urine Urobilinogen Norm (Negative) mg/dL Ur Leukocyte [place] ase 2+ H (Negative) Urine RBC 5-10 H (0-2) /hpf Urine WBC >100 H (0-5) /hpf Ur Squamous Epith Cells 0-4 H (0-5) /hpf Amorphous Sediment Not Reportable Urine Bacteria 4+ H (NONE) /hpf Discharge Plan Discharge Patient Disposition: Placed in Observation Admit Provider: Rick Salas Clinical Impression: Cystitis, Hypoglycemia, Acute kidney injury Condition: Stable Referrals: Juan José Humphrey [Primary Care Provider] - 04/13/20 11:20 am (Please follow up with Dr. Humphrey on 04/13/20 at 11:20 am. ) Jerardo Correa MD [Physician] - 04/07/20 2:45 pm Discharge Diet: Usual diet Discharge Activity: Increase activity as tolerated Patient Instructions: Cefdinir (By mouth), Insulin Aspart, Recombinant (Injection), Urinary Tract Infection in Women (DC), Diabetic Hypoglycemia (DC), Altered Mental Status (GEN) Additional Instructions: Please hold your Lantus for the next 3 days, subsequently restart if blood glucose is rising starting at 5 units daily. Please monitor your blood glucose 4 times daily. Avoid glucose levels less than 70. If glucose is low, please take sugary snacks, if persistently low, please proceed to ER. Please complete antibiotic course for urinary tract infection. Final cultures are pending, and so if there is a change in antibiotic you will be contacted. Please make sure to follow-up with your primary care doctor in office. Please follow-up with wound care clinic as recommended by Dr. Correa for reassessment of the wound and removal of sutures. Please have your primary care doctor follow-up on your kidney function due to kidney injury noted in the hospital. This is improving, however, please avoid any NSAIDs like ibuprofen, Aleve, etc. to avoid further injury. And also at this time lisinopril is discontinued until your primary care doctor can reassess your renal function, and may resume at a later date when deemed safe. Please monitor your blood pressures at home as well, and for now hold hydralazine as your blood pressures have been good. If blood pressure is rising above 140/90, resume hydralazine at that time. Avoid hypotension (blood pressures less than 90/50). If experience any fevers, again any changes in mental status, or any other concerning symptoms please proceed to the emergency department without delay. Discharge Date/Time: 04/05/20 16:06 Coding Level of Care Code ED Metal Trim Erector for Geovanna Maria
--- NOTE | 2020-04-05 10:08 | ECG_ITS ---
[facility] Test Date: 2020-04-05 Pat Name: Lynnette Ferreira Department: Room: Gender: Female Service Tester: : 1950 Requested By: Jackson Harvey Order Number: [id number] Heri MD: Serafin Preston M.D. Measurements Intervals [place] Rate: 72 P: 47 ND: 174 QRS: 23 QRSD: 94 T: -69 QT: 383 QTc: 420 Interpretive Statements SINUS RHYTHM ST DEVIATION AND MODERATE T-WAVE ABNORMALITY, CONSIDER INFERIOR ISCHEMIA [-0.1+ mV T WAVE IN II/aVF] Compared to ECG 08/23/2019 15:19:26 No significant changes Electronically Signed On 04-05-2020 21:32:29 CDT by Serafin Preston M.D. [id number]
--- NOTE | 2020-04-05 10:08 | XR_ITS ---
WS: [id number] PORTABLE CHEST HISTORY: dyspnea/cough COMPARISON: 08/23/2019 Mild RIGHT rotation of the chest. Minimal interstitial thickening. No dense consolidation or pneumonia. No pleural effusion or pneumoth orax. Cardiac size: Normal. Mediastinum/Aorta: Mildly ectatic aorta. Thoracic spondylosis. XR/XR chest 1V portable [id number] IMPRESSION: Very minimal interstitial thickening. No pneumonia.
[2020-04-05 10:14] LABS: Glucose Point of Care 95 mg/dL (70-110)
--- NOTE | 2020-04-05 10:20 | DCPLANNER ---
residential care facility manager was asked to schedule a follow up appointment for patient with [facility]. residential care facility manager called [facility], spoke with Mago, a follow up appointment was scheduled for Friday, April 07, 2020 kim 2:[address] Rouse. residential care facility manager informed ED physician and patient of the scheduled appointment.
[2020-04-05 10:29] LABS: Basophils % 0.3 %; Eosinophils # 0.2 10^3/uL (0.0-0.8); Eosinophils % 1.5 %; Hemoglobin 9.6 g/dL (11.5-15.3); Lymphocytes # 3.1 10^3/uL (0.8-4.8); Lymphocytes % 26.9 %; Mean Corpuscular Volume 93.8 fL (81-99); Mean Platelet Volume 11.1 fL (7.4-10.4); Monocytes # 0.8 10^3/uL (0.2-0.9); Monocytes % 6.7 %; Neutrophils # 7.46 10^3/uL (1.8-7.7); Nucleated Red Blood Cells % 0 %; Platelet Count 292 10^3/cmm (130-400); Red Cell Distribution Width 14.9 % (12.1-15.1); White Blood Count 11.7 10^3/uL (4.0-10.0)
[2020-04-05 10:43] LABS: Alanine Aminotransferase 14 U/L (0-33); Albumin Level 3.2 g/dL (3.5-5.2); Alkaline Phosphatase 91 IU/L (35-105); Blood Urea Nitrogen 38 mg/dL (8-23); Calcium 8.6 mg/dL (8.5-10.5); Carbon Dioxide 18 mmol/L (22-29); Chloride 106 mmol/L (98-107); Globulin 3.3 g/dL (1.3-4.6); Glomerular Filtration Rate 17.4 mL/min (90-130); Glucose 136 mg/dL (65-115); Osmolality Calculated 295 mOsm/kg (285-295); Sodium 137 mmol/L (136-145); Total Bilirubin 0.3 mg/dL (0.15-1.2); Total Protein 6.5 g/dL (6.6-8.7)
[2020-04-05 10:48] LABS: Creatinine Clr Calc Pharmacy 21.2392
[2020-04-05 10:49] LABS: Anion Gap 17.5 (5-19); Aspartate Amino Transferase 17 U/L (0-32); Potassium 4.5 mmol/L (3.5-5.1)
[2020-04-05 12:13] LABS: Add Urine Microscopic? YES; Bilirubin Urine 1+ (Negative); Blood Urine 2+ (Negative); Glucose Urine UA Norm (Normal); Ketones Urine Negative (Negative); Leukocyte Esterase Urine 2+ (Negative); Nitrate Urine Negative (Negative); Protein Urine 2+ (Negative); Urine Appearance Turbid (CLEAR); Urine Color Yellow (Yellow); Urobilinogen Urine Norm (Negative); pH Urine 5 (5-7)
[2020-04-05 12:14] LABS: Bacteria Urine 4+ /hpf; Squamous Epithelial Cell Urine 0-4 /hpf (0-5); WBC Urine >100 /hpf (0-5)
[2020-04-05 12:16] LABS: Add Urine Culture? Yes
[2020-04-05] MEDS: sodium chloride 0.9% 1,000 ML 999 ML IV (14:59)
[2020-04-05] MEDS: cefTRIAXone 1,000 MG in sodium chloride 0.9% (plus) 50 ML 100 MG IV (14:59)
--- NOTE | 2020-04-05 15:36 | PM.HP ---
Providers/Chief Complaint Admitting Physician: Rick Salas Primary Care Provider: Juan José Humphrey Chief Complaint: AMS History of Present Illness Lynnette Ferreira is a 70 year old female was requested to be placed in observation after presenting with altered mental status with finding of low blood glucose, as low as 59 at home, and states that recently her Levemir dose was increased up to 38 units. In ER she is also noted to have urinary tract infection, leukocytosis 11.7, as well as acute kidney injury on chronic kidney disease, creatinine 2.7. She was previously admitted in this hospital discharged on 03/15 after treatment for right lower extremity wound infection, with multiorgan infection including MRSA, requiring hardware explantation from the right ankle. Subsequently was in a correction for skilled rehabilitation, and was recently discharged back home. Home health has been following up for dressing changes, and she has been also following with wound care clinic. She says has been having some small amount of drainage from the wound, but no purulence. Otherwise has been doing well. Is not weightbearing on that leg. Also reportedly several weeks ago tested positive for coronavirus and underwent and completed her quarantine of 15 days, and isolation is since been discontinued. She denies any cough, shortness of breath, chills, headache, nausea vomiting, or fever. In ER she received a bolus of IV fluid, dose of Rocephin. Her glucose improved after oral snacks currently up to 136. She denies any other recent changes in her medications, allergies. Denies any other new symptoms. Review of Systems Const: Reports: other (Altered mental status earlier today, currently resolved); Denies: fever(s), chills, body aches or malaise Eyes: Denies: change in vision or eye redness ENMT: Denies: throat pain, oral sores or ear or mastoid pain Card: Denies: chest pain, edema, pre-syncope or dyspnea on exertion Resp: Denies: dyspnea, productive cough, change in phlegm color or hemoptysis GI: Denies: abdominal pain, nausea, vomiting, diarrhea, constipation, hematochezia or melena : Denies: flank pain, urinary frequency or hematuria Musc: Denies: back pain, joint swelling or joint redness Skin/Breast: Reports: other (Healing open wound on the lateral right lower leg); Denies: rash or new lesions Neuro: Reports: confusion; Denies: headache(s), numbness in extremities, weakness in extremities, dizziness or seizure-like activity Endo: Denies: polyuria or polydipsia Prince/Lymph: Denies: easy bleeding or purpura All/Imm: Denies: urticaria, throat swelling or tongue swelling Medications/Allergies Home Medications Medication Instructions Recorded Confirmed Last Taken Type Myrbetriq 25 mg PO DAILY 08/23/19 04/05/20 02/29/20 History clopidogrel 75 mg PO DAILY 08/23/19 04/05/20 02/29/20 History diltiazem HCl [DILT-XR] 240 mg PO DAILY 08/23/19 04/05/20 02/28/20 History metformin 500 mg PO BID 08/23/19 04/05/20 02/29/20 History pravastatin 10 mg PO DAILY 08/23/19 04/05/20 02/29/20 History ropinirole 0.5 mg PO BEDTIME 08/23/19 04/05/20 02/29/20 History venlafaxine See Rx Instructions .ROUTE .COMPLEX 08/23/19 04/05/20 02/29/20 History aspirin 325 mg PO DAILY #30 tab 08/27/19 04/05/20 09/07/19 Rx oxycodone-acetaminophen [Percocet] 1 tab PO Q4H PRN 09/07/19 04/05/20 02/29/20 History cyanocobalamin (vitamin B-12) 500 mcg PO DAILY #15 tab 03/15/20 04/05/20 03/26/20 Rx [Vitamin B-12] hydralazine 10 mg PO TID #90 tab 03/15/20 04/05/20 Unknown Rx pregabalin [Lyrica] 25 mg PO BID #60 cap 03/15/20 04/05/20 Unknown Rx Levemir FlexTouch U-100 Insuln 8 unit SUBCUT QPM #3 ml 04/05/20 04/05/20 03/02/20 Rx lisinopril 5 mg PO DAILY 04/05/20 04/05/20 Unknown History nitroglycerin [Nitrostat] 0.4 mg SUBLINGUAL Q5M PRN 04/05/20 04/05/20 Unknown History Allergies Allergy/AdvReac Type Severity Reaction Status Date / Time codeine Allergy Unknown Verified 01/17/20 14:48 sulfamethoxazole Allergy Unknown Verified 01/17/20 14:48 [From Bactrim] trimethoprim [From Bactrim] Allergy Unknown Verified 01/17/20 14:48 PFSH Acute PFSH: Medical History Ankle syndesmosis disruption Cerebrovascular accident Chronic kidney disease Closed trimalleolar fracture of ankle Coronary artery disease Depression Diabetes Heart murmur Hyperlipidemia Hypertension Obesity Restless leg syndrome Surgical History History of cholecystectomy History of hernia repair History of tubal ligation Family History Other Diabetes Social History Smoking and tobacco status: never smoked Alcohol intake: never Household members: other Details: Lives with son and boyfriend Housing: House Vitals/I&O/Wt Last Vital Signs Temp 97.5 F L 04/05/20 09:52 Pulse 73 04/05/20 15:14 Resp 20 H 04/05/20 15:14 BP 122/45 04/05/20 15:14 Pulse Ox 99 04/05/20 15:14 Weight last 48 hrs Weight 105.233 kg Physical Exam Const: COMMON NORMALS: no acute distress, patient oriented x3 and alert NUTRITIONAL APPEARANCE: obese ORIENTATION/CONSCIOUSNESS: Yes awake OTHER: Cooperative. HENMT: COMMON NORMALS: oropharynx normal Neck/C-Spine: COMMON NORMALS: no JVD Resp: COMMON NORMALS: normal respiratory effort and clear to auscultation bilaterally AUSCULTATION: clear to auscultation bilaterally Cardio: COMMON NORMALS: no JVD, regular rhythm, S1 normal heart sound present, S2 normal heart sound present and No murmurs present (Cardio) RHYTHM: regular rhythm HEART SOUNDS: S1 normal heart sound present and S2 normal heart sound present GI: COMMON NORMALS: Normal to inspection, nondistended, normoactive bowel sounds present, Soft to palpation and non-tender PALPATION: Yes Soft to palpation Extremity: COMMON NORMALS: no joint enlargement and no pedal edema OTHER: Right lateral lower leg with healing open wound following hardware explantation during prior admission, no surrounding cellulitis, I do not see any purulent drainage. Wound appears to be closing gradually. Currently open wound is about 4 cm in length, with some exposure of subcutaneous tissue, possibly tendon, healthy appearing granulation tissue. Neuro: COMMON NORMALS: patient oriented x3 and moves all extremities Skin: COMMON NORMALS: no rashes or lesions noted GENERAL SKIN EXAM: no rashes or lesions noted Data : 04/05/20 10:20 04/05/20 10:20 A&P Assessment and plan (1) Altered mental status: Transient altered mental status appears resolved. Most likely related to hypoglycemia, but also is having urinary tract infection. Levemir dose was recently increased up to 38 units. For now hold. SSI alone. Continue oral diet. Started on antibiotics for UTI. Monitor mental status under observation given multiple comorbidities, recent complicated infections requiring prolonged antibiotic treatment, as well as multiple psychiatric medications in the setting of acute kidney injury. Will request pharmacy adjust her psychiatric medication dosing to creatinine clearance. Status: Acute (2) Hypoglycemia: Resolved. For now hold Levemir, will need to adjust dose. SSI. Consistent carbohydrate diet. Status: Acute (3) UTI (urinary tract infection): Received Rocephin. We will continue with cefdinir. Follow urine culture. Status: Acute (4) Acute kidney injury: Acute kidney injury on chronic kidney disease. Creatinine 2.7, baseline around 1.5. This may be prerenal, she is not hypotensive but blood pressure is soft. This may be related to number of medical that she is taking including lisinopril, diltiazem. Hold for now. Monitor blood pressure. Received fluid challenge in ER, hold additional IV fluids for now. Status: Acute (5) Ulcer of right lower extremity: This appears to be healing well. Previously infected wound, previously also with ankle hardware which had to be removed on 03/07. Discharged on 03/15, underwent 21 days of treatment with Cipro and linezolid. 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 Previously was on 35. I do see that she was discharged on 8 units during last admission. For now hold. Sliding scale insulin. Consistent carbohydrate diet. Monitor for hypoglycemia. History of CVA Chronic kidney disease CAD Depression HTN HLD Obesity RLS Other chronic conditions noted Attestations Medical Necessity Statement*: Place in observation. Coding Level of Care Code Acute Computer Service Technician for Geovanna Fwd Diagnoses Altered mental status R41.82 Hypoglycemia E16.2 UTI (urinary tract infection) N39.0 Acute kidney injury N17.9 Ulcer of right lower extremity L97.915 Non-pressure ulcer stage: with muscle involvement without evidence of necrosis
--- NOTE | 2020-04-05 17:00 | PC.PHAR ---
Dr. HOLLOWAY contacted pharmacy and asked me about adjusting Effexor, Risperdal, Lyrica, Myrbetriq for renal function due to possible decrease in cognitive function. Patient SCr currently 2.7 (CrCl 21) Effexor 150qam 75 qpm adjusted to 75 qam 37.5 qpm per recommendation - Renal impairment, mild to moderate: Decrease usual dosage by 25% to 50% risperdal no adjustment required at 0.5mg bedtime - (Oral) Renal impairment (Severe; CrCl less than 30 mL/min): Initial, 0.5 mg orally twice daily; increase dose in increments of no more than 0.5 mg twice a day, with increases to dosages above 1.5 mg twice a day occurring at intervals of at least 1 week Lyrica - No adjustment required at 25mg bid -Immediate-release) Renal impairment (CrCl 15 to 30 mL/min) in adults: 25 to 150 mg/day given once daily or in 2 divided doses Myrbetriq - Nonformulary but no adjustment needed at 25 mg qd - Renal impairment, CrCl 15 to 29 mL/min: Do not exceed 25 mg orally daily
[2020-04-05 17:21] LABS: Glucose Point of Care 66 mg/dL (70-110)
[2020-04-05] MEDS: heparin 5,000 unit/mL INJ 1 mL 5000 UNIT SUBCUT (17:24)
[2020-04-05] MEDS: cefdinir 300 MG CAPSULE PO (17:24)
[2020-04-05] MEDS: pregabalin 25 mg Capsule PO (17:29)
[2020-04-05] MEDS: ropinirole 1 mg Tablet 0.5 MG PO (22:54)
[2020-04-05] MEDS: venlafaxine ER (24HR) 37.5 mg Capsule PO (22:55)
[2020-04-06] VITALS: BP 104/65; PULSE 82; RESP 16; TEMP 36.6; O2SAT 98
[2020-04-06] MEDS: heparin 5,000 unit/mL INJ 1 mL 5000 UNIT SUBCUT ×2 (01:15→08:56)
[2020-04-06 04:00] VITALS: BP 111/65; PULSE 87; RESP 20; TEMP 36.9; O2SAT 96
[2020-04-06 05:42] LABS: Basophils % 0.4 %; Eosinophils # 0.2 10^3/uL (0.0-0.8); Hematocrit 26.5 % (37.0-47.0); Hemoglobin 8.4 g/dL (11.5-15.3); Lymphocytes # 2.9 10^3/uL (0.8-4.8); Lymphocytes % 38.5 %; Mean Corpuscular HGB Conc 31.7 g/dL (30.0-36.0); Mean Corpuscular Hemoglobin 29.8 pg (28.0-34.0); Mean Platelet Volume 10.8 fL (7.4-10.4); Monocytes # 0.5 10^3/uL (0.2-0.9); Monocytes % 6.7 %; Neutrophils # 3.88 10^3/uL (1.8-7.7); Nucleated Red Blood Cells % 0 %; Platelet Count 265 10^3/cmm (130-400); Red Blood Count 2.82 10^6/uL (4.1-5.3); Red Cell Distribution Width 15.1 % (12.1-15.1); White Blood Count 7.5 10^3/uL (4.0-10.0)
[2020-04-06 06:26] LABS: Anion Gap 14.6 (5-19); Blood Urea Nitrogen 35 mg/dL (8-23); Calcium 8.4 mg/dL (8.5-10.5); Carbon Dioxide 19 mmol/L (22-29); Chloride 113 mmol/L (98-107); Glomerular Filtration Rate 23.3 mL/min (90-130); Glucose 90 mg/dL (65-115); Osmolality Calculated 302 mOsm/kg (285-295); Potassium 4.6 mmol/L (3.5-5.1); Sodium 142 mmol/L (136-145)
[2020-04-06 06:33] LABS: Glucose Point of Care 90 mg/dL (70-110)
[2020-04-06 07:26] VITALS: BP 108/59; PULSE 96; RESP 17; TEMP 37; O2SAT 96
[2020-04-06] MEDS: venlafaxine ER (24HR) 75 mg Capsule PO (08:55)
[2020-04-06] MEDS: atorvastatin 40 mg Tablet 20 MG PO (08:56)
[2020-04-06] MEDS: pregabalin 25 mg Capsule PO ×2 (08:56→18:06)
[2020-04-06] MEDS: clopidogrel 75 mg Tablet PO (08:56)
[2020-04-06] MEDS: aspirin 325 mg EC Tablet PO (08:56)
[2020-04-06] MEDS: cefdinir 300 MG CAPSULE PO ×2 (08:56→18:06)
[2020-04-06 09:19] VITALS: PULSE 77; O2SAT 97
[2020-04-06 11:08] LABS: Glucose Point of Care 99 mg/dL (70-110)
[2020-04-06 11:29] VITALS: BP 127/61; PULSE 92; RESP 17; TEMP 37; O2SAT 95
[2020-04-06 15:39] VITALS: BP 153/62; PULSE 96; RESP 18; TEMP 36.9; O2SAT 100
[2020-04-06 18:02] LABS: Glucose Point of Care 190 mg/dL (70-110)
--- NOTE | 2020-04-06 20:31 | PM.DCS ---
Discharge Providers Date of Admission: 04/05/20 13:35 Date of Discharge: April 06, 2020 Attending Provider at Admission: Rick Salas Attending Provider at Discharge: Rick Salas Primary Care Provider: Juan José Humphrey Diagnoses at Discharge Discharge Diagnosis (1) Altered mental status: Status: Acute (2) Hypoglycemia: Status: Acute (3) UTI (urinary tract infection): Status: Acute Problem details: Gram-negative rods, follow final culture (4) Acute kidney injury: Status: Acute Problem details: Improving, follow-up renal function, improved for now is discontinued (5) Ulcer of right lower extremity: Status: Acute Qualifiers: Non-pressure ulcer stage: with muscle involvement without evidence of necrosis Qualified Code(s): L97.915 - 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 She was previously admitted in this hospital discharged on 03/15 after treatment for right lower extremity wound infection, with multiorgan infection including MRSA, requiring hardware explantation from the right ankle on 03/07. Subsequently was in a [facility] for [facility], and was recently discharged back home 1 day prior to admission. Home care service was set up after discharge from [facility] as I am told, and she has been following with wound care clinic for reassessment of right ankle wound. She says has been having some small amount of drainage from the wound, but no purulence. Otherwise has been doing well. Is not weightbearing on that leg. Also reportedly several weeks ago tested positive for coronavirus and underwent and completed her quarantine of 15 days, and isolation is since been discontinued. She denies any cough, shortness of breath, chills, headache, nausea vomiting, or fever. Her altered mental status had resolved, and mental status remained good. She was lucid while in the hospital. Insulin was held. Glucose improved. On discharge insulin is decreased down to 5 units, although held for 3 days to avoid additional episodes of hypoglycemia. She was counseled to continue monitor her glucose. It appears that her insulin sensitivity is significantly improving with improvement in infection in her right ankle. Right ankle is looking much better, the wound is decreasing in size. She does still have some sutures in the wound. Discussed with her orthopedic surgeon, as well as wound care surgery who will see her in office for additional reassessment and suture removal as appropriate. For urinary tract infection as discussed with her she is prescribed a course of cefdinir currently. She is growing gram-negative rods, but final culture will need to be followed up, and antibiotic may need to be adjusted depending on results. While in the hospital noted to have diarrhea, and due to recent antibiotic treatment C. difficile sample was sent and is currently pending. Her acute kidney injury is improving, creatinine while in the hospital is down to 2.1. Blood pressures initially mildly soft, improved and appears close to goal. To avoid further kidney injury for now lisinopril was discontinued. To avoid low blood pressures hydralazine for now is held. Please reassess and resume either if/when deemed safe. Physical Exam Const: COMMON NORMALS: no acute distress, patient oriented x3 and alert NUTRITIONAL APPEARANCE: obese ORIENTATION/CONSCIOUSNESS: Yes awake OTHER: She reports feeling better. Remains lucid. Strong enough about returning home, and is agreeable with follow-up as recommended for her. HENMT: COMMON NORMALS: oropharynx normal Neck/C-Spine: COMMON NORMALS: no JVD Resp: COMMON NORMALS: normal respiratory effort and clear to auscultation bilaterally AUSCULTATION: clear to auscultation bilaterally Cardio: COMMON NORMALS: no JVD, regular rhythm, S1 normal heart sound present, S2 normal heart sound present and No murmurs present (Cardio) RHYTHM: regular rhythm HEART SOUNDS: S1 normal heart sound present and S2 normal heart sound present GI: COMMON NORMALS: Normal to inspection, nondistended, normoactive bowel sounds present, Soft to palpation and non-tender PALPATION: Yes Soft to palpation Extremity: COMMON NORMALS: no joint enlargement and no pedal edema OTHER: Right lateral lower leg with healing open wound following hardware explantation during prior admission, no surrounding cellulitis, no purulent drainage. Wound appears to be closing gradually and appears much better than during last admission. Currently open wound is about 4 cm in length, with some exposure of subcutaneous tissue, possibly tendon, healthy appearing granulation tissue. Neuro: COMMON NORMALS: patient oriented x3 and moves all extremities SENSORIUM/ORIENTATION: Yes alert Skin: COMMON NORMALS: no rashes or lesions noted GENERAL SKIN EXAM: no rashes or lesions noted Discharge Data Data Completed and Pending: Completed Studies During Hospitalization Category Date Time Status XR chest 1V igor ble [id number] Stat Exams 04/05/20 10:08 Completed Pending at discharge Category Date Time Status CDIFF [Clostridio ides Difficile PCR ] Routine Lab 04/06/20 14:30 Received Urine Culture Sta t Lab 04/05/20 11:55 Results Labs from last 24 hours 04/06/20 04/06/20 04/06/20 16:47 10:49 06:11 WBC RBC Hgb Hct MCV MCH MCHC RDW Plt Count MPV Neut % (Auto) Lymph % (Auto) [place] % (Auto) Eos % (Auto) Baso % (Auto) Neut # (Auto) Lymph # (Auto) [place] # (Auto) Eos # (Auto) Baso # (Auto) Nucleated RBC % (a uto) Nucleated RBCs # Sodium Potassium Chloride Carbon Dioxide Anion Gap BUN Creatinine GFR Calculation Glucose POC Glucose 190 99 90 Calculated Osmolal ity Calcium 04/06/20 04/06/20 04:42 04:42 WBC 7.5 RBC 2.82 L Hgb 8.4 L Hct 26.5 L MCV 94.0 MCH 29.8 MCHC 31.7 RDW 15.1 Plt Count 265 MPV 10.8 H Neut % (Auto) 52.0 Lymph % (Auto) 38.5 [place] % (Auto) 6.7 Eos % (Auto) 2.0 Baso % (Auto) 0.4 Neut # (Auto) 3.88 Lymph # (Auto) 2.9 [place] # (Auto) 0.5 Eos # (Auto) 0.2 Baso # (Auto) 0.0 Nucleated RBC % (a uto) 0 Nucleated RBCs # 0.0 Sodium 142 Potassium 4.6 Chloride 113 H Carbon Dioxide 19 L Anion Gap 14.6 BUN 35 H Creatinine 2.1 H GFR Calculation 23.3 L Glucose 90 POC Glucose Calculated Osmolal ity 302 H Calcium 8.4 L Vitals: Last Vital Signs Temp 98.5 F 04/06/20 15:39 Pulse 96 04/06/20 15:39 Resp 18 04/06/20 15:39 BP 153/62 04/06/20 15:39 Pulse Ox 100 04/06/20 15:39 Discharge Plan Discharge Patient Disposition: Home Condition: Stable Prescriptions: New Novolog U-100 Insulin aspart 100 unit/mL Solution See Rx Instructions .ROUTE .COMPLEX Qty: 10 RF: 0 cefdinir 300 mg Capsule 300 mg PO BID Qty: 10 RF: 0 Continued metformin 500 mg tablet 500 mg PO BID RF: 0 diltiazem HCl [DILT-XR] 240 mg capsule,ext.rel 24h degradable 240 mg PO DAILY RF: 0 venlafaxine 150 mg capsule,extended release 24hr See Rx Instructions .ROUTE .COMPLEX RF: 0 Hold Instructions: Resume on 04/08/20. clopidogrel 75 mg tablet 75 mg PO DAILY RF: 0 pravastatin 10 mg tablet 10 mg PO DAILY RF: 0 ropinirole 0.5 mg tablet 0.5 mg PO BEDTIME RF: 0 Hold Instructions: Resume on 03/29/20. Myrbetriq 25 mg tablet extended release 24 hr 25 mg PO DAILY RF: 0 Hold Instructions: Resume on 03/29/20. aspirin 325 mg Tablet,Delayed Release (Dr/Ec) 325 mg PO DAILY Qty: 30 RF: 0 oxycodone-acetaminophen [Percocet] 5-325 mg Tablet 1 tab PO Q4H PRN (Reason: Pain) RF: 0 cyanocobalamin (vitamin B-12) [Vitamin B-12] 1,000 mcg Tablet 500 mcg PO DAILY Qty: 15 RF: 0 pregabalin [Lyrica] 25 mg Capsule 25 mg PO BID Qty: 60 RF: 0 Nitrostat 0.4 mg Tablet, Sublingual 0.4 mg SUBLINGUAL Q5M PRN (Reason: Chest Pain) RF: 0 Changed Levemir FlexTouch U-100 Insuln 100 unit/mL (3 mL) Insulin Pen 8 unit SUBCUT QPM Qty: 3 RF: 0 Held hydralazine 10 mg Tablet 10 mg PO TID Qty: 90 RF: 0 Hold Instructions: Resume on 04/20/20. Discontinued lisinopril 5 mg Tablet 5 mg PO DAILY RF: 0 Discharge Orders: Discharge Order (Routine); Ordered 04/06/20 Ordered By: Rick Salas Referrals: Juan José Humphrey [Primary Care Provider] - 04/13/20 11:20 am (Please follow up with Dr. Humphrey on 04/13/20 at 11:20 am. ) Jerardo Correa MD [Physician] - 04/07/20 2:45 pm Discharge Diet: Usual diet Discharge Activity: Increase activity as tolerated Patient Instructions: Cefdinir (By mouth), Insulin Aspart, Recombinant (Injection), Urinary Tract Infection in Women (DC), Diabetic Hypoglycemia (DC), Altered Mental Status (GEN) Activity Restrictions/Additional Instructions: Please hold your Lantus for the next 3 days, subsequently restart if blood glucose is rising starting at 5 units daily. Please monitor your blood glucose 4 times daily. Avoid glucose levels less than 70. If glucose is low, please take sugary snacks, if persistently low, please proceed to ER. Please complete antibiotic course for urinary tract infection. Final cultures are pending, and so if there is a change in antibiotic you will be contacted. Please make sure to follow-up with your primary care doctor in office. Please follow-up with wound care clinic as recommended by Dr. Correa for reassessment of the wound and removal of sutures. Please have your primary care doctor follow-up on your kidney function due to kidney injury noted in the hospital. This is improving, however, please avoid any NSAIDs like ibuprofen, Aleve, etc. to avoid further injury. And also at this time lisinopril is discontinued until your primary care doctor can reassess your renal function, and may resume at a later date when deemed safe. Please monitor your blood pressures at home as well, and for now hold hydralazine as your blood pressures have been good. If blood pressure is rising above 140/90, resume hydralazine at that time. Avoid hypotension (blood pressures less than 90/50). If experience any fevers, again any changes in mental status, or any other concerning symptoms please proceed to the emergency department without delay. Discharge Attestations Time Spent in Discharge Care*: greater than 30 min Status at Discharge: Cognitive status at discharge: cognitively intact, Behavioral status at discharge: cooperative, Quality Metrics Clinical Quality Measures During this hospital stay, did patient experience: None Coding Level of Care Code Acute Surgical Manager for [facility] Fwd Diagnoses Altered mental status R41.82 Hypoglycemia E16.2 UTI (urinary tract infection) N39.0 Acute kidney injury N17.9 Ulcer of right lower extremity L97.915 Non-pressure ulcer stage: with muscle involvement without evidence of necrosis
[2020-04-08 03:37] LABS: Glucose Point of Care 115 mg/dL (70-110)
--- NOTE | 2020-04-18 14:22 | DCPLANNER ---
Patient had a follow up appointment scheduled for 04.07.20 with Wound Care - patient did not attend appointment.
== END 2020-04-06 19:30 | disposition home or self-care (01) ==
LOC: ER 13:04 → MEDSURG 13:54
PROVIDERS: Family Medicine; Admitting Provider Internal Medicine; PCP Family Medicine; Visit Provider Internal Medicine
DX: R41.82 Altered mental status, unspecified (principal); N39.0 Urinary tract infection, site not specified; N17.9 Acute kidney failure, unspecified; L97.519 Non-pressure chronic ulcer of other part of right foot with unspecified severity; E11.649 Type 2 diabetes mellitus with hypoglycemia without coma; Z86.73 Personal history of transient ischemic attack (TIA), and cerebral infarction without residual deficits; F32.9 Major depressive disorder, single episode, unspecified; I25.10 Atherosclerotic heart disease of native coronary artery without angina pectoris; E11.22 Type 2 diabetes mellitus with diabetic chronic kidney disease; I12.9 Hypertensive chronic kidney disease with stage 1 through stage 4 chronic kidney disease, or unspecified chronic kidney disease; N18.9 Chronic kidney disease, unspecified; Z79.82 Long term (current) use of aspirin
CPT/HCPCS: 12345; 36415; 36416; 71045; 80048; 80053; 81001; 82962; 85025; 87077; 87086; 87186; 87493; 93005; 96365; 96372; 99283; 99285; G0378; J0696; J1644; J1815; J7030

== ENCOUNTER 2020-04-10 10:57 | Inpatient (IN) | payer MEDICARE, MEDICAID, SELFPAY ==
[2020-04-10] VITALS (18 sets, daily range): BP systolic 113–168; BP diastolic 60–80; PULSE 76–84; RESP 14–18; TEMP 36.6–37.3; O2SAT 95–100; BMI 45.3
--- NOTE | 2020-04-10 11:11 | ED_ITS ---
HPI - Altered Mental Status General: Chief Complaint: Altered Mental Status Stated Complaint: LETHARGIC Time Seen by Provider: 04/10/20 10:59 History of Present Illness: HPI narrative: This patient is a 70-year-old female who is in the ER for the third time this week. She presents with altered mental status and refusing to take medications. She was diagnosed with a UTI on her last visit and her cultures have grown E. coli. When I asked her if she knows why she is here she says no. I asked her if she is taking her medications and she said that no one offered them to her. EMS confirms that they witnessed the family trying to give her medicine. I asked the patient if she was depressed and she said no. I asked her if she wanted to and she said no. I asked her if she would take medication if I gave her to her and she said yes. Nurses that have seen her on prior visits tell me that she has refused medicines on prior visits. She is not able to tell me why she is here or what day it is. She had a ankle surgery with hardware placed recently. [facility] a [facility] for [facility] and tested positive for COVID on 21 March. She is been released from quarantine. complaint: altered mental status Onset (ago): unknown Severity: moderate Review of Systems General: Reports: ROS unobtainable due to mental status [facility] ED PFSH: Medical History (Updated 04/14/20 @ 00:03 by ) Ankle syndesmosis disruption Cerebrovascular accident Chronic kidney disease Closed bimalleolar fracture of right ankle Closed trimalleolar fracture of ankle Coronary artery disease COVID-19 Cystitis Depression Diabetes Fracture of distal end of tibia with fibula Heart murmur Hyperlipidemia Hypertension Obesity Restless leg syndrome Surgical History (Updated 04/14/20 @ 00:03 by ) History of cholecystectomy History of hernia repair History of tubal ligation Status post open reduction with internal fixation (ORIF) of fracture of ankle Family History Other Diabetes Social History Smoking and tobacco status: never smoked Alcohol intake: never Household members: other Details: Lives with son and boyfriend Housing: House Physical Exam Const: COMMON NORMALS: no acute distress, no limitations and alert GENERAL APPEARANCE: cooperative and comfortable NUTRITIONAL APPEARANCE: obese morbidly obese HENMT: HEAD & SCALP: normal to inspection FACE & SINUS: normal facial exam Eye: GENERAL EYE: appearance normal, both eyes and all related structures Neck/C-Spine: COMMON NORMALS: supple, no meningeal signs and no JVD Chest: COMMONS NORMALS: normal inspection of the chest Resp: COMMON NORMALS: normal respiratory effort, No use of accessory muscles and clear to auscultation bilaterally AUSCULTATION: clear to auscultation bilaterally Cardio: COMMON NORMALS: no JVD, regular rate, regular rhythm and No murmurs present (Cardio) RATE: regular rate RHYTHM: regular rhythm GI: COMMON NORMALS: Normal to inspection, nondistended, normoactive bowel sounds present, Soft to palpation and non-tender INSPECTION: Yes normal to inspection AUSCULTATION: Yes normoactive bowel sounds PALPATION: Yes Soft to palpation Back/Pelvis: COMMON NORMALS: thoracic and lumbar spine normal to inspection Extremity: COMMON NORMALS: normal to inspection Neuro: LAITH COMA SCALE: document GCS findings [place]urtis coma scale eye opening: Spontaneous Laith coma scale verbal response: Confused [place] coma scale motor response: Obey commands Laith coma scale total score: 14 COMMON NORMALS: moves all extremities, no focal motor deficits and no sensory deficits noted SENSORIUM/ORIENTATION: Yes alert MENINGEAL SIGNS: Yes no meningeal signs Psych: COMMON NORMALS: mental status grossly normal, cooperative and normal affect Skin: COMMON NORMALS: no rashes or lesions noted and turgor normal GENERAL SKIN EXAM: no rashes or lesions noted and turgor normal Course ED course: This patient is here with some noncompliance issues. She has a bad UTI and has not been taking her antibiotics for it. Is not clear exactly the reasons for this. She denies suicidal ideation or depression although clinically she certainly appears depressed. She will be admitted to the [facility] for IV antibiotics and management of her other electrolyte issues. Vital Signs: Vital signs: Vital Signs Temperature 98.1 F 04/13/20 16:00 Pulse Rate 72 04/13/20 16:00 Respiratory Rate 18 04/13/20 16:00 Blood Pressure 146/83 04/13/20 16:00 Pulse Oximetry 98 04/13/20 16:00 MDM - Altered Mental Status Lab Data: Labs: Lab Results 04/10/20 04/10/2020 Range/Units 11:32 11:32 12:30 WBC (4.0-10.0) 10^3/ uL RBC (4.1-5.3) 10^6/u L Hgb (11.5-15.3) g/dL Hct (37.0-47.0) % MCV (81-99) fL MCH (28.0-34.0) pg MCHC (30.0-36.0) g/dL RDW (12.1-15.1) % Plt Count (130-400) 10^3/c mm MPV (7.4-10.4) fL Neut % (Auto) % Lymph % (Auto) % Thayer % (Auto) % Eos % (Auto) % Baso % (Auto) % Neut # (Auto) (1.8-7.7) 10^3/u L Lymph # (Auto) (0.8-4.8) 10^3/u L Thayer # (Auto) (0.2-0.9) 10^3/u L Eos # (Auto) (0.0-0.8) 10^3/u L Baso # (Auto) (0.0-0.1) 10^3/u L Nucleated RBC % (a uto) % Nucleated RBCs # /100WBC PT (12.1-14.9) SECO NDS INR (0.8-1.2) D-Dimer (0-0.59) ug/mIFE U Sodium (136-145) mmol/L Potassium (3.5-5.1) mmol/L Chloride (98-107) mmol/L Carbon Dioxide (22-29) mmol/L Anion Gap (5-19) BUN (8-23) mg/dL Creatinine (0.5-0.9) mg/dL GFR Calculation (90-130) mL/min Glucose (65-115) mg/dL Calculated Osmolal ity (285-295) mOsm/k g Lactic Acid (0.5-2.2) mmol/L Calcium (8.5-10.5) mg/dL Iron 27 L (37-145) ug/dL TIBC 142 mcg/dl % Saturation 19.0 L (20-50) % Unsat Iron Binding 127 (112-347) ug/dL Ferritin (15-150) ng/mL Total Bilirubin (0.15-1.2) mg/dL AST (0-32) U/L ALT (0-33) U/L Alkaline Phosphata se (35-105) IU/L Total Protein (6.6-8.7) g/dL Albumin (3.5-5.2) g/dL Globulin (1.3-4.6) g/dL Vitamin B12 (232-1245) pg/mL Folate (4.8-37.3) ng/mL Procalcitonin 0.14 (0-0.5) ng/mL TSH (0.27-4.20) uIU/ mL Urine Color Dark yellow (Yellow) Urine Appearance Cloudy (CLEAR) Urine pH 5 (5-7) Ur Specific Gravit y 1.020 (1.005-1.030) Urine Protein 2+ H (Negative) Urine Glucose (UA) Norm (Normal) Urine Ketones Negative (Negative) Urine Blood 2+ H (Negative) Urine Nitrate Negative (Negative) Urine Bilirubin Neg (Negative) Urine Urobilinogen Norm (Negative) mg/dL Ur Leukocyte Carolina ase 2+ H (Negative) Urine RBC 10-15 H (0-2) /hpf Urine WBC >100 H (0-5) /hpf Ur Squamous Epith Cells None (0-5) /hpf Amorphous Sediment Not Reportable Urine Bacteria 1+ H (NONE) /hpf Urine Opiates Scre en Negative (Negative) ng/mL Ur Barbiturates Sc reen Negative (Negative) ng/mL Ur Phencyclidine S crn Negative (Negative) ng/mL Ur Amphetamines Sc reen Negative (Negative) ng/mL U Benzodiazepines Scrn Negative (Negative) ng/mL Urine Cocaine Scre en Negative (Negative) ng/mL U Marijuana (THC) Screen Negative (Negative) ng/mL Nasal/Oral COVID-1 9 PCR Blood Type Rho(D) Type Antibody Screen Crossmatch 04/10/20 04/10/20 04/10/20 Range/Units 12:30 12:30 12:38 WBC 11.8 H (4.0-10.0) 10^3/ uL RBC 2.37 L (4.1-5.3) 10^6/u L Hgb 7.1 L (11.5-15.3) g/dL Hct 23.1 L (37.0-47.0) % MCV 97.5 (81-99) fL MCH 30.0 (28.0-34.0) pg MCHC 30.7 (30.0-36.0) g/dL RDW 15.4 H (12.1-15.1) % Plt Count 230 (130-400) 10^3/c mm MPV 10.5 H (7.4-10.4) fL Neut % (Auto) 51.8 % Lymph % (Auto) 36.3 % Thayer % (Auto) 9.6 % Eos % (Auto) 1.6 % Baso % (Auto) 0.3 % Neut # (Auto) 6.07 (1.8-7.7) 10^3/u L Lymph # (Auto) 4.3 (0.8-4.8) 10^3/u L Thayer # (Auto) 1.1 H (0.2-0.9) 10^3/u L Eos # (Auto) 0.2 (0.0-0.8) 10^3/u L Baso # (Auto) 0.0 (0.0-0.1) 10^3/u L Nucleated RBC % (a uto) 0 % Nucleated RBCs # 0.0 /100WBC PT (12.1-14.9) SECO NDS INR (0.8-1.2) D-Dimer (0-0.59) ug/mIFE U Sodium (136-145) mmol/L Potassium (3.5-5.1) mmol/L Chloride (98-107) mmol/L Carbon Dioxide (22-29) mmol/L Anion Gap (5-19) BUN (8-23) mg/dL Creatinine (0.5-0.9) mg/dL GFR Calculation (90-130) mL/min Glucose (65-115) mg/dL Calculated Osmolal ity (285-295) mOsm/k g Lactic Acid (0.5-2.2) mmol/L Calcium (8.5-10.5) mg/dL Iron (37-145) ug/dL TIBC mcg/dl % Saturation (20-50) % Unsat Iron Binding (112-347) ug/dL Ferritin 185 H (15-150) ng/mL Total Bilirubin (0.15-1.2) mg/dL AST (0-32) U/L ALT (0-33) U/L Alkaline Phosphata se (35-105) IU/L Total Protein (6.6-8.7) g/dL Albumin (3.5-5.2) g/dL Globulin (1.3-4.6) g/dL Vitamin B12 324 (232-1245) pg/mL Folate (4.8-37.3) ng/mL Procalcitonin (0-0.5) ng/mL TSH 1.67 (0.27-4.20) uIU/ mL Urine Color (Yellow) Urine Appearance (CLEAR) Urine pH (5-7) Ur Specific Gravit y (1.005-1.030) Urine Protein (Negative) Urine Glucose (UA) (Normal) Urine Ketones (Negative) Urine Blood (Negative) Urine Nitrate (Negative) Urine Bilirubin (Negative) Urine Urobilinogen (Negative) mg/dL Ur Leukocyte Carolina ase (Negative) Urine RBC (0-2) /hpf Urine WBC (0-5) /hpf Ur Squamous Epith Cells (0-5) /hpf Amorphous Sediment Urine Bacteria (NONE) /hpf Urine Opiates Scre en (Negative) ng/mL Ur Barbiturates Sc reen (Negative) ng/mL Ur Phencyclidine S crn (Negative) ng/mL Ur Amphetamines Sc reen (Negative) ng/mL U Benzodiazepines Scrn (Negative) ng/mL Urine Cocaine Scre en (Negative) ng/mL U Marijuana (THC) Screen (Negative) ng/mL Nasal/Oral COVID-1 9 PCR Blood Type Rho(D) Type Antibody Screen Crossmatch 04/10/20 04/10/20 04/10/20 Range/Units 12:38 12:38 14:20 WBC (4.0-10.0) 10^3/ uL RBC (4.1-5.3) 10^6/u L Hgb (11.5-15.3) g/dL Hct (37.0-47.0) % MCV (81-99) fL MCH (28.0-34.0) pg MCHC (30.0-36.0) g/dL RDW (12.1-15.1) % Plt Count (130-400) 10^3/c mm MPV (7.4-10.4) fL Neut % (Auto) % Lymph % (Auto) % Thayer % (Auto) % Eos % (Auto) % Baso % (Auto) % Neut # (Auto) (1.8-7.7) 10^3/u L Lymph # (Auto) (0.8-4.8) 10^3/u L Thayer # (Auto) (0.2-0.9) 10^3/u L Eos # (Auto) (0.0-0.8) 10^3/u L Baso # (Auto) (0.0-0.1) 10^3/u L Nucleated RBC % (a uto) % Nucleated RBCs # /100WBC PT (12.1-14.9) SECO NDS INR (0.8-1.2) D-Dimer (0-0.59) ug/mIFE U Sodium 141 (136-145) mmol/L Potassium 5.0 (3.5-5.1) mmol/L Chloride 114 H (98-107) mmol/L Carbon Dioxide 17 L (22-29) mmol/L Anion Gap 15.0 (5-19) BUN 23 (8-23) mg/dL Creatinine 1.7 H (0.5-0.9) mg/dL GFR Calculation 29.7 L (90-130) mL/min Glucose 129 H (65-115) mg/dL Calculated Osmolal ity 297 H (285-295) mOsm/k g Lactic Acid 0.5 (0.5-2.2) mmol/L Calcium 8.3 L (8.5-10.5) mg/dL Iron (37-145) ug/dL TIBC mcg/dl % Saturation (20-50) % Unsat Iron Binding (112-347) ug/dL Ferritin (15-150) ng/mL Total Bilirubin 0.3 (0.15-1.2) mg/dL AST 11 (0-32) U/L ALT 10 (0-33) U/L Alkaline Phosphata se 75 (35-105) IU/L Total Protein 5.5 L (6.6-8.7) g/dL Albumin 2.6 L (3.5-5.2) g/dL Globulin 2.9 (1.3-4.6) g/dL Vitamin B12 (232-1245) pg/mL Folate (4.8-37.3) ng/mL Procalcitonin (0-0.5) ng/mL TSH (0.27-4.20) uIU/ mL Urine Color (Yellow) Urine Appearance (CLEAR) Urine pH (5-7) Ur Specific Gravit y (1.005-1.030) Urine Protein (Negative) Urine Glucose (UA) (Normal) Urine Ketones (Negative) Urine Blood (Negative) Urine Nitrate (Negative) Urine Bilirubin (Negative) Urine Urobilinogen (Negative) mg/dL Ur Leukocyte [place] ase (Negative) Urine RBC (0-2) /hpf Urine WBC (0-5) /hpf Ur Squamous Epith Cells (0-5) /hpf Amorphous Sediment Urine Bacteria (NONE) /hpf Urine Opiates Scre en (Negative) ng/mL Ur Barbiturates Sc reen (Negative) ng/mL Ur Phencyclidine S crn (Negative) ng/mL Ur Amphetamines Sc reen (Negative) ng/mL U Benzodiazepines Scrn (Negative) ng/mL Urine Cocaine Scre en (Negative) ng/mL U Marijuana (THC) Screen (Negative) ng/mL Nasal/Oral COVID-1 9 PCR Blood Type B Positive Rho(D) Type Positive Antibody Screen Negative Crossmatch See Detail 04/10/20 04/10/20 04/10/20 Range/Units 14:20 14:20 16:29 WBC (4.0-10.0) 10^3/ uL RBC (4.1-5.3) 10^6/u L Hgb (11.5-15.3) g/dL Hct (37.0-47.0) % MCV (81-99) fL MCH (28.0-34.0) pg MCHC (30.0-36.0) g/dL RDW (12.1-15.1) % Plt Count (130-400) 10^3/c mm MPV (7.4-10.4) fL Neut % (Auto) % Lymph % (Auto) % Thayer % (Auto) % Eos % (Auto) % Baso % (Auto) % Neut # (Auto) (1.8-7.7) 10^3/u L Lymph # (Auto) (0.8-4.8) 10^3/u L Thayer # (Auto) (0.2-0.9) 10^3/u L Eos # (Auto) (0.0-0.8) 10^3/u L Baso # (Auto) (0.0-0.1) 10^3/u L Nucleated RBC % (a uto) % Nucleated RBCs # /100WBC PT 14.20 (12.1-14.9) SECO NDS INR 1.06 (0.8-1.2) D-Dimer 1.94 H (0-0.59) ug/mIFE U Sodium (136-145) mmol/L Potassium (3.5-5.1) mmol/L Chloride (98-107) mmol/L Carbon Dioxide (22-29) mmol/L Anion Gap (5-19) BUN (8-23) mg/dL Creatinine (0.5-0.9) mg/dL GFR Calculation (90-130) mL/min Glucose (65-115) mg/dL Calculated Osmolal ity (285-295) mOsm/k g Lactic Acid (0.5-2.2) mmol/L Calcium (8.5-10.5) mg/dL Iron (37-145) ug/dL TIBC mcg/dl % Saturation (20-50) % Unsat Iron Binding (112-347) ug/dL Ferritin (15-150) ng/mL Total Bilirubin (0.15-1.2) mg/dL AST (0-32) U/L ALT (0-33) U/L Alkaline Phosphata se (35-105) IU/L Total Protein (6.6-8.7) g/dL Albumin (3.5-5.2) g/dL Globulin (1.3-4.6) g/dL Vitamin B12 (232-1245) pg/mL Folate 7.9 (4.8-37.3) ng/mL Procalcitonin (0-0.5) ng/mL TSH (0.27-4.20) uIU/ mL Urine Color (Yellow) Urine Appearance (CLEAR) Urine pH (5-7) Ur Specific Gravit y (1.005-1.030) Urine Protein (Negative) Urine Glucose (UA) (Normal) Urine Ketones (Negative) Urine Blood (Negative) Urine Nitrate (Negative) Urine Bilirubin (Negative) Urine Urobilinogen (Negative) mg/dL Ur Leukocyte [place] ase (Negative) Urine RBC (0-2) /hpf Urine WBC (0-5) /hpf Ur Squamous Epith Cells (0-5) /hpf Amorphous Sediment Urine Bacteria (NONE) /hpf Urine Opiates Scre en (Negative) ng/mL Ur Barbiturates Sc reen (Negative) ng/mL Ur Phencyclidine S crn (Negative) ng/mL Ur Amphetamines Sc reen (Negative) ng/mL U Benzodiazepines Scrn (Negative) ng/mL Urine Cocaine Scre en (Negative) ng/mL U Marijuana (THC) Screen (Negative) ng/mL Nasal/Oral COVID-1 9 PCR Positive Blood Type Rho(D) Type Antibody Screen Crossmatch Discharge Plan Discharge Patient Disposition: Admitted As Inpatient Admit Provider: Joshua Pompa Condition: Stable Referrals: Juan José Humphrey [Primary Care Provider] - 04/17/20 11:20 am Discharge Diet: Cardiac and Diabetic Discharge Activity: Resume usual activity and Increase activity as tolerated Patient Instructions: Iron Supplements (By mouth), Lactulose (By mouth), Lansoprazole (By mouth), Urinary Tract Infection in Women (GEN) Additional Instructions: Aspirin has been stopped. Your dose of Lantus has been stopped as well. Please follow-up with your primary care provider within next 4 to 7 days. You have finished your antibiotic course for urinary tract infections. You are COVID-19 positive. Please make sure you continue to maintain social distancing whenever you are in public you continue to wear masks. Discharge Date/Time: 04/10/20 17:53 Coding Level of Care Code ED Housekeeping Staff for Chg Fwd Exam Comprehensive
[2020-04-10] MEDS: cefTRIAXone 1,000 mg SDV 1000 MG IM (12:03)
[2020-04-10 12:21] LABS: Urine Appearance Cloudy (CLEAR); Urine Color Dark Yellow (Yellow); pH Urine 5 (5-7)
[2020-04-10 12:22] LABS: Add Urine Microscopic? YES; Bilirubin Urine Neg (Negative); Blood Urine 2+ (Negative); Glucose Urine UA Norm (Normal); Ketones Urine Negative (Negative); Leukocyte Esterase Urine 2+ (Negative); Nitrate Urine Negative (Negative); Protein Urine 2+ (Negative); Urobilinogen Urine Norm (Negative)
[2020-04-10 12:31] LABS: Add Urine Culture? Yes; Bacteria Urine 1+ /hpf; WBC Urine >100 /hpf (0-5)
[2020-04-10 13:00] LABS: Basophils % 0.3 %; Eosinophils # 0.2 10^3/uL (0.0-0.8); Eosinophils % 1.6 %; Hematocrit 23.1 % (37.0-47.0); Hemoglobin 7.1 g/dL (11.5-15.3); Lymphocytes # 4.3 10^3/uL (0.8-4.8); Lymphocytes % 36.3 %; Mean Corpuscular HGB Conc 30.7 g/dL (30.0-36.0); Mean Corpuscular Volume 97.5 fL (81-99); Mean Platelet Volume 10.5 fL (7.4-10.4); Monocytes # 1.1 10^3/uL (0.2-0.9); Monocytes % 9.6 %; Neutrophils # 6.07 10^3/uL (1.8-7.7); Neutrophils % 51.8 %; Nucleated Red Blood Cells % 0 %; Platelet Count 230 10^3/cmm (130-400); Red Blood Count 2.37 10^6/uL (4.1-5.3); Red Cell Distribution Width 15.4 % (12.1-15.1); White Blood Count 11.8 10^3/uL (4.0-10.0)
[2020-04-10 13:06] LABS: Lactic Sepsis W/Reflex 0.5 mmol/L (0.5-2.2)
[2020-04-10 13:15] LABS: Alanine Aminotransferase 10 U/L (0-33); Albumin Level 2.6 g/dL (3.5-5.2); Alkaline Phosphatase 75 IU/L (35-105); Aspartate Amino Transferase 11 U/L (0-32); Blood Urea Nitrogen 23 mg/dL (8-23); Calcium 8.3 mg/dL (8.5-10.5); Carbon Dioxide 17 mmol/L (22-29); Chloride 114 mmol/L (98-107); Globulin 2.9 g/dL (1.3-4.6); Glomerular Filtration Rate 29.7 mL/min (90-130); Glucose 129 mg/dL (65-115); Osmolality Calculated 297 mOsm/kg (285-295); Sodium 141 mmol/L (136-145); Total Bilirubin 0.3 mg/dL (0.15-1.2); Total Protein 5.5 g/dL (6.6-8.7)
--- NOTE | 2020-04-10 15:47 | PC.NURSE ---
notified by lab that blood was ready. Went to get the blood from lab. No one in blood bank was available to obtain the blood. Charge nurse notified.
[2020-04-10] MEDS: sodium chloride 0.9% 1,000 ML 999 ML IV (16:22)
--- NOTE | 2020-04-10 17:06 | PC.NURSE ---
attempted to call report to the floor. pt room is not ready at this time.
--- NOTE | 2020-04-10 18:45 | PM.HP ---
Providers/Chief Complaint Admitting Physician: Joshua Pompa MD Primary Care Provider: Juan José Humphrey Chief Complaint: LETHARGIC History of Present Illness Lynnette Ferreira is a 70 year old female with history of hypertension, CAD, type 2 diabetes mellitus who has her third admission in last 1 month today. With last admission from March 06 through March 07 when she was admitted for altered mental status found to be because of hypoglycemia from taking more Levemir. Before that she was hospital on 03/15 after treatment for right lower extremity wound infection, with multiorgan infection including MRSA, requiring hardware explantation from the right ankle on 03/07. Subsequently was in a residential for skilled rehabilitation, and was recently discharged back home 1 day prior to admission. Patient was also tested COVID-19 positive on March 21. She presented to the ER with EMS today because of altered mental status and refusing to take medications. On examination patient states that she has been taking made her medications which ever are presented to her regularly. On a previous admission she was also found to have E. coli UTI for which she was discharged on antibiotics. At that time she was discharged on cefdinir twice daily for 5-day course. But has not taken them as per the family members. She denies having nausea, vomiting, headache. Complains of occasional back pain. Complains of dysuria with pain during micturition. Denies of having any fever or chills, difficulty in breathing, cough. She states her appetite is lower than usual and she is eating less than usual. But denies of having any nausea or difficulty in swallowing. She denies of feeling depressed or having any suicidal or homicidal ideations. Feeling weak than usual. At baseline she is able to ambulate in her house through wheelchair. She states she still able to do that. Denies of having any difficulty in breathing on doing so. Patient states she was supposed to follow-up in wound care on Friday but forgot to do so. She denies of having any pain in the ankle or foot does not remember any discharge from the bandage recently. Blood work in the ER showed a white count of 11.8, hemoglobin of 7.1, platelet count of 230, potassium of 5, sodium of 140, creatinine of 1.7 which is less than 10 on the last discharge of 2.1, AST/ALT of 11/10, UA showing more than 100 WBCs with 2+ leuk esterase. Review of Systems General: Reports: 10 or more systems reviewed and unremarkable except in HPI and below Const: Denies: fever(s), chills, body aches, change in appetite, change in weight, malaise, night sweats, diaphoresis, change in sleep pattern, daytime sleepiness or snoring Eyes: Denies: change in vision, blurry vision, photophobia, eye discomfort or eye discharge ENMT: Denies: throat pain, enlarged tonsils, hoarseness, mouth pain, oral sores, dry mouth, tinnitus, nasal congestion or post nasal drip Card: Denies: chest pain, palpitations, irregular heart rhythm, edema, swelling of feet/ankles, lightheadedness, syncope, pre-syncope, dyspnea on exertion, orthopnea, leg pain with exertion or acrocyanosis Resp: Denies: dyspnea, productive cough, non-productive cough, wheezing, stridor, pain on inspiration, change in phlegm color, hemoptysis or chest congestion GI: Denies: abdominal pain, nausea, vomiting, hematemesis, coffee ground emesis, dysphagia, heartburn, diarrhea, constipation, bloating, GI cramping, change in bowel habits, pain on defecation, hematochezia or melena : Denies: flank pain, dysuria, urinary frequency, urinary urgency, urinary hesitancy, nocturia or hematuria Musc: Denies: neck pain, back pain, extremity pain, joint pain, joint swelling, joint redness, joint stiffness or limited range of motion Neuro: Denies: headache(s), numbness in extremities, weakness in extremities, sensory changes, lack of coordination, difficulty walking, frequent falls, dizziness, vertigo, confusion, Slurred speech present, difficulty communicating thoughts or seizure-like activity Psych: Denies: anxiety, depression, mood swings, panic attacks, hopelessness or irritability Endo: Denies: polyuria, polydipsia, tired all the time, cold intolerance, excessive sweating, flushing or heat intolerance Prince/Lymph: Denies: easy bruising or easy bleeding All/Imm: Denies: tongue swelling, facial swelling or acute wheezing Medications/Allergies Home Medications Medication Instructions Recorded Confirmed Last Taken Type Myrbetriq 25 mg PO DAILY 08/23/19 04/10/20 04/10/20 History clopidogrel 75 mg PO DAILY 08/23/19 04/10/20 04/10/20 History diltiazem HCl [DILT-XR] 240 mg PO DAILY 08/23/19 04/10/20 04/10/20 History metformin 500 mg PO BID 08/23/19 04/10/20 04/10/20 History pravastatin 10 mg PO DAILY 08/23/19 04/10/20 04/09/20 History ropinirole 0.5 mg PO BEDTIME 08/23/19 04/10/20 04/09/20 History venlafaxine See Rx Instructions .ROUTE .COMPLEX 08/23/19 04/10/20 04/10/20 History aspirin 325 mg PO DAILY #30 tab 08/27/19 04/10/20 04/10/20 Rx oxycodone-acetaminophen [Percocet] 1 tab PO Q4H PRN 09/07/19 04/10/20 04/10/20 History cyanocobalamin (vitamin B-12) 500 mcg PO DAILY #15 tab 03/15/20 04/10/20 04/09/20 Rx [Vitamin B-12] hydralazine 10 mg PO TID #90 tab 03/15/20 04/10/20 04/10/20 Rx Levemir FlexTouch U-100 Insuln 8 unit SUBCUT QPM #3 ml 04/05/20 04/10/20 04/09/20 Rx nitroglycerin [Nitrostat] 0.4 mg SUBLINGUAL Q5M PRN 04/05/20 04/10/20 Unknown History cefdinir 300 mg PO BID #10 cap 04/06/20 04/10/20 04/10/20 Rx insulin aspart U-100 [Novolog See Rx Instructions .ROUTE 04/06/20 04/10/20 04/09/20 Rx U-100 Insulin aspart] .COMPLEX #10 ml Lyrica 75 mg PO BID 04/10/20 04/10/20 04/10/20 History Allergies Allergy/AdvReac Type Severity Reaction Status Date / Time codeine Allergy Unknown Verified 01/17/20 14:48 sulfamethoxazole Allergy Unknown Verified 01/17/20 14:48 [From Bactrim] trimethoprim [From Bactrim] Allergy Unknown Verified 01/17/20 14:48 PFSH Acute PFSH: Medical History Ankle syndesmosis disruption Cerebrovascular accident Chronic kidney disease Closed trimalleolar fracture of ankle Coronary artery disease Cystitis Depression Diabetes Heart murmur Hyperlipidemia Hypertension Obesity Restless leg syndrome Surgical History History of cholecystectomy History of hernia repair History of tubal ligation Family History Other Diabetes Social History Smoking and tobacco status: never smoked Alcohol intake: never Household members: other Details: Lives with son and boyfriend Housing: House Vitals/I&O/Wt Last Vital Signs Temp 98.5 F 04/10/20 18:27 Pulse 81 04/10/20 18:27 Resp 16 04/10/20 18:27 BP 120/77 04/10/20 18:27 Pulse Ox 100 04/10/20 18:27 04/10/20 04/10/20 04/10/20 06:59 14:59 22:59 Intake Total 0 / 0 Balance 0 / 0 Weight last 48 hrs Weight 105.233 kg Physical Exam Narrative: EXAM NARRATIVE: General: No acute distress, AO x3, dehydrated, looking not interested, dejected HEENT: PERRLA, pupils bilaterally equal and reactive Chest: Normal vesicular breath sounds, no added sounds, equal good air entry bilaterally CVS: S1-S2 regular, no murmurs, no tachycardia, no gallops, no rubs Abdomen: Soft, nontender, no organomegaly, bowel sounds present Neuro: No focal deficits, no facial deformity, AO x3, power 5/5 in all limbs Extremities: Clean bandage present just above the ankle on the right leg. Data : 04/10/20 12:38 04/10/20 12:38 A&P Assessment and plan (1) UTI (urinary tract infection): Status: Acute (2) Acute encephalopathy: Status: Acute (3) Chronic kidney disease: Status: Acute (4) Diabetes: Status: Acute Additional A&P Information 70-year-old female with recurrent admissions in the last 1 month presents today because of lethargy and possible noncompliance to oral antibiotics. PICC line placed in the ER because of poor IV access. Lethargy: Metabolic encephalopathy: Cannot rule out because of UTI. Recent discharge patient had E. coli UTI for which she was sent home on oral antibiotics. As per the history not sure if patient is taking antibiotics. Patient does give history of dysuria. Continue with ceftriaxone. First dose given in the ER. Check blood cultures, MRSA swab, lactate, ammonia level, cortisol level, procalcitonin, TSH, vitamin B12 and folate levels. Patient would most likely require ceftriaxone for [address] abdomen pelvis done on previous discharge last week negative for any obstructive uropathy. Patient has a history of depression. Looks clear rejected. Will involve psychiatry for medication reconciliation regarding the same. Patient at present denies of having any suicidal or homicidal ideation. For now continue home medications like Lyrica 75 mg twice daily, 1 ofloxacin. Anemia: Could be another cause of mild weakness and lethargy. Could be secondary to chronic sepsis along with chronic kidney disease but cannot rule out ongoing GI bleed at present. Check iron panel, vitamin B12 and folate. Patient does not have a history of any GI bleed or melena or hematemesis at present. 1 unit transfusion has been started from the ER. Check stool for occult blood. Protonix 40 mg IV twice daily after 80 mg stat. Continue to monitor hemoglobin daily. History of CAD: No active chest pain. Currently patient is on aspirin 325 mg and Plavix 75 mg daily. Given anemia for now hold off on both medications. We will continue to monitor for any signs of ischemia. Type 2 diabetes mellitus: Continue home dose of Levemir 8 units. Start patient insulin sliding scale at low-dose protocol. Carb consistent diet. Hypertension: Goal blood pressure less than 140/90 mmHg. Continue with home dose of Cardizem. Continue to monitor blood pressures. Recent hardware infection: Patient supposed to follow-up at wound care center but is not following at present. We will consult wound care tomorrow if possible. Continue other chronic medications. Will change medications as per the clinical picture going forward. Full code. SCDs for DVT prophylaxis. Will avoid pharmacological prophylaxis because of ongoing anemia. Protonix for PUD prophylaxis Discharge planning: Patient was recently discharged from SNF because of noncompliance with physical therapy. Most likely patient will be discharged home with home health which will be continued at present. Attestations Medical Necessity Statement*: Inpatient admission for more than 2 midnights for acute anemia, no recurrent admissions for episodes of lethargy, ongoing UTI Time Spent in Patient Care: Greater than 35 minutes (>than 50% of time spent in counselling and/or direct pt care on unit). Coding Level of Care Code Acute Regulatory Affairs Director for g Fwd Diagnoses UTI (urinary tract infection) N39.0 Acute encephalopathy G93.40 Chronic kidney disease N18.9 Diabetes E11.9
[2020-04-10 19:15] LABS: INR 1.06 (0.8-1.2)
[2020-04-10 19:18] LABS: D Dimer 1.94 ug/mIFEU (0-0.59)
[2020-04-10 19:30] LABS: Procalcitonin 0.14 ng/mL (0-0.5)
[2020-04-10 19:31] LABS: Ferritin 185 ng/mL (15-150); Thyroid Stimulating Hormone 1.67 uIU/mL (0.27-4.20)
[2020-04-10 21:55] LABS: Unsaturated Iron Binding 127 ug/dL (112-347)
[2020-04-10 22:03] LABS: Glucose Point of Care 135 mg/dL (70-110)
[2020-04-10 23:03] LABS: Amphetamines Screen Urine Negative (Negative); Barbiturates Screen Urine Negative (Negative); Benzodiazepines Screen Urine Negative (Negative); Cocaine Screen Urine Negative (Negative); Opiate Screen Urine Negative (Negative); PCP Screen Urine Negative (Negative); THC Screen Urine Negative (Negative)
[2020-04-10 23:24] LABS: Iron 27 ug/dL (37-145); Total Iron Binding Capacity 142 mcg/dl
[2020-04-10] MEDS: pantoprazole 40 mg SDV 80 MG IVP (23:50)
[2020-04-10] MEDS: hyDRALAzine 10 mg Tablet PO (23:51)
[2020-04-10] MEDS: ropinirole 0.25 mg Tablet 0.5 MG PO (23:51)
[2020-04-11] VITALS (11 sets, daily range): BP systolic 110–156; BP diastolic 52–84; PULSE 57–91; RESP 17–19; TEMP 36.7–37.4; O2SAT 94–100
[2020-04-11 00:12] LABS: Ammonia 21 umol/L (11-51)
[2020-04-11 00:27] LABS: Folate Level 7.9 ng/mL (4.8-37.3)
[2020-04-11 00:27] LABS: Vitamin B12 324 pg/mL (232-1245)
[2020-04-11 06:14] LABS: Basophils % 0.4 %; Eosinophils # 0.3 10^3/uL (0.0-0.8); Eosinophils % 2.9 %; Hematocrit 24.4 % (37.0-47.0); Hemoglobin 7.7 g/dL (11.5-15.3); Lymphocytes # 3.8 10^3/uL (0.8-4.8); Mean Corpuscular HGB Conc 31.6 g/dL (30.0-36.0); Mean Corpuscular Hemoglobin 29.5 pg (28.0-34.0); Mean Corpuscular Volume 93.5 fL (81-99); Mean Platelet Volume 10.5 fL (7.4-10.4); Monocytes # 0.9 10^3/uL (0.2-0.9); Monocytes % 9.6 %; Neutrophils % 45.8 %; Nucleated Red Blood Cells % 0 %; Platelet Count 181 10^3/cmm (130-400); Red Blood Count 2.61 10^6/uL (4.1-5.3); Red Cell Distribution Width 15.3 % (12.1-15.1); White Blood Count 9.2 10^3/uL (4.0-10.0)
[2020-04-11 06:19] LABS: Glucose Point of Care 106 mg/dL (70-110)
[2020-04-11 06:36] LABS: Influenza A by IFA Negative (Negative); Influenza B by IFA Negative (Negative)
[2020-04-11 06:38] LABS: Estmated Average Glucose 123; Hemoglobin A1C 5.9 % (4.0-6.0)
[2020-04-11 06:47] LABS: Alanine Aminotransferase 9 U/L (0-33); Albumin Level 2.4 g/dL (3.5-5.2); Alkaline Phosphatase 76 IU/L (35-105); Aspartate Amino Transferase 16 U/L (0-32); Blood Urea Nitrogen 23 mg/dL (8-23); Calcium 8.3 mg/dL (8.5-10.5); Carbon Dioxide 18 mmol/L (22-29); Chloride 111 mmol/L (98-107); Globulin 2.8 g/dL (1.3-4.6); Glomerular Filtration Rate 31.9 mL/min (90-130); Glucose 105 mg/dL (65-115); Osmolality Calculated 294 mOsm/kg (285-295); Sodium 140 mmol/L (136-145); Total Bilirubin 0.4 mg/dL (0.15-1.2); Total Protein 5.2 g/dL (6.6-8.7)
[2020-04-11 06:55] LABS: Cortisol Random 10.11 ug/mL (2.47-19.5)
[2020-04-11] MEDS: pantoprazole 40 mg SDV IVP ×2 (07:45→22:04)
[2020-04-11] MEDS: ferrous gluconate 324 mg Tablet PO ×2 (07:45→17:52)
[2020-04-11] MEDS: venlafaxine ER (24HR) 150 mg Capsule PO (09:32)
[2020-04-11] MEDS: pregabalin 75 mg Capsule PO ×2 (09:32→17:52)
[2020-04-11] MEDS: hyDRALAzine 10 mg Tablet PO ×3 (09:32→21:44)
[2020-04-11] MEDS: atorvastatin 40 mg Tablet 20 MG PO (09:32)
[2020-04-11] MEDS: dilTIAZem ER (24HR) 240 mg Capsule PO (09:33)
--- NOTE | 2020-04-11 13:02 | P.PN_ITS ---
Subjective Subjective: Interval history: No acute events overnight. Has remained stable. Has remained afebrile. Continues to remain on room air. Denies having nausea, vomiting. Looks little dejected during my conversation with her. COVID-19 results still pending. Patient is post 1 unit transfusion overnight. Vitals/I&O/Wt Last Vital Signs Temp 99.3 F 04/11/20 11:46 Pulse 78 04/11/20 11:46 Resp 18 04/11/20 11:46 BP 119/75 04/11/20 11:46 Pulse Ox 98 04/11/20 11:46 04/10/20 04/11/20 04/11/20 22:59 06:59 14:59 Intake Total 1350 / 1350 590 / 1940 240 / 240 Balance 1350 / 1350 590 / 1940 240 / 240 Weight last 48 hrs Weight 101.333 kg Weight 105.233 kg Physical Exam Narrative: EXAM NARRATIVE: General: No acute distress, AO x3, dehydrated, looking not interested, dejected HEENT: PERRLA, pupils bilaterally equal and reactive Chest: Normal vesicular breath sounds, no added sounds, equal good air entry bilaterally CVS: S1-S2 regular, no murmurs, no tachycardia, no gallops, no rubs Abdomen: Soft, nontender, no organomegaly, bowel sounds present Neuro: No focal deficits, no facial deformity, AO x3, power 5/5 in all limbs Extremities: Clean bandage present just above the ankle on the right leg. Data : 04/11/20 05:50 04/11/20 05:50 Micro: Microbiology 04/11/20 03:35 Enteric Pathogens (PCR) - Final Stool Routine Collection C.difficile Toxin B Gene (PCR) - Final 04/11/20 05:35 MRSA Culture - Final Nose 04/11/20 05:35 Stool Lactoferrin - Final Stool 04/10/20 11:32 Legionella Urinary Antigen - Final Urethra 04/10/20 23:44 Blood Culture - Preliminary Blood SPECIMEN COLLECTED 04/10/20 23:40 Blood Culture - Preliminary Blood SPECIMEN COLLECTED A&P Assessment and plan (1) UTI (urinary tract infection): Status: Acute (2) Acute encephalopathy: Status: Acute (3) Chronic kidney disease: Status: Acute (4) Diabetes: Status: Acute Additional A&P Information 70-year-old female with recurrent admissions in the last 1 month presents today because of lethargy and possible noncompliance to oral antibiotics. PICC line placed in the ER because of poor IV access. Lethargy: Metabolic encephalopathy: Cannot rule out because of UTI. Recent discharge patient had E. coli UTI for which she was sent home on oral antibiotic s. As per the history not sure if patient is taking antibiotics. Patient does give history of dysuria. Continue ceftriaxone daily. Day 2/5 today. Cortisol level, TSH level, procalcitonin, vitamin B12, folate, ammonia level all within normal limits. Blood cultures prelim had remain negative, stool for occult blood is still pending, C. difficile, enteric pathogen, lactoferrin negative, MRSA negative. CT abdomen pelvis done on previous discharge last week negative for any obstructive uropathy. Patient has a history of depression. Looks clear rejected. Will involve psychiatry for medication reconciliation regarding the same. Patient at present denies of having any suicidal or homicidal ideation. For now continue home medications like Lyrica 75 mg twice daily, Venlafaxiene. Anemia: Hemoglobin 7.7 on monitor for transfusion. Could be another cause of mild weakness and lethargy. Could be secondary to chronic sepsis along with chronic kidney disease but cannot rule out ongoing GI bleed at present. Iron panel suggestive of iron deficiency anemia. Start patient on oral iron supplementation. Continue Protonix 40 mg IV twice daily. Stool for occult blood still pending. Will consult surgery if stool for occult blood is positive for possible EGD/colonoscopy. For now continue holding on aspirin and Plavix. History of CAD: No active chest pain. Currently patient is on aspirin 325 mg and Plavix 75 mg daily. Given anemia for now hold off on both medications. We will continue to monitor for any signs of ischemia. Type 2 diabetes mellitus: Continue home dose of Levemir 8 units. HbA1c 5.9. Most likely patient does not require oral hypoglycemic and and okay with only Levemir on discharge. Continue with carb consistent diet. Hypertension: Goal blood pressure less than 140/90 mmHg. Continue with home dose of Cardizem. Continue to monitor blood pressures. Recent hardware infection: Patient supposed to follow-up at wound care center but is not following at present. We will consult wound care tomorrow if possible. Continue other chronic medications. Will change medications as per the clinical picture going forward. Full code. SCDs for DVT prophylaxis. Will avoid pharmacological prophylaxis because of ongoing anemia. Protonix for PUD prophylaxis Discharge planning: Patient was recently discharged from SNF because of noncompliance with physical therapy. Most likely patient will be discharged home with home health which will be continued at present. Attestations Medical Necessity Statement*: Needs controlled hospitalization for treatment of UTI, ongoing evaluation for anemia and lethargy which is most likely a combination of anemia, UTI and depression. Time Spent in Patient Care: Greater than 35 minutes (>than 50% of time spent in counselling and/or direct pt care on unit) . Coding Level of Care Code Acute Percussion Welding Machine Operator for Chg Fwd Diagnoses UTI (urinary tract infection) N39.0 Acute encephalopathy G93.40 Chronic kidney disease N18.9 Diabetes E11.9
[2020-04-11] MEDS: cefTRIAXone 1,000 MG in sodium chloride 0.9% (plus) 50 ML 100 MG IV (14:19)
[2020-04-11 20:23] LABS: Coronavirus Lab Test PTC Positive
[2020-04-11 20:52] LABS: Glucose Point of Care 205 mg/dL (70-110)
[2020-04-11 20:52] LABS: Glucose Point of Care 175 mg/dL (70-110)
[2020-04-11] MEDS: sodium chloride 0.9% (100 ml) 100 ML (21:43)
[2020-04-11 21:53] LABS: Glucose Point of Care 212 mg/dL (70-110)
[2020-04-11] MEDS: ropinirole 0.25 mg Tablet 0.5 MG PO (22:04)
[2020-04-12 04:00] VITALS: BP 120/60; PULSE 64; RESP 19; TEMP 36.9; O2SAT 96
[2020-04-12 07:48] LABS: Glucose Point of Care 100 mg/dL (70-110)
--- NOTE | 2020-04-12 10:42 | PM.PN ---
Subjective Subjective: Interval history: No acute events overnight. Denies of any nausea, vomiting, headache. Has remained hemodynamically stable and afebrile. Asking when can she be discharged. States she waiting for going home. COVID-19 results came back positive. Vitals/I&O/Wt Last Vital Signs Temp 98.4 F 04/12/20 04:00 Pulse 64 04/12/20 04:00 Resp 19 H 04/12/20 04:00 BP 120/60 04/12/20 04:00 Pulse Ox 96 04/12/20 04:00 04/11/20 04/12/20 04/12/20 22:59 06:59 14:59 Intake Total 0 / 240 410 / 650 Balance 0 / 240 410 / 650 Weight last 48 hrs Weight 105.687 kg Weight 101.333 kg Weight 105.233 kg Physical Exam Narrative: EXAM NARRATIVE: General: No acute distress, AO x3, dehydrated, looking not interested, dejected HEENT: PERRLA, pupils bilaterally equal and reactive Chest: Normal vesicular breath sounds, no added sounds, equal good air entry bilaterally CVS: S1-S2 regular, no murmurs, no tachycardia, no gallops, no rubs Abdomen: Soft, nontender, no organomegaly, bowel sounds present Neuro: No focal deficits, no facial deformity, AO x3, power 5/5 in all limbs Extremities: Clean bandage present just above the ankle on the right leg. Data : 04/12/20 11:15 04/12/20 11:15 Micro: Microbiology 04/10/20 11:32 Urine Culture - Preliminary Urine,Clean Catch 04/10/20 23:44 Blood Culture - Preliminary Blood NEGATIVE TO DATE 04/10/20 23:40 Blood Culture - Preliminary Blood NEGATIVE TO DATE 04/11/20 03:35 Occult Blood (FIT) - Final Stool Routine Collection 04/11/20 05:35 Stool Lactoferrin - Final Stool Parasite Antigen Panel - Final 04/11/20 03:35 Enteric Pathogens (PCR) - Final Stool Routine Collection C.difficile Toxin B Gene (PCR) - Final 04/11/20 05:35 MRSA Culture - Final Nose 04/10/20 11:32 Legionella Urinary Antigen - Final Urethra A&P Assessment and plan (1) UTI (urinary tract infection): Status: Acute (2) Acute encephalopathy: Status: Acute (3) Chronic kidney disease: Status: Acute (4) Diabetes: Status: Acute Additional A&P Information 70-year-old female with recurrent admissions in the last 1 month presents today because of lethargy and possible noncompliance to oral antibiotics. PICC line placed in the ER because of poor IV access. Lethargy: Metabolic encephalopathy: Cannot rule out because of UTI. Recent discharge patient had E. coli UTI for which she was sent home on oral antibiotics. As per the history not sure if patient is taking antibiotics. Patient does give history of dysuria. Continue ceftriaxone daily. Day 3/5 today. Cortisol level, TSH level, procalcitonin, vitamin B12, folate, ammonia level all within normal limits. Blood cultures prelim had remain negative, stool for occult blood is still pending, C. difficile, enteric pathogen, lactoferrin negative, MRSA negative. CT abdomen pelvis done on previous discharge last week negative for any obstructive uropathy. Patient has a history of depression. Looks clear rejected. Has spoken with Dr. Jasso will wait for his recommendations. Patient at present denies of having any suicidal or homicidal ideation. For now continue home medications like Lyrica 75 mg twice daily, Venlafaxiene. Anemia: Hemoglobin 9.2 today. Could be another cause of mild weakness and lethargy. Could be secondary to chronic sepsis along with chronic kidney disease but cannot rule out ongoing GI bleed at present. Iron panel suggestive of iron deficiency anemia. Continue with oral iron supplementation. Continue Protonix 40 mg IV twice daily. Stool for occult blood negative. History of CAD: No active chest pain. Currently patient is on aspirin 325 mg and Plavix 75 mg daily. Patient had many years ago. Most likely can stop aspirin and continue only Plavix. Type 2 diabetes mellitus: Continue home dose of Levemir 8 units. HbA1c 5.9. Most likely patient does not require oral hypoglycemic and and okay with only Levemir on discharge. Continue with carb consistent diet. Hypertension: Goal blood pressure less than 140/90 mmHg. Continue with home dose of Cardizem. Continue to monitor blood pressures. Recent hardware infection: Patient supposed to follow-up at wound care center but is not following at present. We will consult wound care tomorrow if possible. Continue other chronic medications. Will change medications as per the clinical picture going forward. Full code. SCDs for DVT prophylaxis. Will avoid pharmacological prophylaxis because of ongoing anemia. Protonix for PUD prophylaxis Discharge planning: Patient was recently discharged from SNF because of noncompliance with physical therapy. Most likely patient will be discharged home with home health which will be continued at present. If everything remains stable most likely discharge tomorrow after psychiatric recommendations. Patient would have received 4 days of antibiotics by tomorrow and can be discharged on oral antibiotic for 1 more day. Attestations Medical Necessity Statement*: Needs further hospitalization for management of UTI, depression, anemia, lethargy. Time Spent in Patient Care: Greater than 35 minutes (>than 50% of time spent in counselling and/or direct pt care on unit). Coding Level of Care Code Acute Test Kitchen Home Economist for [facility] Fwd Diagnoses UTI (urinary tract infection) N39.0 Acute encephalopathy G93.40 Chronic kidney disease N18.9 Diabetes E11.9
[2020-04-12 11:28] LABS: Basophils % 0.3 %; Eosinophils # 0.3 10^3/uL (0.0-0.8); Hemoglobin 9.2 g/dL (11.5-15.3); Lymphocytes # 3.3 10^3/uL (0.8-4.8); Lymphocytes % 41.6 %; Mean Corpuscular HGB Conc 31.7 g/dL (30.0-36.0); Mean Corpuscular Hemoglobin 29.6 pg (28.0-34.0); Mean Corpuscular Volume 93.2 fL (81-99); Mean Platelet Volume 10.8 fL (7.4-10.4); Monocytes # 0.6 10^3/uL (0.2-0.9); Monocytes % 7.5 %; Neutrophils # 3.67 10^3/uL (1.8-7.7); Neutrophils % 46.1 %; Nucleated Red Blood Cells % 0 %; Platelet Count 168 10^3/cmm (130-400); Red Blood Count 3.11 10^6/uL (4.1-5.3); Red Cell Distribution Width 14.6 % (12.1-15.1)
[2020-04-12] MEDS: venlafaxine ER (24HR) 150 mg Capsule PO (11:58)
[2020-04-12] MEDS: pantoprazole 40 mg SDV IVP ×2 (11:58→20:38)
[2020-04-12] MEDS: dilTIAZem ER (24HR) 240 mg Capsule PO (11:58)
[2020-04-12] MEDS: ferrous gluconate 324 mg Tablet PO ×2 (11:58→18:51)
[2020-04-12] MEDS: pregabalin 75 mg Capsule PO ×2 (11:59→18:53)
[2020-04-12 12:11] LABS: Alanine Aminotransferase 10 U/L (0-33); Albumin Level 2.6 g/dL (3.5-5.2); Alkaline Phosphatase 77 IU/L (35-105); Anion Gap 13.1 (5-19); Aspartate Amino Transferase 13 U/L (0-32); Blood Urea Nitrogen 21 mg/dL (8-23); Calcium 8.2 mg/dL (8.5-10.5); Carbon Dioxide 20 mmol/L (22-29); Chloride 110 mmol/L (98-107); Globulin 2.8 g/dL (1.3-4.6); Glomerular Filtration Rate 49.1 mL/min (90-130); Glucose 111 mg/dL (65-115); Osmolality Calculated 290 mOsm/kg (285-295); Potassium 5.1 mmol/L (3.5-5.1); Sodium 138 mmol/L (136-145); Total Bilirubin 0.5 mg/dL (0.15-1.2); Total Protein 5.4 g/dL (6.6-8.7)
[2020-04-12] MEDS: atorvastatin 40 mg Tablet 20 MG PO (12:12)
[2020-04-12] MEDS: hyDRALAzine 10 mg Tablet PO ×3 (12:12→21:53)
[2020-04-12] MEDS: cefTRIAXone 1,000 MG in sodium chloride 0.9% (plus) 50 ML 100 MG IV (13:45)
[2020-04-12] MEDS: clopidogrel 75 mg Tablet PO (15:45)
[2020-04-12 16:00] VITALS: BP 146/80; PULSE 73; RESP 18; TEMP 36.7; O2SAT 97
[2020-04-12 18:46] LABS: Glucose Point of Care 173 mg/dL (70-110)
[2020-04-12 20:00] VITALS: BP 137/74; PULSE 80; RESP 18; TEMP 36.6; O2SAT 95
[2020-04-12 21:35] LABS: Glucose Point of Care 217 mg/dL (70-110)
[2020-04-12] MEDS: ropinirole 0.25 mg Tablet 0.5 MG PO (21:53)
[2020-04-13] VITALS: BP 121/70; PULSE 87; RESP 19; TEMP 36.6; O2SAT 95
[2020-04-13 04:00] VITALS: BP 163/73; PULSE 79; RESP 18; TEMP 36.8; O2SAT 96
[2020-04-13 06:41] LABS: Glucose Point of Care 97 mg/dL (70-110)
[2020-04-13 07:50] VITALS: BP 136/76; PULSE 73; RESP 18; TEMP 36.6; O2SAT 96
[2020-04-13] MEDS: pantoprazole 40 mg SDV IVP (08:42)
[2020-04-13] MEDS: atorvastatin 40 mg Tablet 20 MG PO (08:42)
[2020-04-13] MEDS: pregabalin 75 mg Capsule PO ×2 (08:43→17:33)
[2020-04-13] MEDS: clopidogrel 75 mg Tablet PO (08:43)
[2020-04-13] MEDS: ferrous gluconate 324 mg Tablet PO ×2 (08:43→17:33)
[2020-04-13] MEDS: venlafaxine ER (24HR) 150 mg Capsule PO (08:43)
[2020-04-13] MEDS: hyDRALAzine 10 mg Tablet PO ×2 (08:43→15:22)
[2020-04-13] MEDS: dilTIAZem ER (24HR) 240 mg Capsule PO (08:43)
[2020-04-13 10:49] LABS: Glucose Point of Care 196 mg/dL (70-110)
--- NOTE | 2020-04-13 11:27 | PC.NURSE ---
late entry- pts med scanned/verified outside of room because of covid positive status
--- NOTE | 2020-04-13 11:37 | PM.DCS ---
Discharge Providers Date of Admission: 04/10/20 19:04 Date of Discharge: April 13, 2020 Attending Provider at Admission: Joshua Pompa MD Attending Provider at Discharge: Joshua Pompa MD Primary Care Provider: Juan José Humphrey Diagnoses at Discharge Discharge Diagnosis (1) UTI (urinary tract infection): Status: Acute (2) Acute encephalopathy: Status: Acute (3) Chronic kidney disease: Status: Acute (4) Diabetes: Status: Acute (5) COVID-19: Status: Acute Reason for Visit Reason for Visit: LETHARGIC Hospital Course Discharge Summary: Lynnette Ferreira is a 70 year old female with history of hypertension, CAD, type 2 diabetes mellitus who has her third admission in last 1 month today. With last admission from March 06 through March 07 when she was admitted for altered mental status found to be because of hypoglycemia from taking more Levemir. Before that she was hospital on 03/15 after treatment for right lower extremity wound infection, with multiorgan infection including MRSA, requiring hardware explantation from the right ankle on 03/07. Subsequently was in a group home for skilled rehabilitation, and was recently discharged back home 1 day prior to admission. Patient was also tested COVID-19 positive on March 21. She presented to the ER with EMS today because of altered mental status and refusing to take medications. On examination patient states that she has been taking made her medications which ever are presented to her regularly. On a previous admission she was also found to have E. coli UTI for which she was discharged on antibiotics. At that time she was discharged on cefdinir twice daily for 5-day course. But has not taken them as per the family members. She denies having nausea, vomiting, headache. Complains of occasional back pain. Complains of dysuria with pain during micturition. Denies of having any fever or chills, difficulty in breathing, cough. She states her appetite is lower than usual and she is eating less than usual. But denies of having any nausea or difficulty in swallowing. She denies of feeling depressed or having any suicidal or homicidal ideations. Feeling weak than usual. At baseline she is able to ambulate in her house through wheelchair. She states she still able to do that. Denies of having any difficulty in breathing on doing so. Patient states she was supposed to follow-up in wound care on Cem but forgot to do so. She denies of having any pain in the ankle or foot does not remember any discharge from the bandage recently. Blood work in the ER showed a white count of 11.8, hemoglobin of 7.1, platelet count of 230, potassium of 5, sodium of 140, creatinine of 1.7 which is less than 10 on the last discharge of 2.1, AST/ALT of 11/10, UA showing more than 100 WBCs with 2+ leuk esterase. She was admitted to the hospital for further evaluation and treatment of confusion, possible UTI and recurrent admissions due to possible noncompliance or altered mental status. She was started on IV ceftriaxone as per the culture results from her recent E. coli UTI. She stated she is not really sure if she is taking medications as she takes only medications which have been given to her. She finished a course of IV antibiotics while in hospital. For her recurrent admissions because of altered mental status HbA1c was checked which was 5.8. During hospitalization patient was continued on home dose of Lantus 8 units and home dose of metformin was withheld. Her blood sugars remained normal. She has been discharged on only Lantus and has been asked to stop Metformin at this time. For anemia she was found to have hemoglobin of 7.2 on admission. He was transfused 1 unit of PRBC. Hemoglobin came up to 9.2. She is on aspirin 325 mg daily and Plavix 75 mg daily at home for CAD. Her last stenting was many years ago and patient does not have any exertional angina at present. Stool for occult blood was negative. Aspirin has been stopped and she is only supposed to take Plavix going forward. For altered mental status which could be secondary to her advancing dementia and depression she was seen by psychiatry and at present she is on adequate medications and is safe to be discharged. She has been discharged hemodynamically stable condition after finishing a course of antibiotics for E. coli UTI. She is not supposed to take aspirin anymore. Metformin has been stopped. She is being discharged to home with home health. Physical Exam Narrative: EXAM NARRATIVE: General: No acute distress, AO x3, dehydrated, looking not interested, dejected HEENT: PERRLA, pupils bilaterally equal and reactive Chest: Normal vesicular breath sounds, no added sounds, equal good air entry bilaterally CVS: S1-S2 regular, no murmurs, no tachycardia, no gallops, no rubs Abdomen: Soft, nontender, no organomegaly, bowel sounds present Neuro: No focal deficits, no facial deformity, AO x3, power 5/5 in all limbs Extremities: Clean bandage present just above the ankle on the right leg. Discharge Data Data Completed and Pending: Pending at discharge Category Date Time Status Blood Culture Sta t Lab 04/10/20 23:44 Results Urine Culture Sta t Lab 04/10/20 11:32 Results Labs from last 24 hours 04/13/20 04/13/20 04/12/20 10:27 06:19 21:26 Sodium Potassium Chloride Carbon Dioxide Anion Gap BUN Creatinine GFR Calculation Glucose POC Glucose 196 97 217 Calculated Osmolal ity Calcium Total Bilirubin AST ALT Alkaline Phosphata se Total Protein Albumin Globulin 04/12/20 04/12/20 18:40 11:15 Sodium 138 Potassium 5.1 Chloride 110 H Carbon Dioxide 20 L Anion Gap 13.1 BUN 21 Creatinine 1.1 H GFR Calculation 49.1 L Glucose 111 POC Glucose 173 Calculated Osmolal ity 290 Calcium 8.2 L Total Bilirubin 0.5 AST 13 ALT 10 Alkaline Phosphata se 77 Total Protein 5.4 L Albumin 2.6 L Globulin 2.8 Vitals: Last Vital Signs Temp 97.9 F 04/13/20 07:50 Pulse 73 04/13/20 07:50 Resp 18 04/13/20 07:50 BP 136/76 04/13/20 07:50 Pulse Ox 96 04/13/20 07:50 Discharge Plan Discharge Patient Disposition: Home Health Service Condition: Stable Prescriptions: New ferrous gluconate 324 mg (37.5 mg iron) Tablet 324 mg PO BIDWM Qty: 60 RF: 0 lactulose 20 gram/30 mL Solution 10 g PO DAILY PRN (Reason: CONSTIPA) Qty: 10 RF: 0 lansoprazole 30 mg capsule,delayed release(DR/EC) 30 mg PO DAILY Qty: 20 RF: 0 Levemir U-100 Insulin 100 unit/mL Solution 8 unit SUBCUT QPM Qty: 30 RF: 0 Continued diltiazem HCl [DILT-XR] 240 mg capsule,ext.rel 24h degradable 240 mg PO DAILY RF: 0 venlafaxine 150 mg capsule,extended release 24hr See Rx Instructions .ROUTE .COMPLEX RF: 0 Hold Instructions: Resume on 04/08/20. clopidogrel 75 mg tablet 75 mg PO DAILY RF: 0 pravastatin 10 mg tablet 10 mg PO DAILY RF: 0 ropinirole 0.5 mg tablet 0.5 mg PO BEDTIME RF: 0 Hold Instructions: Resume on 03/29/20. Myrbetriq 25 mg tablet extended release 24 hr 25 mg PO DAILY RF: 0 Hold Instructions: Resume on 03/29/20. oxycodone-acetaminophen [Percocet] 5-325 mg Tablet 1 tab PO Q4H PRN (Reason: Pain) RF: 0 hydralazine 10 mg Tablet 10 mg PO TID Qty: 90 RF: 0 Hold Instructions: Resume on 04/20/20. cyanocobalamin (vitamin B-12) [Vitamin B-12] 1,000 mcg Tablet 500 mcg PO DAILY Qty: 15 RF: 0 nitroglycerin [Nitrostat] 0.4 mg Tablet, Sublingual 0.4 mg SUBLINGUAL Q5M PRN (Reason: Chest Pain) RF: 0 Lyrica 25 mg capsule 75 mg PO BID RF: 0 Discontinued metformin 500 mg tablet 500 mg PO BID RF: 0 aspirin 325 mg Tablet,Delayed Release (Dr/Ec) 325 mg PO DAILY Qty: 30 RF: 0 Levemir FlexTouch U-100 Insuln 100 unit/mL (3 mL) Insulin Pen 8 unit SUBCUT QPM Qty: 3 RF: 0 insulin aspart U-100 [Novolog U-100 Insulin aspart] 100 unit/mL Solution See Rx Instructions .ROUTE .COMPLEX Qty: 10 RF: 0 cefdinir 300 mg Capsule 300 mg PO BID Qty: 10 RF: 0 Discharge Orders: Discharge Order (Routine); Ordered 04/13/20 Ordered By: Joshua Pompa Referrals: Juan José Humphrey [Primary Care Provider] - 4-7 days Discharge Diet: Cardiac and Diabetic Discharge Activity: Resume usual activity and Increase activity as tolerated Activity Restrictions/Additional Instructions: Aspirin has been stopped. Your dose of Lantus has been stopped as well. Please follow-up with your primary care provider within next 4 to 7 days. You have finished your antibiotic course for urinary tract infections. You are COVID-19 positive. Please make sure you continue to maintain social distancing whenever you are in public you continue to wear masks. Discharge Attestations Time Spent in Discharge Care*: greater than 30 min Specific Discharge Activities: Specific discharge activities: educating patient, discussing with pcp/other providers, discussing with patient case manager/social workers/dc planners, documenting/other paperwork and evaluating patient/reviewing data Status at Discharge: Cognitive status at discharge: cognitively intact, Behavioral status at discharge: cooperative, Functional status at discharge: wheelchair bound Overall status at discharge: patient is back to baseline Quality Metrics Clinical Quality Measures During this hospital stay, did patient experience: None Coding Level of Care Code 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
[2020-04-13] MEDS: cefTRIAXone 1,000 MG in sodium chloride 0.9% (plus) 50 ML 100 MG IV (11:46)
[2020-04-13 12:00] VITALS: BP 136/78; PULSE 68; RESP 18; TEMP 36.7; O2SAT 97
--- NOTE | 2020-04-13 12:17 | DCPLANNER ---
Pg 2 of IM updated and reviewed with pt. No questions. Copy provided.
[2020-04-13 12:28] VITALS: BP 136/76; PULSE 73; RESP 18; TEMP 36.6; O2SAT 96
[2020-04-13 16:00] VITALS: BP 146/83; PULSE 72; RESP 18; TEMP 36.7; O2SAT 98
[2020-04-13 17:32] LABS: Glucose Point of Care 139 mg/dL (70-110)
--- NOTE | 2020-04-13 20:07 | PC.NURSE ---
Patient assisted to wheelchair with 3 person assist, discharged at this time to home via wheelchair van, private company transfer. Belongings given to patient in bag.
== END 2020-04-13 20:07 | disposition home or self-care (01) | DRG 689 ==
LOC: ER 14:44 → MEDSURG 17:20
PROVIDERS: Emergency Medicine; Admitting Provider Student in an Organized Health Care Education/Training Program; PCP Family Medicine; Visit Provider Student in an Organized Health Care Education/Training Program
DX: N39.0 Urinary tract infection, site not specified (principal); G93.41 Metabolic encephalopathy; U07.1 COVID-19; Z68.41 Body mass index [BMI] 40.0-44.9, adult; E11.22 Type 2 diabetes mellitus with diabetic chronic kidney disease; I12.9 Hypertensive chronic kidney disease with stage 1 through stage 4 chronic kidney disease, or unspecified chronic kidney disease; N18.9 Chronic kidney disease, unspecified; I25.10 Atherosclerotic heart disease of native coronary artery without angina pectoris; Z95.5 Presence of coronary angioplasty implant and graft; Z87.440 Personal history of urinary (tract) infections; Z86.73 Personal history of transient ischemic attack (TIA), and cerebral infarction without residual deficits; F32.9 Major depressive disorder, single episode, unspecified; E78.5 Hyperlipidemia, unspecified; E66.9 Obesity, unspecified; G25.81 Restless legs syndrome; Z91.19 Patient's noncompliance with other medical treatment and regimen; D50.9 Iron deficiency anemia, unspecified; Z98.890 Other specified postprocedural states; F03.90 Unspecified dementia, unspecified severity, without behavioral disturbance, psychotic disturbance, mood disturbance, and anxiety; B96.20 Unspecified Escherichia coli [E. coli] as the cause of diseases classified elsewhere; Z79.4 Long term (current) use of insulin; Z79.891 Long term (current) use of opiate analgesic; Z79.02 Long term (current) use of antithrombotics/antiplatelets
CPT/HCPCS: 12345; 36415; 36416; 36430; 51701; 80053; 80306; 81001; 82140; 82274; 82533; 82607; 82728; 82746; 82962; 83036; 83540; 83550; 83605; 83630; 84145; 84443; 85025; 85378; 85610; 86850; 86900; 86920; 87040; 87086; 87106; 87449; 87493; 87506; 87635; 87641; 87804; 96372; 96375; 99284; C9113; G0378; J0696; J1815; J7030; P9016

== ENCOUNTER 2020-04-22 11:09 | Emergency (ER) | payer MEDICARE, MEDICAID, SELFPAY ==
[2020-04-22] VITALS (8 sets, daily range): BP systolic 121–170; BP diastolic 57–75; PULSE 71–82; RESP 12–21; TEMP 36.6; O2SAT 99–100; BMI 56.6
[2020-04-22 13:08] LABS: Basophils # 0.1 10^3/uL (0.0-0.1); Basophils % 0.6 %; Eosinophils # 0.2 10^3/uL (0.0-0.8); Eosinophils % 1.8 %; Hematocrit 34.1 % (37.0-47.0); Hemoglobin 10.5 g/dL (11.5-15.3); Lymphocytes % 20.1 %; Mean Corpuscular HGB Conc 30.8 g/dL (30.0-36.0); Mean Corpuscular Hemoglobin 29.8 pg (28.0-34.0); Mean Corpuscular Volume 96.9 fL (81-99); Mean Platelet Volume 11.2 fL (7.4-10.4); Monocytes # 0.5 10^3/uL (0.2-0.9); Monocytes % 4.6 %; Neutrophils # 7.25 10^3/uL (1.8-7.7); Neutrophils % 72.6 %; Nucleated Red Blood Cells % 0 %; Platelet Count 239 10^3/cmm (130-400); Red Blood Count 3.52 10^6/uL (4.1-5.3); Red Cell Distribution Width 14.6 % (12.1-15.1)
[2020-04-22 13:29] LABS: Alanine Aminotransferase 16 U/L (0-33); Albumin Level 3.1 g/dL (3.5-5.2); Alkaline Phosphatase 134 IU/L (35-105); Anion Gap 15.7 (5-19); Aspartate Amino Transferase 13 U/L (0-32); Blood Urea Nitrogen 23 mg/dL (8-23); Calcium 8.8 mg/dL (8.5-10.5); Carbon Dioxide 22 mmol/L (22-29); Chloride 106 mmol/L (98-107); Globulin 3.9 g/dL (1.3-4.6); Glomerular Filtration Rate 40.5 mL/min (90-130); Glucose 191 mg/dL (65-115); Lipase 25 U/L (13-60); Osmolality Calculated 297 mOsm/kg (285-295); Potassium 4.7 mmol/L (3.5-5.1); Sodium 139 mmol/L (136-145); Total Bilirubin 0.5 mg/dL (0.15-1.2)
--- NOTE | 2020-04-22 13:47 | ECG_ITS ---
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 Measurements Intervals [place] Rate: 73 P: -55 DE: 138 QRS: 26 QRSD: 83 T: -2 QT: 365 QTc: 405 Interpretive Statements SINUS RHYTHM NONSPECIFIC T-WAVE ABNORMALITY Compared to ECG 04/05/2020 10:44:09 Possible ischemia no longer present T-wave abnormality still present Electronically Signed On 04-22-2020 22:02:38 CDT by Miriam Arnold M.D. [id number]
--- NOTE | 2020-04-22 13:51 | W.ED.NAVMDI ---
HPI - Nausea/Vomiting/Diarrhea General: Chief complaint: Nausea/Vomiting/Diarrhea Stated complaint: N/V Time Seen by Provider: 04/22/20 12:33 Source: patient Mode of arrival: EMS Limitations: no limitations History of Present Illness: HPI Narrative: Patient has been vomiting for about 3 days she says with associated diarrhea. She also complains of dysuria. She has had several episodes of hospital admissions in the last month or so. She recently tested positive for COVID-19 about 10 days ago. She denies a fever, denies chest pain, denies difficulty breathing but endorses a cough. MD elicited complaint: nausea, vomiting and diarrhea Onset (ago): day(s) (3) Description of vomiting: food contents Description of diarrhea: watery Associated nausea: Yes Associated abdominal pain: No Associated symtoms: Reports cough and nausea; Denies change in vision, dysuria, headache(s) or palpitations Review of Systems General: Reports: 10 or more systems reviewed and unremarkable except in HPI and below Const: Denies: fever(s), chills or body aches Eyes: Denies: change in vision or blurry vision ENMT: Denies: throat pain, enlarged tonsils, odynophagia, hoarseness, mouth pain or swelling of lips/tongue Card: Denies: palpitations, irregular heart rhythm, edema or swelling of feet/ankles Resp: Denies: dyspnea, productive cough or non-productive cough GI: Reports: nausea : Denies: flank pain, difficulty voiding, dysuria, urinary frequency, urinary urgency or urinary hesitancy Musc: Denies: neck pain, back pain or extremity swelling Skin/Breast: Denies: rash, pruritus or erythema Neuro: Denies: headache(s), numbness in extremities or weakness in extremities Endo: Denies: polyuria, polydipsia or tired all the time PFSH ED PFSH: Medical History Ankle syndesmosis disruption Cerebrovascular accident Chronic kidney disease Closed bimalleolar fracture of right ankle Closed trimalleolar fracture of ankle Coronary artery disease COVID-19 Cystitis Depression Diabetes Fracture of distal end of tibia with fibula Heart murmur Hyperlipidemia Hypertension Obesity Restless leg syndrome Surgical History History of cholecystectomy History of hernia repair History of tubal ligation Status post open reduction with internal fixation (ORIF) of fracture of ankle Family History Other Diabetes Social History Smoking and tobacco status: never smoked Alcohol intake: never Household members: other Details: Lives with son and boyfriend Housing: House Physical Exam Const: COMMON NORMALS: no acute distress, average body habitus, patient oriented x3, no limitations, healthy appearing, alert and well nourished HENMT: COMMON NORMALS: normocephalic, atraumatic and moist oral mucous membranes HEAD & SCALP: normocephalic and atraumatic Neck/C-Spine: COMMON NORMALS: no meningeal signs and no JVD Chest: COMMONS NORMALS: normal inspection of the chest and normal palpation of entire chest wall Resp: COMMON NORMALS: normal respiratory effort, No retractions, No use of accessory muscles, clear to auscultation bilaterally and percussion normal AUSCULTATION: clear to auscultation bilaterally PERCUSSION: percussion normal Cardio: COMMON NORMALS: no JVD, regular rate, regular rhythm, S1 normal heart sound present, S2 normal heart sound present, No gallops present (Cardio), No clicks present (Cardio), No murmurs present (Cardio), No rub (Cardio) and Peripheral pulses 2+ throughout RATE: regular rate RHYTHM: regular rhythm HEART SOUNDS: S1 normal heart sound present and S2 normal heart sound present PERIPHERAL PULSES: Peripheral pulses 2+ throughout GI: COMMON NORMALS: Normal to inspection, nondistended, normoactive bowel sounds present, Soft to palpation, non-tender, No hepatosplenomegaly present, no masses and no bruits PALPATION: Yes Soft to palpation and Yes No hepatosplenomegaly present : COMMON NORMALS: Yes no CVA tenderness BLADDER/KIDNEY EXAM: Yes no CVA tenderness Back/Pelvis: COMMON NORMALS: no CVA tenderness Extremity: COMMON NORMALS: normal to inspection, full ROM, capillary refill normal, no calf tenderness and no pedal edema NARRATIVE EXTREMITY EXAM: Right ankle new wound dressing for her chronic ulcer. Neuro: COMMON NORMALS: patient oriented x3 SENSORIUM/ORIENTATION: Yes alert MENINGEAL SIGNS: Yes no meningeal signs Skin: COMMON NORMALS: no rashes or lesions noted, no wounds, turgor normal, no jaundice, no petechiae and no mottling GENERAL SKIN EXAM: no rashes or lesions noted and turgor normal Course Reevaluation(s): Reevaluation #1: Discussed her lab and imaging findings with her. She has a UTI. We will discharge her home on oral antibiotics. She voiced understanding and is in agreement with the plan. Time: 17:57 Vital Signs: Vital signs: Vital Signs Temperature 97.8 F 04/22/20 12:20 Pulse Rate 71 04/22/20 21:00 Respiratory Rate 16 04/22/20 21:00 Blood Pressure 132/63 04/22/20 21:00 Pulse Oximetry 99 04/22/20 21:00 MDM - Nausea/Vomiting/Diarrhea MDM Narrative: Medical decision making narrative: 70 year old female who presented to the ED with nausea, vomiting. She has had multiple hospital admissions including for UTI. She is apparently non compliant with medications and therapy. In the ED today, evaluation is consistent with a UTI that is uncomplicated. She is discharged back home with a prescription for oral antibiotic. Medical Records: Attestation: I reviewed the patient's medical records. Lab Data: Attestation: I reviewed the patient's lab results. Labs: Lab Results 04/22/20 04/22/20 04/22/20 Range/Units 13:03 13:03 14:15 WBC 10.0 (4.0-10.0) 10^3/ uL RBC 3.52 L (4.1-5.3) 10^6/u L Hgb 10.5 L (11.5-15.3) g/dL Hct 34.1 L (37.0-47.0) % MCV 96.9 (81-99) fL MCH 29.8 (28.0-34.0) pg MCHC 30.8 (30.0-36.0) g/dL RDW 14.6 (12.1-15.1) % Plt Count 239 (130-400) 10^3/c mm MPV 11.2 H (7.4-10.4) fL Neut % (Auto) 72.6 % Lymph % (Auto) 20.1 % [place] % (Auto) 4.6 % Eos % (Auto) 1.8 % Baso % (Auto) 0.6 % Neut # (Auto) 7.25 (1.8-7.7) 10^3/u L Lymph # (Auto) 2.0 (0.8-4.8) 10^3/u L [place] # (Auto) 0.5 (0.2-0.9) 10^3/u L Eos # (Auto) 0.2 (0.0-0.8) 10^3/u L Baso # (Auto) 0.1 (0.0-0.1) 10^3/u L Nucleated RBC % (a uto) 0 % Nucleated RBCs # 0.0 /100WBC Sodium 139 (136-145) mmol/L Potassium 4.7 (3.5-5.1) mmol/L Chloride 106 (98-107) mmol/L Carbon Dioxide 22 (22-29) mmol/L Anion Gap 15.7 (5-19) BUN 23 (8-23) mg/dL Creatinine 1.3 H (0.5-0.9) mg/dL GFR Calculation 40.5 L (90-130) mL/min Glucose 191 H (65-115) mg/dL Calculated Osmolal ity 297 H (285-295) mOsm/k g Lactate (0.5-2.2) mmol/L Calcium 8.8 (8.5-10.5) mg/dL Total Bilirubin 0.5 (0.15-1.2) mg/dL AST 13 (0-32) U/L ALT 16 (0-33) U/L Alkaline Phosphata se 134 H (35-105) IU/L Troponin T Gen 5 n g/L 43 H (0-10) ng/L Troponin T 120 Min [place] (0-10) ng/L Delta Troponin T (0-10) ABS# Total Protein 7.0 (6.6-8.7) g/dL Albumin 3.1 L (3.5-5.2) g/dL Globulin 3.9 (1.3-4.6) g/dL Lipase 25 (13-60) U/L Urine Color (Yellow) Urine Appearance (CLEAR) Urine pH (5-7) Ur Specific Gravit y (1.005-1.030) Urine Protein (Negative) Urine Glucose (UA) (Normal) Urine Ketones (Negative) Urine Blood (Negative) Urine Nitrate (Negative) Urine Bilirubin (Negative) Prot Sulfosalicyli c Acd (Negative) Urine Urobilinogen (Negative) mg/dL Ur Leukocyte [place] a[place] (Negative) Urine RBC (0-2) /hpf Urine WBC (0-5) /hpf Ur Squamous Epith Cells (0-5) /hpf Amorphous Sediment Urine Bacteria (NONE) /hpf 04/22/20 04/22/20 04/22/20 Range/Units 14:15 14:15 16:40 WBC (4.0-10.0) 10^3/ uL RBC (4.1-5.3) 10^6/u L Hgb (11.5-15.3) g/dL Hct (37.0-47.0) % MCV (81-99) fL MCH (28.0-34.0) pg MCHC (30.0-36.0) g/dL RDW (12.1-15.1) % Plt Count (130-400) 10^3/c mm MPV (7.4-10.4) fL Neut % (Auto) % Lymph % (Auto) % [place] % (Auto) % Eos % (Auto) % Baso % (Auto) % Neut # (Auto) (1.8-7.7) 10^3/u L Lymph # (Auto) (0.8-4.8) 10^3/u L [place] # (Auto) (0.2-0.9) 10^3/u L Eos # (Auto) (0.0-0.8) 10^3/u L Baso # (Auto) (0.0-0.1) 10^3/u L Nucleated RBC % (a uto) % Nucleated RBCs # /100WBC Sodium (136-145) mmol/L Potassium (3.5-5.1) mmol/L Chloride (98-107) mmol/L Carbon Dioxide (22-29) mmol/L Anion Gap (5-19) BUN (8-23) mg/dL Creatinine (0.5-0.9) mg/dL GFR Calculation (90-130) mL/min Glucose (65-115) mg/dL Calculated Osmolal ity (285-295) mOsm/k g Lactate 1.3 (0.5-2.2) mmol/L Calcium (8.5-10.5) mg/dL Total Bilirubin (0.15-1.2) mg/dL AST (0-32) U/L ALT (0-33) U/L Alkaline Phosphata se (35-105) IU/L Troponin T Gen 5 n g/L (0-10) ng/L Troponin T 120 Min [place] 39.55 H (0-10) ng/L Delta Troponin T -3.45 L (0-10) ABS# Total Protein (6.6-8.7) g/dL Albumin (3.5-5.2) g/dL Globulin (1.3-4.6) g/dL Lipase (13-60) U/L Urine Color Yellow (Yellow) Urine Appearance Sl hazy (CLEAR) Urine pH 8 H (5-7) Ur Specific Gravit y 1.010 (1.005-1.030) Urine Protein 2+ H (Negative) Urine Glucose (UA) Trace H (Normal) Urine Ketones Negative (Negative) Urine Blood Trace H (Negative) Urine Nitrate Negative (Negative) Urine Bilirubin Neg (Negative) Prot Sulfosalicyli c Acd Positive (Negative) Urine Urobilinogen Norm (Negative) mg/dL Ur Leukocyte [place] Trace H (Negative) Urine RBC 5-10 H (0-2) /hpf Urine WBC 40-55 H (0-5) /hpf Ur Squamous Epith Cells 5-10 H (0-5) /hpf Amorphous Sediment Not Reportable Urine Bacteria 2+ H (NONE) /hpf Imaging Data^: CT Abd/Pel: Attestation: I personally reviewed and interpreted this imaging study as follows: Radiologist's impression: [address] [address] [address] Scan Report Signed Patient: Lynnette Ferreira #: [id number] : 1950Acct#:[id number] Age/Sex: 70 / FADM Date: 04/22/20 Loc: ERRoom/Bed: Attending Dr: Ordering Provider/Ordering MD: Anais Gregory MD, [facility] [place] Date of Service: 04/22/20 Procedure(s): CT abdomen pelvis con [id number] Accession Number(s): [id number] Report Number: [id number] PROCEDURE INFORMATION: Exam: CT Abdomen And Pelvis Without Contrast Exam date and time: 04/22/2020 3:20 PM Age: 70 years old Clinical indication: Nausea and vomiting; Prior surgery; Surgery date: 6+ months; Surgery type: Gb, tubal, hernia; Additional info: Intractable vomiting TECHNIQUE: Imaging protocol: Computed tomography of the abdomen and pelvis without contrast. Radiation optimization: All CT scans at this facility use at least one of these dose optimization techniques: automated exposure control; mA and/or kV adjustment per patient size (includes targeted exams where dose is matched to clinical indication); or iterative reconstruction. COMPARISON: CT abdomen pelvis wo con [id number] 03/27/2020 6:17 PM RADIATION DOSE METRICS: Total DLP (mGy-cm): 1787.38 FINDINGS: Tubes, catheters and devices: A balloon bladder catheter is present. Lungs: There is improving bibasilar ground-glass opacities that previously where suspicious for COVID-19 pneumoniae. Pleural space: There is a small right pleural effusion. Mediastinal space: A small hiatal hernia is present. Liver: Unremarkable.No mass. Gallbladder and bile ducts: There has been a cholecystectomy. There is no common bile duct dilation. Pancreas: Normal. No ductal dilation. Spleen: Normal. No splenomegaly. Adrenals: Normal. No mass. Kidneys and ureters: There is no evidence of hydronephrosis. Renal vascular calcifications are noted. There is unchanged mild perinephric fat stranding. Stomach and bowel: Moderate diverticulosis is present in the distal colon. There is moderately excessive colonic stool content. There is no evidence of intestinal perforation or obstruction. Stomach, duodenum and loops of small bowel have an appropriate appearance. Appendix: The appendix is not definitively identified. However, there is no CT evidence of a right lower quadrant inflammatory process. Intraperitoneal space: Unremarkable. No free air. No significant fluid collection. Vasculature: Unremarkable.No abdominal aortic aneurysm. Lymph nodes: Unremarkable.No enlarged lymph nodes. Urinary bladder: The bladder is collapsed. Reproductive: Uterus is mildly prominent in size with scattered calcifications compatible with probable fibroids and vascular calcifications. Ovaries/adnexa are unremarkable. Bones/joints: Osteopenia with severe degenerative changes are noted in the spine and pelvis. Unchanged chronic compression fracture T10 is noted. No acute bony abnormality. Soft tissues: Probable postoperative changes of a ventral hernia repair are noted deep to the umbilicus. CT/CT abdomen pelvis wo con [id number] IMPRESSION: 1. There is improving bibasilar ground-glass opacities that previously where suspicious for COVID-19 pneumoniae. 2. No bowel thickening or inflammatory changes. No ileus or obstruction. No acute abnormality. Radiation Dose CTDIVOL = (mGy): DLP = 1787.38 (mGy-cm) Dictated By:Fartun Taylor Signed By:Lacy Taylorigned Date/Time:04/22/20 1544 DD/ 1543 CXR: Attestation: I personally reviewed and interpreted this imaging study as follows: Radiologist's impression: [address] [address] XRay Report Signed Patient: Lynnette Ferreira LUnmarita #: [id number] : 1950Acct#:[id number] Age/Sex: 70 / FADM Date: 04/22/20 Loc: ERRoom/Bed: Attending Dr: Ordering Provider/Ordering MD: Anais Gregory MD, [facility] [place] Date of Service: 04/22/20 Procedure(s): XR chest 1V portable [id number] Accession Number(s): [id number] Report Number: [id number] PROCEDURE INFORMATION: Exam: XR Chest, 1 View Exam date and time: 04/22/2020 2:30 PM Age: 70 years old Clinical indication: Other: Vomiting TECHNIQUE: Imaging protocol: XR of the chest Views: 1 view. COMPARISON: CR XR chest 1V portable [id number] 04/05/2020 10:22 AM FINDINGS: Lungs: Unremarkable. No consolidation. Pleural space: Unremarkable. No pleural effusion. No pneumothorax. Heart/Mediastinum: Unremarkable. No cardiomegaly. Bones/joints: No acute abnormality. XR/XR chest 1V portable [id number] IMPRESSION: No acute findings. Dictated By:Fartun Taylor Signed By:Vida Taylor Date/Time:04/22/20 1511 DD/ 1510 EKG Data^: EKG 1: Attestation: I personally reviewed and interpreted this EKG as follows: EKG interpretation date: 04/22/20 EKG interpretation time: 14:04 Prior EKG tracings: not available for review Interpretation: Normal sinus rhythm. Heart rate [address] changes. Discharge Plan Discharge Clinical Impression: UTI (urinary tract infection) Qualifiers: Urinary tract infection type: acute cystitis Hematuria presence: without hematuria Qualified Code(s): N30.00 - Acute cystitis without hematuria Condition: Stable Prescriptions: New Augmentin 500-125 mg tablet 1 tab PO BID Qty: 14 RF: 0 Continued diltiazem HCl [DILT-XR] 240 mg capsule,ext.rel 24h degradable 240 mg PO DAILY RF: 0 venlafaxine 150 mg capsule,extended release 24hr See Rx Instructions .ROUTE .COMPLEX RF: 0 Hold Instructions: Resume on 04/08/20. clopidogrel 75 mg tablet 75 mg PO DAILY RF: 0 pravastatin 10 mg tablet 10 mg PO DAILY RF: 0 ropinirole 0.5 mg tablet 0.5 mg PO BEDTIME RF: 0 Hold Instructions: Resume on 03/29/20. Myrbetriq 25 mg tablet extended release 24 hr 25 mg PO DAILY RF: 0 Hold Instructions: Resume on 03/29/20. oxycodone-acetaminophen [Percocet] 5-325 mg Tablet 1 tab PO Q4H PRN (Reason: Pain) RF: 0 hydralazine 10 mg Tablet 10 mg PO TID Qty: 90 RF: 0 Hold Instructions: Resume on 04/20/20. cyanocobalamin (vitamin B-12) [Vitamin B-12] 1,000 mcg Tablet 500 mcg PO DAILY Qty: 15 RF: 0 nitroglycerin [Nitrostat] 0.4 mg Tablet, Sublingual 0.4 mg SUBLINGUAL Q5M PRN (Reason: Chest Pain) RF: 0 Lyrica 25 mg capsule 75 mg PO BID RF: 0 ferrous gluconate 324 mg (37.5 mg iron) Tablet 324 mg PO BIDWM Qty: 60 RF: 0 lactulose 20 gram/30 mL Solution 10 g PO DAILY PRN (Reason: CONSTIPA) Qty: 10 RF: 0 lansoprazole 30 mg capsule,delayed release(DR/EC) 30 mg PO DAILY Qty: 20 RF: 0 Levemir U-100 Insulin 100 unit/mL Solution 8 unit SUBCUT QPM Qty: 30 RF: 0 Discharge Orders: Discharge Order (Routine); Ordered 04/22/20 Ordered By: Anais Gregory Referrals: Juan José Humphrey [Primary Care Provider] - 1-3 days Discharge Diet: Usual diet Discharge Activity: Resume usual activity Patient Instructions: Urinary Tract Infection in Women (ED) Activity Restrictions/Additional Instructions: Return for any new or worsening symptoms. Follow-up with your primary care provider within 3 days. Take the medication as prescribed. Discharge Date/Time: 04/22/20 22:29 Coding Level of Care Code ED Cut Out Operator for Chg Fwd Exam Comprehensive
--- NOTE | 2020-04-22 13:59 | XRR_ITS ---
PROCEDURE INFORMATION: Exam: XR Chest, 1 View Exam date and time: 04/22/2020 2:30 PM Age: 70 years old Clinical indication: Other: Vomiting TECHNIQUE: Imaging protocol: XR of the chest Views: 1 view. COMPARISON: CR XR chest 1V portable [id number] 04/05/2020 10:22 AM FINDINGS: Lungs: Unremarkable. No consolidation. Pleural space: Unremarkable. No pleural effusion. No pneumothorax. Heart/Mediastinum: Unremarkable. No cardiomegaly. Bones/joints: No acute abnormality. XR/XR chest 1V portable [id number] IMPRESSION: No acute findings.
[2020-04-22] MEDS: sodium chloride 0.9% 1,000 ML 999 ML IV (14:43)
[2020-04-22] MEDS: ondansetron 2 mg/ML SDV 2 mL 4 MG IVP (14:43)
[2020-04-22 14:56] LABS: Lactate (Lactic Acid level) 1.3 mmol/L (0.5-2.2)
[2020-04-22 14:57] LABS: Troponin T (5th) Once 43 ng/L (0-10)
--- NOTE | 2020-04-22 14:59 | CTR_ITS ---
PROCEDURE INFORMATION: Exam: CT Abdomen And Pelvis Without Contrast Exam date and time: 04/22/2020 3:20 PM Age: 70 years old Clinical indication: Nausea and vomiting; Prior surgery; Surgery date: 6+ months; Surgery type: Gb, tubal, hernia; Additional info: Intractable vomiting TECHNIQUE: Imaging protocol: Computed tomography of the abdomen and pelvis without contrast. Radiation optimization: All CT scans at this facility use at least one of these dose optimization techniques: automated exposure control; mA and/or kV adjustment per patient size (includes targeted exams where dose is matched to clinical indication); or iterative reconstruction. COMPARISON: CT abdomen pelvis wo con [id number] 03/27/2020 6:17 PM RADIATION DOSE METRICS: Total DLP (mGy-cm): 1787.38 FINDINGS: Tubes, catheters and devices: A balloon bladder catheter is present. Lungs: There is improving bibasilar ground-glass opacities that previously where suspicious for COVID-19 pneumoniae. Pleural space: There is a small right pleural effusion. Mediastinal space: A small hiatal hernia is present. Liver: Unremarkable.No mass. Gallbladder and bile ducts: There has been a cholecystectomy. There is no common bile duct dilation. Pancreas: Normal. No ductal dilation. Spleen: Normal. No splenomegaly. Adrenals: Normal. No mass. Kidneys and ureters: There is no evidence of hydronephrosis. Renal vascular calcifications are noted. There is unchanged mild perinephric fat stranding. Stomach and bowel: Moderate diverticulosis is present in the distal colon. There is moderately excessive colonic stool content. There is no evidence of intestinal perforation or obstruction. Stomach, duodenum and loops of small bowel have an appropriate appearance. Appendix: The appendix is not definitively identified. However, there is no CT evidence of a right lower quadrant inflammatory process. Intraperitoneal space: Unremarkable. No free air. No significant fluid collection. Vasculature: Unremarkable.No abdominal aortic aneurysm. Lymph nodes: Unremarkable.No enlarged lymph nodes. Urinary bladder: The bladder is collapsed. Reproductive: Uterus is mildly prominent in size with scattered calcifications compatible with probable fibroids and vascular calcifications. Ovaries/adnexa are unremarkable. Bones/joints: Osteopenia with severe degenerative changes are noted in the spine and pelvis. Unchanged chronic compression fracture T10 is noted. No acute bony abnormality. Soft tissues: Probable postoperative changes of a ventral hernia repair are noted deep to the umbilicus. CT/CT abdomen pelvis wo con [id number] IMPRESSION: 1. There is improving bibasilar ground-glass opacities that previously where suspicious for COVID-19 pneumoniae. 2. No bowel thickening or inflammatory changes. No ileus or obstruction. No acute abnormality. Radiation Dose CTDIVOL = (mGy): DLP = 1787.38 (mGy-cm)
[2020-04-22 15:17] LABS: Add Urine Microscopic? YES; Bilirubin Urine Neg (Negative); Blood Urine Trace (Negative); Glucose Urine UA Trace (Normal); Ketones Urine Negative (Negative); Leukocyte Esterase Urine Trace (Negative); Nitrate Urine Negative (Negative); Protein Urine 2+ (Negative); Sulfosalicylic Acid Urine Positive (Negative); Urine Appearance SL Hazy (CLEAR); Urine Color Yellow (Yellow); Urobilinogen Urine Norm (Negative); pH Urine 8 (5-7)
[2020-04-22 15:20] LABS: Add Urine Culture? Yes; Bacteria Urine 2+ /hpf; WBC Urine 40-55 /hpf (0-5)
[2020-04-22] MEDS: cefTRIAXone 1,000 MG in sodium chloride 0.9% (plus) 50 ML 100 MG IV (17:01)
[2020-04-22] MEDS: metoclopramide 5 mg/mL SDV 2 mL 10 MG IVP (17:01)
[2020-04-22 17:07] LABS: Troponin 5 2HR 39.55 ng/L (0-10)
[2020-04-22 17:23] LABS: Troponin 5 2HR Delta -3.45 ABS# (0-10)
== END 2020-04-22 22:29 ==
PROVIDERS: Physician Assistant; Emergency Provider Family Medicine; PCP Family Medicine
DX: N30.00 Acute cystitis without hematuria (principal); Z79.02 Long term (current) use of antithrombotics/antiplatelets; Z79.4 Long term (current) use of insulin; I25.10 Atherosclerotic heart disease of native coronary artery without angina pectoris; Z87.440 Personal history of urinary (tract) infections; E11.9 Type 2 diabetes mellitus without complications; E78.5 Hyperlipidemia, unspecified; I10 Essential (primary) hypertension
CPT/HCPCS: 12345; 36415; 51702; 71045; 74176; 80053; 81001; 83605; 83690; 84484; 85025; 87040; 87086; 87205; 93005; 96365; 96375; 99284; J0696; J2405; J2765; J7030

== ENCOUNTER 2020-09-22 13:21 | Emergency (ER) | payer OTHER, MEDICAID, MEDICARE, SELFPAY ==
[2020-09-22] VITALS (7 sets, daily range): BP systolic 147–184; BP diastolic 64–86; PULSE 74–90; RESP 18–22; TEMP 37.2; O2SAT 94–99; BMI 46.5
--- NOTE | 2020-09-22 14:10 | CTR_ITS ---
PROCEDURE INFORMATION: Exam: CT Left Lower Extremity With Contrast, Foot Exam date and time: 09/22/2020 3:57 PM Age: 70 years old Clinical indication: Condition or disease; Patient HX: L heel ulcer; Additional info: Chronic heel ulcer ? osteo TECHNIQUE: Imaging protocol: CT of the Left lower extremity with intravenous contrast was performed. Exam focused on the foot. Radiation optimization: All CT scans at this facility use at least one of these dose optimization techniques: automated exposure control; mA and/or kV adjustment per patient size (includes targeted exams where dose is matched to clinical indication); or iterative reconstruction. Contrast material: VISI 320; Contrast volume: 95 ml; Contrast route: INTRAVENOUS (IV); COMPARISON: No relevant prior studies available. RADIATION DOSE METRICS: Total DLP (mGy-cm): 198.69 FINDINGS: Bones/joints: At the medial side of the calcaneus is an approximately 1.7 x 1.6 x 0.7 cm (SAT) cortical erosion. The bones appear demineralized. No fracture or dislocation. The joint spaces are generally maintained. Mild posterior and inferior calcaneal enthesopathy. Soft tissues: Soft tissue wound at the medial side of the calcaneus with a small amount of gas in the tract. An approximately 1.3 cm fluid collection at the bed of the wound adjacent to the calcaneus. CT/CT foot LT w con [id number] IMPRESSION: Soft tissue wound at the medial side of the calcaneus with 1.3 cm fluid collection adjacent to the bone and an area of erosion consistent with acute osteomyelitis. Radiation Dose CTDIVOL = (mGy): DLP = 198.69 (mGy-cm)
--- NOTE | 2020-09-22 15:08 | W.ED.WOUNDLC ---
HPI - Wound/Laceration General: Chief Complaint: Wound/Laceration Stated Complaint: WOUND ON HEEL Time Seen by Provider: 09/22/20 13:31 Source: patient Mode of arrival: EMS Limitations: no limitations History of Present Illness: HPI narrative: Patient is a 70-year-old female with a history of diabetes mellitus who presents to the emergency department with a longstanding wound on her left heel. She states that she first had the wound when she went into a correction for some rehab and they were caring for the wound there. After she was discharged from correction and back to her home her family was helping to take care of the wound. She states that the wound is getting worse and she has associated pain and so is here to be evaluated. She denies any fever or drainage from the wound. Associated symptoms: Denies chills, fever(s), foreign body sensation, inability to move, nausea, numbness, pain, syncope or vomiting Review of Systems General: Reports: 10 or more systems reviewed and unremarkable except in HPI and below Const: Denies: fever(s) or chills Card: Denies: syncope GI: Denies: nausea or vomiting PFSH ED PFSH: Medical History (Updated 09/22/20 @ 18:32 by Anais Gregory MD, [facility]) Ankle syndesmosis disruption Cerebrovascular accident Chronic kidney disease Closed bimalleolar fracture of right ankle Closed trimalleolar fracture of ankle Coronary artery disease COVID-19 Cystitis Depression Diabetes Fracture of distal end of tibia with fibula Heart murmur Hyperlipidemia Hypertension Obesity Restless leg syndrome Surgical History (Reviewed 09/22/20 @ 15:13 by Anais Gregory MD, [facility]) History of cholecystectomy History of hernia repair History of tubal ligation Status post open reduction with internal fixation (ORIF) of fracture of ankle Family History (Reviewed 09/22/20 @ 15:13 by Anais Gregory MD, [facility]) Other Diabetes Social History (Reviewed 09/22/20 @ 15:13 by Anais Gregory MD, [facility]) Smoking and tobacco status: never smoked Alcohol intake: never Household members: other Details: Lives with son and boyfriend Housing: House Physical Exam Const: COMMON NORMALS: no acute distress, average body habitus, patient oriented x3, no limitations, healthy appearing, alert and well nourished HENMT: COMMON NORMALS: normocephalic, atraumatic and moist oral mucous membranes HEAD & SCALP: normocephalic and atraumatic Neck/C-Spine: COMMON NORMALS: no meningeal signs and no JVD Resp: COMMON NORMALS: normal respiratory effort, No retractions, No use of accessory muscles, clear to auscultation bilaterally and percussion normal AUSCULTATION: clear to auscultation bilaterally PERCUSSION: percussion normal Cardio: COMMON NORMALS: no JVD, regular rate, regular rhythm, S1 normal heart sound present, S2 normal heart sound present, No gallops present (Cardio), No clicks present (Cardio), No murmurs present (Cardio), No rub (Cardio) and Peripheral pulses 2+ throughout RATE: regular rate RHYTHM: regular rhythm HEART SOUNDS: S1 normal heart sound present and S2 normal heart sound present PERIPHERAL PULSES: Peripheral pulses 2+ throughout GI: COMMON NORMALS: Normal to inspection, nondistended, normoactive bowel sounds present, Soft to palpation, non-tender, No hepatosplenomegaly present, no masses and no bruits PALPATION: Yes Soft to palpation and Yes No hepatosplenomegaly present Extremity: COMMON NORMALS: normal to inspection, full ROM, capillary refill normal, no calf tenderness and no pedal edema RIGHT LOWER EXTREMITY: Yes foot & digits Right foot and digits: Yes inspection (3 cm wound on the lateral part of her left heel that is malodorous), Yes palpation (Skin around is macerated wound floor is filled with slough) and Yes neurovascular exam (intact) Neuro: COMMON NORMALS: patient oriented x3 SENSORIUM/ORIENTATION: Yes alert MENINGEAL SIGNS: Yes no meningeal signs Skin: COMMON NORMALS: no rashes or lesions noted, no wounds, turgor normal, no jaundice, no petechiae and no mottling GENERAL SKIN EXAM: no rashes or lesions noted and turgor normal Course Consultations: Consultation #1: Discussed this patient with Dr. Watson, hospitalist. He advised that if we are unable to get a surgeon locally that will take this patient to the OR then he cannot accept the patient. Time: 17:38 Consultation #2: Discussed the patient with Dr. Subramanian, ritual circumciser. He is out of town this weekend and will be unable to see the patient while he is in the hospital. Time: 17:42 Consultation #3: Discussed the patient with Dr. Wills, hospitalist at [facility] in [place] and he kindly accepted patient to his service. The single line referral nurse had spoken with the ritual circumciser who will care for the patient while he is in the hospital. Time: 18:26 Vital Signs: Vital signs: Vital Signs Temperature 98.9 F 09/22/20 13:23 Pulse Rate 90 09/22/20 20:57 Respiratory Rate 18 09/22/20 20:57 Blood Pressure 153/71 09/22/20 20:57 Pulse Oximetry 98 09/22/20 20:57 MDM - Wound/Laceration MDM Narrative: Medical decision making narrative: 70-year-old female with a history of diabetes mellitus who has had a left foot ulcer for some time although I am unable to determine how long she has had the ulcer. She was previously at the halfway facility but was eventually discharged home. She has been receiving wound care at home but the wound is not healing. On evaluation in the emergency department there were concerns for osteomyelitis of her left heel so a CT scan was done which was suggestive of osteomyelitis of her left calcaneus. I discussed with the orthopedic surgeon on-call Dr. Crump and he said that he does not do with diabetic feet and ulcers. I then called the ritual circumciser but he is not on-call and he is out of town. Because of this the hospitalist declined to accept the patient and she was eventually transferred to [facility] in [place]. Medical Records: Attestation: I reviewed the patient's medical records. Lab Data: Attestation: I reviewed the patient's lab results. Labs: Lab Results 09/22/20 09/22/20 09/22/20 Range/Units 15:35 15:35 15:35 WBC 14.7 H (4.0-10.0) 10^3/ uL RBC 3.62 L (4.1-5.3) 10^6/u L Hgb 10.6 L (11.5-15.3) g/dL Hct 33.8 L (37.0-47.0) % MCV 93.4 (81-99) fL MCH 29.3 (28.0-34.0) pg MCHC 31.4 (30.0-36.0) g/dL RDW 12.8 (12.1-15.1) % Plt Count 368 (130-400) 10^3/c mm MPV 10.5 H (7.4-10.4) fL Neut % (Auto) 59.6 % Lymph % (Auto) 29.6 % [place] % (Auto) 6.5 % Eos % (Auto) 3.3 % Baso % (Auto) 0.5 % Neut # (Auto) 8.73 H (1.8-7.7) 10^3/u L Lymph # (Auto) 4.3 (0.8-4.8) 10^3/u L [place] # (Auto) 1.0 H (0.2-0.9) 10^3/u L Eos # (Auto) 0.5 (0.0-0.8) 10^3/u L Baso # (Auto) 0.1 (0.0-0.1) 10^3/u L Nucleated RBC % (a uto) 0 % Nucleated RBCs # 0.0 /100WBC ESR 99 H (0-15) mm/hr Sodium 135 L (136-145) mmol/L Potassium 4.8 (3.5-5.1) mmol/L Chloride 103 (98-107) mmol/L Carbon Dioxide 23 (22-29) mmol/L Anion Gap 13.8 (5-19) BUN 25 H (8-23) mg/dL Creatinine 1.1 H (0.5-0.9) mg/dL GFR Calculation 49.1 L (90-130) mL/min Glucose 181 H (65-115) mg/dL Calculated Osmolal ity 289 (285-295) mOsm/k g Lactate (0.5-2.2) mmol/L Calcium 8.4 L (8.5-10.5) mg/dL Total Bilirubin 0.2 (0.15-1.2) mg/dL AST 6 (0-32) U/L ALT < 5 (0-33) U/L Alkaline Phosphata se 119 H (35-105) IU/L C-Reactive Protein 55.8 H (0.0-4.9) mg/L Total Protein 7.2 (6.6-8.7) g/dL Albumin 2.4 L (3.5-5.2) g/dL Globulin 4.8 H (1.3-4.6) g/dL 09/22/20 Range/Units 15:35 WBC (4.0-10.0) 10^3/ uL RBC (4.1-5.3) 10^6/u L Hgb (11.5-15.3) g/dL Hct (37.0-47.0) % MCV (81-99) fL MCH (28.0-34.0) pg MCHC (30.0-36.0) g/dL RDW (12.1-15.1) % Plt Count (130-400) 10^3/c mm MPV (7.4-10.4) fL Neut % (Auto) % Lymph % (Auto) % [place] % (Auto) % Eos % (Auto) % Baso % (Auto) % Neut # (Auto) (1.8-7.7) 10^3/u L Lymph # (Auto) (0.8-4.8) 10^3/u L [place] # (Auto) (0.2-0.9) 10^3/u L Eos # (Auto) (0.0-0.8) 10^3/u L Baso # (Auto) (0.0-0.1) 10^3/u L Nucleated RBC % (a uto) % Nucleated RBCs # /100WBC ESR (0-15) mm/hr Sodium (136-145) mmol/L Potassium (3.5-5.1) mmol/L Chloride (98-107) mmol/L Carbon Dioxide (22-29) mmol/L Anion Gap (5-19) BUN (8-23) mg/dL Creatinine (0.5-0.9) mg/dL GFR Calculation (90-130) mL/min Glucose (65-115) mg/dL Calculated Osmolal ity (285-295) mOsm/k g Lactate 0.8 (0.5-2.2) mmol/L Calcium (8.5-10.5) mg/dL Total Bilirubin (0.15-1.2) mg/dL AST (0-32) U/L ALT (0-33) U/L Alkaline Phosphata se (35-105) IU/L C-Reactive Protein (0.0-4.9) mg/L Total Protein (6.6-8.7) g/dL Albumin (3.5-5.2) g/dL Globulin (1.3-4.6) g/dL Imaging Data^: Other CT: Attestation: I personally reviewed and interpreted this imaging study as follows: Radiologist's impression: [facility] [address] [place] [address] CT Scan Report Signed Patient: Lynnette Ferreira #: [id number] : 1950Acct#:[id number] Age/Sex: 70 / FADM Date: 09/22/20 Loc: ERRoom/Bed: Attending Dr: Ordering Provider/Ordering MD: Anais Gregory MD, [facility] Date of Service: 09/22/20 Procedure(s): CT foot LT w con [id number] Accession Number(s): [id number] Report Number: [id number] PROCEDURE INFORMATION: Exam: CT Left Lower Extremity With Contrast, Foot Exam date and time: 09/22/2020 3:57 PM Age: 70 years old Clinical indication: Condition or disease; Patient HX: L heel ulcer; Additional info: Chronic heel ulcer ? osteo TECHNIQUE: Imaging protocol: CT of the Left lower extremity with intravenous contrast was performed. Exam focused on the foot. Radiation optimization: All CT scans at this facility use at least one of these dose optimization techniques: automated exposure control; mA and/or kV adjustment per patient size (includes targeted exams where dose is matched to clinical indication); or iterative reconstruction. Contrast material: VISI 320; Contrast volume: 95 ml; Contrast route: INTRAVENOUS (IV); COMPARISON: No relevant prior studies available. RADIATION DOSE METRICS: Total DLP (mGy-cm): 198.69 FINDINGS: Bones/joints: At the medial side of the calcaneus is an approximately 1.7 x 1.6 x 0.7 cm (SAT) cortical erosion. The bones appear demineralized. No fracture or dislocation. The joint spaces are generally maintained. Mild posterior and inferior calcaneal enthesopathy. Soft tissues: Soft tissue wound at the medial side of the calcaneus with a small amount of gas in the tract. An approximately 1.3 cm fluid collection at the bed of the wound adjacent to the calcaneus. CT/CT foot LT w con [id number] IMPRESSION: Soft tissue wound at the medial side of the calcaneus with 1.3 cm fluid collection adjacent to the bone and an area of erosion consistent with acute osteomyelitis. Radiation Dose CTDIVOL = (mGy): DLP = 198.69 (mGy-cm) Dictated By:Juan Alberto Vann Signed By:Juan Alberto VannSigntanya Date/Time:09/22/201701 DD/ 00 Discharge Plan Discharge Patient Disposition: Xfer Short-Term Hosp Clinical Impression: Osteomyelitis of ankle or foot, acute Qualifiers: Laterality: left Qualified Code(s): M86.172 - Other acute osteomyelitis, left ankle and foot Diabetic ulcer of foot associated with diabetes mellitus due to underlying condition, limited to breakdown of skin Qualifiers: Diabetic foot ulcer location: heel Laterality: left Qualified Code(s): E08.621 - Diabetes mellitus due to underlying condition with foot ulcer Condition: Stable Discharge Orders: Transfer Out of Facility (Order); Ordered 09/22/20 Ordered By: Anais Gregory Referrals: Juan José Humphery [Primary Care Provider] - Coding Level of Care Code ED [employer]visor [employer] for Chg Fwd Exam Comprehensive
[2020-09-22 15:49] LABS: Basophils # 0.1 10^3/uL (0.0-0.1); Basophils % 0.5 %; Eosinophils # 0.5 10^3/uL (0.0-0.8); Eosinophils % 3.3 %; Hematocrit 33.8 % (37.0-47.0); Hemoglobin 10.6 g/dL (11.5-15.3); Lymphocytes # 4.3 10^3/uL (0.8-4.8); Lymphocytes % 29.6 %; Mean Corpuscular HGB Conc 31.4 g/dL (30.0-36.0); Mean Corpuscular Hemoglobin 29.3 pg (28.0-34.0); Mean Corpuscular Volume 93.4 fL (81-99); Mean Platelet Volume 10.5 fL (7.4-10.4); Monocytes % 6.5 %; Neutrophils # 8.73 10^3/uL (1.8-7.7); Neutrophils % 59.6 %; Nucleated Red Blood Cells % 0 %; Platelet Count 368 10^3/cmm (130-400); Red Blood Count 3.62 10^6/uL (4.1-5.3); Red Cell Distribution Width 12.8 % (12.1-15.1); White Blood Count 14.7 10^3/uL (4.0-10.0)
[2020-09-22 16:10] LABS: Alanine Aminotransferase < 5 U/L (0-33); Albumin Level 2.4 g/dL (3.5-5.2); Alkaline Phosphatase 119 IU/L (35-105); Anion Gap 13.8 (5-19); Aspartate Amino Transferase 6 U/L (0-32); Blood Urea Nitrogen 25 mg/dL (8-23); C Reactive Protein 55.8 mg/L (0.0-4.9); Calcium 8.4 mg/dL (8.5-10.5); Carbon Dioxide 23 mmol/L (22-29); Chloride 103 mmol/L (98-107); Globulin 4.8 g/dL (1.3-4.6); Glomerular Filtration Rate 49.1 mL/min (90-130); Glucose 181 mg/dL (65-115); Osmolality Calculated 289 mOsm/kg (285-295); Potassium 4.8 mmol/L (3.5-5.1); Sodium 135 mmol/L (136-145); Total Bilirubin 0.2 mg/dL (0.15-1.2); Total Protein 7.2 g/dL (6.6-8.7)
[2020-09-22 16:11] LABS: Lactate (Lactic Acid level) 0.8 mmol/L (0.5-2.2)
[2020-09-22 16:34] LABS: Erythrocyte Sedimentation Rate 99 mm/hr (0-15)
[2020-09-22] MEDS: iodixanol 320 mg/mL 100mL Btl IV (16:45)
[2020-09-22] MEDS: vancomycin 1,500 MG/300 ML PIGGYBACK 200 MG IV (17:37)
[2020-09-23 00:12] VITALS: BP 163/94; PULSE 84; RESP 18; O2SAT 98
== END 2020-09-22 23:30 | disposition short-term general hospital (02) ==
PROVIDERS: Emergency Provider Family Medicine; PCP Family Medicine
DX: E08.621 Diabetes mellitus due to underlying condition with foot ulcer (principal); M86.172 Other acute osteomyelitis, left ankle and foot; I25.10 Atherosclerotic heart disease of native coronary artery without angina pectoris; E78.5 Hyperlipidemia, unspecified; I10 Essential (primary) hypertension; Z86.73 Personal history of transient ischemic attack (TIA), and cerebral infarction without residual deficits
CPT/HCPCS: 51702; 73701; 80053; 83605; 85025; 85651; 86140; 96365; 96366; 99285; J3370; Q9967